=== PATIENT | female | born 1925 | race African-American/Black ===

== ENCOUNTER 2016-11-13 17:04 | Inpatient (IN) ==
[2016-11-13 17:48] LABS: Basophils # 0.1 10*3/uL (0.0-0.2); Basophils % 0.7 % (0.0-0.8); Eosinophils # 0.3 10*3/uL (0.0-0.87); Eosinophils % 2.5 % (0.00-10.9); Hematocrit 36.5 VOL% (35.7-47.0); Hemoglobin 12.2 GM/DL (12.0-16.0); Immature Granulocytes % 0.7 %; Immature Granulocytes Absolute 0.07 #; Lymphocytes # 2.2 10*3/uL (1.4-4.0); Lymphocytes % 21.8 % (21.3-54.2); Mean Corpuscular HGB Conc 33.4 GM/DL (32-36); Mean Corpuscular Hemoglobin 32 PG (27-34); Mean Corpuscular Volume 94.3 FL (87-102); Mean Platelet Volume 10.3 FL (9.6-12.0); Monocytes # 0.7 10*3/uL (0.11-0.8); Monocytes % 7.5 % (1.7-12.7); Neutrophils # 6.6 10*3/uL (1.4-7.4); Neutrophils % 66.8 % (38.7-73.9); Platelet Count 166 T/CUMM (130-400); Red Blood Count 3.87 MC/CUMM (3.8-5.5); Red Cell Distribution Width 13.7 % (9.3-17.3); White Blood Count 9.9 T/CUMM (4-12)
[2016-11-13 18:00] LABS: Amorphous Crystals,Urine Occasional /HPF (Few); Apearance,Urine Slightly Hazy (Clear); Bacteria,Urine Occasional /HPF (Few); Bilirubin,Urine Negative (Negative); Blood, Urine Negative (Negative); Glucose,Urine (UA) Negative (Negative); Hyaline Casts,Urine 5 /LPF (0-3); Ketones,Urine Negative (Negative); Mucus,Urine Occasional /LPF (Occasional); Nitrite,Urine Negative (Negative); Protein,Urine Negative; RBC,Urine <1 /HPF (0-4); Urine Color Yellow (Yellow); Urine Urobilinogen < 2.0 EU/DL (0.2-1.0); WBC,Urine 2 /HPF (0-6)
[2016-11-13 18:07] LABS: Lactic Acid 1.2 MMOL/L (0.4-2.0)
[2016-11-13 18:27] LABS: Blood Urea Nitrogen 16 MG/DL (7-18); Calcium 9.2 MG/DL (8.5-10.1); Glucose 148 MG/DL (74-106); Osmolality,Calculated 282.4 MOS/KG (273-304); Potassium 3.5 MMOL/L (3.5-5.1); Sodium 140 MMOL/L (136-145); Troponin I Only < 0.015 NG/ML (0.00-0.045)
[2016-11-13] MEDS ORDERED: ONDANSETRON 4 MG/2 ML VIAL ONE (18:56)
--- NOTE | 2016-11-13 19:02 | Emergency Department Note ---
Ruperto Mitchell Brittany, am scribing for, and in the presence of, Nacho Enriquez M.D. 17:46. Mina Mitchell Howard T, M.D., personally performed the services described in this documentation, ascribed by Sally Hickey in my presence, and it is both accurate and complete 822 . Arrival - Arrival Chief Complaint: Nausea/Vomiting/Diarrhea ED Nursing Triage Note: Pt brought by EMS from home with c/o sudden onset of nausea and diarrhea with diaphoresis. pt found on the toilet by EMS diaphoretic with HR IN 30'S. 0.5MG ATROPINE given per EMS with increase in HR to 60's. pt c/ o pain to epigastric. 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 Daughter reports that she and patient had dinner as they normally do every evening. She states afterwards patient went to the bathroom with sudden onset of N/V/D. She went in to check on patient and found her on the toilet, diaphoretic and cool. EMS were called thereafter. Upon EMS arrival patient was still diaphoretic with a heart rate in the 30's. Patient was given 0.5 mg Atropine en route to the ED per EMS and had an increase in heart rate to the 60's. In room patient is bradycardic at a rate of 47 bpm. Patient in room complains of epigastric abdominal pain and generalized weakness. She denies having any nausea at current. Daughter reports that patient has had similar episodes of nausea and vomiting in the past, but not this severe. 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 Vergara for this. Daughter reports that just after dinner patient took her normal dose of potassium. Daughter appears to be very fearful about her patient's current condition. No other complaint/pain in the ED at this time. Allergies/Adverse Reactions: Allergies Allergy/AdvReac Type Severity Reaction Status Date / Time losartan Allergy Unknown/Unable Verified 11/13/16 17:20 to obtain Review of System - Review of System 12 point system: reviewed and no additional remarkable complaints except as stated - Review of System Constitutional: Present: chills, diaphoresis, weakness. Absent: fever Eyes: Absent: vision change Head/Ears/Nose/Throat: Absent: nasal drainage, sore throat Respiratory: Absent: respiratory distress Cardiovascular: Absent: chest pain Gastrointestinal: Present: as per HPI, abdominal pain, nausea, vomiting, diarrhea. Absent: constipation Genitourinary female: Absent: dysuria, frequency, urgency Musculoskeletal: Absent: arm pain, back pain, leg pain, neck pain Skin: Absent: rash Neurological: Absent: headache Psychiatric: Absent: anxiety, depression Hematological/Lymphatic: Absent: easy bleeding, easy bruising Medical,Surgical,& Family Hx - Medical History Cardio: History of: Hypertension, Cardiovascular Problems (MURMUR) Endocrine: History of: Diabetes Mellitus (NIDDM) - Surgical History Surgical History: noncontributory - Family History Family History: noncontributory - Social History Smoking Status: Never smoker Frequency of Alcohol Use: None Type of Drug Use: None Exam Vital Signs: Vital Signs Temperature 97.4 F L 11/13/16 17:04 Pulse Rate 50 L 11/13/16 17:46 Respiratory Rate 19 11/13/16 17:46 Blood Pressure 167/72 11/13/16 17:46 O2 Sat by Pulse Oximetry 94 L 11/13/16 17:46 - General General appearance: alert, in no apparent distress - Head Head exam: Present: atraumatic, normocephalic, normal inspection - Eye Eye exam: Present: normal appearance, PERRL, EOMI - ENT ENT exam: Present: normal exam, normal oropharynx, mucous membranes moist - Neck Neck exam: Present: normal inspection, full ROM, trachea midline - Chest Chest inspection: Present: normal inspection, symmetric chest wall rise - Respiratory Respiratory exam: Present: normal lung sounds bilaterally. Absent: rales, rhonchi, wheezes - Cardiovascular Cardiovascular exam: Present: normal rhythm, bradycardia, normal heart sounds. Absent: regular rate - Abdominal Exam Abdominal exam: Present: soft, normal bowel sounds. Absent: distention, tenderness - Extremities Exam Extremities exam: Present: full ROM. Absent: normal inspection (decreased distal pulse noted to LLE most likely secondary to history of arterial blockages ) - Back Exam Back exam: Present: normal inspection - Neurological Exam Neurological exam: Present: alert, oriented X3, CN II-XII intact. Absent: motor sensory deficit - Psychiatric Psychiatric exam: Present: normal affect - Skin Skin exam: Present: warm, dry Course Course Narrative: Medical decision making: Other than some mild nausea and fatigue patient feels comfortable without significant complaints, evaluation so far does not reveal definite acute process however did contact hospitalist for overnight observation and cardiology evaluation as needed. Results - Labs CBC & BMP: 11/13/16 17:40 11/13/16 17:40 Lab Results: I have reviewed the patients labs Labs: Laboratory Tests 11/13/16 17:40 WBC 9.9 RBC 3.87 Hgb 12.2 Hct 36.5 MCV 94.3 MCH 32 MCHC 33.4 RDW 13.7 Plt Count 166 MPV 10.3 Neut % (Auto) 66.8 Lymph % (Auto) 21.8 [place] % (Auto) 7.5 Eos % (Auto) 2.5 Baso % (Auto) 0.7 Neut # (Auto) 6.6 Lymph # (Auto) 2.2 [place] # (Auto) 0.7 Eos # (Auto) 0.3 Baso # (Auto) 0.1 Immature Gran % 0.7 Nucleated RBC % 0.0 Immature Gran # 0.07 Nucleated RBCs # 0.00 Laboratory Tests 11/13/16 11/13/16 17:40 17:48 Lactic Acid 1.2 Urine Color Yellow Urine Appearance Slightly hazy Urine pH 8.0 Ur Specific [place] 1.010 Urine Protein Negative Urine Glucose (UA) Negative Urine Ketones Negative Urine Blood Negative Urine Nitrate Negative Urine Bilirubin Negative Urine Urobilinogen < 2.0 H Urine Leukocytes Negative Urine RBC <1 Urine WBC 2 Amorphous Crystals Occasional Urine Bacteria Occasional Hyaline Casts 5 Urine Mucus Occasional Laboratory Tests 11/13/16 17:40 Sodium 140 Potassium 3.5 Chloride 106 Carbon Dioxide 25 Anion Gap 12.5 BUN 16 Creatinine 1.00 GFR Calculation 59 BUN/Creatinine Ratio 16.00 Glucose 148 H Calculated Osmolality 282.4 Lactic Acid 1.2 Calcium 9.2 Magnesium 2.0 Troponin I < 0.015 - EKG EKG results: interpreted by ERMD, sinus rhythm, normal axis, normal QRS, normal ST/T EKG shows: bradycardia (HR 48) Disposition Clinical Impression: Bradycardia, Nausea & vomiting, Diarrhea Case discussed with: patient, patient's family Disposition: Disch/Xfer-Ipshort Term Hos Condition: Stable Time of Disposition: 19:01
[2016-11-13] MEDS ORDERED: ONDANSETRON 4 MG/2 ML VIAL IV STA (19:06)
[2016-11-13] MEDS ORDERED: PANTOPRAZOLE 40 MG VIAL IV STA (19:37)
--- NOTE | 2016-11-13 19:57 | Hospitalist History & Physical ---
Assessment and Plan (1) Bradycardia Status: Acute Assessment and plan: Admitted patient to a monitored bed with telemetry over the next 24 hours. Will run serial troponins every 4 hours 3 if nothing is happening the patient will be discharged tomorrow however strongly recommended she be seen by her primary care physician after discharge in the coming week. This patient needs to have a cardiology evaluation as an outpatient if nothing else is happening now. History of PAD which is strong indication that there may be coronary artery disease. Current Visit: Yes (2) Diarrhea Status: Acute Assessment and plan: Observe at this point given. In the emergency room this is not appearing to be probably a minimal Current Visit: Yes (3) Nausea & vomiting Status: Acute Assessment and plan: Given antiemetics using Zofran 4 mg IV every 4 hours as needed. Keep with the patient on clear liquid diet. Patient will also be put on Protonix. There is no suggestion of bleeding at this point. Patient can have gastroenterology evaluation as an outpatient to her primary care physician's office. I have reviewed her home medications. This will be resumed. None of them could cause bradycardia. She is also using medication for glaucoma denies any eye pain or headaches at this point. Time for evaluation chart review and decision-making was 35 minutes Current Visit: Yes History of Present Illness Chief complaint: Nausea, vomiting, diaphoresis and generalized weakness History of present illness: Case of this patient has been discussed with the emergency room physician and and all information below has been verified with both the physician and patient's daughter. Ms. 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 Daughter reports that she and patient had dinner as they normally do every evening. She states afterwards patient went to the bathroom with sudden onset of N/V/D. She went in to check on patient and found her on the toilet, diaphoretic and cool. EMS were called thereafter. Upon EMS arrival patient was still diaphoretic with a heart rate in the 30's. Patient was given 0.5 mg Atropine en route to the ED per EMS and had an increase in heart rate to the 60's. In room patient is in normal sinus rhythm at about 61 beats a minute during my assessment. She denies chest pain but complaining of epigastric abdominal pain and generalized weakness. She denies having any nausea at current. Daughter reports that patient has had similar episodes of nausea and vomiting in the past, but not this severe. 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 Vergara for this. According to daughter she has not had any cardiology evaluation. Daughter reports that just after dinner patient took her normal dose of potassium. 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 Allergies Allergy/AdvReac Type Severity Reaction Status Date / Time losartan Allergy Unknown/Unable Verified 11/13/16 17:20 to obtain Medical,Surgical,& Family Hx - Medical History Cardio: History of: Hypertension, PVD, Cardiovascular Problems (MURMUR) Endocrine: History of: Diabetes Mellitus (NIDDM) - Social History Smoking Status: Never smoker Frequency of Alcohol Use: None Type of Drug Use: None - Constitutional Constitutional: Present: fatigue - Cardiovascular Cardiovascular: Present: diaphoresis, other (Bradycardia that has responded to atropine no chest pain reported) - Respiratory Respiratory: Present: other (Unlabored breathing is no signs of air hunger) - Gastrointestinal Gastrointestinal: Present: abdominal pain, loose stools, nausea, vomiting - Genitourinary Genitourinary: Present: other - Neurological Neurological: Present: other (Awake alert oriented 3) Exam - Constitutional Vitals: Period Temp Pulse Resp BP Sys/Guerin Pulse Ox Last 24 Hr 97.4 F-97.4 F 45-59 16-22 162-176/68-74 93-99 General appearance: normal weight - Head Head exam: Present: normocephalic, atraumatic - Eye Eye exam: Present: EOMI, other (Anicteric sclera no conjunctival petechiae) Pupils: Present: TRINIDAD - ENT ENT exam: Present: normal exam - Neck Neck exam: Present: other (Supple neck midline trachea no JVD no adenopathy) - Respiratory Respiratory exam: Present: clear to auscultation bilaterally - Cardiovascular Cardiovascular exam: Present: other (Current heart rate is about 62 beats a minute sinus control but patient reportedly was bradycardic when symptoms started to about 40s per minute EKG has been reviewed his QT prolongation bradycardia occasional APCs no ST elevation or ST depression) - GI/Abdominal GI/Abdominal exam: Present: other (Epigastric discomfort to palpation) - Extremities Exam Extremities exam: Present: other (Distal legs are cool to touch very poor pulses at the posterior tibial and dorsalis pedis) - Back Exam Back exam: Present: normal inspection - Neurological Exam Neurological exam: Present: alert, oriented X3, CN II-XII intact - Psychiatric Psychiatric exam: Present: normal affect, other (Subdued mood) - Skin Skin exam: Present: normal color, dry Results - Labs CBC & BMP: 11/13/16 17:40 11/13/16 17:40 Lab Results: I have reviewed the past 24 hour labs
[2016-11-13] MEDS ORDERED: PANTOPRAZOLE 40 MG VIAL IV ONE (20:24)
[2016-11-13 23:44] LABS: Troponin I Only < 0.015 NG/ML (0.00-0.045)
--- NOTE | 2016-11-14 01:32 | Event Note ---
Emergency call to room 537: Patient's nurse called me to inform me that the patient had a large bloody bowel movement. This patient was admitted area today because while at home she was in the bathroom developed diarrhea and was nauseous and vomiting and complaining of pain in the epigastric area. So will develop significant bradycardia with normal blood pressures. She is complaining of fatigue. She was admitted here this evening because of need to be monitored as regard to her bradycardia that was symptomatic. So happened that while on the floor she had a bowel movement as described above patient did have definite is bleeding in the bowel. Her heart rate now is in the 40s but blood pressure is 159/72. She is able to talk to me but looks sleepy. Examination: General: is arousable awake and able to talk to me. Looks rather sleepy HEENT: Symmetric faces anicteric sclera no conjunctival petechiae Neck: Supple midline trachea no adenopathy no tenderness no JVD Heart: Bradycardia to mid 40s regular rhythm blood pressure is optimal Lungs: Clear to auscultation no rales no wheezing no labored breathing Abdomen: Tender in the epigastrium positive bowel sounds slightly hyperactive Musculoskeletal: Moves freely generalized weakness no focal neurologic deficits Neurologic: Alert oriented 3 optimal cognitive output looks sleepy however. Skin: Warm dry normal turgor Labs ordered include stat H&H then every 12 hours. Type and hold 2 units of packed red cells. Other orders include SCDs for DVT precaution. Protonix 40 mg now IV and then every 12 hours. Transfer the patient to ICU. Consult GI for GI bleed and consult cardiology for bradycardia. We need to put as cutaneous pacing pads only just in case we needed. Consulted physician will have to be informed now. Patient is being admitted to inpatient for me on (she was observation before).
[2016-11-14] MEDS: PANTOPRAZOLE INJ 200 MG in SODIUM CHLORIDE 0.9% 250 ML IV SCH (01:41)
[2016-11-14] MEDS ORDERED: cloNIDine 0.2 MG/24 HR PATCH TRANSDERM SCH (02:00)
[2016-11-14 02:01] LABS: Hematocrit 40.8 VOL% (35.7-47.0); Hemoglobin 13.8 GM/DL (12.0-16.0)
[2016-11-14 02:25] LABS: Troponin I Only < 0.015 NG/ML (0.00-0.045)
[2016-11-14] MEDS: HYDROmorphone 2 MG/1 ML VIAL IV PRN ×3 (05:09→20:25)
[2016-11-14 06:15] LABS: Troponin I Only 0.026 NG/ML (0.00-0.045)
--- NOTE | 2016-11-14 07:56 | Cardiology Consult Note ---
Assessment and Plan (1) PAC (premature atrial contraction) Status: Acute Assessment and plan: Will monitor the patient. Recheck her potassium as well as her thyroid function. Current Visit: Yes (2) Bradycardia Status: Acute Assessment and plan: She has a baseline slow bradycardia. Her PACs or nonconducted exacerbation ventricular bradycardia. We'll evaluate etiology of this. Clonidine though should not be given since this can exacerbate bradycardia. Current Visit: Yes (3) Nausea & vomiting Status: Acute Assessment and plan: This is to be better. She is being followed by the primary service. Current Visit: Yes (4) Diarrhea Status: Acute Assessment and plan: This is being followed by the primary service. Current Visit: Yes (5) Hypertension, uncontrolled Status: Acute Assessment and plan: Duration of her hypertension is unknown. Need to manage this. She is allergic to losartan. Current Visit: Yes History of Present Illness - Data of Consult Patient: new to practice Consult date: 11/14/16 Requesting Physician: Charlie Farah - Consult Narrative Reason for consult: bradycardia History of present illness: Ms. Webster is a 89 year old female who was admitted through the emergency room yesterday with what sounds to be GI complaints of nausea vomiting diarrhea. The patient is a poor historian and her daughters not present to give us some history. 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 She indicates that time she was having shortness of breath may be some chest discomfort but this is not clear. Since admission she continues to have a sinus bradycardia with frequent PACs are not conducted and gives her an effect of slow ventricular response. Her cardiac enzymes of been unremarkable and normal. Her ECG as noted reveals sinus rhythm some bradycardia but no acute ischemic changes. The chart does indicate that she has lower extremity arterial insufficiency followed by Dr. Vergara. I don't see a chest x-ray on the chart. Her lab work is fairly unremarkable with normal CBC. Her chemistry unremarkable with a potassium borderline at 3.5. There is no TSH. As noted her cardiac enzymes are unremarkable. Urinalysis without specific abnormality. No chest x-rays noted in the chart. CC: Arabella Augustine MD - Home Medications and Allergies Home Medications: Home Medications Medication Instructions Recorded Confirmed Type Aspirin [Aspirin EC] 81 mg PO DAILY 11/13/16 11/13/16 History Atorvastatin [Lipitor] 10 mg PO QOTHER DAY 11/13/16 11/13/16 History Carboxymethylcellulose Sodium 1 drops BOTH EYES DAILY 11/13/16 11/13/16 History [Refresh Liquigel] Cholecalciferol (Vitamin D3) 1,000 units PO DAILY 11/13/16 11/13/16 History [Vitamin D3] Dorzolamide/Timolol Oph Soln 1 drop BOTH EYES DAILY 11/13/16 11/13/16 History [Cosopt] NIFEdipine [Nifedipine ER] 60 mg PO DAILY 11/13/16 11/13/16 History Potassium Chloride 20 meq PO DAILY 11/13/16 11/13/16 History Allergies/Adverse Reactions: Allergies Allergy/AdvReac Type Severity Reaction Status Date / Time losartan Allergy Unknown/Unable Verified 11/13/16 17:20 to obtain Review of systems: Constitutional: This is very limited secondary to patient being a poor historian. Complaining of feeling very weak recently. Eyes: Denies visual changes or loss of vision Ears: Denies decreased hearing, vertigo Nose, mouth and throat: Denies dysphagia, epistaxis, headaches, neck pain, tongue swelling, Neck: Denies thyroid disease. Cardiovascular: as per HPI Respiratory: Denies hemoptysis, gives a history of having previous dyspnea on exertion Gastrointestinal: Admitted with nausea vomiting diarrhea. Genitourinary: Denies dysuria, hematuria, nocturia Musculoskeletal: Some arthritis. Neurological: denies stroke or syncope Psychiatric: Unclear Endocrine: Unclear Hematologic/Lymphatic: Denies easy bleeding Dermatologic: Denies Rash, itching, shingles Medical,Surgical,& Family Hx - Medical History Cardio: History of: Hypertension, PVD, Cardiovascular Problems (MURMUR) Endocrine: History of: Diabetes Mellitus (NIDDM) - Family History Family History: Reports;: Family Diabetes (son) - Social History Smoking Status: Never smoker Frequency of Alcohol Use: None Type of Drug Use: None Marital Status: Single (daughter) Lives With:: Children Physical Examination Vital Signs Temp Pulse Resp BP Pulse Ox 97.4 F L 45 L 16 162/70 93 L 11/13/16 17:04 11/13/16 17:04 11/13/16 17:04 11/13/16 17:04 11/13/16 17:04 Other: General appearance: Elderly female who is a poor historian but in no acute distress Head exam: normal inspection, atraumatic Eye exam: Pupils are equal and reactive. EOMI. There is no trauma. Ear exam: Anatomically normal. Normal auditory acuity to conversation. Oral exam: No significant oral lesions. Neck exam: normal inspection no JVD. No carotid bruit. Trachea is in midline. Respiratory exam: clear to auscultation bilaterally anteriorly with good air movement. No rales, rhonchi or wheezes. Cardiovascular exam: Irregular rate and rhythm, no murmur or gallop or rub. No precordial lift. No bruits over the major arteries. Chest wall/torso: Anatomically normal. No tenderness, deformity Peripheral Pulses: 2+ radial pulses in severely diminished foot pulses. GI/Abdominal exam: normal bowel sounds, soft and nontender, no abdominal bruits or pulsatile masses. Musculoskeletal/Extremities exam: without edema or cyanosis. No deformities or trauma. Neurological exam: Awake and alert. Poor historian Psychiatric exam: normal affect, normal mood. Poor historian. Skin exam: normal color, warm. No rashes or other skin lesions. Result/EKG - Labs CBC & BMP: 11/14/16 01:53 11/13/16 17:40 Lab Results: I have reviewed the past 24 hour labs Labs: Laboratory Results - last 24 hr 11/13/16 11/13/16 11/14/16 21:57 22:41 01:53 Hgb Hct POC Glucose 143 H Total Creatine Kinase 113 75 D CK-MB (CK-2) 1.4 1.1 Troponin I < 0.015 < 0.015 Blood Type Antibody Screen 11/14/16 11/14/16 11/14/16 01:53 01:53 05:25 Hgb 13.8 Hct 40.8 POC Glucose Total Creatine Kinase 64 CK-MB (CK-2) 1.3 Troponin I 0.026 Blood Type A POSITIVE Antibody Screen Negative - Impressions Impressions: ECG with sinus bradycardia dating 11/12/2016. The patient on telemetry having frequent PACs motion which are nonconducted with a slow effective ventricular response in the 30s.
--- NOTE | 2016-11-14 08:36 | XRay Report ---
Exam: XR chest 1V portable Date: 11/14/2016 8:06 AM Indication: Bradycardia Comparison: None Technical: AP portable Findings: Oxygen tubing and external cardiac leads and cardiac pad are present. The heart is mildly prominent. No obvious infiltrate or effusion. Mediastinum and bony structures are otherwise intact. Impression: 1. Mild cardiomegaly without decompensation with underlying ASVD. PROCEDURE INTERPRETED AT [facility] DEPARTMENT OF RADIOLOGY Final Report Signed by: Dr. León Hill
[2016-11-14] MEDS: amLODIPine 5 MG TABLET PO SCH (08:39)
[2016-11-14 09:15] LABS: Albumin 3.5 G/DL (3.4-5.0); Calcium 9.1 MG/DL (8.5-10.1); Osmolality,Calculated 284.1 MOS/KG (273-304); Phosphorous 4.7 MG/DL (2.5-4.9); Potassium 3.3 MMOL/L (3.5-5.1)
[2016-11-14 09:19] LABS: Free T4 (Free Thyroxine) 1.27 NG/DL (0.76-1.46); Thyroid Stimulating Hormone 1.05 uIU/ml (0.358-3.74)
--- NOTE | 2016-11-14 09:35 | Event Note ---
Discussed with the daughter who is patient's history. Apparently she did see someone in [place]. The have those records but do not have them available here. We will try to get outside records from Dr. Dixon as well as [facility]. Will also probably need the records that she has on her mother. She will try to bring those.
--- NOTE | 2016-11-14 09:36 | Hospitalist Progress Note ---
Assessment and Plan (1) Bradycardia Status: Acute Current Visit: Yes (2) Nausea & vomiting Status: Acute Current Visit: Yes (3) Diarrhea Status: Acute Current Visit: Yes (4) PAC (premature atrial contraction) Status: Acute Current Visit: Yes (5) Hypertension, uncontrolled Status: Acute Current Visit: Yes Hospitalist: Subjective Interval history: Overnight patient with episode of bloody diarrhea as well as bradycardia. Cardiology assisting. Started on hydralazine and amlodipine for blood pressure control. Patient reports that she feels better this morning, no nausea currently. GI consulted for blood diarrhea. H/H stable, will continue to monitor. Exam - Constitutional Vitals: Period Temp Pulse Resp BP Sys/Guerin Pulse Ox Last 24 Hr 97.7 F-98.7 F 47-78 14-24 146-217/70-99 93-100 General appearance: normal weight - Head Head exam: Present: normocephalic, atraumatic - Eye Eye exam: Present: EOMI Pupils: Present: TRINIDAD - ENT ENT exam: Present: normal exam - Respiratory Respiratory exam: Present: clear to auscultation bilaterally. Absent: rhonchi, wheezes - Cardiovascular Cardiovascular exam: Present: regular rate and rhythm - GI/Abdominal GI/Abdominal exam: Present: normal bowel sounds, soft. Absent: tenderness, rebound - Extremities Exam Extremities exam: Present: normal inspection - Back Exam Back exam: Present: normal inspection - Neurological Exam Neurological exam: Present: alert - Psychiatric Psychiatric exam: Present: normal affect, normal mood - Skin Skin exam: Present: warm, intact Results - Labs CBC & BMP: 11/14/16 01:53 11/14/16 08:21
[2016-11-14 11:12] LABS: Hematocrit 41.7 VOL% (35.7-47.0); Hemoglobin 14.1 GM/DL (12.0-16.0)
[2016-11-14] MEDS ORDERED: DEXTROSE 50% 25 GM/50 ML VIAL IV PRN (11:30)
[2016-11-14] MEDS ORDERED: GLUCAGON 1 MG VIAL IM PRN (11:30)
[2016-11-14] MEDS: ONDANSETRON 4 MG/2 ML VIAL IV PRN (11:57)
--- NOTE | 2016-11-14 12:02 | EKG Report ---
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
--- NOTE | 2016-11-14 12:16 | Gastrointestinal Consult Note ---
Assessment and Plan (1) Hematochezia Status: Acute Assessment and plan: 11/14-2 day history of diarrhea now with sudden onset of hematochezia with general abdominal cramping/pain. Hemoglobin stable at 14.1. Nausea and vomiting with out hematemesis. No known anticoagulants are NSAID use. No known prior history of endoscopy. Check with rash for any prior endoscopy records due to being treated in past for arterial blockages there. Monitor serial H&H. Plan an addendum to followed by Dr. Garcia. Current Visit: Yes History of Present Illness Chief complaint: Bloody diarrhea History of present illness: Ms. Webster is a 89 year old female who was admitted the hospital on 416 with onset of nausea, vomiting, and weakness. Patient is a poor historian at present time and no family is available during visit. Information is obtained from chart review. Patient is said to have had a sudden onset of nausea vomiting diarrhea 2 days ago. There were no reports of coffee-ground are hematemesis on admission. There are no reports of melena or hematochezia prior to admission. She was found on the toilet diaphoretic and cold. EMS was called and transferred her to the hospital. She was found to be bradycardic at that time and was treated with atropine and was in sinus rhythm upon arrival to the hospital. She is reported to have had similar episodes of nausea and vomiting the past but states it was not as severe prior to this admission. 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 Vergara for this at [facility]. The nausea and vomiting have improved since admission however she started sudden onset of bloody diarrhea last night. Patient states she has not had this occur in the past. She also had an episode of green emesis as well during a another bradycardic episode overnight. Patient is also complaining now of some generalized abdominal pain and cramping. Hemoglobin is 14.1. There is no prior endoscopy noted in facility database and patient is unable to recall if she has had endoscopy elsewhere. Home Medications Medication Instructions Recorded Confirmed Type Aspirin [Aspirin EC] 81 mg PO DAILY 11/13/16 11/13/16 History Atorvastatin [Lipitor] 10 mg PO QOTHER DAY 11/13/16 11/13/16 History Carboxymethylcellulose Sodium 1 drops BOTH EYES DAILY 11/13/16 11/13/16 History [Refresh Liquigel] Cholecalciferol (Vitamin D3) 1,000 units PO DAILY 11/13/16 11/13/16 History [Vitamin D3] Dorzolamide/Timolol Oph Soln 1 drop BOTH EYES DAILY 11/13/16 11/13/16 History [Cosopt] NIFEdipine [Nifedipine ER] 60 mg PO DAILY 11/13/16 11/13/16 History Potassium Chloride 20 meq PO DAILY 11/13/16 11/13/16 History Allergies Allergy/AdvReac Type Severity Reaction Status Date / Time losartan Allergy Unknown/Unable Verified 11/13/16 17:20 to obtain Medical,Surgical,& Family Hx - Medical History Cardio: History of: Hypertension, PVD, Cardiovascular Problems (MURMUR) Endocrine: History of: Diabetes Mellitus (NIDDM) - Family History Family History: Reports;: Family Diabetes (son) - Social History Smoking Status: Never smoker Frequency of Alcohol Use: None Type of Drug Use: None 12 point system: reviewed and no additional remarkable complaints except as stated - Constitutional Constitutional: Present: as per HPI - EENT Eyes: Present: as per HPI Ears: Present: as per HPI Nose, mouth and throat: Present: as per HPI - Cardiovascular Cardiovascular: Present: as per HPI - Respiratory Respiratory: Present: as per HPI - Gastrointestinal Gastrointestinal: Present: as per HPI, abdominal pain, cramping, hematochezia, nausea, vomiting - Genitourinary Genitourinary: Present: as per HPI - Musculoskeletal Musculoskeletal: Present: as per HPI - Neurological Neurological: Present: as per HPI - Psychiatric Psychiatric: Present: as per HPI - Endocrine Endocrine: Present: as per HPI - Hematologic/Lymphatic Hematologic/Lymphatic: Present: as per HPI Exam - Constitutional Vitals: Period Temp Pulse Resp BP Sys/Guerin Pulse Ox Last 24 Hr 97.7 F-98.7 F 47-78 14-24 146-217/70-99 93-100 General appearance: normal weight, no acute distress - Head Head exam: Present: normal inspection, normocephalic - Eye Eye exam: Present: other (Lids and conjunctive are unremarkable). Absent: scleral icterus - ENT ENT exam: Present: normal exam, normal oropharynx - Neck Neck exam: Present: normal inspection - Respiratory Respiratory exam: Present: clear to auscultation bilaterally. Absent: rales, rhonchi, wheezes - Cardiovascular Cardiovascular exam: Present: regular rate and rhythm. Absent: diastolic murmur , JVD, systolic murmur - GI/Abdominal GI/Abdominal exam: Present: normal bowel sounds, tenderness, soft. Absent: ascites, distended, mass, organomegaly - Extremities Exam Extremities exam: Present: normal inspection, full ROM - Back Exam Back exam: Present: normal inspection - Neurological Exam Neurological exam: Present: alert, other - Psychiatric Psychiatric exam: Present: other - Skin Skin exam: Present: normal color, warm, dry Results - Labs CBC & BMP: 11/14/16 10:57 11/14/16 08:21 Lab Results: I have reviewed the past 24 hour labs
[2016-11-14] MEDS: INSULIN LISPRO 100 UNIT/ML SUBCUT SCH ×3 (12:30→21:24)
[2016-11-14 12:40] LABS: Hematocrit 38.4 VOL% (35.7-47.0); Hemoglobin 13.4 GM/DL (12.0-16.0)
[2016-11-14 13:15] LABS: Troponin I Only 0.031 NG/ML (0.00-0.045)
--- NOTE | 2016-11-14 21:14 | ECHO Report ---
Lanny Webster Exam Date: 11/14/2016 09:15 Referring Physician: Technologist: Lexie Webb LRYULI Age: 89 Ht (in): 64 Wt (lb): 145 Gender: F Exam Location: [facility] Echo Indications: PAC, Bradycardia, nausea, HTN BP: 214 / 87 HR: 61 Rhythm: Bradycardia Technical Quality: Fair IMPRESSIONS 1. Left ventricle is normal size and systolic function with ejection fraction 55-60%. There is mild concentric left ventricular hypertrophy. Mild diastolic dysfunction. 2. Mild to moderately dilated left atrium. 3. Right-sided chambers are probably normal size. 4. Mitral valve is mildly sclerotic with mild to moderate regurgitation. 5. Aortic valves a sclerotic structure with normal function and no Doppler abnormalities. 6. Mild to moderate tricuspid regurgitation. 7. Probably normal right-sided pressures. MEASUREMENTS (Male / Female) Normal Values 2D ECHO LV Diastolic Diameter PLAX 4.1 cm 4.2 - 5.9 / 3.9 - 5.3 cm LV Systolic Diameter PLAX 2.1 cm LV Fractional Shortening PLAX 48.9 % IVS Diastolic Thickness 1.4 cm 0.6 - 1.0 / 0.6 - 0.9 cm LVPW Diastolic Thickness 1.3 cm 0.6 - 1.0 / 0.6 - 0.9 cm RV Internal Dim ED PLAX 2.9 cm Aortic Root Diameter 2.3 cm LA Systolic Diameter LX 5.0 cm 3.0 - 4.0 / 2.7 - 3.8 cm DOPPLER TR Peak Velocity 242.0 cm/s TR Peak Gradient 23.4 mmHg FINDINGS Left Ventricle Normal left ventricular cavity size and systolic function. Mild concentric left ventricular hypertrophy with at least mild diastolic dysfunction. Left ventricular ejection fraction is estimated at 55-60 %. Right Ventricle Right ventricle is normal size and probably normal systolic function. Right Atrium Normal right atrial size. Left Atrium Moderately increased left atrial size. Mitral Valve Mild mitral valve sclerosis. Mild-moderate mitral valve regurgitation. Aortic Valve Aortic valves a tricuspid structure with minimal sclerosing. It has normal excursion without stenosis or insufficiency. Tricuspid Valve Morphologically normal tricuspid valve. [id number] tricuspid valve regurgitation. Tricuspid regurgitation velocities suggest a PAP 28 to 33 mmHg Pulmonic Valve Morphologically normal pulmonic valve. Pericardium No pericardial effusion. Aorta Normal size aortic root and proximal ascending aorta. Zaki Casanova MD (Electronically Signed) Final Date: 14 November 2016 21:13
[2016-11-14 22:30] LABS: Hematocrit 37.1 VOL% (35.7-47.0); Hemoglobin 12.6 GM/DL (12.0-16.0)
[2016-11-15] MEDS: POTASSIUM CHLORIDE RIDER 10 MEQ in PREMIX 1 EACH IV PRN (00:22)
[2016-11-15] MEDS ORDERED: POTASSIUM CHLORIDE 20 MEQ/15 ML UDCUP PO ONE ×2 (00:44→03:00)
[2016-11-15] MEDS: DILTIAZEM 60 MG TABLET PO SCH ×8 (01:00→21:39)
[2016-11-15] MEDS: PANTOPRAZOLE INJ 200 MG in SODIUM CHLORIDE 0.9% 250 ML IV SCH (03:11)
[2016-11-15 06:12] LABS: Basophils % 0.3 % (0.0-0.8); Hematocrit 37.3 VOL% (35.7-47.0); Hemoglobin 12.9 GM/DL (12.0-16.0); Immature Granulocytes % 0.5 %; Immature Granulocytes Absolute 0.05 #; Lymphocytes # 1.2 10*3/uL (1.4-4.0); Mean Corpuscular HGB Conc 34.6 GM/DL (32-36); Mean Corpuscular Hemoglobin 31 PG (27-34); Mean Corpuscular Volume 90.8 FL (87-102); Mean Platelet Volume 11.1 FL (9.6-12.0); Monocytes % 9.5 % (1.7-12.7); Neutrophils # 8.6 10*3/uL (1.4-7.4); Neutrophils % 78.7 % (38.7-73.9); Platelet Count 194 T/CUMM (130-400); Red Blood Count 4.11 MC/CUMM (3.8-5.5); Red Cell Distribution Width 14.1 % (9.3-17.3); White Blood Count 10.9 T/CUMM (4-12)
[2016-11-15 06:14] LABS: Hematocrit 37.3 VOL% (35.7-47.0); Hemoglobin 12.9 GM/DL (12.0-16.0)
[2016-11-15 06:35] LABS: Albumin 3.4 G/DL (3.4-5.0); Calcium 9.2 MG/DL (8.5-10.1); Magnesium 1.9 MG/DL (1.8-2.4); Osmolality,Calculated 288.1 MOS/KG (273-304); Phosphorous 2.7 MG/DL (2.5-4.9); Potassium 3.6 MMOL/L (3.5-5.1); Potassium 3.7 MMOL/L (3.5-5.1)
[2016-11-15 06:43] LABS: Troponin I Only 0.041 NG/ML (0.00-0.045)
--- NOTE | 2016-11-15 07:52 | Cardiology Progress Note ---
Assessment and Plan (1) PAC (premature atrial contraction) Status: Acute Assessment and plan: Late yesterday this and actually improved but developed A. tach for atrial fibrillation during the night. Current Visit: Yes (2) Bradycardia Status: Acute Assessment and plan: This is resolved at this point. Current Visit: Yes (3) Nausea & vomiting Status: Acute Assessment and plan: This appears to be better followed now by GI medicine and the primary service. Current Visit: Yes (4) Diarrhea Status: Acute Assessment and plan: This is being followed by the primary service. Zaki indications this may be ischemic colitis. Current Visit: Yes (5) Hypertension, uncontrolled Status: Acute Assessment and plan: Duration of her hypertension is unknown. This appears to be a little better and stable. Current Visit: Yes (6) Atrial fibrillation Status: Acute Assessment and plan: She is having some atrial fibrillation that started last night. Rates are stable this morning and having periods of sinus rhythm. Current Visit: Yes (7) Hematochezia Status: Acute Assessment and plan: We need to guaiac her stool to confirm this. May be secondary to ischemic colitis. GI medicine is following. Because of this we need to hold significant anticoagulation even with atrial fibrillation. Current Visit: Yes Cardiology - PN: Subj Interval history: The patient's his chest A generally done fairly well. Her cardiac standpoint she's gone into atrial fibrillation during the night. Watching telemetry at this time after starting oral diltiazem she is having periods of sinus rhythm and then back in for periods of atrial fibrillation. Because of her questions GI bleed we do not want to fully anticoagulate the patient but I think placing her on low-dose Lovenox especially for DVT prophylaxis be appropriate. Her renal function is appropriate. Review the chart and the notes from GI medicine in the consideration of possible ischemic colitis. Echocardiogram from yesterday revealed an ejection fraction of 5560% with mild concentric left ventricular hypertrophy and mild diastolic dysfunction. Her left atrium was mild to moderately dilated with a right-sided changes probably normal size. She mild to moderate mitral regurgitation with other valvular structures be unremarkable. She did have diminished potassium level and this has been replaced. When she did not tolerate IV potassium replacement. She did have some chest pain yesterday that was atypical. Her cardiac enzymes did not reveal any evidence of an ischemic event. Her ECG yesterday did not reveal any acute changes. Need to check an ECG from this morning. From a cardiac standpoint think this patient could probably go upstairs to telemetry or a monitored bed. Exam (Progress Note) - Constitutional Vitals: Period Temp Pulse Resp BP Sys/Guerin Pulse Ox Last 24 Hr 98.2 F-99.1 F 56-143 14-28 92-172/50-84 20-97 Exam: General appearance: Elderly female who is in no acute distress, she is Bill Lanny in today. Head exam: normal inspection, atraumatic Eye exam: Pupils are equal and reactive. EOMI. There is no trauma. Ear exam: Anatomically normal. Normal auditory acuity to conversation. Oral exam: No significant oral lesions. Neck exam: normal inspection no JVD. No carotid bruit. Trachea is in midline. Respiratory exam: clear to auscultation bilaterally anteriorly with good air movement. No rales, rhonchi or wheezes. Cardiovascular exam: Irregular rate and rhythm, no murmur or gallop or rub. No precordial lift. Chest wall/torso: Anatomically normal. No tenderness, deformity Peripheral Pulses: 2+ radial pulses in severely diminished foot pulses. GI/Abdominal exam: normal bowel sounds, soft and nontender. Musculoskeletal/Extremities exam: without edema or cyanosis. No deformities or trauma. Neurological exam: Awake and alert. No focal deficits Psychiatric exam: normal affect, normal mood. Cognitive function appears to be grossly intact. Skin exam: normal color, warm. Result/EKG - Labs CBC & BMP: 11/15/16 05:41 11/15/16 05:41 Lab Results: I have reviewed the past 24 hour labs Labs: Laboratory Results - last 24 hr 11/14/16 11/14/16 11/14/16 10:57 11:46 12:28 WBC RBC Hgb 14.1 13.4 Hct 41.7 38.4 MCV MCH MCHC RDW Plt Count MPV Neut % (Auto) Lymph % (Auto) Adams % (Auto) Eos % (Auto) Baso % (Auto) Neut # (Auto) Lymph # (Auto) Adams # (Auto) Eos # (Auto) Baso # (Auto) Immature Gran % Nucleated RBC % Immature Gran # Nucleated RBCs # Sodium Potassium Chloride Carbon Dioxide Anion Gap BUN Creatinine GFR Calculation BUN/Creatinine Ratio Glucose POC Glucose 104 Calculated Osmolality Calcium Phosphorus Magnesium Total Creatine Kinase CK-MB (CK-2) Troponin I Albumin 11/14/16 11/14/16 11/14/16 12:28 16:12 20:23 WBC RBC Hgb Hct MCV MCH MCHC RDW Plt Count MPV Neut % (Auto) Lymph % (Auto) Adams % (Auto) Eos % (Auto) Baso % (Auto) Neut # (Auto) Lymph # (Auto) Adams # (Auto) Eos # (Auto) Baso # (Auto) Immature Gran % Nucleated RBC % Immature Gran # Nucleated RBCs # Sodium Potassium Chloride Carbon Dioxide Anion Gap BUN Creatinine GFR Calculation BUN/Creatinine Ratio Glucose POC Glucose 103 114 H Calculated Osmolality Calcium Phosphorus Magnesium Total Creatine Kinase 55 CK-MB (CK-2) 1.3 Troponin I 0.031 Albumin 11/14/16 11/15/16 11/15/16 22:00 05:41 05:41 WBC 10.9 RBC 4.11 Hgb 12.6 12.9 Hct 37.1 37.3 MCV 90.8 MCH 31 MCHC 34.6 RDW 14.1 Plt Count 194 MPV 11.1 Neut % (Auto) 78.7 H Lymph % (Auto) 11.0 L Adams % (Auto) 9.5 Eos % (Auto) 0.0 Baso % (Auto) 0.3 Neut # (Auto) 8.6 H Lymph # (Auto) 1.2 L Adams # (Auto) 1.0 H Eos # (Auto) 0.0 Baso # (Auto) 0.0 Immature Gran % 0.5 Nucleated RBC % 0.0 Immature Gran # 0.05 Nucleated RBCs # 0.00 Sodium 142 Potassium 3.6 Chloride 109 H Carbon Dioxide 23 Anion Gap 13.6 BUN 23 H Creatinine 1.00 GFR Calculation 57 BUN/Creatinine Ratio 23.00 H Glucose 126 H POC Glucose Calculated Osmolality 288.1 Calcium 9.2 Phosphorus Magnesium 1.9 Total Creatine Kinase CK-MB (CK-2) Troponin I Albumin 11/15/16 11/15/16 11/15/16 05:41 05:41 05:41 WBC RBC Hgb 12.9 Hct 37.3 MCV MCH MCHC RDW Plt Count MPV Neut % (Auto) Lymph % (Auto) Adams % (Auto) Eos % (Auto) Baso % (Auto) Neut # (Auto) Lymph # (Auto) Adams # (Auto) Eos # (Auto) Baso # (Auto) Immature Gran % Nucleated RBC % Immature Gran # Nucleated RBCs # Sodium 143 Potassium 3.7 Chloride 110 H Carbon Dioxide 22 Anion Gap 14.7 BUN 23 H Creatinine 1.00 GFR Calculation 57 BUN/Creatinine Ratio 23.00 H Glucose 126 H POC Glucose Calculated Osmolality 290.0 Calcium 9.2 Phosphorus 2.7 Magnesium Total Creatine Kinase 92 D CK-MB (CK-2) 2.4 Troponin I 0.041 Albumin 3.4 - Impressions Impressions: ECG pending. Telemetry with atrial fibrillation but has periods of sinus rhythm.
[2016-11-15] MEDS: INSULIN LISPRO 100 UNIT/ML SUBCUT SCH ×4 (08:02→23:06)
--- NOTE | 2016-11-15 08:09 | EKG Report ---
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
--- NOTE | 2016-11-15 08:24 | EKG Report ---
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
[2016-11-15] MEDS: AMIODARONE 200 MG TABLET PO SCH ×2 (09:08→21:33)
[2016-11-15] MEDS: amLODIPine 5 MG TABLET PO SCH (09:09)
[2016-11-15] MEDS: ENOXAPARIN 40 MG/0.4 ML SYRINGE SUBCUT SCH (09:11)
[2016-11-15] MEDS: HYDROmorphone 2 MG/1 ML VIAL IV PRN ×3 (10:28→18:36)
--- NOTE | 2016-11-15 10:50 | Hospitalist Progress Note ---
Assessment and Plan (1) Bradycardia Status: Acute Current Visit: Yes (2) Nausea & vomiting Status: Acute Current Visit: Yes (3) Diarrhea Status: Acute Current Visit: Yes (4) PAC (premature atrial contraction) Status: Acute Current Visit: Yes (5) Hypertension, uncontrolled Status: Acute Current Visit: Yes Hospitalist: Subjective Interval history: Overnight, patient went into atrial fibrillation. She has been started on diltiazem and amiodarone. She is now rate controlled. Holding anti-coagulation given GI bleed. Cardiology managing. Reports that her abdominal pain and nausea are improving. She is hungry and wants to eat. Will start her on a clear diet. H /H has remained stable with no more episodes of bleeding. GI believes this is ischemic colitis, which should improve on its own. Will transfer to the floor today. Exam - Constitutional Vitals: Period Temp Pulse Resp BP Sys/Guerin Pulse Ox Last 24 Hr 98.2 F-99.1 F 56-143 14-28 92-172/50-84 20-97 General appearance: normal weight - Head Head exam: Present: normocephalic, atraumatic - Eye Eye exam: Present: EOMI Pupils: Present: TRINIDAD - ENT ENT exam: Present: normal exam - Neck Neck exam: Present: normal inspection - Respiratory Respiratory exam: Present: clear to auscultation bilaterally. Absent: rhonchi, wheezes - Cardiovascular Cardiovascular exam: Present: regular rate and rhythm - GI/Abdominal GI/Abdominal exam: Present: normal bowel sounds, soft. Absent: tenderness, rebound - Extremities Exam Extremities exam: Present: normal inspection - Back Exam Back exam: Present: normal inspection - Neurological Exam Neurological exam: Present: alert - Psychiatric Psychiatric exam: Present: normal affect, normal mood - Skin Skin exam: Present: warm, intact Results - Labs CBC & BMP: 11/15/16 05:41 11/15/16 05:41
--- NOTE | 2016-11-15 12:44 | Gastrointestinal Progress Note ---
Assessment and Plan (1) Hematochezia Status: Acute Assessment and plan: 11/15-Hgb stable at 12.9, no further bleeding. Continue to monitor at present time. Plan and addendum to follow by Dr Garcia. 11/14-2 day history of diarrhea now with sudden onset of hematochezia with general abdominal cramping/pain. Hemoglobin stable at 14.1. Nausea and vomiting with out hematemesis. No known anticoagulants are NSAID use. No known prior history of endoscopy. Check with rash for any prior endoscopy records due to being treated in past for arterial blockages there. Monitor serial H&H. Plan an addendum to followed by Dr. Garcia. Current Visit: Yes Gastroenterology - PN: Subj Interval history: CC: Hematochezia Pt is seen asleep with family at side. She was complaining of some hip pain and now resting comfortably after anaglesic for this. She has had no further bleeding at this time. She is having no complaints of abdominal pain at present time. Hemoglobin is holding at 12.9 at present. Abdomen is soft, nontender. ROS: Denies SOB or chest pain Exam (Progress Note) - Constitutional Vitals: Period Temp Pulse Resp BP Sys/Guerin Pulse Ox Last 24 Hr 98.2 F-99.1 F 56-143 14-29 92-155/50-84 20-98 - Other Additional findings: General appearance: normal weight, no acute distress - Head Head exam: Present: normal inspection, normocephalic - Eye Eye exam: Present: other (Lids and conjunctive are unremarkable). Absent: scleral icterus - ENT ENT exam: Present: normal exam, normal oropharynx - Neck Neck exam: Present: normal inspection - Respiratory Respiratory exam: Present: clear to auscultation bilaterally. Absent: rales, rhonchi, wheezes - Cardiovascular Cardiovascular exam: Present: regular rate and rhythm. Absent: diastolic murmur , JVD, systolic murmur - GI/Abdominal GI/Abdominal exam: Present: normal bowel sounds, tenderness, soft. Absent: ascites, distended, mass, organomegaly - Extremities Exam Extremities exam: Present: normal inspection, full ROM - Back Exam Back exam: Present: normal inspection - Neurological Exam Neurological exam: Present: alert, other - Psychiatric Psychiatric exam: Present: other - Skin Skin exam: Present: normal color, warm, dry Results - Labs CBC & BMP: 11/15/16 05:41 11/15/16 05:41 Lab Results: I have reviewed the past 24 hour labs
[2016-11-15 13:22] LABS: Hematocrit 37.1 VOL% (35.7-47.0); Hemoglobin 12.7 GM/DL (12.0-16.0)
[2016-11-16] MEDS: DILTIAZEM 60 MG TABLET PO SCH ×5 (02:20→15:22)
[2016-11-16 06:42] LABS: Basophils % 0.4 % (0.0-0.8); Eosinophils # 0.1 10*3/uL (0.0-0.87); Eosinophils % 0.4 % (0.00-10.9); Hematocrit 36.8 VOL% (35.7-47.0); Hemoglobin 12.4 GM/DL (12.0-16.0); Immature Granulocytes % 0.4 %; Immature Granulocytes Absolute 0.04 #; Lymphocytes # 1.8 10*3/uL (1.4-4.0); Mean Corpuscular HGB Conc 33.7 GM/DL (32-36); Mean Corpuscular Hemoglobin 31 PG (27-34); Mean Corpuscular Volume 92.5 FL (87-102); Mean Platelet Volume 10.9 FL (9.6-12.0); Monocytes # 1.3 10*3/uL (0.11-0.8); Monocytes % 11.7 % (1.7-12.7); Neutrophils % 71.1 % (38.7-73.9); Platelet Count 195 T/CUMM (130-400); Red Blood Count 3.98 MC/CUMM (3.8-5.5); Red Cell Distribution Width 14.2 % (9.3-17.3); White Blood Count 11.2 T/CUMM (4-12)
[2016-11-16 07:06] LABS: Calcium 9.6 MG/DL (8.5-10.1); Osmolality,Calculated 287.4 MOS/KG (273-304); Potassium 3.5 MMOL/L (3.5-5.1)
--- NOTE | 2016-11-16 07:54 | EKG Report ---
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
[2016-11-16] MEDS: PANTOPRAZOLE INJ 200 MG in SODIUM CHLORIDE 0.9% 250 ML IV SCH (08:18)
[2016-11-16] MEDS: SODIUM CHLORIDE 0.9% 1,000 ML IV SCH ×2 (08:35→21:33)
[2016-11-16] MEDS: HYDROmorphone 2 MG/1 ML VIAL IV PRN ×2 (08:37→15:44)
[2016-11-16] MEDS: amLODIPine 5 MG TABLET PO SCH (08:38)
[2016-11-16] MEDS: AMIODARONE 200 MG TABLET PO SCH ×2 (08:38→21:34)
[2016-11-16] MEDS: INSULIN LISPRO 100 UNIT/ML SUBCUT SCH ×4 (08:38→21:40)
[2016-11-16] MEDS: ENOXAPARIN 40 MG/0.4 ML SYRINGE SUBCUT SCH (08:38)
--- NOTE | 2016-11-16 09:44 | Gastrointestinal Progress Note ---
Assessment and Plan (1) Hematochezia Status: Acute Assessment and plan: 11/16-no reports of bleeding. Hemoglobin stable at 12.4. Advance to full liquid diet and continue to monitor. Plan an addendum to followed by Dr. Garcia 11/15-Hgb stable at 12.9, no further bleeding. Continue to monitor at present time. Plan and addendum to follow by Dr Garcia. 11/14-2 day history of diarrhea now with sudden onset of hematochezia with general abdominal cramping/pain. Hemoglobin stable at 14.1. Nausea and vomiting with out hematemesis. No known anticoagulants are NSAID use. No known prior history of endoscopy. Check with rash for any prior endoscopy records due to being treated in past for arterial blockages there. Monitor serial H&H. Plan an addendum to followed by Dr. Garcia. Current Visit: Yes Gastroenterology - PN: Subj Interval history: CC: Hematochezia Patient is seen sitting up in bed with family at side. She is more alert today. Daughter states she did have some confusion this morning however this has resolved. She has had no further bleeding since her initial episode on Monday. Her hemoglobin is stable at 12.4. Denies any abdominal pain, nausea or vomiting. Abdomen is soft, nontender. She is tolerating clear liquid diet and states that she is hungry. Will advance this today. ROS: Denies shortness of breath or chest pain Exam (Progress Note) - Constitutional Vitals: Period Temp Pulse Resp BP Sys/Guerin Pulse Ox Last 24 Hr 97.0 F-98.2 F 71-89 14-39 99-148/51-79 91-97 - Other Additional findings: General appearance: normal weight, no acute distress - Head Head exam: Present: normal inspection, normocephalic - Eye Eye exam: Present: other (Lids and conjunctive are unremarkable). Absent: scleral icterus - ENT ENT exam: Present: normal exam, normal oropharynx - Neck Neck exam: Present: normal inspection - Respiratory Respiratory exam: Present: clear to auscultation bilaterally. Absent: rales, rhonchi, wheezes - Cardiovascular Cardiovascular exam: Present: regular rate and rhythm. Absent: diastolic murmur , JVD, systolic murmur - GI/Abdominal GI/Abdominal exam: Present: normal bowel sounds, tenderness, soft. Absent: ascites, distended, mass, organomegaly - Extremities Exam Extremities exam: Present: normal inspection, full ROM - Back Exam Back exam: Present: normal inspection - Neurological Exam Neurological exam: Present: alert, other - Psychiatric Psychiatric exam: Present: other - Skin Skin exam: Present: normal color, warm, dry Results - Labs CBC & BMP: 11/16/16 06:18 11/16/16 06:18 Lab Results: I have reviewed the past 24 hour labs
[2016-11-16] MEDS: INSULIN GLARGINE 100 UNIT/ML SUBCUT SCH (10:30)
--- NOTE | 2016-11-16 14:11 | Hospitalist Progress Note ---
<Severo Onofre - Last Filed: 11/16/16 14:21> Assessment and Plan (1) HAL (acute kidney injury) Status: Acute Assessment and plan: This may be related to volume depletion; will start fluids and re-check labs in AM. Current Visit: Yes (2) Bradycardia Status: Acute Assessment and plan: No further episodes of symptomatic bradycardia noted; will continue to monitor. Current Visit: Yes (3) Hematochezia Status: Acute Current Visit: Yes (4) Atrial fibrillation Status: Acute Assessment and plan: Rate is relatively controlled. Currently on Lovenox for anticoagulation. Could not fully anticoagulate at the time of admission due to active bleeding at the time of admission. May start anticoagulation agent on or sooner; if okay with GI and cardiology. Current Visit: Yes Hospitalist: Subjective Interval history: Patient seen and evaluated. No further episodes of hematochezia noted. No episodes of symptomatic bradycardia. BUN and creatinine elevated today at 34/ 1.70. Exam - Constitutional Vitals: Period Temp Pulse Resp BP Sys/Guerin Pulse Ox Last 24 Hr 97.0 F-97.6 F 66-105 14-20 112-148/53-79 91-99 General appearance: normal weight, no acute distress - Head Head exam: Present: normal inspection, normocephalic, atraumatic - Eye Eye exam: Present: EOMI. Absent: conjunctival injection, nystagmus Pupils: Present: TRINIDAD, normal accommodation - ENT ENT exam: Present: normal exam, normal external ear exam, normal oropharynx - Neck Neck exam: Present: normal inspection. Absent: lymphadenopathy, meningismus, tenderness, thyromegaly - Respiratory Respiratory exam: Present: clear to auscultation bilaterally. Absent: rales, rhonchi, stridor, wheezes - Cardiovascular Cardiovascular exam: Present: irregular rhythm. Absent: carotid bruit, diastolic murmur, gallop, rubs, systolic murmur - GI/Abdominal GI/Abdominal exam: Present: normal bowel sounds, soft. Absent: firm, guarding, tenderness - Extremities Exam Extremities exam: Present: normal inspection, full ROM. Absent: edema - Back Exam Back exam: Present: normal inspection - Neurological Exam Neurological exam: Present: alert, oriented X3 - Psychiatric Psychiatric exam: Present: normal affect, normal mood - Skin Skin exam: Present: normal color, warm, dry Results - Labs CBC & BMP: 11/16/16 06:18 11/16/16 06:18 Lab Results: I have reviewed the past 24 hour labs Quality Measures - VTE Deep Vein Thrombosis/Pulmonary Embolism Present on Admission: No Contraindication No Overlap Therapy: Active Bleeding <Arabella Augustine - Last Filed: 11/16/16 16:20> Assessment and Plan (1) Bradycardia Status: Acute Current Visit: Yes (2) Nausea & vomiting Status: Acute Current Visit: Yes (3) Diarrhea Status: Acute Current Visit: Yes (4) PAC (premature atrial contraction) Status: Acute Current Visit: Yes (5) Hypertension, uncontrolled Status: Chronic Current Visit: Yes Hospitalist: Subjective Interval history: Patient seen and examined along with LUCITA Onofre, agree with assessment and plan as documented. Advance diet. No more abdominal pain or nausea. Cardiology assisting with bradycardia and tachycardia. Exam - Constitutional Vitals: Period Temp Pulse Resp BP Sys/Guerin Pulse Ox Last 24 Hr 97.0 F-97.6 F 66-105 17-20 134-148/63-79 91-99 Results - Labs CBC & BMP: 11/16/16 06:18 11/16/16 06:18
--- NOTE | 2016-11-16 17:42 | Cardiology Progress Note ---
I, Sury Sheikh RN, am scribing for, and in the presence of, Prince Medellin MD 17:42. Assessment and Plan (1) Atrial fibrillation Status: Acute Assessment and plan: I have examined and interviewed Mrs. Webster. 1. Mrs. Webster recently transferred from the unit, from a cardiac standpoint her hypertension is under reasonable control, and her new onset atrial fibrillation persists with controlled rate 2. Change diltiazem to Toprol 50 mg twice a day, and continue amiodarone for milligrams twice a day to promote sinus mechanism for now; watch for bradycardia 3. Continuing low-dose Lovenox rather than full anticoagulation given her hematochezia and reported hematemesis 4. Given she has possible ischemic colitis, would add Crestor 20 mg daily 5. Her daughter reports DVT about 5 months ago in [place], that she has been on aspirin daily at home 6. 60% ejection fraction noted 7. 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 Webster was admitted 11/14/16 with nausea, vomiting, and diarrhea. After admission she continued to have sinus bradycardia with frequent PACs. EKGs were unremarkable for acute ischemic changes. Since admission she has had some bloody diarrhea as well as episodes of atrial fibrillation. Ms. Webster was seen resting in bed this morning in no acute distress. She tells me she does not feel well because she is so tired this morning. She denies any chest pain, shortness of breath, palpitations, or dizziness. Her daughter is at bedside and states she has been complaining of pain from her hips down to her feet. She states this is a chronic pain for her, but that it has been worse when she has been in the hospital. EKG done this morning showed atrial fibrillation with heart rate of 80. Telemetry monitoring currently shows atrial fibrillation with heart rates in the 80s. She is on amiodarone 400 mg p.o. twice daily. It was decided not to fully anticoagulate her because of questionable GI bleed. She is on Lovenox 40 mg subcu daily. Her creatinine was 1.0 on admission, it has bumped up to 1.7 today. Exam (Progress Note) - Constitutional Vitals: Period Temp Pulse Resp BP Sys/Guerin Pulse Ox Last 24 Hr 97.0 F-98.2 F 71-89 14-39 99-148/52-79 91-97 General appearance: no acute distress - Head Head exam: Absent: abrasion, hematoma - Respiratory Respiratory exam: Present: clear to auscultation bilaterally, other (Via nasal cannula). Absent: accessory muscle use, chest wall tenderness - Cardiovascular Cardiovascular exam: Present: irregular rhythm - GI/Abdominal GI/Abdominal exam: Present: normal bowel sounds, soft. Absent: distended, tenderness - Extremities Exam Extremities exam: Absent: edema - Neurological Exam Neurological exam: Present: alert, oriented X3 - Psychiatric Psychiatric exam: Present: normal affect, normal mood - Skin Skin exam: Present: warm, dry Result/EKG - Labs CBC & BMP: 11/16/16 06:18 11/16/16 06:18 Lab Results: I have reviewed the past 24 hour labs Labs: Laboratory Results - last 24 hr 11/15/16 11/15/16 11/15/16 11:04 12:48 17:51 WBC RBC Hgb 12.7 Hct 37.1 MCV MCH MCHC RDW Plt Count MPV Neut % (Auto) Lymph % (Auto) Kings % (Auto) Eos % (Auto) Baso % (Auto) Neut # (Auto) Lymph # (Auto) [place] # (Auto) Eos # (Auto) Baso # (Auto) Immature Gran % Nucleated RBC % Immature Gran # Nucleated RBCs # Sodium Potassium Chloride Carbon Dioxide Anion Gap BUN Creatinine GFR Calculation BUN/Creatinine Ratio Glucose POC Glucose 118 H 156 H Calculated Osmolality Calcium Magnesium 11/15/16 11/16/16 11/16/16 20:31 06:18 06:18 WBC 11.2 RBC 3.98 Hgb 12.4 Hct 36.8 MCV 92.5 MCH 31 MCHC 33.7 RDW 14.2 Plt Count 195 MPV 10.9 Neut % (Auto) 71.1 Lymph % (Auto) 16.0 L Kings % (Auto) 11.7 Eos % (Auto) 0.4 Baso % (Auto) 0.4 Neut # (Auto) 8.0 H Lymph # (Auto) 1.8 Kings # (Auto) 1.3 H Eos # (Auto) 0.1 Baso # (Auto) 0.0 Immature Gran % 0.4 Nucleated RBC % 0.0 Immature Gran # 0.04 Nucleated RBCs # 0.00 Sodium 140 Potassium 3.5 Chloride 106 Carbon Dioxide 23 Anion Gap 14.5 BUN 34 H Creatinine 1.70 H GFR Calculation 31 BUN/Creatinine Ratio 20.00 Glucose 118 H POC Glucose 164 H Calculated Osmolality 287.4 Calcium 9.6 Magnesium 2.0 11/16/16 07:57 WBC RBC Hgb Hct MCV MCH MCHC RDW Plt Count MPV Neut % (Auto) Lymph % (Auto) Kings % (Auto) Eos % (Auto) Baso % (Auto) Neut # (Auto) Lymph # (Auto) [place] # (Auto) Eos # (Auto) Baso # (Auto) Immature Gran % Nucleated RBC % Immature Gran # Nucleated RBCs # Sodium Potassium Chloride Carbon Dioxide Anion Gap BUN Creatinine GFR Calculation BUN/Creatinine Ratio Glucose POC Glucose 197 H Calculated Osmolality Calcium Magnesium - EKG EKG results: interpreted by me EKG shows: atrial fibrillation Lacie Mitchell Randall Scott, MD, personally performed the services described in this documentation, ascribed by Sury Sheikh RN in my presence, and it is both accurate and complete 742 .
[2016-11-16] MEDS: METOPROLOL SUCCINATE XL 50 MG TABLET PO SCH (21:34)
[2016-11-16] MEDS: ROSUVASTATIN 20 MG TABLET PO SCH (21:35)
[2016-11-17 04:54] LABS: Basophils % 0.3 % (0.0-0.8); Eosinophils # 0.1 10*3/uL (0.0-0.87); Eosinophils % 0.7 % (0.00-10.9); Hemoglobin 12.2 GM/DL (12.0-16.0); Immature Granulocytes % 0.6 %; Immature Granulocytes Absolute 0.07 #; Lymphocytes # 1.6 10*3/uL (1.4-4.0); Lymphocytes % 13.3 % (21.3-54.2); Mean Corpuscular HGB Conc 33.9 GM/DL (32-36); Mean Corpuscular Hemoglobin 31 PG (27-34); Mean Corpuscular Volume 92.5 FL (87-102); Mean Platelet Volume 11.8 FL (9.6-12.0); Monocytes # 1.5 10*3/uL (0.11-0.8); Monocytes % 12.4 % (1.7-12.7); Neutrophils # 8.7 10*3/uL (1.4-7.4); Neutrophils % 72.7 % (38.7-73.9); Platelet Count 132 T/CUMM (130-400); Red Blood Count 3.89 MC/CUMM (3.8-5.5)
[2016-11-17 05:15] LABS: Calcium 8.6 MG/DL (8.5-10.1); Magnesium 1.7 MG/DL (1.8-2.4); Osmolality,Calculated 279.7 MOS/KG (273-304); Potassium 3.5 MMOL/L (3.5-5.1)
[2016-11-17 05:18] LABS: Albumin 2.9 G/DL (3.4-5.0); Bilirubin,Total 0.6 MG/DL (0.2-1.0); Calcium 8.8 MG/DL (8.5-10.1); Osmolality,Calculated 279.7 MOS/KG (273-304); Phosphorous 2.8 MG/DL (2.5-4.9); Potassium 3.5 MMOL/L (3.5-5.1); Total Protein 6.1 G/DL (6.4-8.3)
[2016-11-17 06:02] LABS: Burr Cells Slight; Eosinophils 1 % (0-10); Hypochromasia 1+; Lymphocytes 7 % (20-55); Ovalocytes Slight; Platelet Estimate Normal; Segmented Neutrophils 75 % (50-85); Total Cells Counted 100
[2016-11-17] MEDS: INSULIN LISPRO 100 UNIT/ML SUBCUT SCH ×4 (08:29→22:12)
[2016-11-17] MEDS: SODIUM CHLORIDE 0.9% 1,000 ML IV SCH ×2 (08:29→14:41)
--- NOTE | 2016-11-17 09:12 | Hospitalist Progress Note ---
<Severo Onofre - Last Filed: 11/17/16 09:09> Assessment and Plan (1) HAL (acute kidney injury) Status: Acute Assessment and plan: Renal function has improved; BUN 24, Creatinine 1.10 today. Current Visit: Yes (2) Bradycardia Status: Acute Assessment and plan: No further episodes of symptomatic bradycardia noted; will continue to monitor. Current Visit: Yes (3) Hematochezia Status: Acute Current Visit: Yes (4) Atrial fibrillation Status: Acute Assessment and plan: Rate is relatively controlled. Currently on Lovenox for anticoagulation. Could not fully coagulate at the time of admission due to active bleeding at the time of admission. May start anticoagulation agent on or sooner; if okay with GI and cardiology. Current Visit: Yes Hospitalist: Subjective Interval history: Patient seen and examined. No acute overnight events. Patient reports insomnia. Magnesium 1.4; will replace today. Will consult PT/OT to evaluate and treat. Exam - Constitutional Vitals: Period Temp Pulse Resp BP Sys/Guerin Pulse Ox Last 24 Hr 96.5 F-99.0 F 79-112 18-18 139-168/74-82 93-97 General appearance: normal weight, no acute distress - Head Head exam: Present: normal inspection, normocephalic - Eye Eye exam: Present: EOMI, conjunctival injection Pupils: Present: TRINIDAD, normal accommodation - ENT ENT exam: Present: normal exam, normal external ear exam, normal oropharynx - Neck Neck exam: Present: normal inspection. Absent: lymphadenopathy, meningismus, tenderness, thyromegaly - Respiratory Respiratory exam: Present: clear to auscultation bilaterally. Absent: rales, rhonchi, stridor, wheezes - Cardiovascular Cardiovascular exam: Present: irregular rhythm. Absent: carotid bruit, diastolic murmur, gallop, JVD, rubs, systolic murmur - GI/Abdominal GI/Abdominal exam: Present: normal bowel sounds, soft. Absent: distended, firm , tenderness - Extremities Exam Extremities exam: Present: normal inspection, full ROM. Absent: normal capillary refill - Back Exam Back exam: Present: normal inspection - Neurological Exam Neurological exam: Present: alert, oriented X3, CN II-XII intact - Psychiatric Psychiatric exam: Present: normal affect, normal mood - Skin Skin exam: Present: normal color, warm, dry Results - Labs CBC & BMP: 11/17/16 04:22 11/17/16 04:22 Lab Results: I have reviewed the past 24 hour labs Quality Measures - VTE Deep Vein Thrombosis/Pulmonary Embolism Present on Admission: No Contraindication No Overlap Therapy: Active Bleeding Specialty Discharge - Follow Up or Referrals Follow up with: Prince Medellin MD [Physician] - 2 Weeks (With EKG FLP CMP CBC) <Arabella Augustine - Last Filed: 11/17/16 14:35> Assessment and Plan (1) Bradycardia Status: Acute Current Visit: Yes (2) Nausea & vomiting Status: Acute Current Visit: Yes (3) Diarrhea Status: Acute Current Visit: Yes (4) PAC (premature atrial contraction) Status: Acute Current Visit: Yes (5) Hypertension, uncontrolled Status: Chronic Current Visit: Yes Hospitalist: Subjective Interval history: Patient seen and examined along with LUCITA Onofre. Agree with physical therapy. Cardiology ok with discharge. If patient able to get around, will discharge. Exam - Constitutional Vitals: Period Temp Pulse Resp BP Sys/Guerin Pulse Ox Last 24 Hr 96.5 F-99.6 F 73-112 16-18 113-168/56-82 93-97 Results - Labs CBC & BMP: 11/17/16 04:22 11/17/16 04:22
[2016-11-17] MEDS: amLODIPine 5 MG TABLET PO SCH (09:18)
[2016-11-17] MEDS: PANTOPRAZOLE 40 MG VIAL IV SCH ×2 (09:19→22:29)
[2016-11-17] MEDS: HYDROmorphone 2 MG/1 ML VIAL IV PRN ×3 (09:19→22:23)
[2016-11-17] MEDS: METOPROLOL SUCCINATE XL 50 MG TABLET PO SCH ×2 (09:20→22:22)
[2016-11-17] MEDS: ENOXAPARIN 40 MG/0.4 ML SYRINGE SUBCUT SCH (09:20)
[2016-11-17] MEDS: AMIODARONE 200 MG TABLET PO SCH ×2 (09:21→22:22)
[2016-11-17] MEDS: INSULIN GLARGINE 100 UNIT/ML SUBCUT SCH (09:21)
--- NOTE | 2016-11-17 14:17 | Cardiology Progress Note ---
Assessment and Plan (1) Atrial fibrillation Status: Acute Assessment and plan: I have examined and interviewed Mrs. Webster. 1. Mrs. Webster recently transferred from the unit, from a cardiac standpoint her hypertension is under reasonable control, and her new onset atrial fibrillation persists with controlled rate 2. Change diltiazem to Toprol 50 mg twice a day, and continue amiodarone for milligrams twice a day to promote sinus mechanism for now; watch for bradycardia 3. Continuing low-dose Lovenox rather than full anticoagulation given her hematochezia and reported hematemesis 4. Given she has possible ischemic colitis, would add Crestor 20 mg daily 5. Her daughter reports DVT about 5 months ago in [place], that she has been on aspirin daily at home 6. 60% ejection fraction noted 7. We'll continue to follow with you November 17 update: 1. Tolerating Toprol with controlled rate, but continues to be nature fibrillation 2. Would not anticoagulation given her recent hematochezia ("bright red blood times one"), with presumed ischemic colitis 3. Will continue amiodarone at 200 mg twice a day as well as Toprol 50 mg twice a day 4. 60% ejection fraction 5. She can be discharged from a cardiac standpoint, and anticoagulation could be considered at follow-up. 6. We'll sign off; please call if needed prior to discharge. Current Visit: Yes (2) Bradycardia Status: Acute Current Visit: Yes (3) Hypertension, uncontrolled Status: Chronic Current Visit: Yes (4) PAC (premature atrial contraction) Status: Acute Current Visit: Yes Cardiology - PN: Subj Interval history: This letter is been sleeping much today, reportedly hasn't allotted for pain earlier. She has no complaints when she wakes up. She denies shortness of breath or chest pain. She denies abdominal pain. Her daughter said she checked her [place] records and she has no history of any cardiac problems. Exam (Progress Note) - Constitutional Vitals: Period Temp Pulse Resp BP Sys/Guerin Pulse Ox Last 24 Hr 96.5 F-99.6 F 73-112 16-18 113-168/56-82 93-97 General appearance: no acute distress, over weight - Neck Neck exam: Present: normal inspection - Respiratory Respiratory exam: Absent: rhonchi, stridor, wheezes - Cardiovascular Cardiovascular exam: Present: irregular rhythm. Absent: diastolic murmur, rubs , tachycardia - GI/Abdominal GI/Abdominal exam: Present: soft. Absent: tenderness - Extremities Exam Extremities exam: Absent: edema Result/EKG - Labs CBC & BMP: 11/17/16 04:22 11/17/16 04:22 Labs: Laboratory Results - last 24 hr 11/16/16 11/16/16 11/17/16 15:31 19:08 04:22 WBC RBC Hgb Hct MCV MCH MCHC RDW Plt Count MPV Neut % (Auto) Lymph % (Auto) [place] % (Auto) Eos % (Auto) Baso % (Auto) Neut # (Auto) Lymph # (Auto) [place] # (Auto) Eos # (Auto) Baso # (Auto) Total Counted Immature Gran % Nucleated RBC % Immature Gran # Segmented Neutrophils Lymphocytes Monocytes Eosinophils Nucleated RBCs # Platelet Estimate Hypochromasia Ovalocytes Kim Cells Morphology Comment Sodium 138 Potassium 3.5 Chloride 107 Carbon Dioxide 20 L Anion Gap 14.5 BUN 24 H D Creatinine 1.10 H GFR Calculation 52 BUN/Creatinine Ratio 21.00 H Glucose 115 H POC Glucose 147 H 171 H Calculated Osmolality 279.7 Calcium 8.6 Phosphorus Magnesium 1.7 L Total Bilirubin AST ALT Alkaline Phosphatase Total Protein Albumin Globulin Albumin/Globulin Ratio 11/17/16 11/17/16 11/17/16 04:22 04:22 08:03 WBC 12.0 RBC 3.89 Hgb 12.2 Hct 36.0 MCV 92.5 MCH 31 MCHC 33.9 RDW 14.0 Plt Count 132 D MPV 11.8 Neut % (Auto) 72.7 Lymph % (Auto) 13.3 L [place] % (Auto) 12.4 Eos % (Auto) 0.7 Baso % (Auto) 0.3 Neut # (Auto) 8.7 H Lymph # (Auto) 1.6 [place] # (Auto) 1.5 H Eos # (Auto) 0.1 Baso # (Auto) 0.0 Total Counted 100 Immature Gran % 0.6 Nucleated RBC % 0.0 Immature Gran # 0.07 Segmented Neutrophils 75 Lymphocytes 7 L Monocytes 17 H Eosinophils 1 Nucleated RBCs # 0.00 Platelet Estimate Normal Hypochromasia 1+ Ovalocytes Slight [place] Cells Slight Morphology Comment Sodium 138 Potassium 3.5 Chloride 108 H Carbon Dioxide 19 L Anion Gap 14.5 BUN 24 H Creatinine 1.10 H GFR Calculation 52 BUN/Creatinine Ratio 21.00 H Glucose 119 H POC Glucose 118 H Calculated Osmolality 279.7 Calcium 8.8 Phosphorus 2.8 Magnesium Total Bilirubin 0.60 AST 42 H ALT 18 Alkaline Phosphatase 65 Total Protein 6.1 L Albumin 2.9 L Globulin 3.2 Albumin/Globulin Ratio 0.9 L 11/17/16 11:36 WBC RBC Hgb Hct MCV MCH MCHC RDW Plt Count MPV Neut % (Auto) Lymph % (Auto) [place] % (Auto) Eos % (Auto) Baso % (Auto) Neut # (Auto) Lymph # (Auto) [place] # (Auto) Eos # (Auto) Baso # (Auto) Total Counted Immature Gran % Nucleated RBC % Immature Gran # Segmented Neutrophils Lymphocytes Monocytes Eosinophils Nucleated RBCs # Platelet Estimate Hypochromasia Ovalocytes Kim Cells Morphology Comment Sodium Potassium Chloride Carbon Dioxide Anion Gap BUN Creatinine GFR Calculation BUN/Creatinine Ratio Glucose POC Glucose 164 H Calculated Osmolality Calcium Phosphorus Magnesium Total Bilirubin AST ALT Alkaline Phosphatase Total Protein Albumin Globulin Albumin/Globulin Ratio Quality Measures - VTE Deep Vein Thrombosis/Pulmonary Embolism Present on Admission: No Contraindication No Overlap Therapy: Active Bleeding Specialty Discharge - Follow Up or Referrals Follow up with: Prince Medellin MD [Physician] - 2 Weeks (With EKG FLP CMP CBC)
--- NOTE | 2016-11-17 17:00 | Ultrasound Report ---
Exam: Bilateral lower extremity venous Doppler ultrasound Comparison: None Clinical history: Leg pain Technique: Duplex scan of the lower extremity veins using B-mode/grayscale scaled imaging and Doppler spectral analysis and color flow. Findings: Major venous structures of the lower extremities demonstrate a normal course and caliber. Normal color-flow study and spectral analysis. There is normal compression and augmentation of bilateral common femoral, superficial femoral and popliteal veins. The proximal bilateral greater saphenous veins appear to be patent. Impression: No evidence to suggest deep venous thrombosis within either lower extremity. Ultrasound images were captured and stored. PROCEDURE INTERPRETED AT [facility] DEPARTMENT OF RADIOLOGY Final Report Signed by: Dr. Sahra Miller
[2016-11-17] MEDS: ROSUVASTATIN 20 MG TABLET PO SCH (22:22)
[2016-11-18] MEDS: SODIUM CHLORIDE 0.9% 1,000 ML IV SCH ×2 (01:54→11:33)
[2016-11-18 03:42] LABS: Basophils % 0.2 % (0.0-0.8); Eosinophils # 0.1 10*3/uL (0.0-0.87); Eosinophils % 0.5 % (0.00-10.9); Hematocrit 32.1 VOL% (35.7-47.0); Hemoglobin 10.9 GM/DL (12.0-16.0); Immature Granulocytes % 0.5 %; Immature Granulocytes Absolute 0.06 #; Lymphocytes # 1.9 10*3/uL (1.4-4.0); Lymphocytes % 15.5 % (21.3-54.2); Mean Corpuscular Hemoglobin 32 PG (27-34); Mean Corpuscular Volume 92.8 FL (87-102); Mean Platelet Volume 11.1 FL (9.6-12.0); Monocytes # 1.8 10*3/uL (0.11-0.8); Monocytes % 14.5 % (1.7-12.7); Neutrophils # 8.3 10*3/uL (1.4-7.4); Neutrophils % 68.8 % (38.7-73.9); Platelet Count 183 T/CUMM (130-400); Red Blood Count 3.46 MC/CUMM (3.8-5.5); Red Cell Distribution Width 13.9 % (9.3-17.3); White Blood Count 12.1 T/CUMM (4-12)
[2016-11-18 04:13] LABS: Calcium 8.4 MG/DL (8.5-10.1); Magnesium 1.6 MG/DL (1.8-2.4); Osmolality,Calculated 279.5 MOS/KG (273-304); Potassium 3.6 MMOL/L (3.5-5.1)
[2016-11-18 04:18] LABS: Albumin 2.6 G/DL (3.4-5.0); Bilirubin,Total 1.2 MG/DL (0.2-1.0); Calcium 8.5 MG/DL (8.5-10.1); Osmolality,Calculated 278.5 MOS/KG (273-304); Phosphorous 2.6 MG/DL (2.5-4.9); Potassium 3.5 MMOL/L (3.5-5.1); Total Protein 5.2 G/DL (6.4-8.3)
[2016-11-18] MEDS: INSULIN LISPRO 100 UNIT/ML SUBCUT SCH ×4 (09:14→22:28)
[2016-11-18] MEDS: amLODIPine 5 MG TABLET PO SCH (09:16)
[2016-11-18] MEDS: AMIODARONE 200 MG TABLET PO SCH ×2 (09:16→21:27)
[2016-11-18] MEDS: METOPROLOL SUCCINATE XL 50 MG TABLET PO SCH ×2 (09:16→21:29)
[2016-11-18] MEDS: PANTOPRAZOLE 40 MG VIAL IV SCH ×2 (09:17→21:27)
[2016-11-18] MEDS: ENOXAPARIN 40 MG/0.4 ML SYRINGE SUBCUT SCH (09:17)
[2016-11-18] MEDS: INSULIN GLARGINE 100 UNIT/ML SUBCUT SCH (09:17)
[2016-11-18] MEDS ORDERED: TUBERCULIN SKIN TEST 0.1 ML SYRINGE INTRADERM ONE (11:13)
[2016-11-18] MEDS ORDERED: MAGNESIUM SULF RIDER 4 GM in PREMIX 1 EACH IV PRN (12:06)
--- NOTE | 2016-11-18 12:09 | Hospitalist Progress Note ---
<Severo Onofre - Last Filed: 11/18/16 12:13> Assessment and Plan (1) HAL (acute kidney injury) Status: Acute Assessment and plan: Renal function has improved; BUN 24, Creatinine 1.10 today. 11/18-Renal function stable at 16/0.90. Current Visit: Yes (2) Bradycardia Status: Acute Assessment and plan: No further episodes of symptomatic bradycardia noted; will continue to monitor. Current Visit: Yes (3) Hematochezia Status: Acute Current Visit: Yes (4) Atrial fibrillation Status: Acute Assessment and plan: 11/17-Rate is relatively controlled. Currently on Lovenox for anticoagulation. Could not fully coagulate at the time of admission due to active bleeding at the time of admission. May start anticoagulation agent on or sooner; if okay with GI and cardiology. 11/18-Continue Lovenox per Cardiology recommendation. Continue Toprol and Amiodarone as previously ordered. Cardiology suggests that full anticoagulation be started at this time because of recent hematochezia. Current Visit: Yes Hospitalist: Subjective Interval history: Patient seen and evaluated; no significant overnight events reported. Magnesium level 1.6 today; will re-place. Will consult social service for rehab/swing bed placement. Exam - Constitutional Vitals: Period Temp Pulse Resp BP Sys/Guerin Pulse Ox Last 24 Hr 97 F-99.6 F 73-97 16-20 113-158/56-75 94-99 General appearance: normal weight, no acute distress - Head Head exam: Present: normal inspection, normocephalic, atraumatic - Eye Eye exam: Present: EOMI, conjunctival injection Pupils: Present: TRINIDAD, normal accommodation - ENT ENT exam: Present: normal exam, normal external ear exam, normal oropharynx - Neck Neck exam: Present: normal inspection. Absent: lymphadenopathy, meningismus, tenderness, thyromegaly - Respiratory Respiratory exam: Present: clear to auscultation bilaterally. Absent: rales, rhonchi, stridor, wheezes - Cardiovascular Cardiovascular exam: Present: irregular rhythm (Atrial fibrilliation). Absent: carotid bruit, diastolic murmur, gallop, JVD, rubs, systolic murmur - GI/Abdominal GI/Abdominal exam: Present: normal bowel sounds, hyperactive bowel sounds, soft. Absent: ascites, mass - Extremities Exam Extremities exam: Present: normal inspection, normal capillary refill, full ROM. Absent: edema - Back Exam Back exam: Present: normal inspection - Neurological Exam Neurological exam: Present: alert, oriented X3, CN II-XII intact, other ( generalized weakness) - Psychiatric Psychiatric exam: Present: normal affect, normal mood Results - Labs CBC & BMP: 11/18/16 03:12 11/18/16 03:12 Lab Results: I have reviewed the past 24 hour labs Quality Measures - VTE Deep Vein Thrombosis/Pulmonary Embolism Present on Admission: No Contraindication No Overlap Therapy: Active Bleeding Specialty Discharge - Follow Up or Referrals Follow up with: Prince Medellin MD [Physician] - 2 Weeks (With EKG FLP CMP CBC) <Mickey Narayan - Last Filed: 11/18/16 13:07> Hospitalist: Subjective Interval history: 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 Much improved based on review of records from cardiac and GI standpoint. No GI bleed and anticoagulation not to be initiated because of ischemic colitis However, he is very weak and very deconditioned follow this acute illness. PT and occupational therapy have recommended swing bed. Placement arrangement has been started by case management. Exam - Constitutional Vitals: Period Temp Pulse Resp BP Sys/Guerin Pulse Ox Last 24 Hr 97 F-98.8 F 79-97 16-20 125-158/58-75 94-99 Results - Labs CBC & BMP: 11/18/16 03:12 11/18/16 03:12
[2016-11-18] MEDS: HYDROmorphone 2 MG/1 ML VIAL IV PRN (18:08)
[2016-11-18] MEDS: ROSUVASTATIN 20 MG TABLET PO SCH (21:27)
[2016-11-19] MEDS: HYDROmorphone 2 MG/1 ML VIAL IV PRN ×3 (05:12→15:16)
[2016-11-19] MEDS: SODIUM CHLORIDE 0.9% 1,000 ML IV SCH ×3 (08:30→21:45)
[2016-11-19] MEDS: METOPROLOL SUCCINATE XL 50 MG TABLET PO SCH ×2 (09:29→21:40)
[2016-11-19] MEDS: ENOXAPARIN 40 MG/0.4 ML SYRINGE SUBCUT SCH (09:29)
[2016-11-19] MEDS: AMIODARONE 200 MG TABLET PO SCH ×2 (09:29→21:40)
[2016-11-19] MEDS: amLODIPine 5 MG TABLET PO SCH (09:29)
[2016-11-19] MEDS: PANTOPRAZOLE 40 MG VIAL IV SCH ×2 (09:49→21:39)
[2016-11-19] MEDS: INSULIN GLARGINE 100 UNIT/ML SUBCUT SCH (09:53)
--- NOTE | 2016-11-19 10:15 | Hospitalist Progress Note ---
<Severo Onofre - Last Filed: 11/19/16 10:16> Assessment and Plan (1) HAL (acute kidney injury) Status: Resolved Assessment and plan: Renal function has improved; BUN 24, Creatinine 1.10 today. 11/18-Renal function stable at 16/0.90. Current Visit: Yes (2) Bradycardia Status: Acute Assessment and plan: No further episodes of symptomatic bradycardia noted; will continue to monitor. Current Visit: Yes (3) Hematochezia Status: Acute Current Visit: Yes (4) Atrial fibrillation Status: Acute Assessment and plan: 11/17-Rate is relatively controlled. Currently on Lovenox for anticoagulation. Could not fully coagulate at the time of admission due to active bleeding at the time of admission. May start anticoagulation agent on or sooner; if okay with GI and cardiology. 11/18-Continue Lovenox per Cardiology recommendation. Continue Toprol and Amiodarone as previously ordered. Cardiology suggests that full anticoagulation be started at this time because of recent hematochezia. 11/19-No further episodes of bleeding noted. Cardiology to manage anticoagulation. Current Visit: Yes Hospitalist: Subjective Interval history: Patient seen and examined. No significant overnight events reported. Mg corrected on yesterday. Awaiting swing bed placement. Exam - Constitutional Vitals: Period Temp Pulse Resp BP Sys/Guerin Pulse Ox Last 24 Hr 97.4 F-99.1 F 77-94 16-20 124-155/66-88 93-97 General appearance: normal weight, no acute distress - Head Head exam: Present: normal inspection, normocephalic - Eye Eye exam: Present: EOMI. Absent: conjunctival injection, nystagmus Pupils: Present: TRINIDAD, normal accommodation - ENT ENT exam: Present: normal exam, normal external ear exam, normal oropharynx - Neck Neck exam: Present: normal inspection. Absent: lymphadenopathy, meningismus, tenderness, thyromegaly - Respiratory Respiratory exam: Present: clear to auscultation bilaterally. Absent: rales, rhonchi, stridor, wheezes - Cardiovascular Cardiovascular exam: Present: irregular rhythm. Absent: carotid bruit, diastolic murmur, gallop, JVD, rubs, systolic murmur - GI/Abdominal GI/Abdominal exam: Present: normal bowel sounds, soft. Absent: firm, guarding, mass, tenderness - Extremities Exam Extremities exam: Present: normal inspection, normal capillary refill, full ROM. Absent: edema - Back Exam Back exam: Present: normal inspection - Neurological Exam Neurological exam: Present: alert, oriented X3, CN II-XII intact - Psychiatric Psychiatric exam: Present: normal affect, normal mood - Skin Skin exam: Present: normal color, warm, dry Results - Labs CBC & BMP: 11/18/16 03:12 11/18/16 03:12 Lab Results: I have reviewed the past 24 hour labs Quality Measures - VTE Deep Vein Thrombosis/Pulmonary Embolism Present on Admission: No Contraindication No Overlap Therapy: Active Bleeding Specialty Discharge - Follow Up or Referrals Follow up with: Prince Medellin MD [Physician] - 2 Weeks (With EKG FLP CMP CBC) <Mickey Narayan - Last Filed: 11/19/16 12:09> Hospitalist: Subjective Interval history: Shared visit with nurse practitioner, independently reviewed and examined patient. No new events reported overnight, had a restful night. Awaiting swing bed placement Vitals labs reviewed. Blood sugar is in acceptable range mentation. We will keep her current insulin regimen and monitor fingerstick glucose. Exam - Constitutional Vitals: Period Temp Pulse Resp BP Sys/Guerin Pulse Ox Last 24 Hr 97.8 F-99.1 F 77-94 16-20 124-155/66-88 93-97 Results - Labs CBC & BMP: 11/18/16 03:12 11/18/16 03:12
[2016-11-19] MEDS: INSULIN LISPRO 100 UNIT/ML SUBCUT SCH ×5 (12:44→21:40)
[2016-11-19] MEDS: MAGNESIUM OXIDE 400 MG TABLET PO SCH (21:40)
[2016-11-19] MEDS: ROSUVASTATIN 20 MG TABLET PO SCH (21:40)
[2016-11-20 06:39] LABS: Basophils # 0.1 10*3/uL (0.0-0.2); Basophils % 0.4 % (0.0-0.8); Eosinophils # 0.1 10*3/uL (0.0-0.87); Eosinophils % 0.5 % (0.00-10.9); Hematocrit 34.2 VOL% (35.7-47.0); Hemoglobin 11.8 GM/DL (12.0-16.0); Immature Granulocytes % 1.1 %; Immature Granulocytes Absolute 0.16 #; Lymphocytes # 1.3 10*3/uL (1.4-4.0); Lymphocytes % 9.5 % (21.3-54.2); Mean Corpuscular HGB Conc 34.5 GM/DL (32-36); Mean Corpuscular Hemoglobin 32 PG (27-34); Mean Corpuscular Volume 92.9 FL (87-102); Mean Platelet Volume 11.4 FL (9.6-12.0); Monocytes # 1.6 10*3/uL (0.11-0.8); Monocytes % 11.8 % (1.7-12.7); Neutrophils # 10.7 10*3/uL (1.4-7.4); Neutrophils % 76.7 % (38.7-73.9); Platelet Count 222 T/CUMM (130-400); Red Blood Count 3.68 MC/CUMM (3.8-5.5); Red Cell Distribution Width 13.7 % (9.3-17.3); White Blood Count 13.9 T/CUMM (4-12)
[2016-11-20 07:11] LABS: Albumin 2.1 G/DL (3.4-5.0); Bilirubin,Total 1.3 MG/DL (0.2-1.0); Calcium 8.4 MG/DL (8.5-10.1); Magnesium 1.5 MG/DL (1.8-2.4); Osmolality,Calculated 274.7 MOS/KG (273-304); Phosphorous 2.2 MG/DL (2.5-4.9); Potassium 3.3 MMOL/L (3.5-5.1); Total Protein 5.2 G/DL (6.4-8.3)
[2016-11-20] MEDS ORDERED: MAGNESIUM SULF RIDER 2 GM in PREMIX 1 EACH IV ONE (07:19)
--- NOTE | 2016-11-20 08:32 | XRay Report ---
History: COPD Date: 11/20/2016 Study: Chest x-ray AP portable Comparison exam: November 14, 2016 chest x-ray There is mild cardiomegaly. The mediastinal contours are unchanged. The pulmonary vasculature is borderline prominent. The lungs are generally clear. There is a probable tiny left pleural effusion. The osseous structures are similar. Impression: Cardiomegaly and borderline pulmonary venous hypertension. Tiny left pleural effusion PROCEDURE INTERPRETED AT [facility] DEPARTMENT OF RADIOLOGY Final Report Signed by: Dr. Genoveva Garcia
[2016-11-20] MEDS: MAGNESIUM SULF RIDER 2 GM in PREMIX 1 EACH IV PRN (08:49)
[2016-11-20] MEDS: INSULIN GLARGINE 100 UNIT/ML SUBCUT SCH (08:52)
[2016-11-20] MEDS: MAGNESIUM OXIDE 400 MG TABLET PO SCH ×2 (08:53→20:24)
[2016-11-20] MEDS: AMIODARONE 200 MG TABLET PO SCH ×2 (08:53→20:24)
[2016-11-20] MEDS: METOPROLOL SUCCINATE XL 50 MG TABLET PO SCH ×2 (08:53→20:25)
[2016-11-20] MEDS: amLODIPine 5 MG TABLET PO SCH (08:54)
[2016-11-20] MEDS: INSULIN LISPRO 100 UNIT/ML SUBCUT SCH ×4 (08:54→20:46)
[2016-11-20] MEDS: PANTOPRAZOLE 40 MG VIAL IV SCH ×2 (08:55→20:23)
[2016-11-20] MEDS: ENOXAPARIN 40 MG/0.4 ML SYRINGE SUBCUT SCH (08:57)
[2016-11-20] MEDS: POTASSIUM CHLORIDE RIDER 10 MEQ in PREMIX 1 EACH IV SCH ×6 (09:56→13:26)
--- NOTE | 2016-11-20 10:43 | Hospitalist Progress Note ---
<Severo Onofre - Last Filed: 11/20/16 10:39> Assessment and Plan (1) HAL (acute kidney injury) Status: Resolved Assessment and plan: Renal function has improved; BUN 24, Creatinine 1.10 today. 11/18-Renal function stable at 16/0.90. Current Visit: Yes (2) Bradycardia Status: Acute Assessment and plan: No further episodes of symptomatic bradycardia noted; will continue to monitor. Current Visit: Yes (3) Hematochezia Status: Resolved Current Visit: Yes (4) Atrial fibrillation Status: Acute Assessment and plan: 11/17-Rate is relatively controlled. Currently on Lovenox for anticoagulation. Could not fully coagulate at the time of admission due to active bleeding at the time of admission. May start anticoagulation agent on or sooner; if okay with GI and cardiology. 11/18-Continue Lovenox per Cardiology recommendation. Continue Toprol and Amiodarone as previously ordered. Cardiology suggests that full anticoagulation be started at this time because of recent hematochezia. 11/19-No further episodes of bleeding noted. Cardiology to manage anticoagulation. 11/20-Continue Lovenox per Cardiology recommendation. Current Visit: Yes Hospitalist: Subjective Interval history: Patient seen and examined. No significant overnight events. Magnesium at 1.5, Phosphorus at 2.1, and Potassium at 3.3 today; will correct and recheck in AM. Awaiting swing bed placement. Exam - Constitutional Vitals: Period Temp Pulse Resp BP Sys/Guerin Pulse Ox Last 24 Hr 97.8 F-98.4 F 74-102 16-24 117-182/53-80 94-97 General appearance: normal weight, no acute distress - Head Head exam: Present: normal inspection, normocephalic, atraumatic - Eye Eye exam: Present: EOMI, conjunctival injection. Absent: nystagmus Pupils: Present: TRINIDAD, normal accommodation - ENT ENT exam: Present: normal external ear exam, normal oropharynx - Neck Neck exam: Present: normal inspection. Absent: lymphadenopathy, meningismus, tenderness, thyromegaly - Respiratory Respiratory exam: Present: clear to auscultation bilaterally. Absent: rales, rhonchi, stridor, wheezes - Cardiovascular Cardiovascular exam: Present: regular rate and rhythm. Absent: bradycardia, carotid bruit, diastolic murmur, gallop, JVD, rubs, systolic murmur - GI/Abdominal GI/Abdominal exam: Present: normal bowel sounds, soft - Extremities Exam Extremities exam: Present: normal inspection, normal capillary refill, full ROM - Back Exam Back exam: Present: normal inspection - Neurological Exam Neurological exam: Present: alert, oriented X3, CN II-XII intact - Psychiatric Psychiatric exam: Present: normal affect, normal mood - Skin Skin exam: Present: normal color, warm, dry Results - Labs CBC & BMP: 11/20/16 05:50 11/20/16 05:50 Lab Results: I have reviewed the past 24 hour labs Quality Measures - VTE Deep Vein Thrombosis/Pulmonary Embolism Present on Admission: No Contraindication No Overlap Therapy: Active Bleeding Specialty Discharge - Follow Up or Referrals Follow up with: Prince Medellin MD [Physician] - 2 Weeks (With EKG FLP CMP CBC) <Anara,Mickey - Last Filed: 11/20/16 13:04> Exam - Constitutional Vitals: Period Temp Pulse Resp BP Sys/Guerin Pulse Ox Last 24 Hr 97.8 F-98.4 F 74-102 16-24 118-182/53-80 94-97 Results - Labs CBC & BMP: 11/20/16 05:50 11/20/16 05:50
[2016-11-20] MEDS ORDERED: POTASSIUM PHOSPHATE 15 MMOL in SODIUM CHLORIDE 0.9% 250 ML IV ONE (11:00)
[2016-11-20] MEDS: HYDROmorphone 2 MG/1 ML VIAL IV PRN (13:27)
[2016-11-20] MEDS: POLYETHYLENE GLYCOL POWDER 17 GM PACK PO SCH (15:01)
[2016-11-20] MEDS: SODIUM CHLORIDE 0.9% 1,000 ML IV SCH (17:50)
[2016-11-20] MEDS: ROSUVASTATIN 20 MG TABLET PO SCH (20:24)
[2016-11-21] MEDS: SODIUM CHLORIDE 0.9% 1,000 ML IV SCH ×3 (03:30→09:01)
[2016-11-21] MEDS: HYDROmorphone 2 MG/1 ML VIAL IV PRN ×2 (03:30→11:11)
[2016-11-21] MEDS: INSULIN LISPRO 100 UNIT/ML SUBCUT SCH ×4 (07:51→21:02)
[2016-11-21] MEDS: amLODIPine 5 MG TABLET PO SCH (08:57)
[2016-11-21] MEDS: ENOXAPARIN 40 MG/0.4 ML SYRINGE SUBCUT SCH (08:57)
[2016-11-21] MEDS: POLYETHYLENE GLYCOL POWDER 17 GM PACK PO SCH (08:57)
[2016-11-21] MEDS: MAGNESIUM OXIDE 400 MG TABLET PO SCH ×2 (08:57→20:57)
[2016-11-21] MEDS: PANTOPRAZOLE 40 MG VIAL IV SCH ×2 (08:58→21:00)
[2016-11-21] MEDS: INSULIN GLARGINE 100 UNIT/ML SUBCUT SCH (08:58)
[2016-11-21] MEDS: AMIODARONE 200 MG TABLET PO SCH ×2 (08:58→20:57)
[2016-11-21] MEDS: METOPROLOL SUCCINATE XL 50 MG TABLET PO SCH ×2 (08:58→20:57)
--- NOTE | 2016-11-21 09:00 | Hospitalist Progress Note ---
Assessment and Plan (1) Bradycardia Status: Acute Assessment and plan: Pt. is bradycardiac; not symptomatic at this point. Will continue to monitor. Current Visit: Yes (2) Atrial fibrillation Status: Acute Assessment and plan: Pt. currently on Lovenox and Amiodarone. Will continue to monitor. Current Visit: Yes (3) Hypertension, uncontrolled Status: Chronic Assessment and plan: Pt's htn currently controlled will continue to monitor. Current Visit: Yes (4) HAL (acute kidney injury) Status: Resolved Assessment and plan: Resolved Current Visit: Yes (5) Hematochezia Status: Resolved Assessment and plan: Resolved Current Visit: Yes Hospitalist: Subjective Interval history: Pt. seen and examined. No distress noted. Pt. resting comfortably this am. Did fine overnight. WBC noted to be slightly elevated this am. Will repeat labs in am. Awaiting swingbed placement. Exam - Constitutional Vitals: Period Temp Pulse Resp BP Sys/Guerin Pulse Ox Last 24 Hr 97.5 F-98.4 F 51-126 15-20 115-149/60-71 91-100 General appearance: no acute distress, over weight - Head Head exam: Present: normal inspection, normocephalic - Eye Eye exam: Present: EOMI. Absent: scleral icterus Pupils: Present: TRINIDAD - Respiratory Respiratory exam: Present: clear to auscultation bilaterally - Cardiovascular Cardiovascular exam: Present: bradycardia - GI/Abdominal GI/Abdominal exam: Present: normal bowel sounds, soft. Absent: tenderness - Extremities Exam Extremities exam: Present: normal inspection, normal capillary refill, full ROM - Neurological Exam Neurological exam: Present: alert, oriented X3 - Psychiatric Psychiatric exam: Present: normal affect, normal mood - Skin Skin exam: Present: normal color, warm, dry Results - Labs CBC & BMP: 11/20/16 05:50 11/20/16 16:01 Lab Results: I have reviewed the past 24 hour labs Quality Measures - VTE Deep Vein Thrombosis/Pulmonary Embolism Present on Admission: No Contraindication No Overlap Therapy: Active Bleeding Specialty Discharge - Follow Up or Referrals Follow up with: Prince Medellin MD [Physician] - 2 Weeks (With EKG FLP CMP CBC)
--- NOTE | 2016-11-21 09:54 | Case Mgmt Physician Query Form ---
TB Signs and Symptoms Screening ([place]) INSTRUCTIONS: To be completed annually on residents/staff with a significant Tuberculin Skin Test (TST) upon admission/hire or a prior significant TST. To be completed on all staff at hire. Please respond to each listed symptom with an (X) in either the "YES" or "NO" box. Do you currently have any of the following symptoms: YES NO ( ) (x) A cough If yes, is it: ( ) Productive ( ) Non- productive ( ) (x) Hemoptysis (spitting up blood) ( ) (x) Chest pains ( ) (x) Weight Loss ( ) (x) Fever ( ) (x) Night Sweats (x) ( ) Weakness ( ) (x) Loss of Appetite ( ) (x) Difficulty Breathing If you answered YES" to any of the above questions, how long have symptoms been present? Comments: Symptom of weakness has been present for less than 1 week prior to admission. Weakness related to decreased mobility. MTDD
[2016-11-21] MEDS: ROSUVASTATIN 20 MG TABLET PO SCH (20:57)
[2016-11-22 05:57] LABS: Osmolality,Calculated 275.7 MOS/KG (273-304); Potassium 3.3 MMOL/L (3.5-5.1)
[2016-11-22] MEDS: INSULIN LISPRO 100 UNIT/ML SUBCUT SCH ×4 (07:45→20:31)
[2016-11-22] MEDS: POLYETHYLENE GLYCOL POWDER 17 GM PACK PO SCH (08:02)
[2016-11-22] MEDS: MAGNESIUM HYDROXIDE SUSP 30 ML UDCUP PO PRN (08:02)
[2016-11-22] MEDS: ENOXAPARIN 40 MG/0.4 ML SYRINGE SUBCUT SCH (08:03)
[2016-11-22] MEDS: AMIODARONE 200 MG TABLET PO SCH ×2 (08:03→20:30)
[2016-11-22] MEDS: INSULIN GLARGINE 100 UNIT/ML SUBCUT SCH (08:03)
[2016-11-22] MEDS: METOPROLOL SUCCINATE XL 50 MG TABLET PO SCH ×2 (08:03→20:38)
[2016-11-22] MEDS: amLODIPine 5 MG TABLET PO SCH (08:03)
[2016-11-22] MEDS: PANTOPRAZOLE 40 MG VIAL IV SCH ×2 (08:03→20:32)
[2016-11-22] MEDS: MAGNESIUM OXIDE 400 MG TABLET PO SCH ×2 (08:03→20:30)
[2016-11-22 08:09] LABS: Basophils % 0.2 % (0.0-0.8); Eosinophils # 0.1 10*3/uL (0.0-0.87); Eosinophils % 0.6 % (0.00-10.9); Hematocrit 34.1 VOL% (35.7-47.0); Hemoglobin 11.6 GM/DL (12.0-16.0); Immature Granulocytes % 1.6 %; Immature Granulocytes Absolute 0.23 #; Lymphocytes # 1.2 10*3/uL (1.4-4.0); Lymphocytes % 8.6 % (21.3-54.2); Mean Corpuscular Hemoglobin 32 PG (27-34); Mean Corpuscular Volume 93.7 FL (87-102); Mean Platelet Volume 11.3 FL (9.6-12.0); Monocytes # 1.2 10*3/uL (0.11-0.8); Monocytes % 8.6 % (1.7-12.7); Neutrophils # 11.4 10*3/uL (1.4-7.4); Neutrophils % 80.4 % (38.7-73.9); Platelet Count 275 T/CUMM (130-400); Red Blood Count 3.64 MC/CUMM (3.8-5.5); Red Cell Distribution Width 13.8 % (9.3-17.3); White Blood Count 14.1 T/CUMM (4-12)
[2016-11-22] MEDS ORDERED: ALBUTEROL/IPRATROPIUM 3 ML NEB RESP TX PRN (11:32)
--- NOTE | 2016-11-22 11:57 | Hospitalist Progress Note ---
<Maury Rahman - Last Filed: 11/22/16 11:52> Assessment and Plan (1) Bradycardia Status: Acute Assessment and plan: Pt. is bradycardiac; not symptomatic at this point. Will continue to monitor. 11/22 Pt hr has been in 60s/70s. Will continue to monitor. Current Visit: Yes (2) Atrial fibrillation Status: Acute Assessment and plan: Pt. currently on Lovenox and Amiodarone. Will continue to monitor. Current Visit: Yes (3) Hypertension, uncontrolled Status: Chronic Assessment and plan: Pt's htn currently controlled will continue to monitor. 11/22 Pt has seen increase in blood pressure; could be secondary to underlying infectious process. Will continue current regimen of medications and adjust accordingly. Current Visit: Yes (4) HAL (acute kidney injury) Status: Resolved Assessment and plan: Resolved Current Visit: Yes (5) Hematochezia Status: Resolved Assessment and plan: Resolved Current Visit: Yes (6) Leukocytosis Status: Acute Assessment and plan: Pt has seen upward trend in WBC over past couple of days 12 to 13.9 to 14.1 today. Ordered blood cultures; chest xray; urine culture. Repeat CBC in am. Current Visit: Yes Hospitalist: Subjective Interval history: Pt seen and examined with daughter at bedside. Pt. lethargic and warm to touch. Not very responsive today. Bedside temp taken by RN is 99.1. RN reported patient was hypertensive this am and was wheezing. Pt's daughter states patient that was confused this am. WBC have continued to increase. Plan to order blood cultures, cxr. Exam - Constitutional Vitals: Period Temp Pulse Resp BP Sys/Guerin Pulse Ox Last 24 Hr 97.1 F-97.9 F 54-77 18-26 155-200/73-91 92-97 - Head Head exam: Present: normal inspection, normocephalic - Eye Eye exam: Present: EOMI Pupils: Present: TRINIDAD - Respiratory Respiratory exam: Present: wheezes - Cardiovascular Cardiovascular exam: Present: regular rate and rhythm - GI/Abdominal GI/Abdominal exam: Present: normal bowel sounds, soft. Absent: tenderness - Neurological Exam Neurological exam: Present: other (pt lethargic. ) - Psychiatric Psychiatric exam: Present: flat affect - Skin Skin exam: Present: normal color, warm (temp at bedside 99.1), dry Results - Labs CBC & BMP: 11/22/16 05:11 11/22/16 05:11 Lab Results: I have reviewed the past 24 hour labs Quality Measures - VTE Deep Vein Thrombosis/Pulmonary Embolism Present on Admission: No Contraindication No Overlap Therapy: Active Bleeding Specialty Discharge - Follow Up or Referrals Follow up with: Prince Medellin MD [Physician] - 2 Weeks (With EKG FLP CMP CBC) <Sia Puente - Last Filed: 11/22/16 15:10> Hospitalist: Subjective Interval history: No BM in several days. Has been given MOM and Miralax with no results. Pt reports abd pain. Wheezing has stopped. Poor po today. Daughter reports she complains of pain from hips down her legs. CXR showed ? diffuse pneumonitis - start Zosyn empirically and F/U cx - Check KUB. 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 All questions answered. Exam - Constitutional Vitals: Period Temp Pulse Resp BP Sys/Guerin Pulse Ox Last 24 Hr 97.1 F-98.4 F 54-77 18-26 155-200/73-91 92-97 Exam: Awakens to verbal stimuli and answers simple questions irreg irreg CTAB nonlabored, diminished at the bases Soft, hypoactive bowel sounds, reports TTP diffusely, distended. No rebound or guarding appreciated. Warm no c/c/e +SCDs in place with heel protectors in place Results - Labs CBC & BMP: 11/22/16 05:11 11/22/16 05:11
--- NOTE | 2016-11-22 12:03 | XRay Report ---
Portable chest Date: 11/22/2016 Clinical history: Wheezing Comparison: 11/20/2016 Technique: Portable AP sitting chest Findings: The heart is minimally enlarged with uncoiling of the aorta. Prominent pulmonary vasculature with progressive diffuse parenchymal findings. Small pleural effusions. Degenerative changes are noted. Impression: Cardiomegaly with findings which can be seen with progressive mild CHF or diffuse pneumonitis with small pleural effusions. PROCEDURE INTERPRETED AT [facility] DEPARTMENT OF RADIOLOGY Final Report Signed by: Dr. Sahra Miller
[2016-11-22] MEDS ORDERED: BISACODYL 10 MG SUPP RECTAL PRN (15:10)
[2016-11-22] MEDS ORDERED: BISACODYL 10 MG SUPP RECTAL ONE (15:10)
[2016-11-22 15:45] LABS: Magnesium 1.7 MG/DL (1.8-2.4); Phosphorous 2.2 MG/DL (2.5-4.9)
[2016-11-22] MEDS: PIPERACILLIN/TAZOBACTAM 3,375 MG in SODIUM CHLORIDE 0.9% 100 ML IV SCH (16:20)
[2016-11-22] MEDS: SODIUM CHLORIDE 0.9% 1,000 ML IV SCH ×3 (16:20→16:22)
[2016-11-22] MEDS: ROSUVASTATIN 20 MG TABLET PO SCH (20:30)
[2016-11-23] MEDS: PIPERACILLIN/TAZOBACTAM 3,375 MG in SODIUM CHLORIDE 0.9% 100 ML IV SCH ×3 (00:54→16:43)
[2016-11-23 05:41] LABS: Basophils # 0.1 10*3/uL (0.0-0.2); Basophils % 0.4 % (0.0-0.8); Eosinophils # 0.1 10*3/uL (0.0-0.87); Eosinophils % 0.5 % (0.00-10.9); Hematocrit 30.7 VOL% (35.7-47.0); Hemoglobin 10.7 GM/DL (12.0-16.0); Immature Granulocytes % 1.2 %; Immature Granulocytes Absolute 0.16 #; Lymphocytes # 1.2 10*3/uL (1.4-4.0); Lymphocytes % 9.1 % (21.3-54.2); Mean Corpuscular HGB Conc 34.9 GM/DL (32-36); Mean Corpuscular Hemoglobin 31 PG (27-34); Mean Corpuscular Volume 89.5 FL (87-102); Mean Platelet Volume 11.4 FL (9.6-12.0); Monocytes # 1.2 10*3/uL (0.11-0.8); Monocytes % 9.1 % (1.7-12.7); Neutrophils # 10.7 10*3/uL (1.4-7.4); Neutrophils % 79.7 % (38.7-73.9); Platelet Count 264 T/CUMM (130-400); Red Blood Count 3.43 MC/CUMM (3.8-5.5); Red Cell Distribution Width 13.6 % (9.3-17.3); White Blood Count 13.4 T/CUMM (4-12)
[2016-11-23 06:17] LABS: Calcium 8.4 MG/DL (8.5-10.1); Osmolality,Calculated 277.4 MOS/KG (273-304); Potassium 3.2 MMOL/L (3.5-5.1)
[2016-11-23] MEDS: METOPROLOL SUCCINATE XL 50 MG TABLET PO SCH ×2 (08:58→21:12)
[2016-11-23] MEDS: amLODIPine 5 MG TABLET PO SCH (08:58)
[2016-11-23] MEDS: MAGNESIUM OXIDE 400 MG TABLET PO SCH ×2 (08:58→21:12)
[2016-11-23] MEDS: AMIODARONE 200 MG TABLET PO SCH ×2 (08:58→21:11)
[2016-11-23] MEDS: POLYETHYLENE GLYCOL POWDER 17 GM PACK PO SCH (09:00)
[2016-11-23] MEDS: INSULIN GLARGINE 100 UNIT/ML SUBCUT SCH (09:01)
[2016-11-23] MEDS: ENOXAPARIN 40 MG/0.4 ML SYRINGE SUBCUT SCH (09:02)
[2016-11-23] MEDS: PANTOPRAZOLE 40 MG VIAL IV SCH ×2 (09:03→21:11)
--- NOTE | 2016-11-23 10:08 | Hospitalist Progress Note ---
Hospitalist: Subjective Interval history: Pt ate a few bites of grits, effs and drank her orange juice this am. According to the nursing staff and she stating a few words but still was confused. She had 3 BM overnight. No fever. Exam - Constitutional Vitals: Period Temp Pulse Resp BP Sys/Guerin Pulse Ox Last 24 Hr 97.0 F-99.5 F 64-75 18-22 161-190/51-77 90-97 Exam: Awakens to verbal stimuli and answers simple questions. Moves all extremities to tacile stimulation. No facial droop noted. irreg irreg 1/6 M CTAB nonlabored, diminished at the bases Soft, hypoactive bowel sounds, nontender, distended. No rebound or guarding appreciated. Warm no c/c/e +SCDs in place with heel protectors in place Results - Labs CBC & BMP: 11/23/16 04:39 11/23/16 04:39 - Impressions (1) Leukocytosis possibly due to aspiration pneumonia Status: Acute Assessment and plan: Improving on broad spectrum IV antibiotics. blood and urine cultures pending. Chest xray reviewed and suggests possible aspiration. Repeat CBC in am. Current Visit: Yes (2) Hypokalemia Status: Acute Assessment and plan: - replace IV Current Visit: Yes (3) Chronic Atrial fibrillation with recent bradycardia Status: Acute Assessment and plan: Continue to monitor heart rate. 11/22 Pt hr has been in 60s/70s. Will continue to monitor. Pt. currently on Lovenox and Amiodarone. Current Visit: Yes (4) Hypertension, essential uncontrolled Status: Chronic Assessment and plan: 11/22 Pt has seen increase in blood pressure; will increase norvasc and hydralazine and monitor vitals. Current Visit: Yes (5) HAL (acute kidney injury) Status: Resolved Assessment and plan: Resolved Current Visit: Yes (6) Hematochezia Status: Resolved Assessment and plan: Resolved Current Visit: Yes Recheck labs in am. D/W nurse and daughter. All questions answered. Quality Measures - VTE Deep Vein Thrombosis/Pulmonary Embolism Present on Admission: No Contraindication No Overlap Therapy: Active Bleeding Specialty Discharge - Follow Up or Referrals Follow up with: Prince Medellin MD [Physician] - 2 Weeks (With EKG FLP CMP CBC)
[2016-11-23] MEDS ORDERED: POTASSIUM CHLORIDE RIDER 20 MEQ in PREMIX 1 EACH IV PRN (10:10)
[2016-11-23] MEDS: INSULIN LISPRO 100 UNIT/ML SUBCUT SCH ×4 (11:22→21:11)
--- NOTE | 2016-11-23 13:47 | Physician Query Form ---
CLICK EDIT DOCUMENT TO SELECT QUERY ANSWER --> OK --> SIGN Nayeli Grimaldo RN Clinical Portainer Operator W) [phone] (f) [phone] [email or web address]: Make your selection(s) from the choices in EACH section by typing an "x" and enter comments in the comment section. Please use your independent medical judgment in providing your response. This request does not imply that any particular answer is desired or expected. CLINICAL INDICATORS: (Providers should not edit this section) Based on documentation of "Acute kidney injury" "Bright red hematochezia" "Lethargic and warm to touch. Not very responsive today." "Confused this A.M." "WBC have continued to increase" "Stating a few words but still confused" " Acute leukocytosis" Treated with IV Zosyn. ACUITY: ( x) Acute ( ) Acute on Chronic ( ) Chronic ( ) Clinically unable to determine NATURE: ( ) Delirium due to general medical condition ( ) Dementia (x ) Encephalopathy ( ) Unconscious ( ) Transient level of awareness ( ) Comatose ( ) Locked-in State ( ) Persistent Vegetative State ( ) Other, please specify: ( ) Clinically unable to determine Please indicate the underlying cause of the altered mental status (CHECK ALL THAT APPLY): ( ) Baseline dementia ( ) Alzheimer's disease ( ) Parkinson's disease ( ) Lewy body dementia ( ) Acute stroke ( ) Late effect of stroke ( ) Reactive (from emotional stress, psychological trauma) ( ) Due to narcotics/other drugs ( ) Post procedural delirium ( ) Transient ischemic attack ( ) Generalized cerebral edema ( ) Normal pressure hydrocephalus ( ) Psychiatric illness ( x) Other, please specify: suspected infection (pneumonia and possible UTI) ( ) Clinically unable to determine Please indicate if there is an infection, sepsis, dehydration or specific organ failure that is causing the dementia. Be specific with clarifying the relationship between that process and the mental status change. COMMENTS: Use of terms such as suspected, likely, or probable (associated with a specific diagnosis that is being evaluated, monitored, or treated as if it exists) are acceptable and can be restated in the discharge summary if not ruled out. MTDD
[2016-11-23] MEDS: POTASSIUM CHLORIDE RIDER 10 MEQ in PREMIX 1 EACH IV PRN ×4 (15:15→18:29)
[2016-11-23] MEDS: ROSUVASTATIN 20 MG TABLET PO SCH (21:11)
[2016-11-23] MEDS: DESITIN 4OZ/NYSTATIN 15 GRAM MIXTURE PASTE TOP SCH (21:12)
[2016-11-24] MEDS: PIPERACILLIN/TAZOBACTAM 3,375 MG in SODIUM CHLORIDE 0.9% 100 ML IV SCH ×3 (00:12→17:44)
[2016-11-24] MEDS: ENOXAPARIN 40 MG/0.4 ML SYRINGE SUBCUT SCH (10:11)
[2016-11-24] MEDS: INSULIN LISPRO 100 UNIT/ML SUBCUT SCH ×3 (12:28→21:51)
[2016-11-24] MEDS: MAGNESIUM OXIDE 400 MG TABLET PO SCH ×2 (12:29→21:51)
[2016-11-24] MEDS: amLODIPine 10 MG TABLET PO SCH (12:29)
[2016-11-24] MEDS: AMIODARONE 200 MG TABLET PO SCH ×2 (12:29→21:51)
[2016-11-24] MEDS: POLYETHYLENE GLYCOL POWDER 17 GM PACK PO SCH (12:29)
[2016-11-24] MEDS: INSULIN GLARGINE 100 UNIT/ML SUBCUT SCH (12:29)
[2016-11-24] MEDS: DESITIN 4OZ/NYSTATIN 15 GRAM MIXTURE PASTE TOP SCH ×2 (12:30→20:40)
[2016-11-24] MEDS: PANTOPRAZOLE 40 MG VIAL IV SCH ×2 (12:31→22:16)
[2016-11-24] MEDS: METOPROLOL SUCCINATE XL 50 MG TABLET PO SCH ×2 (12:31→21:52)
--- NOTE | 2016-11-24 13:51 | Hospitalist Progress Note ---
Hospitalist: Subjective Interval history: Pt more sedated today with poor oral intake. Low grade temp 100.4. BM loose and foul smelling per nursing yesterday. Daughter reports she is very weak on right side compared to left and she did participate with therapy today and noticed the acute change. Exam - Constitutional Vitals: Period Temp Pulse Resp BP Sys/Guerin Pulse Ox Last 24 Hr 98.7 F-100.2 F 64-67 16-29 142-190/64-80 93-97 Exam: Sedated and poorly arousable. irreg irreg 1/6 M CTAB nonlabored, diminished at the bases Soft, hypoactive bowel sounds, nontender, distended. No rebound or guarding appreciated. Warm no c/c/e +SCDs in place with heel protectors in place. Withdraws to tactile stimulation. Results - Labs CBC & BMP: 11/23/16 04:39 11/23/16 21:24 - Impressions (1) Leukocytosis possibly due to aspiration pneumonia +/- Acute cystitis/ UTI Status: Acute Assessment and plan: Improving on broad spectrum IV antibiotics. blood cultures pending. Urine culture never sent ? why. Chest xray showed possible aspiration. Repeat CXR today. Recheck labs Current Visit: Yes (2) Hypokalemia/ Hypomagnesemia Status: Acute Assessment and plan: - replaced. Recheck levels. Current Visit: Yes (3) Acute encephalopathy- etiology unclear - Check MRI brain r/o stroke - Check ABG, ammonia, TSH, RPR, Vitamin B12 - May need LP pending above workup to r/o encephalomeningitis - Cont neuro checks (4) Chronic Atrial fibrillation with recent bradycardia Status: Acute Assessment and plan: Continue to monitor heart rate. 11/22 Pt hr has been in 60s/70s. Will continue to monitor. Pt. currently on Lovenox and Amiodarone. Current Visit: Yes (5) Hypertension, essential uncontrolled Status: Chronic Assessment and plan: 11/22 Pt has seen increase in blood pressure; Cont norvasc and hydralazine and monitor vitals. Current Visit: Yes (6) HAL (acute kidney injury) Status: Resolved Assessment and plan: Resolved Current Visit: Yes (7) Hematochezia Status: Resolved Assessment and plan: Resolved Current Visit: Yes Check stat labs and recheck in am. D/W nurse, daughter, and pillowcase maker at bedside. All questions answered. Quality Measures - VTE Deep Vein Thrombosis/Pulmonary Embolism Present on Admission: No Contraindication No Overlap Therapy: Active Bleeding Specialty Discharge - Follow Up or Referrals Follow up with: Prince Medellin MD [Physician] - 2 Weeks (With EKG FLP CMP CBC)
[2016-11-24 16:22] LABS: Basophils % 0.2 % (0.0-0.8); Eosinophils # 0.1 10*3/uL (0.0-0.87); Eosinophils % 0.5 % (0.00-10.9); Hematocrit 30.5 VOL% (35.7-47.0); Hemoglobin 10.3 GM/DL (12.0-16.0); Immature Granulocytes Absolute 0.16 #; Lymphocytes # 1.5 10*3/uL (1.4-4.0); Lymphocytes % 9.5 % (21.3-54.2); Mean Corpuscular HGB Conc 33.8 GM/DL (32-36); Mean Corpuscular Hemoglobin 31 PG (27-34); Monocytes # 1.5 10*3/uL (0.11-0.8); Neutrophils # 12.9 10*3/uL (1.4-7.4); Neutrophils % 79.8 % (38.7-73.9); Platelet Count 231 T/CUMM (130-400); Red Blood Count 3.28 MC/CUMM (3.8-5.5); Red Cell Distribution Width 13.6 % (9.3-17.3); White Blood Count 16.2 T/CUMM (4-12)
[2016-11-24 16:51] LABS: Albumin 2.1 G/DL (3.4-5.0); Bilirubin,Direct 0.2 MG/DL (0.0-0.20); Bilirubin,Indirect 0.3 MG/DL (0.0-1.0); Bilirubin,Total 0.5 MG/DL (0.2-1.0); Calcium 8.5 MG/DL (8.5-10.1); Phosphorous 2.9 MG/DL (2.5-4.9); Potassium 3.3 MMOL/L (3.5-5.1); Total Protein 5.1 G/DL (6.4-8.3)
[2016-11-24 16:59] LABS: Free T4 (Free Thyroxine) 1.41 NG/DL (0.76-1.46); Thyroid Stimulating Hormone 1.89 uIU/ml (0.358-3.74)
--- NOTE | 2016-11-24 17:01 | Magnetic Resonance Report ---
History: Right-sided weakness. Altered mental status. Fever. History of breast cancer Date: 11/24/2016 Study: MRI brain without contrast Comparison exam: No previous The brain was imaged in 3 planes on the 1.5 Chantal magnet without IV contrast, to include FLAIR, diffusion, T1, and T2-weighted sequences. There is a large area of restricted diffusion compatible with acute left posterior cerebral artery ischemia involving the left occipital and temporal lobes. This measures at least 12 x 3 x 3 cm maximum dimensions. This also involves the left thalamus. There is mild edema from this large stroke with some borderline left to right midline shift. There is some scattered hypointense gradient echo signal compatible underlying petechial hemorrhage. Verbal report was given to Dr. Puente at 4:50 PM. There is no mass effect otherwise. There is a moderate amount of patchy ill-defined increased FLAIR and T2 signal in the periventricular white matter compatible with changes of small vessel disease. There is no extra-axial hematoma. There is normal flow-void in the superior sagittal sinus. There is normal flow void in the basilar artery. There is no acute extra-axial hematoma. Impression: Large left posterior cerebral artery distribution region of acute ischemia measuring up to 12 cm maximum diameter. There is evidence of some scattered petechial hemorrhage. This area of ischemia is likely between 6 hours and 4 days old. There is some borderline left to right midline shift. PROCEDURE INTERPRETED AT [facility] DEPARTMENT OF RADIOLOGY Final Report Signed by: Dr. Genovvea Garcia
[2016-11-24 17:12] LABS: Vitamin B12 707 PG/ML (211-911)
--- NOTE | 2016-11-24 18:51 | XRay Report ---
History: Shortness of breath. Leukocytosis. Abnormal chest x-ray Date: 11/24/2016 Study: Chest x-ray AP portable Comparison exam: November 22, 2016 There is continued cardiomegaly. There is pulmonary vascular engorgement which has developed since the previous study. The mediastinal contours are unchanged. There is increasing patchy and hazy pulmonary edema/infiltrate in the lower lung since the previous study. There is mild bilateral pleural effusion, slightly increased. The osseous structures are unchanged. Impression: Cardiomegaly and congestive heart failure with bibasilar pulmonary edema and pleural effusion. Underlying pneumonia cannot be excluded PROCEDURE INTERPRETED AT [facility] DEPARTMENT OF RADIOLOGY Final Report Signed by: Dr. Genoveva Garcia
[2016-11-24 19:00] LABS: ABG Base Excess 3.1 MMOL/L (-2.5-2.5); ABG HCO3 27.1 MMOL/L (20-26); ABG Oxygen Saturation 98.1 % (95-100); ABG PCO2 35.1 MM HG (35-48); ABG PH 7.483 (7.35-7.45); ABG TCO2 23.8 MMOL/L (23-27); Allen Test Positive
[2016-11-24] MEDS: ROSUVASTATIN 20 MG TABLET PO SCH (21:51)
[2016-11-24] MEDS ORDERED: hydrALAZINE 20 MG/1 ML VIAL IV PRN (23:01)
[2016-11-25] MEDS: SODIUM CHLORIDE 0.9% 1,000 ML IV SCH ×2 (01:17)
[2016-11-25] MEDS: PIPERACILLIN/TAZOBACTAM 3,375 MG in SODIUM CHLORIDE 0.9% 100 ML IV SCH ×3 (01:18→15:29)
[2016-11-25 05:01] LABS: Basophils # 0.1 10*3/uL (0.0-0.2); Basophils % 0.3 % (0.0-0.8); Eosinophils # 0.1 10*3/uL (0.0-0.87); Eosinophils % 0.4 % (0.00-10.9); Hematocrit 27.9 VOL% (35.7-47.0); Hemoglobin 9.5 GM/DL (12.0-16.0); Immature Granulocytes % 0.7 %; Immature Granulocytes Absolute 0.12 #; Lymphocytes # 1.3 10*3/uL (1.4-4.0); Lymphocytes % 7.1 % (21.3-54.2); Mean Corpuscular HGB Conc 34.1 GM/DL (32-36); Mean Corpuscular Hemoglobin 31 PG (27-34); Mean Corpuscular Volume 91.5 FL (87-102); Monocytes # 1.2 10*3/uL (0.11-0.8); Monocytes % 6.7 % (1.7-12.7); Neutrophils # 14.9 10*3/uL (1.4-7.4); Neutrophils % 84.8 % (38.7-73.9); Platelet Count 218 T/CUMM (130-400); Red Blood Count 3.05 MC/CUMM (3.8-5.5); Red Cell Distribution Width 13.7 % (9.3-17.3); White Blood Count 17.6 T/CUMM (4-12)
[2016-11-25 05:51] LABS: Bilirubin,Direct 0.3 MG/DL (0.0-0.20); Bilirubin,Indirect 0.4 MG/DL (0.0-1.0); Bilirubin,Total 0.7 MG/DL (0.2-1.0); Calcium 8.5 MG/DL (8.5-10.1); Osmolality,Calculated 270.8 MOS/KG (273-304); Phosphorous 3.2 MG/DL (2.5-4.9); Potassium 3.1 MMOL/L (3.5-5.1); Total Protein 4.8 G/DL (6.4-8.3)
--- NOTE | 2016-11-25 08:05 | Hospitalist Progress Note ---
Hospitalist: Subjective Interval history: Pt is more awake and alert this am. No fever. Speaking more freely this am. She complains of pain in legs otherwise denies SOB, MICHAELS. Exam - Constitutional Vitals: Period Temp Pulse Resp BP Sys/Guerin Pulse Ox Last 24 Hr 98.4 F-99.6 F 58-70 15- 139-191/57-77 95-99 Exam: Awake, alert with right facial droop. RRR 1/6 M CTAB nonlabored, diminished at the bases Soft, hypoactive bowel sounds, nontender, distended. No rebound or guarding appreciated. Warm no c/c/+edema of right arm and nonpitting left hand +SCDs in place with heel protectors in place. Neuro: CN 2-12 intact except right facial droop and tongue deviates towards left and weakness of right side of face Motor: right arm and leg are flaccid. Sensory exam appears grossly intact. Gait not assessed. Babinski absent. No clonus noted. Difficult to get a full neuro exam as pt has signficant pain in legs to palpation. 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 - Hold Lovenox and ASA for now. - Repeat head CT pending - NPO for now until cleared by speech therapy. Needs MBS - ECHO and carotid dopplers ordered. - Permissive hypertension and treat with hydralazine for SBP>200 or DBP> 110 according to NIH guidelines. - Cont monitoring in ICU for now - PT/OT/ST to re-evaluate. - Neuro consulted but i do not know if we have coverage at this time (2) Leukocytosis possibly due to aspiration pneumonia +/- Acute cystitis/ UTI vs reactive Status: Acute Assessment and plan: - Cont Zosyn IV antibiotics. blood cultures pending. Urine culture never sent ? why. Chest xray showed possible basilar pneumonia. Repeat CXR personally reviewed by me showed increased densities in the bases ? pulm edema - Recheck labs Current Visit: Yes (3) Hypokalemia/ Hypomagnesemia Status: Acute Assessment and plan: - replace. Recheck levels. Current Visit: Yes (4) Acute encephalopathy- resolved. pt at baseline - ABG did not show CO2 narcosis, ammonia level, TSH and Vitamin B12 levels were normal. RPR was not reactive. - Cont neuro checks (5) Chronic Atrial fibrillation with recent bradycardia Status: Acute Assessment and plan: - Continue to monitor heart rate. 11/22 Pt hr has been in 60s/70s. Will continue to monitor. No anticoagulation due to possible hemorrhagic transformation of stroke. - Resume Amiodarone pending MBS study Current Visit: Yes (6) Hypertension, essential uncontrolled Status: Chronic Assessment and plan: Permissive hypertension for now. Hydralazine prn SBP> 200 or SBP> 110. Monitor vitals. Current Visit: Yes (7) HAL (acute kidney injury) Status: Resolved Assessment and plan: Resolved Current Visit: Yes (8) Hematochezia Status: Resolved Assessment and plan: Resolved Current Visit: Yes D/W nurse, pt at bedside and daughter by phone. All questions answered. 38 minutes of time spent with this patient. Quality Measures - VTE Deep Vein Thrombosis/Pulmonary Embolism Present on Admission: No Contraindication No Overlap Therapy: Active Bleeding Specialty Discharge - Follow Up or Referrals Follow up with: Prince Mdeellin MD [Physician] - 2 Weeks (With EKG FLP CMP CBC)
[2016-11-25] MEDS: INSULIN LISPRO 100 UNIT/ML SUBCUT SCH ×4 (08:13→21:19)
[2016-11-25] MEDS: POLYETHYLENE GLYCOL POWDER 17 GM PACK PO SCH (08:14)
[2016-11-25] MEDS: METOPROLOL SUCCINATE XL 50 MG TABLET PO SCH ×2 (08:14→21:22)
[2016-11-25] MEDS: amLODIPine 10 MG TABLET PO SCH (08:14)
[2016-11-25] MEDS: MAGNESIUM OXIDE 400 MG TABLET PO SCH ×2 (08:15→21:19)
[2016-11-25] MEDS: AMIODARONE 200 MG TABLET PO SCH ×2 (08:15→21:18)
[2016-11-25] MEDS: INSULIN GLARGINE 100 UNIT/ML SUBCUT SCH (08:15)
[2016-11-25 08:30] LABS: Risk Ratio 1.89; VLDL CHOLESTEROL 11.4 MG/DL
[2016-11-25] MEDS: DESITIN 4OZ/NYSTATIN 15 GRAM MIXTURE PASTE TOP SCH ×2 (09:22→21:21)
[2016-11-25] MEDS: PANTOPRAZOLE 40 MG VIAL IV SCH ×2 (09:22→21:19)
--- NOTE | 2016-11-25 09:27 | Ultrasound Report ---
US carotid duplex BI Indication: Stroke. Comparison: None. Technique: Using transcutaneous probe, routine carotid arterial duplex ultrasound performed. Ultrasound images were captured and stored. Estimation of stenosis will be made using indirect NASCET criteria. Ultrasound images were captured and stored. Findings: Grayscale and color Doppler findings: Scattered foci of echogenic plaque are noted within the right carotid artery bulb and proximal right cervical segment ICA. Similar findings are noted within the left carotid artery bulb. The mild plaque within the left bulb is increased when compared to the contralateral vessel. Shadowing exists on the left. Moderate stenosis is suggested involving the left lobe on transverse images. Peak systolic velocities are as follows (centimeters per second): Right CCA: 57. Right proximal ICA: 33. Right distal ICA: 46. Right ICA/CCA ratio: 0.8. Left CCA: 69. Left proximal ICA: 83. Left distal ICA: 91. Left ICA/CCA ratio: 1.3. External carotid arteries: External carotid arteries are bilaterally patent. Vertebral arteries: Vertebral arteries bilaterally demonstrate antegrade flow. Impression: 1. 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 The degree of stenosis is estimated at less than 50% within the cervical segment ICAs. 11/25/2016 9:23 AM PROCEDURE INTERPRETED AT [facility] DEPARTMENT OF RADIOLOGY Final Report Signed by: Dr. Davie Mccarty
[2016-11-25] MEDS: DORZOLAMIDE/TIMOLOL OPH SOLN 10 ML BOTTLE BOTH EYES SCH (09:29)
[2016-11-25] MEDS: CARBOXYMETHYLCELLULOSE 1% OPH SOLN BOTH EYES SCH (09:29)
--- NOTE | 2016-11-25 09:29 | Ultrasound Report ---
US venous doppler LE BI Indication: Shortness of breath. Comparison: None. Technique: Using a transcutaneous probe, grayscale, spectral Doppler, and color Doppler images of the bilateral lower extremity venous structures were captured and stored. Grayscale images prior to and following compression were obtained. Interrogated venous structures include the bilateral common femoral vein, superficial femoral vein (proximal, mid, and distal), and popliteal vein. Findings: There is no evidence of thrombus within the interrogated venous structures. the interrogated venous segments demonstrate presence of both color flow and spectral flow. Impression: 1. No evidence of venous thrombosis. 11/25/2016 9:27 AM PROCEDURE INTERPRETED AT [facility] DEPARTMENT OF RADIOLOGY Final Report Signed by: Dr. Davie Mccarty
--- NOTE | 2016-11-25 11:07 | CT Report ---
CT head/brain wo con Indication: History of CVA with hemorrhagic transformation. Comparison: MRI brain 11/24/2016. Technique: CT of the brain was performed without administration of intravenous contrast. The CT examination was performed using one or more of the following dose reduction techniques: Automatic exposure control, adjustment of the mA and kV according to patient size, use of acute or iterative reconstruction techniques. Findings: Low-attenuation involving medial cortex of posterior cortex as well as white matter of the left occipital lobe is demonstrated in the region of suggested infarction on recent MRI. There remains a moderate degree of cortical effacement secondary to cerebral edema and additionally present, curvilinear increased attenuation within multiple sulci of the medial cortex is demonstrated. Reflect laminar cortical necrosis and/or hemorrhage. The area suggests infarction extends into the left temporal lobe. Generalized atrophy and bilateral areas of microvascular ischemia are suggested within periventricular white matter. No midline shift is present. No significant effacement of basal cisterns is present. Posterior fossa and cerebellum demonstrate no acute findings. Orbits and globes demonstrate no evidence of significant pathology. The paranasal sinuses are clear. No significant abnormality is demonstrated to involve the mastoid air cells. The calvarium and overlying soft tissues demonstrate no evidence of acute pathology. Impression: 1. Low-attenuation involving left temporal and occipital lobes could be compatible with infarction. Mild to moderate cerebral edema is present and areas of curvilinear increased attenuation along the cortex could reflect cortical laminar necrosis with some areas of hemorrhagic transfusion within the area of infarct not excluded. 2. Findings compatible with microvascular ischemia. 3. No evidence of significant mass effect, midline shift, or effacement of the basal cisterns. 11/25/2016 11:00 AM PROCEDURE INTERPRETED AT [facility] DEPARTMENT OF RADIOLOGY Final Report Signed by: Dr. Davie Mccarty
[2016-11-25] MEDS: POTASSIUM CHLORIDE RIDER 10 MEQ in PREMIX 1 EACH IV PRN ×4 (15:33→19:00)
[2016-11-25] MEDS: MAGNESIUM SULF RIDER 2 GM in PREMIX 1 EACH IV PRN (16:05)
--- NOTE | 2016-11-25 20:30 | ECHO Report ---
Lanny Webster Exam Date: 11/25/2016 09:12 Referring Physician: Technologist: Lexie Webb LRYULI Age: 89 Ht (in): 64 Wt (lb): 174 Gender: F Exam Location: [facility] Echo Indications: HAL, A fib, HTN, bradycardia, nausea/vomiting, PAC's BP: 167 / 63 HR: 58 Rhythm: Sinus Technical Quality: Poor IMPRESSIONS Normal LV systolic function, ejection fraction 65%. Grade 1/4 diastolic dysfunction. Mild to moderate concentric left ventricular hypertrophy. Mild left atrial enlargement. Mild to moderate mitral and tricuspid regurgitation. Trace pulmonic regurgitation. Aortic sclerosis without stenosis. MEASUREMENTS (Male / Female) Normal Values 2D ECHO LV Diastolic Diameter PLAX 4.5 cm 4.2 - 5.9 / 3.9 - 5.3 cm LV Systolic Diameter PLAX 3.4 cm LV Fractional Shortening PLAX 24.1 % IVS Diastolic Thickness 1.5 cm 0.6 - 1.0 / 0.6 - 0.9 cm LVPW Diastolic Thickness 1.2 cm 0.6 - 1.0 / 0.6 - 0.9 cm Aortic Root Diameter 2.1 cm LA Systolic Diameter LX 4.6 cm 3.0 - 4.0 / 2.7 - 3.8 cm DOPPLER TR Peak Velocity 248.0 cm/s TR Peak Gradient 24.6 mmHg FINDINGS Left Ventricle Moderately increased septal wall thickness. Mildly increased posterior wall thickness. Mild concentric left ventricular hypertrophy with diastolic dysfunction. Left ventricular ejection fraction is estimated at 65 %. Right Ventricle Normal right ventricular size. Right Atrium Normal right atrial size. Left Atrium Mildly increased left atrial diameter. Mitral Valve Mild mitral valve sclerosis. Mild-moderate mitral valve regurgitation. Aortic Valve Mild aortic valve sclerosis. Tricuspid Valve Mild tricuspid valve sclerosis. [id number] tricuspid valve regurgitation. Tricuspid regurgitation velocities suggest a PAP of 24.6 mmHg + RAP. Pulmonic Valve Morphologically normal pulmonic valve. Trace pulmonary valve regurgitation. Pericardium No pericardial effusion. Aorta Normal size aortic root and proximal ascending aorta. Elzbieta Mello MD (Electronically Signed) Final Date: 25 November 2016 20:29
[2016-11-25] MEDS: ROSUVASTATIN 20 MG TABLET PO SCH (21:19)
[2016-11-26] MEDS: PIPERACILLIN/TAZOBACTAM 3,375 MG in SODIUM CHLORIDE 0.9% 100 ML IV SCH ×2 (00:03→08:28)
[2016-11-26 06:54] LABS: Basophils # 0.1 10*3/uL (0.0-0.2); Basophils % 0.3 % (0.0-0.8); Eosinophils # 0.2 10*3/uL (0.0-0.87); Eosinophils % 0.8 % (0.00-10.9); Hemoglobin 9.9 GM/DL (12.0-16.0); Immature Granulocytes Absolute 0.19 #; Lymphocytes # 1.3 10*3/uL (1.4-4.0); Lymphocytes % 6.7 % (21.3-54.2); Mean Corpuscular HGB Conc 34.1 GM/DL (32-36); Mean Corpuscular Hemoglobin 31 PG (27-34); Mean Corpuscular Volume 92.1 FL (87-102); Mean Platelet Volume 10.1 FL (9.6-12.0); Monocytes # 1.2 10*3/uL (0.11-0.8); Monocytes % 6.1 % (1.7-12.7); Neutrophils # 16.1 10*3/uL (1.4-7.4); Neutrophils % 85.1 % (38.7-73.9); Platelet Count 249 T/CUMM (130-400); Red Blood Count 3.15 MC/CUMM (3.8-5.5); Red Cell Distribution Width 13.1 % (9.3-17.3); White Blood Count 18.9 T/CUMM (4-12)
[2016-11-26 07:26] LABS: Albumin 2.1 G/DL (3.4-5.0); Calcium 8.3 MG/DL (8.5-10.1); Potassium 3.2 MMOL/L (3.5-5.1)
[2016-11-26] MEDS: INSULIN LISPRO 100 UNIT/ML SUBCUT SCH ×4 (08:29→21:44)
[2016-11-26] MEDS: MAGNESIUM OXIDE 400 MG TABLET PO SCH ×2 (08:30→21:44)
[2016-11-26] MEDS: AMIODARONE 200 MG TABLET PO SCH ×4 (08:30→21:44)
[2016-11-26] MEDS: DESITIN 4OZ/NYSTATIN 15 GRAM MIXTURE PASTE TOP SCH ×2 (08:30→21:45)
[2016-11-26] MEDS: DORZOLAMIDE/TIMOLOL OPH SOLN 10 ML BOTTLE BOTH EYES SCH (08:30)
[2016-11-26] MEDS: INSULIN GLARGINE 100 UNIT/ML SUBCUT SCH (08:30)
[2016-11-26] MEDS: POLYETHYLENE GLYCOL POWDER 17 GM PACK PO SCH (08:30)
[2016-11-26] MEDS: amLODIPine 10 MG TABLET PO SCH ×3 (08:30→15:31)
--- NOTE | 2016-11-26 10:05 | Hospitalist Progress Note ---
Hospitalist: Subjective Interval history: Nursing reports an axillary mass that is draining brownish fluid. No fever. Pt had bedside swallow eval yesterday but pt did not have MBS yesterday. Speech therapy recommended pureed diet. She was actually eating on the floor prior to transfer. Exam - Constitutional Vitals: Period Temp Pulse Resp BP Sys/Guerin Pulse Ox Last 24 Hr 98.1 F-99.1 F 50-77 18-35 108-189/56-82 93-97 Exam: Awake, alert with right facial droop improved RRR 1/6 M CTAB nonlabored, diminished at the bases Soft, hypoactive bowel sounds, nontender, distended. No rebound or guarding appreciated. Warm no c/c/+edema of right arm and nonpitting left hand +SCDs in place with heel protectors in place. Neuro: CN 2-12 intact except right facial droop and tongue deviates towards left and weakness of right side of face Motor: right arm and leg are flaccid. Sensory exam appears grossly intact. Gait not assessed. Babinski absent. No clonus noted. TTP of legs Right axillary mass TTP with brownish drainage approxiamtely 3cmx 2cm. Nonfoul smelling but increased warmth. No overlying erythema Results - Labs CBC & BMP: 11/26/16 06:27 11/26/16 06:16 - Impressions (1) Acute large ischemic stroke with reported hemorrhagic transformation. - CT does not show any evidence of hemorrhage so this may have been an over- read. Will review with Neuro upon his return. 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 - Hold Lovenox and ASA for now. - 11/[address] showed stroke in left parietotemporal area - Start pureed diet as per speech therapy recommendation. Awaiting MBS - ECHO showed grade 1 diastolic dysfunction with moderate tricuspid and mitral regurgitation - Carotid doppler showed moderate plaque in the left ICA with less than 50% blockage - Permissive hypertension and treat with hydralazine for SBP>200 or DBP> 110 according to NIH guidelines. probably could start oral antihypertensives in am. - Can transfer to floor with monitoring - to re-evaluate Monday. Awaiting PT/OT to evaluate since her stroke. I have reconsulted them today. - Neuro consulted but no coverage at this time. (2) Leukocytosis likely due to right axillary abscess and possibly due to aspiration Status: Acute Assessment and plan: - Change to Teflaro to offer more MRSA coverage and check wound culture. LOLLY Santos. Blood cultures no growth to date. - Original Urine culture never sent. Will resend today. - Chest xray showed possible basilar pneumonia. Repeat CXR personally reviewed by me showed increased densities in the bases ? pulm edema. Check CT chest and BNP. Stop Minimal IVF - Recheck labs Current Visit: Yes (3) Hypokalemia/ Hypomagnesemia Status: Acute Assessment and plan: - replace. Recheck levels. Current Visit: Yes (4) Acute encephalopathy- resolved. pt at baseline. Likely due to acute stroke - ABG did not show CO2 narcosis, ammonia level, TSH and Vitamin B12 levels were normal. RPR was not reactive. - Cont neuro checks (5) Chronic Atrial fibrillation with recent bradycardia Status: Acute Assessment and plan: - Continue to monitor heart rate. Currently >60. No anticoagulation due to possible hemorrhagic transformation of stroke. Awaiting neuro recs - Resume Amiodarone. Current Visit: Yes (6) Hypertension, essential uncontrolled Status: Chronic Assessment and plan: Permissive hypertension for now. Hydralazine prn SBP> 200 or SBP> 110. Monitor vitals. Current Visit: Yes (7) HAL (acute kidney injury) Status: Resolved Assessment and plan: Resolved Current Visit: Yes (8) Hematochezia Status: Resolved Assessment and plan: Resolved Current Visit: Yes D/W nurse, pt at bedside and left a message for daughter by phone. All questions answered. Transfer to floor. I will be away several days. One of my associates will follow in my absence. Quality Measures - VTE Deep Vein Thrombosis/Pulmonary Embolism Present on Admission: No Contraindication No Overlap Therapy: Active Bleeding Specialty Discharge - Follow Up or Referrals Follow up with: Prince Medellin MD [Physician] - 2 Weeks (With EKG FLP CMP CBC)
[2016-11-26] MEDS ORDERED: POTASSIUM CHLORIDE 20 MEQ TABLET PO ONE ×2 (10:23→17:30)
--- NOTE | 2016-11-26 11:36 | CT Report ---
CT chest wo con Technique: Axial CT imaging of the chest was performed without administration of intravenous contrast. Coronal and sagittal reformatted images were additionally created and submitted for review. Dose reduction: This CT exam was performed using one or more of the following dose reduction techniques: Automated exposure control, automated adjustment of the mA and/or KV according to patient size, or use of iterative reconstruction technique. Total DLP: 352 mGy*cm Clinical history: Hemorrhagic stroke Comparison: None available Findings: Please note, lack of intravenous contrast limits evaluation. CHEST: Mediastinum/vessels: Noncontrast appearance of the heart and great vessels is grossly unremarkable. There is no pericardial effusion. Minimal scattered atherosclerotic plaque is noted throughout the aorta and proximal great vessels. No definite enlarged lymph nodes are identified within the mediastinum or hilar regions. There is no axillary or subclavicular adenopathy. Thyroid: Thyroid gland appears within normal limits. Lungs: Moderate sized bilateral pleural effusions are noted. There is also opacification of posterior basilar atelectatic changes. There is no focal consolidation or pneumothorax identified. Central perihilar interstitial prominence and fluid layering along the minor fissure is most compatible with a degree of underlying heart failure/pulmonary edema. Noncalcified nodules central cavitation measuring 1.1 cm maximum dimension within the right lower lobe is indeterminate. Limited visualization of the upper abdomen suggest bilateral renal cysts. Hyperdense lesion at the upper pole right kidney may also represent a cyst with hemorrhagic or proteinaceous contents. No acute abnormalities identified within the upper abdomen. In the right breast, there are suggestion of postsurgical changes with an area of focal soft tissue thickening measuring up to 1.6 cm. Additionally, in the lateral aspect of the right breast, partially imaged soft tissue lesion measures 2.4 cm maximum dimension and is concerning for malignancy. BONES: No acute or suspicious appearing osseous abnormalities are identified. Multilevel degenerative changes are noted throughout the thoracic spine. Impression: 1. Bilateral moderate pleural effusions and posterior basilar atelectasis and findings suggestive of underlying interstitial edema. 2. There is a single noncalcified nodule within the right lung base measuring 1.1 cm, which is indeterminate. Differential considerations include infectious/inflammatory process versus underlying neoplasm. This could be assessed for stability/resolution on follow-up studies. 3. 3 separate right breast soft tissue lesions are visualized. These are concerning for malignancy. Correlation with prior mammography imaging would be helpful. The lateral lesion is not completely imaged on this study. CT with contrast or dedicated breast ultrasound may be helpful for further evaluation. There is no prior for comparison. PROCEDURE INTERPRETED AT [facility] DEPARTMENT OF RADIOLOGY Final Report Signed by: Hector Hernández
[2016-11-26 12:28] LABS: Apearance,Urine CLEAR (Clear); Bilirubin,Urine Negative (Negative); Blood, Urine Negative (Negative); Glucose,Urine (UA) Negative (Negative); Ketones,Urine 20 mg/dL (Negative); Nitrite,Urine Negative (Negative); Protein,Urine Negative; RBC,Urine 1 /HPF (0-4); Squamous Epithelial Cell,Urine Occasional /HPF (0-10); Urine Color Straw (Yellow); Urine Specific Gravity 1.008 (1.001-1.035); Urine Urobilinogen < 2.0 EU/DL (0.2-1.0); WBC,Urine 2 /HPF (0-6)
[2016-11-26] MEDS: CARBOXYMETHYLCELLULOSE 1% OPH SOLN BOTH EYES SCH (12:30)
[2016-11-26] MEDS: METOPROLOL SUCCINATE XL 50 MG TABLET PO SCH (12:30)
[2016-11-26] MEDS: PANTOPRAZOLE 40 MG VIAL IV SCH ×2 (13:20→21:45)
[2016-11-26] MEDS: CEFTAROLINE 600 MG in SODIUM CHLORIDE 0.9% 100 ML IV SCH ×2 (17:37→22:08)
[2016-11-26] MEDS: SODIUM CHLORIDE 0.9% 1,000 ML IV SCH (18:11)
[2016-11-26] MEDS: ROSUVASTATIN 20 MG TABLET PO SCH (21:44)
[2016-11-27 04:35] LABS: Basophils % 0.2 % (0.0-0.8); Eosinophils # 0.1 10*3/uL (0.0-0.87); Eosinophils % 0.6 % (0.00-10.9); Hematocrit 29.8 VOL% (35.7-47.0); Hemoglobin 10.1 GM/DL (12.0-16.0); Immature Granulocytes % 0.9 %; Immature Granulocytes Absolute 0.15 #; Lymphocytes # 1.4 10*3/uL (1.4-4.0); Mean Corpuscular HGB Conc 33.9 GM/DL (32-36); Mean Corpuscular Hemoglobin 31 PG (27-34); Mean Corpuscular Volume 91.4 FL (87-102); Mean Platelet Volume 10.3 FL (9.6-12.0); Monocytes # 1.3 10*3/uL (0.11-0.8); Monocytes % 7.6 % (1.7-12.7); Neutrophils # 14.3 10*3/uL (1.4-7.4); Neutrophils % 82.7 % (38.7-73.9); Platelet Count 263 T/CUMM (130-400); Red Blood Count 3.26 MC/CUMM (3.8-5.5); White Blood Count 17.3 T/CUMM (4-12)
[2016-11-27 04:46] LABS: INR 1.1; PT Patient Result 12.2 SECS; Partial Thromboplastin Time 30.6 SECS (0-40)
[2016-11-27 05:07] LABS: Albumin 2.2 G/DL (3.4-5.0); Calcium 8.8 MG/DL (8.5-10.1); Magnesium 1.8 MG/DL (1.8-2.4); Osmolality,Calculated 267.1 MOS/KG (273-304); Phosphorous 2.2 MG/DL (2.5-4.9); Potassium 3.5 MMOL/L (3.5-5.1)
[2016-11-27] MEDS: POLYETHYLENE GLYCOL POWDER 17 GM PACK PO SCH (08:33)
[2016-11-27] MEDS: PANTOPRAZOLE 40 MG VIAL IV SCH ×2 (08:33→21:20)
[2016-11-27] MEDS: AMIODARONE 200 MG TABLET PO SCH ×2 (08:33→21:23)
[2016-11-27] MEDS: MAGNESIUM HYDROXIDE SUSP 30 ML UDCUP PO PRN (08:33)
[2016-11-27] MEDS: amLODIPine 10 MG TABLET PO SCH (08:34)
[2016-11-27] MEDS: DORZOLAMIDE/TIMOLOL OPH SOLN 10 ML BOTTLE BOTH EYES SCH (08:34)
[2016-11-27] MEDS: CARBOXYMETHYLCELLULOSE 1% OPH SOLN BOTH EYES SCH (08:34)
[2016-11-27] MEDS: INSULIN GLARGINE 100 UNIT/ML SUBCUT SCH (08:34)
[2016-11-27] MEDS: DESITIN 4OZ/NYSTATIN 15 GRAM MIXTURE PASTE TOP SCH ×2 (08:48→21:23)
[2016-11-27] MEDS: INSULIN LISPRO 100 UNIT/ML SUBCUT SCH ×4 (08:49→21:23)
[2016-11-27] MEDS: MAGNESIUM OXIDE 400 MG TABLET PO SCH ×2 (08:53→21:23)
--- NOTE | 2016-11-27 10:14 | Hospitalist Progress Note ---
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 Repeat head CT is. He has been revealed no evidence of hemorrhage. Patient has been transferred to the floor and is currently hemodynamically stable. She is to have ST reevaluation on Monday. Neuro consult on Monday as well. She had been started on pured diet per speech therapy recommendation while awaiting modified barium swallow. Evaluation included echocardiogram which revealed grade 1 diastolic dysfunction with moderate TR and MR. Carotid Doppler showed moderate plaque in the left ICA with less than 50% blockage. Current Visit: Yes (2) Abscess of right axilla Status: Acute Assessment and plan: Patient has been cultured and placed on IV antibiotics. Continuing to follow. Current Visit: Yes (3) Hypertension, uncontrolled Status: Chronic Assessment and plan: Blood pressures are doing fairly well at this time. She has been allowed permissive hypertension in the setting of acute ischemic CVA. Current Visit: Yes (4) Atrial fibrillation Status: Acute Assessment and plan: Patient has chronic atrial fibrillation with recent bradycardia. Heart rate is currently well controlled. Anticoagulation is been placed on hold secondary to possible hemorrhagic transformation of stroke. She continues with amiodarone and awaiting neurology evaluation on Monday for consideration of long-term anticoagulation. Current Visit: Yes (5) HAL (acute kidney injury) Status: Resolved Assessment and plan: Resolved. Creatinine is 0.4. Current Visit: Yes (6) Breast lesion Status: Acute Assessment and plan: She is noted to have breast lesions on CT of her chest which will need to be further evaluated. Current Visit: Yes (7) Bradycardia Status: Resolved Current Visit: Yes Hospitalist: Subjective Interval history: Chart has been examined and patient evaluated. Patient has no complaints at this time and is oriented to person. Exam - Constitutional Vitals: Period Temp Pulse Resp BP Sys/Guerin Pulse Ox Last 24 Hr 98 F-99.7 F 61-123 14-20 138-192/62-97 94-97 General appearance: no acute distress - Head Head exam: Present: normocephalic, atraumatic - Eye Eye exam: Present: EOMI Pupils: Present: TRINIDAD - ENT ENT exam: Present: normal oropharynx - Neck Neck exam: Present: normal inspection - Respiratory Respiratory exam: Present: clear to auscultation bilaterally - Cardiovascular Cardiovascular exam: Present: irregular rhythm. Absent: bradycardia, tachycardia - GI/Abdominal GI/Abdominal exam: Present: normal bowel sounds, soft. Absent: mass, tenderness , rebound - Extremities Exam Extremities exam: Present: edema (Some edema of her right upper extremity, also noted some drainage from the right axillary region). Absent: calf tenderness - Back Exam Back exam: Present: normal inspection - Neurological Exam Neurological exam: Present: alert, other (Oriented to person, she moves all extremities however right upper and lower extremity are significantly weaker, sensation appears grossly intact, she does have mild right facial droop) - Psychiatric Psychiatric exam: Present: normal mood. Absent: agitated, anxious - Skin Skin exam: Present: warm, dry Results - Labs CBC & BMP: 11/27/16 03:49 11/27/16 03:49 Lab Results: I have reviewed the past 24 hour labs - Diagnostic Findings Procedure: CT - chest: report reviewed by me Quality Measures - VTE Deep Vein Thrombosis/Pulmonary Embolism Present on Admission: No Contraindication No Overlap Therapy: Active Bleeding Specialty Discharge - Follow Up or Referrals Follow up with: Prince Medellin MD [Physician] - 2 Weeks (With EKG FLP CMP CBC)
[2016-11-27] MEDS: CEFTAROLINE 600 MG in SODIUM CHLORIDE 0.9% 100 ML IV SCH ×2 (11:16→22:10)
[2016-11-27] MEDS: ROSUVASTATIN 20 MG TABLET PO SCH (21:23)
[2016-11-28] MEDS: INSULIN LISPRO 100 UNIT/ML SUBCUT SCH ×4 (08:28→21:44)
[2016-11-28] MEDS ORDERED: ceFAZolin 2,000 MG in PREMIX 1 EACH IV ONE (09:24)
--- NOTE | 2016-11-28 09:30 | General Surgery Consult Note ---
Assessment and Plan - Time spent with patient Time spent with patient: Greater than 30 minutes (1) Abscess of right axilla Status: Acute Assessment and plan: Impression: 1. Abscess of the right axilla etiology unknown 2. Recent CVA 3. Evidence of some unknown breast lesions on CT that is nonpalpable 4. History of a right lobectomy for cancer in 2005 Plan: We will try to take her to surgery for the possibility of debriding this and draining this abscess. We will need to get some tissue for diagnostic standpoint as well as cultures. Will consider debriding the heel well with air just clean it up Get an ultrasound of the breast to see if they see anything significant in the breast at this time. Current Visit: Yes History of Present Illness Chief complaint: Abscess right axilla History of present illness: Ms. Webster is a 89 year old female -[place] Islander who has been in the hospital since the for what appears to be a stroke with some swallowing difficulties associated with it. Apparently she is gone through several studies and the family indicates she may have had some ischemic colitis although is difficult to determine at this time. She is not overly alert but they found an abscess in the right axilla and consulted us for possible drainage. On reviewing her studies there was a CT scan of the chest is suggested that she had some lesions in the right breast and we may need to get an ultrasound to see what this may be indicating. Patient did have a history of a right lobectomy in 2005 for cancer and we need to probably get some good tissue from his axilla for diagnostic purposes also. The daughter indicated that there is a little change on the right heel which looks like a little blistered area. We may try to unroof that at this time. She will need some surgical debridement of this abscess to get this under control and cleaned up at this time. Home Medications Medication Instructions Recorded Confirmed Type Aspirin [Aspirin EC] 81 mg PO DAILY 11/13/16 11/13/16 History Atorvastatin [Lipitor] 10 mg PO QOTHER DAY 11/13/16 11/13/16 History Carboxymethylcellulose Sodium 1 drops BOTH EYES DAILY 11/13/16 11/13/16 History [Refresh Liquigel] Cholecalciferol (Vitamin D3) 1,000 units PO DAILY 11/13/16 11/13/16 History [Vitamin D3] Dorzolamide/Timolol Oph Soln 1 drop BOTH EYES DAILY 11/13/16 11/13/16 History [Cosopt] NIFEdipine [Nifedipine ER] 60 mg PO DAILY 11/13/16 11/13/16 History Potassium Chloride 20 meq PO DAILY 11/13/16 11/13/16 History Allergies Allergy/AdvReac Type Severity Reaction Status Date / Time losartan Allergy Unknown/Unable Verified 11/13/16 17:20 to obtain Medical,Surgical,& Family Hx - Medical History Cardio: History of: Hypertension, PVD, Cardiovascular Problems (MURMUR) Endocrine: History of: Diabetes Mellitus (NIDDM) - Family History Family History: Reports;: Family Diabetes (son) - Social History Smoking Status: Never smoker Frequency of Alcohol Use: None Type of Drug Use: None 12 point system: reviewed and no additional remarkable complaints except as stated Exam - Constitutional Vitals: Period Temp Pulse Resp BP Sys/Guerin Pulse Ox Last 24 Hr 98.3 F-99.7 F 57-76 14-22 163-186/70-80 94-98 General appearance: mild distress - Head Head exam: Present: normal inspection - ENT ENT exam: Present: normal exam - Neck Neck exam: Present: normal inspection - Respiratory Respiratory exam: Present: rales, rhonchi - Cardiovascular Cardiovascular exam: Present: RRR - Breasts Breasts: mass (No mass palpable), other (Old scar in the breast) - GI/Abdominal GI/Abdominal exam: Present: hypoactive bowel sounds, soft. Absent: tenderness - Extremities Exam Extremities exam: Present: other (There is a early blister change on the right heel) - Back Exam Back exam: Present: normal inspection - Neurological Exam Neurological exam: Present: altered - Skin Skin exam: Present: normal color, warm, dry Quality Measures - VTE Contraindication to Pharmacological VTE Prophylaxis: High Risk of Bleeding Results - Labs CBC & BMP: 11/27/16 03:49 11/27/16 03:49 Lab Results: I have reviewed the past 24 hour labs Specialty Discharge - Follow Up or Referrals Follow up with: Prince Medellin MD [Physician] - 2 Weeks (With EKG FLP CMP CBC)
[2016-11-28] MEDS: AMIODARONE 200 MG TABLET PO SCH ×2 (09:37→21:44)
[2016-11-28] MEDS: INSULIN GLARGINE 100 UNIT/ML SUBCUT SCH (09:38)
[2016-11-28] MEDS: POLYETHYLENE GLYCOL POWDER 17 GM PACK PO SCH (09:38)
[2016-11-28] MEDS: MAGNESIUM OXIDE 400 MG TABLET PO SCH ×2 (09:38→21:44)
[2016-11-28] MEDS: DESITIN 4OZ/NYSTATIN 15 GRAM MIXTURE PASTE TOP SCH ×2 (09:39→22:37)
[2016-11-28] MEDS: amLODIPine 10 MG TABLET PO SCH (09:39)
[2016-11-28] MEDS: PANTOPRAZOLE 40 MG VIAL IV SCH ×2 (09:39→21:45)
[2016-11-28] MEDS: CARBOXYMETHYLCELLULOSE 1% OPH SOLN BOTH EYES SCH (09:39)
[2016-11-28] MEDS: DORZOLAMIDE/TIMOLOL OPH SOLN 10 ML BOTTLE BOTH EYES SCH (09:40)
--- NOTE | 2016-11-28 12:42 | Hospitalist Progress Note ---
Assessment and Plan (1) CVA (cerebral vascular accident) Status: Acute Assessment and plan: Impression: 1. Left hemispheric cerebral infarction 2. Episode of ischemic colitis 3. Atrial fibrillation 4. Axillary abscess 5. Possible pressure sore bilateral heels Plan: Surgery is going to evaluate the axillary abscess and the possible pressure ulcers. Continue current care for the cerebral infarction. She apparently is in sinus rhythm now. Will defer timing of anticoagulation for the atrial fibrillation to neurology and cardiology. This note was completed using [employer] voice recognition software. There may be regional sales director errors as a result. Current Visit: Yes Hospitalist: Subjective Interval history: Follow-up cerebral infarction, axillary abscess, heel abscess, and atrial fibrillation. The patient is poorly responsive this morning. She has been seen by surgery, and is going down for drainage of the abscess in the axilla and evaluation of the heels. The daughter is in the room, and says that the patient is less responsive than she was yesterday. She had been awake and conversant, but is quite lethargic today. Exam - Constitutional Vitals: Period Temp Pulse Resp BP Sys/Guerin Pulse Ox Last 24 Hr 98.3 F-99.7 F 57-80 14-22 132-186/71-84 94-98 Vital signs are noted above. Heart is regular with distant tones and no murmur. Lungs are clear with no rales or wheezes. She has a right sided hemiparesis. Results - Labs CBC & BMP: 11/27/16 03:49 11/27/16 03:49 Quality Measures - VTE Contraindication to Pharmacological VTE Prophylaxis: High Risk of Bleeding Specialty Discharge - Follow Up or Referrals Follow up with: Prince Medellin MD [Physician] - 2 Weeks (With EKG FLP CMP CBC)
--- NOTE | 2016-11-28 12:47 | Event Note ---
November 28, 2016 Re:: Lanny Webster, date of 06/22/2025 To whom it may concern: This patient was admitted to the hospital on 11/13/2016. At that time, she presented for evaluation of bradycardia, and developed ischemic colitis. On , she suffered a left hemispheric cerebral infarction. Her condition has been critical throughout the hospitalization, requiring family presence for assistance and support. Duration of the current illness is not known at this time, but will be at least several more weeks in my estimation. If you need further information, please feel free to call me. Stanley Benavidez MD [facility] [address] [place] [address]
--- NOTE | 2016-11-28 12:59 | EKG Report ---
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
[2016-11-28] MEDS ORDERED: METOCLOPRAMIDE 10 MG/2 ML VIAL IV ONE (15:00)
[2016-11-28] MEDS ORDERED: FAMOTIDINE 20 MG/2 ML VIAL IV ONE (15:00)
[2016-11-28] MEDS: CEFTAROLINE 600 MG in SODIUM CHLORIDE 0.9% 100 ML IV SCH ×2 (15:16→22:37)
--- NOTE | 2016-11-28 16:47 | Event Note ---
Patient gone for I&D.
[2016-11-28] MEDS ORDERED: BUPIVACAINE 0.5% 50 ML VIAL ONE (17:13)
[2016-11-28] MEDS ORDERED: BUPIVACAINE MPF 0.25% /EPI 30 ML VIAL ONE (17:13)
[2016-11-28] MEDS ORDERED: LIDOCAINE 1%/EPI INJ 20 ML VIAL ONE (17:14)
[2016-11-28] MEDS ORDERED: HYDROmorphone 2 MG/1 ML VIAL IV PRN (18:14)
--- NOTE | 2016-11-28 18:14 | Operative Note ---
Date of procedure: 11/28/16 Pre-op diagnosis: Abscess right axilla Post-op diagnosis: other (Infected sebaceous cyst right axilla/blister right heel) Procedure: Operative note: Preoperative diagnosis: Abscess right axilla and blister right heel Postoperative diagnosis: 1. Infected sebaceous cyst right axilla 2. Pressure blister of the right heel Procedure: 1. Excisional debridement and drainage of infected sebaceous cyst right axilla 2. Debridement of blister right heel Surgeon Dr. Torres Anesthesia managed anesthetic care with local Brief history: 89-year-old -Cuban female who has had a stroke is bedridden and we were asked to see her for an abscess in the right axilla. Is swollen draining mass of the right axilla so would like to bring to surgery to debride this and clean it up. The daughter showed us a blister of the right heel which probably needs to be cleaned up at this time. Procedure With patient in the supine position prepped and draped in a sterile fashion timeout and antibiotics completed approaches area the mass to right axilla. I infiltrated around it with local anesthetic with a mass measuring 3 cm x 3 cm and raised with 3 central draining necrotic areas. At that point I begin to tell that this was probably a sebaceous cyst was infected at this point. I like to make a wide excision around the base of this mass in order to better excise it. We went down through the skin subcutaneous tissue with a knife until we can get to the base this wound and begin to debride and remove the capsule as well as a summation. Pocket of purulent material was cultured aerobically and anaerobically. Once the entire mass was excised had to go back and debride additional tissue to ensure I get the entire capsule including skin and subcutaneous tissue. At that point we then used electrocauterization controlling bleeding then we irrigated it with saline solution. We now have a wound that is 3.5 x 3 x 1.5 cm in size. At that point we packed with the Dakin' s wet gauze. I next lip down to the right heel which is just blistered area and I was able to with scissors just to completely remove the skin that was over the blister down to the good skin underneath. Little redness to the skin but no deep necrotic tissue or ulceration noted. With that completed then dressings were applied and the patient taken to recovery room. Estimated blood loss 5 cc Sponge count correct 2 Drains none Complications none Condition stable satisfactory Anesthesia: MAC, local (0.25% Marcaine with epinephrine mixed [id number] 1% Xylocaine plain) Surgeon / Physician: Parvez Torres Estimated blood loss: other (5 cc) Specimens: other (Tissue for cultures and pathology) Condition: stable Disposition: floor Results - Labs CBC & BMP: 11/27/16 03:49 11/27/16 03:49 Discharge Plan - Discharge Medications No Action NIFEdipine [Nifedipine ER] 60 mg PO DAILY Dorzolamide/Timolol Oph Soln [Cosopt] 1 drop BOTH EYES DAILY Cholecalciferol (Vitamin D3) [Vitamin D3] 1,000 units PO DAILY Atorvastatin [Lipitor] 10 mg PO QOTHER DAY Aspirin [Aspirin EC] 81 mg PO DAILY Potassium Chloride 20 meq PO DAILY Carboxymethylcellulose Sodium [Refresh Liquigel] 1 drops BOTH EYES DAILY - Follow Up or Referral Follow Up: Prince Medellin MD [Physician] - 2 Weeks (With EKG FLP CMP CBC) - Forms/Instructions Forms: Acute Care Work/School Release
--- NOTE | 2016-11-28 18:31 | Anesthesia Post-Op ---
Anesthesia Post OP - Post Ansesthetic Evaluation Patient seen in post op: Yes Resp: within normal limits CV: within normal limits Mental: within normal limits Temp: within normal limits [id number]: within normal limits Nausea and Vomiting: within normal limits Pain: within normal limits
[2016-11-28] MEDS ORDERED: fentaNYL 100 MCG/2 ML VIAL ONE (18:43)
[2016-11-28] MEDS: ROSUVASTATIN 20 MG TABLET PO SCH (21:44)
[2016-11-28] MEDS: SODIUM CHLORIDE 0.45% 1,000 ML IV SCH (22:37)
[2016-11-29] MEDS: ceFAZolin 2,000 MG in PREMIX 1 EACH IV SCH ×2 (02:28→11:18)
[2016-11-29 07:22] LABS: Calcium 8.5 MG/DL (8.5-10.1); Osmolality,Calculated 270.8 MOS/KG (273-304); Potassium 3.9 MMOL/L (3.5-5.1)
[2016-11-29 08:01] LABS: Basophils # 0.1 10*3/uL (0.0-0.2); Basophils % 0.5 % (0.0-0.8); Eosinophils # 0.1 10*3/uL (0.0-0.87); Eosinophils % 0.7 % (0.00-10.9); Hematocrit 29.5 VOL% (35.7-47.0); Hemoglobin 9.8 GM/DL (12.0-16.0); Immature Granulocytes Absolute 0.12 #; Lymphocytes # 1.3 10*3/uL (1.4-4.0); Lymphocytes % 10.8 % (21.3-54.2); Mean Corpuscular HGB Conc 33.2 GM/DL (32-36); Mean Corpuscular Hemoglobin 32 PG (27-34); Mean Corpuscular Volume 95.2 FL (87-102); Mean Platelet Volume 9.8 FL (9.6-12.0); Monocytes # 0.9 10*3/uL (0.11-0.8); Monocytes % 7.4 % (1.7-12.7); Neutrophils # 9.8 10*3/uL (1.4-7.4); Neutrophils % 79.6 % (38.7-73.9); Platelet Count 250 T/CUMM (130-400); Red Cell Distribution Width 13.1 % (9.3-17.3); White Blood Count 12.3 T/CUMM (4-12)
--- NOTE | 2016-11-29 08:54 | Ultrasound Report ---
Referring Physician: Stanley Benavidez MD Exam: US breast RT Date: November 29, 2016 Reason: Breast lesion seen on CT Comparison: CT chest November 26, 2016. There are no prior breast imaging studies available for comparison. The patient is unable to adequately communicate. Technique: Grayscale ultrasound images of all 4 quadrants of the right breast and the periareolar region were obtained. Ultrasound images were captured and stored. Findings: The patient has undergone recent surgical drainage of a probable sebaceous cyst at the lateral aspect of the right breast versus low right axillary region. No significant residual fluid is seen in this region. Within the 9:00 right breast located 3 cm from the nipple, there is a 0.7 x 0.6 x 0.5 cm hypoechoic mass with irregular margins and posterior shadowing. This could represent a neoplastic process in this patient with a history of breast cancer. A surgical scar is noted at the medial aspect of the right breast. Impression: There is a 0.7 x 0.6 x 0.5 cm hypoechoic mass with irregular margins and posterior shadowing within the 9:00 right breast located 3 cm from the nipple. This could represent a neoplastic process. Ultrasound-guided biopsy is recommended. BI-RADS Category 4c: Suspicious abnormality. Ultrasound-guided biopsy is recommended. These findings and recommendations were discussed with Dr. Torres by telephone on November 29, 2016 at 8:30 AM. The patient is unable to provide consent at this time and has various other medical problems. Dr. Torres stated that he will discuss the findings and recommendations with the patient's family members. PROCEDURE INTERPRETED AT [facility] DEPARTMENT OF RADIOLOGY Final Report Signed by: Dr. Agusto Shrestha
[2016-11-29] MEDS: DESITIN 4OZ/NYSTATIN 15 GRAM MIXTURE PASTE TOP SCH ×2 (09:00→21:48)
--- NOTE | 2016-11-29 09:29 | General Surgery Progress Note ---
Assessment and Plan - Time spent with patient Time spent with patient: Greater than 30 minutes (1) Abscess of right axilla Status: Acute Assessment and plan: 11/29/16 Stable post op right axillary abscess. Beginning local care today and we will await micro results. Current Visit: Yes (2) Breast lesion Status: Acute Assessment and plan: 11/29/16 Abnormal right breast ultrasound in a patient with previous history of breast carcinoma, 11 years s/p lumpectomy for breast cancer. The ultrasound is suspicious for recurrent cancer. Dr Torres has discussed this finding with her daughter, including options for diagnostic core biopsy, open biopsy, or no treatment. Dr Torres has recommended core biopsy, so that they can better decide what, if any, treatment to pursue. Mrs. Webster's daughter is agreeable to percutaneous core needle biopsy of the right breast using ultrasound guidance. This will have to be scheduled with the breast center radiologist and may not be able to be done today, and this was explained to them. We will place the order and be available should there be other questions or considerations. Current Visit: Yes Subjective Patient reports: Present: no new complaints, other (Pt smiles and shakes her head no when asked if she's in pain.) Exam - Constitutional Vitals: Period Temp Pulse Resp BP Sys/Guerin Pulse Ox Last 24 Hr 97.3 F-98.7 F 49-57 16-22 148-188/58-78 95-100 General appearance: no acute distress, other (Daughter is present at bedside and says she's rested comfortably.) - Breasts Breasts: other (See u/s report. Dr Torres has discussed this with Dr Shrestha. Post op axillary dressing is in place.) Results - Labs CBC & BMP: 11/29/16 07:48 11/29/16 06:27 Lab Results: I have reviewed the past 24 hour labs (Labs stable post op.) - Diagnostic Findings Procedure: Ultrasound: other (Dr Torres has discussed the breast ultrasound results & recommendations with Dr Agusto Shrestha) Quality Measures - VTE Contraindication to Pharmacological VTE Prophylaxis: High Risk of Bleeding Specialty Discharge - Follow Up or Referrals Follow up with: Prince Medellin MD [Physician] - 2 Weeks (With EKG FLP CMP CBC)
[2016-11-29] MEDS: AMIODARONE 200 MG TABLET PO SCH ×2 (09:45→21:47)
[2016-11-29] MEDS: amLODIPine 10 MG TABLET PO SCH (09:45)
[2016-11-29] MEDS: DORZOLAMIDE/TIMOLOL OPH SOLN 10 ML BOTTLE BOTH EYES SCH (09:45)
[2016-11-29] MEDS: MAGNESIUM OXIDE 400 MG TABLET PO SCH ×2 (09:45→21:46)
[2016-11-29] MEDS: CARBOXYMETHYLCELLULOSE 1% OPH SOLN BOTH EYES SCH (09:45)
--- NOTE | 2016-11-29 09:45 | Neurology Consult Note ---
History of Present Illness History of present illness: Ms. Webster is a 89 year old right-handed -[place] lady who was admitted to the hospital 3 weeks ago with ischemic colitis, bradycardia, atrial fibrillation. She was also found to have right leg ulcer and possibly cellulitis and underwent wound care management. She also found to have a cyst in the right thoracic region and she underwent I&D yesterday. A week or so ago she developed increased lethargy, difficulty with his speech and facial droop. 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 Never had a stroke before. She has been living with her daughter. The baseline she was quite independent. Home Medications Medication Instructions Recorded Confirmed Type Aspirin [Aspirin EC] 81 mg PO DAILY 11/13/16 11/13/16 History Atorvastatin [Lipitor] 10 mg PO QOTHER DAY 11/13/16 11/13/16 History Carboxymethylcellulose Sodium 1 drops BOTH EYES DAILY 11/13/16 11/13/16 History [Refresh Liquigel] Cholecalciferol (Vitamin D3) 1,000 units PO DAILY 11/13/16 11/13/16 History [Vitamin D3] Dorzolamide/Timolol Oph Soln 1 drop BOTH EYES DAILY 11/13/16 11/13/16 History [Cosopt] NIFEdipine [Nifedipine ER] 60 mg PO DAILY 11/13/16 11/13/16 History Potassium Chloride 20 meq PO DAILY 11/13/16 11/13/16 History Allergies Allergy/AdvReac Type Severity Reaction Status Date / Time losartan Allergy Unknown/Unable Verified 11/13/16 17:20 to obtain 12 point system: reviewed and no additional remarkable complaints except as stated Medical,Surgical,& Family Hx - Medical History Cardio: History of: Hypertension, PVD, Cardiovascular Problems (MURMUR) Endocrine: History of: Diabetes Mellitus (NIDDM) - Family History Family History: Reports;: Family Diabetes (son) - Social History Smoking Status: Never smoker Frequency of Alcohol Use: None Type of Drug Use: None Exam - Constitutional Vitals: Period Temp Pulse Resp BP Sys/Guerin Pulse Ox Last 24 Hr 97.3 F-98.7 F 49-57 16-22 148-188/58-78 95-100 Exam: GENERAL: Patient is in no acute distress. NECK: Neck is supple. There is no JVD. No carotid bruits present. No thyroid masses. CVS: First and second heart sounds are normal. There is no S3 present. Regular rate and rhythm. RESPIRATORY: Lungs are clear to auscultation without any rales or rhonchi. ABDOMEN: Soft and non-tender. Bowel sounds are present. There is no hepatosplenomegaly. EXT: There is no palpable edema. Peripheral pulses are present. 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 Strength in the right 3/5 Strength in the left 5/5 Sensory: Unreliable Reflexes: 1+ and symmetrical Cerebellar function: Cannot be tested Toes: Equivocal Gait: Cannot be tested Results - Labs CBC & BMP: 11/29/16 07:48 11/29/16 06:27 Assessment and Plan (1) CVA (cerebral vascular accident) Status: Acute Assessment and plan: Start Eliquis 2.5 mg twice daily Patient is able to swallow and we will continue feeding as tolerated Continue PT and OT and ST Patient is not a good candidate for acute rehabilitation. Consider a half-way facility placement Thank you for the consult Current Visit: Yes Specialty Discharge - Follow Up or Referrals Follow up with: Prince Medellin MD [Physician] - 2 Weeks (With EKG FLP CMP CBC)
[2016-11-29] MEDS: POLYETHYLENE GLYCOL POWDER 17 GM PACK PO SCH (09:46)
[2016-11-29] MEDS: CEFTAROLINE 600 MG in SODIUM CHLORIDE 0.9% 100 ML IV SCH ×2 (09:46→21:53)
[2016-11-29] MEDS: INSULIN LISPRO 100 UNIT/ML SUBCUT SCH ×4 (09:47→21:48)
[2016-11-29] MEDS: INSULIN GLARGINE 100 UNIT/ML SUBCUT SCH (09:48)
[2016-11-29] MEDS: PANTOPRAZOLE 40 MG VIAL IV SCH ×2 (10:07→21:57)
--- NOTE | 2016-11-29 11:06 | Hospitalist Progress Note ---
Assessment and Plan (1) CVA (cerebral vascular accident) Status: Acute Assessment and plan: Impression: 1. Left hemispheric cerebral infarction 2. Episode of ischemic colitis 3. Atrial fibrillation 4. Axillary abscess 5. Possible pressure sore bilateral heels Plan: Surgery has debrided the axillary abscess in the left heel. Neurology has instituted anticoagulation for the atrial fibrillation. Continue current rehab effort following the cerebral infarction. breast biopsy later today. This note was completed using [employer] voice recognition software. There may be program dir errors as a result. Current Visit: Yes Hospitalist: Subjective Interval history: Follow-up axillary abscess, left hemispheric cerebral infarction, ischemic colitis, and possible recurrent breast cancer. The patient is more awake today. She underwent debridement of the cyst in the axilla, and also the pressure ulcer on the heel. Chest CT showed a possible mass in the remnant of the right breast, and this is going to be biopsied later on today. The daughter was concerned about the patient's ongoing hypokalemia. I do not see any medication that might be causing this. We are still looking at a swing bed at the time of discharge. Exam - Constitutional Vitals: Period Temp Pulse Resp BP Sys/Guerin Pulse Ox Last 24 Hr 97.3 F-98.7 F 49-57 16-22 148-188/58-78 95-100 Vital signs are noted above. Heart is regular with no murmur or gallop. Lungs are clear with no rales or wheezes. Abdomen is soft with no mass. Neurologic examination is unchanged from yesterday. Results - Labs CBC & BMP: 11/29/16 07:48 11/29/16 06:27 Quality Measures - VTE Contraindication to Pharmacological VTE Prophylaxis: High Risk of Bleeding Specialty Discharge - Follow Up or Referrals Follow up with: Prince Medellin MD [Physician] - 2 Weeks (With EKG FLP CMP CBC)
[2016-11-29] MEDS: SODIUM CHLORIDE 0.45% 1,000 ML IV SCH ×2 (13:07→21:46)
[2016-11-29] MEDS: ONDANSETRON 4 MG/2 ML VIAL IV PRN (13:22)
[2016-11-29] MEDS: APIXABAN 2.5 MG TABLET PO SCH (21:46)
[2016-11-29] MEDS: ROSUVASTATIN 20 MG TABLET PO SCH (21:46)
[2016-11-29] MEDS: oxyCODONE/ACETAMINOPHEN 5-325 MG TABLET PO PRN (21:46)
[2016-11-30] MEDS: INSULIN LISPRO 100 UNIT/ML SUBCUT SCH ×4 (09:10→21:37)
[2016-11-30] MEDS: INSULIN GLARGINE 100 UNIT/ML SUBCUT SCH (09:10)
[2016-11-30] MEDS: APIXABAN 2.5 MG TABLET PO SCH ×2 (09:12→09:20)
[2016-11-30] MEDS: SKIN HEALING OINT (AQUAPHOR) 50 GM TUBE TOP SCH (09:12)
[2016-11-30] MEDS: POLYETHYLENE GLYCOL POWDER 17 GM PACK PO SCH (09:13)
[2016-11-30] MEDS: AMIODARONE 200 MG TABLET PO SCH ×2 (09:13→21:25)
[2016-11-30] MEDS: DORZOLAMIDE/TIMOLOL OPH SOLN 10 ML BOTTLE BOTH EYES SCH (09:13)
[2016-11-30] MEDS: MAGNESIUM OXIDE 400 MG TABLET PO SCH ×2 (09:13→21:25)
[2016-11-30] MEDS: amLODIPine 10 MG TABLET PO SCH (09:13)
[2016-11-30] MEDS: CARBOXYMETHYLCELLULOSE 1% OPH SOLN BOTH EYES SCH (09:13)
[2016-11-30] MEDS: PANTOPRAZOLE 40 MG VIAL IV SCH ×2 (09:14→21:25)
[2016-11-30] MEDS: DESITIN 4OZ/NYSTATIN 15 GRAM MIXTURE PASTE TOP SCH ×2 (09:14→21:38)
[2016-11-30] MEDS: SODIUM HYPOCHLORITE 0.25% IRRIG 473 ML BOTTLE TOP SCH (09:18)
[2016-11-30] MEDS: CEFTAROLINE 600 MG in SODIUM CHLORIDE 0.9% 100 ML IV SCH ×2 (09:18→21:23)
--- NOTE | 2016-11-30 09:24 | General Surgery Progress Note ---
Assessment and Plan (1) Abscess of right axilla Status: Acute Assessment and plan: 11/30/16 No growth from right axillary abscess/sebaceous cyst. Recommend continued wound care. Her Teflaro should have given her adequate coverage at this point. 11/29/16 Stable post op right axillary abscess. Beginning local care today and we will await micro results. Current Visit: Yes (2) Breast lesion Status: Acute Assessment and plan: 11/30/16 Her core biopsy was not performed yesterday, due to the [employer] system arbitrarily cancelling the order; unfortunately for the patient, I was not notified of this cancellation and only realized this today on rounds. After some degree of investigation and assistance from IT and the Leveler Helper today , they were able to find an obscure location in the order system, a nonspecific comment regarding a conflict in location, as to why the order was cancelled. I was unaware that the systems do not interface and that the order I placed in [facility] would not be received by the [facility] when placed through [employer], especially given the fact that there was indeed an order listed in this [employer] system for the exact procedure we were requesting and that the procedure was recommended by the radiologist reading at this facility. During the interval when the patient should have been getting the appropriately ordered procedure, her neurologist evaluation was performed and he ordered antiplatelet medications (Eliquis), which were begun yesterday. Again, unfortunately for this patient, she may now be unable or at least delayed in getting her needed biopsy, due to the [employer] system's failure to notify an ordering provider when an order is arbitrarily cancelled. This will be brought to the attention of administration, and hopefully it will be remedied. In the meantime, I have held her Eliquis, spoken to Jamarcus at the [facility], who will reschedule the procedure for today but will have to ultimately leave the decision to the performing radiologist of whether and when to perform a core biopsy of the right breast abnormality. 11/29/16 Abnormal right breast ultrasound in a patient with previous history of breast carcinoma, 11 years s/p lumpectomy for breast cancer. The ultrasound is suspicious for recurrent cancer. Dr Torres has discussed this finding with her daughter, including options for diagnostic core biopsy, open biopsy, or no treatment. Dr Torres has recommended core biopsy, so that they can better decide what, if any, treatment to pursue. Mrs. Webster's daughter is agreeable to percutaneous core needle biopsy of the right breast using ultrasound guidance. This will have to be scheduled with the breast center radiologist and may not be able to be done today, and this was explained to them. We will place the order and be available should there be other questions or considerations. Current Visit: Yes Subjective Patient reports: Present: other (Pt is sleeping today; arouses to verbal stimuli and denies pain. No family present. ) Exam - Constitutional Vitals: Period Temp Pulse Resp BP Sys/Guerin Pulse Ox Last 24 Hr 98.2 F-98.9 F 48-62 18-22 124-184/62-78 98-99 General appearance: no acute distress - Extremities Exam Extremities exam: Present: other (Right axillary dressing in place & dry.) Results - Labs CBC & BMP: 11/29/16 07:48 11/29/16 06:27 Lab Results: I have reviewed the past 24 hour labs (Labs noted; Micro reveals no growth on right axillary abscess at 48h.) Quality Measures - VTE Contraindication to Pharmacological VTE Prophylaxis: High Risk of Bleeding Specialty Discharge - Follow Up or Referrals Follow up with: Prince Medellin MD [Physician] - 2 Weeks (With EKG FLP CMP CBC)
--- NOTE | 2016-11-30 09:52 | Hospitalist Progress Note ---
Assessment and Plan (1) CVA (cerebral vascular accident) Status: Acute Assessment and plan: Impression: 1. Left hemispheric cerebral infarction 2. Episode of ischemic colitis 3. Atrial fibrillation 4. Axillary abscess 5. Possible pressure sore bilateral heels Plan: Surgery has debrided the axillary abscess and the right heel. Neurology has instituted anticoagulation for the atrial fibrillation. Continue current rehab effort following the cerebral infarction. Breast biopsy was not done yesterday , and surgery is planning today. This note was completed using [employer] voice recognition software. There may be alarm field technician errors as a result. Current Visit: Yes Hospitalist: Subjective Interval history: Follow-up cerebral infarction, axillary abscess, breast lesion, and pressure ulcer of the right heel. Breast biopsy was not performed yesterday, as documented in the surgery note. The patient is awake and conversant today. She reports no complaints. Exam - Constitutional Vitals: Period Temp Pulse Resp BP Sys/Guerin Pulse Ox Last 24 Hr 98.2 F-98.9 F 48-62 18-22 124-184/62-78 98-99 Vital signs are noted above. Heart is regular with no murmur or gallop. Chest is clear anteriorly. There is a bandage overlying the right axilla and chest wall. Right lower extremity is bandaged. Results - Labs CBC & BMP: 11/29/16 07:48 11/29/16 06:27 Quality Measures - VTE Contraindication to Pharmacological VTE Prophylaxis: High Risk of Bleeding Specialty Discharge - Follow Up or Referrals Follow up with: Prince Medellin MD [Physician] - 2 Weeks (With EKG FLP CMP CBC)
[2016-11-30] MEDS ORDERED: LIDOCAINE 1%/EPI INJ 20 ML VIAL ONE (09:57)
--- NOTE | 2016-11-30 11:58 | Ultrasound Report ---
Referring Physician: Parvez Torres Exam: Ultrasound guided percutaneous right breast biopsy with vacuum device Date: November 30, 2016 Reason: Right breast mass Comparison: Right breast ultrasound November 29, 2016 Technique: Informed consent was obtained from the patient's family since she is unable to provide consent. The right breast was cleansed in a sterile manner, and local anesthesia (1% lidocaine superficially and 1% lidocaine with epinephrine as deeper anesthesia) was administered. Using ultrasound, the recently identified suspicious hypoechoic mass within the 9:00 right breast was identified. A 12-gauge Celero biopsy needle was then used to obtain 4 core specimens of the mass using ultrasound guidance. A biopsy clip marker was placed at the mass after performance of the biopsy. A postprocedure mammogram cannot be obtained due to patient immobility. There was minimal blood loss, and the patient left the department in good condition. Impression: Status post ultrasound-guided biopsy of that 9:00 right breast mass. PROCEDURE INTERPRETED AT [facility] DEPARTMENT OF RADIOLOGY Final Report Signed by: Dr. Agusto Shrestha
--- NOTE | 2016-11-30 15:49 | Neurology Progress Note ---
Neurology - PN : Subjective Interval history: Patient seems to be doing about the same. No new problems reported. She is not participating much in therapy. Exam (Progress Note) - Constitutional Vitals: Period Temp Pulse Resp BP Sys/Guerin Pulse Ox Last 24 Hr 97.8 F-98.9 F 48-62 18-22 132-184/61-78 97-99 Exam: GENERAL: Patient is in no acute distress. NECK: Neck is supple. There is no JVD. No carotid bruits present. No thyroid masses. CVS: First and second heart sounds are normal. There is no S3 present. Regular rate and rhythm. RESPIRATORY: Lungs are clear to auscultation without any rales or rhonchi. ABDOMEN: Soft and non-tender. Bowel sounds are present. There is no hepatosplenomegaly. EXT: There is no palpable edema. Peripheral pulses are present. 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 Strength in the right 3/5 Strength in the left 5/5 Sensory: Unreliable Reflexes: 1+ and symmetrical Cerebellar function: Cannot be tested Toes: Equivocal Gait: Cannot be tested Results - Labs CBC & BMP: 11/29/16 07:48 11/29/16 06:27 Assessment and Plan (1) CVA (cerebral vascular accident) Status: Acute Assessment and plan: Start Eliquis 2.5 mg twice daily Patient is able to swallow and we will continue feeding as tolerated Continue PT and OT and ST No new recommendations. Current Visit: Yes Quality Measures - VTE Contraindication to Pharmacological VTE Prophylaxis: High Risk of Bleeding Specialty Discharge - Follow Up or Referrals Follow up with: Prince Medellin MD [Physician] - 2 Weeks (With EKG FLP CMP CBC)
[2016-11-30] MEDS: SODIUM CHLORIDE 0.45% 1,000 ML IV SCH (16:36)
[2016-11-30] MEDS: ROSUVASTATIN 20 MG TABLET PO SCH (21:25)
[2016-12-01] MEDS: INSULIN LISPRO 100 UNIT/ML SUBCUT SCH ×4 (08:50→23:10)
[2016-12-01] MEDS: AMIODARONE 200 MG TABLET PO SCH ×2 (08:51→22:57)
[2016-12-01] MEDS: DESITIN 4OZ/NYSTATIN 15 GRAM MIXTURE PASTE TOP SCH ×2 (08:52→22:57)
[2016-12-01] MEDS: MAGNESIUM OXIDE 400 MG TABLET PO SCH ×2 (08:52→22:56)
[2016-12-01] MEDS: DORZOLAMIDE/TIMOLOL OPH SOLN 10 ML BOTTLE BOTH EYES SCH (08:52)
[2016-12-01] MEDS: POLYETHYLENE GLYCOL POWDER 17 GM PACK PO SCH (08:52)
[2016-12-01] MEDS: CARBOXYMETHYLCELLULOSE 1% OPH SOLN BOTH EYES SCH (08:52)
[2016-12-01] MEDS: INSULIN GLARGINE 100 UNIT/ML SUBCUT SCH (08:52)
[2016-12-01] MEDS: SODIUM HYPOCHLORITE 0.25% IRRIG 473 ML BOTTLE TOP SCH (08:52)
[2016-12-01] MEDS: SKIN HEALING OINT (AQUAPHOR) 50 GM TUBE TOP SCH (08:52)
[2016-12-01] MEDS: amLODIPine 10 MG TABLET PO SCH (08:52)
[2016-12-01] MEDS: PANTOPRAZOLE 40 MG VIAL IV SCH ×2 (08:52→22:52)
[2016-12-01] MEDS: CEFTAROLINE 600 MG in SODIUM CHLORIDE 0.9% 100 ML IV SCH ×2 (08:53→22:55)
[2016-12-01] MEDS: SODIUM CHLORIDE 0.45% 1,000 ML IV SCH ×2 (08:53→23:30)
--- NOTE | 2016-12-01 08:58 | General Surgery Progress Note ---
Assessment and Plan (1) Abscess of right axilla Status: Acute Assessment and plan: Impression: 1. Abscess of the right axilla etiology unknown 2. Recent CVA 3. Evidence of some unknown breast lesions on CT that is nonpalpable 4. History of a right lobectomy for cancer in 2005 Plan: We will try to take her to surgery for the possibility of debriding this and draining this abscess. We will need to get some tissue for diagnostic standpoint as well as cultures. Will consider debriding the heel well with air just clean it up Get an ultrasound of the breast to see if they see anything significant in the breast at this time. 12/01/2016 Patient is doing fairly well with the wound in the axilla looking clean and her cultures there have been no growth at this time. May well be able to stop any antibiotics and switch her over to just topical wound care. She had a core needle biopsy of the lesion in the breast and we are waiting on that path report at this time. I have a question about how well she is eating it especially there is no one in there to feed her. Dr. Bolaños is seen her concerning her CVA. Current Visit: Yes Subjective Patient reports: Present: no new complaints, afebrile Exam - Constitutional Vitals: Period Temp Pulse Resp BP Sys/Guerin Pulse Ox Last 24 Hr 98.2 F-99.6 F 59-72 20-22 141-154/61-66 96-97 General appearance: mild distress - Head Head exam: Present: normal inspection - ENT ENT exam: Present: normal exam - Neck Neck exam: Present: normal inspection - Respiratory Respiratory exam: Present: rales, rhonchi - Cardiovascular Cardiovascular exam: Present: RRR - Breasts Breasts: other (No unusual bruising noted) - GI/Abdominal GI/Abdominal exam: Present: hypoactive bowel sounds, soft - Extremities Exam Extremities exam: Present: normal inspection, other (Wound in the right axilla is fairly clean no granulating tissue at this time) - Back Exam Back exam: Present: normal inspection - Neurological Exam Neurological exam: Present: altered - Skin Skin exam: Present: normal color, warm, dry Results - Labs CBC & BMP: 11/29/16 07:48 11/29/16 06:27 Lab Results: I have reviewed the past 24 hour labs Quality Measures - VTE Contraindication to Pharmacological VTE Prophylaxis: High Risk of Bleeding Specialty Discharge - Follow Up or Referrals Follow up with: Prince Medellin MD [Physician] - 2 Weeks (With EKG FLP CMP CBC)
--- NOTE | 2016-12-01 09:15 | Hospitalist Progress Note ---
Assessment and Plan (1) CVA (cerebral vascular accident) Status: Acute Assessment and plan: Impression: 1. Left hemispheric cerebral infarction 2. Episode of ischemic colitis 3. Atrial fibrillation 4. Axillary abscess 5. Possible pressure sore bilateral heels Plan: Axillary abscess cultures show no growth so far. She is being anticoagulated for the cerebral infarction. Continue physical therapy as she tolerates. We may be able to discontinue antibiotics if the wound cultures show no growth in the final report. She will end up needing placement somewhere. This note was completed using [employer] voice recognition software. There may be dental scheduler errors as a result. Current Visit: Yes Hospitalist: Subjective Interval history: Follow-up cerebral infarction, axillary abscess, right heel ulcer, breast lesion , and episode of ischemic colitis. Nursing staff was feeding the patient when I saw her this morning. They report that drainage on the bandage is minimal from the axillary abscess. The spot from the breast biopsy appears clean, as well. All cultures from the axillary abscess are no growth so far. We are waiting on pathology from the breast lesion. Exam - Constitutional Vitals: Period Temp Pulse Resp BP Sys/Guerin Pulse Ox Last 24 Hr 98.2 F-99.6 F 59-72 20-22 141-154/61-66 96-97 Vital signs are noted above. Heart is regular with no murmur or gallop. Lungs are clear with no rales or wheezes. Abdomen is soft with no mass. Right lower extremity is bandaged. She is awake and conversant. She is able to move all 4 extremities, with weakness on the right side. Results - Labs CBC & BMP: 11/29/16 07:48 11/29/16 06:27 Quality Measures - VTE Contraindication to Pharmacological VTE Prophylaxis: High Risk of Bleeding Specialty Discharge - Follow Up or Referrals Follow up with: Prince Medellin MD [Physician] - 2 Weeks (With EKG FLP CMP CBC)
[2016-12-01] MEDS: oxyCODONE/ACETAMINOPHEN 5-325 MG TABLET PO PRN ×2 (12:21→19:15)
--- NOTE | 2016-12-01 15:46 | Pathology Report from [facility] ---
ACCESSION # : [id number] PATIENT NAME : Lanny Webster ORDERING DR : Agusto Shrestha MD CLINICAL HX: Right breast mass at 9:00 0.7 x 0.6 x 0.5 cm, history of right breast cancer and lumpectomy, possible recurrence POST-OP DX: Same SPECIMEN INFO: Right breast U/S guided biopsy GROSS DESCRIPTION: Received in formalin labeled with the patient's name "LANNY WEBSTER and RT BREAST" consists of five fragments of [id number] fibroadipose tissue collectively measuring 1.5 x 2.0 cm. Submitted in one cassette.Note: Time in formalin is 11:00 AM on Monday11/30/2016. Time out of formalin is 06:00 PM on Monday11/30/2016. Fixation requirement met. DIAGNOSIS FOR LANNY WEBSTER: LESION RIGHT BREAST, 9:00, U/S GUIDED BIOPSY: Invasive ductal carcinoma, greatest tumor dimension 6 mm. Charo grade I ( tubules-2, pleomorphism-2, mitoses 3 MF/10/HPF). No DCIS, LCIS calcifications, necrosis or lymphovascular invasion seen.ESTROGEN receptor (SP1) immunostain: POSITIVE, 4+/4+, 76% nuclei. PROGESTERONE receptor (1E2) immunostain: POSITIVE , 4+/4+, 48% nuclei.HER-2/so (4B5) immunostain: NEGATIVE.Ki-67 (30-9) immunostain: 13 %. (Favorable <10%, Borderline 10-20%, Unfavorable >20%)NOTE: Formalin fixed tissue 6-72 hr. Stains read on [employer] second officer. SERVICE DATE: 11/30/2016 REPORT DATE: 12/01/2016 PATHOLOGIST: Nancy Valentin
[2016-12-01] MEDS: ROSUVASTATIN 20 MG TABLET PO SCH (22:55)
[2016-12-02 04:22] LABS: Basophils # 0.1 10*3/uL (0.0-0.2); Basophils % 0.6 % (0.0-0.8); Eosinophils # 0.3 10*3/uL (0.0-0.87); Eosinophils % 2.8 % (0.00-10.9); Hematocrit 28.6 VOL% (35.7-47.0); Hemoglobin 9.6 GM/DL (12.0-16.0); Immature Granulocytes % 0.9 %; Lymphocytes # 1.7 10*3/uL (1.4-4.0); Lymphocytes % 15.5 % (21.3-54.2); Mean Corpuscular HGB Conc 33.6 GM/DL (32-36); Mean Corpuscular Hemoglobin 31 PG (27-34); Mean Corpuscular Volume 92.9 FL (87-102); Monocytes % 9.7 % (1.7-12.7); Neutrophils # 7.6 10*3/uL (1.4-7.4); Neutrophils % 70.5 % (38.7-73.9); Platelet Count 247 T/CUMM (130-400); Red Blood Count 3.08 MC/CUMM (3.8-5.5); White Blood Count 10.7 T/CUMM (4-12)
[2016-12-02 04:48] LABS: Calcium 8.5 MG/DL (8.5-10.1); Potassium 3.5 MMOL/L (3.5-5.1)
--- NOTE | 2016-12-02 08:31 | Hospitalist Progress Note ---
Assessment and Plan (1) CVA (cerebral vascular accident) Status: Acute Assessment and plan: Impression: 1. Left hemispheric cerebral infarction 2. Episode of ischemic colitis, resolved 3. Atrial fibrillation, currently in sinus 4. Axillary abscess Plan: She is being anticoagulated for the cerebral infarction. Continue physical therapy as she tolerates. Discontinue antibiotic. Continue to pursue discharge disposition. This note was completed using [employer] voice recognition software. There may be bus person dishwasher errors as a result. Current Visit: Yes Hospitalist: Subjective Interval history: Follow-up left hemispheric cerebral infarction, atrial fibrillation, axillary abscess, and episode of ischemic colitis. The patient has no new complaints today. We are continuing to work on discharge planning. All of her wound cultures show no growth. Exam - Constitutional Vitals: Period Temp Pulse Resp BP Sys/Guerin Pulse Ox Last 24 Hr 98.8 F-99.4 F 57-65 20-22 132-175/64-77 95-96 Vital signs are noted above. Heart is regular with distant tones and no murmur. She has a few rhonchi in the chest. Axillary wound is clean, and the drain appears to have become dislodged. Right sided hemiparesis persists, and is unchanged. Results - Labs CBC & BMP: 12/02/16 03:47 12/02/16 03:47 Lab Results: I have reviewed the past 24 hour labs (All wound cultures were negative.) Quality Measures - VTE Contraindication to Pharmacological VTE Prophylaxis: High Risk of Bleeding Specialty Discharge - Follow Up or Referrals Follow up with: Prince Medellin MD [Physician] - 2 Weeks (With EKG FLP CMP CBC)
[2016-12-02] MEDS: DORZOLAMIDE/TIMOLOL OPH SOLN 10 ML BOTTLE BOTH EYES SCH (09:35)
[2016-12-02] MEDS: POLYETHYLENE GLYCOL POWDER 17 GM PACK PO SCH (09:35)
[2016-12-02] MEDS: AMIODARONE 200 MG TABLET PO SCH ×2 (09:36→21:15)
[2016-12-02] MEDS: MAGNESIUM OXIDE 400 MG TABLET PO SCH ×2 (09:36→21:14)
[2016-12-02] MEDS: APIXABAN 2.5 MG TABLET PO SCH ×2 (09:36→21:15)
[2016-12-02] MEDS: amLODIPine 10 MG TABLET PO SCH (09:36)
[2016-12-02] MEDS: CARBOXYMETHYLCELLULOSE 1% OPH SOLN BOTH EYES SCH (09:36)
[2016-12-02] MEDS: INSULIN GLARGINE 100 UNIT/ML SUBCUT SCH (09:36)
[2016-12-02] MEDS: DESITIN 4OZ/NYSTATIN 15 GRAM MIXTURE PASTE TOP SCH ×2 (09:37→21:16)
[2016-12-02] MEDS: INSULIN LISPRO 100 UNIT/ML SUBCUT SCH ×4 (09:37→21:15)
[2016-12-02] MEDS: SODIUM HYPOCHLORITE 0.25% IRRIG 473 ML BOTTLE TOP SCH (09:37)
[2016-12-02] MEDS: PANTOPRAZOLE 40 MG VIAL IV SCH ×2 (09:37→21:15)
[2016-12-02] MEDS: SKIN HEALING OINT (AQUAPHOR) 50 GM TUBE TOP SCH (09:38)
--- NOTE | 2016-12-02 09:51 | Oncology Consult Note ---
Assessment and Plan - Time spent with patient Time spent with patient: Greater than 30 minutes (1) Breast cancer Status: Acute Current Visit: Yes (2) CVA (cerebral vascular accident) Status: Acute Current Visit: Yes (3) Abscess of right axilla Status: Acute Current Visit: Yes History of Present Illness History of present illness: Ms. Webster is a 89 year old female with a distant history of breast cancer dating back to 2005. At that time she underwent lumpectomy what sounds like radiation per the daughter. She was admitted during the mid part of October with a large left-sided ischemic stroke. Upon further workup for this, she was found to have a small right-sided breast mass. Further work-up of this breast mass including ultrasound with biopsy has confirmed an invasive ductal adenocarcinoma. It was ER+ and HER2 negative. On imaging this lesion measures around [address] chest also revealed a cavitary 1 cm right lower lobe lesion and bilateral pleural effusions. There is no definitive axillary lymph node enlargement but there was a infected cyst in the right axilla. This is been resected and I have asked pathology to evaluate some of the tissue to be certain this was not a previous lymph node. The patient is severely disabled from her recent stroke and I do not see where it would be of any benefit to further pursue workup of her newly found right breast cancer. Given her recent ischemic event, placing her on antiestrogen therapy would add increased risk of recurrent thrombi with no obvious benefit in long-term survival in someone her age. I also do not think surgical resection or targeted radiotherapy to the lesion would ultimately add anything to her life. I see no reason to further pursue the cavitary right lung lesion or the bilateral pleural effusions. I explained this to daughter who is in agreement. If she improves significantly over the next few weeks and would like to readdress her cancer, I will be happy to do so. Home Medications Medication Instructions Recorded Confirmed Type Aspirin [Aspirin EC] 81 mg PO DAILY 11/13/16 11/13/16 History Atorvastatin [Lipitor] 10 mg PO QOTHER DAY 11/13/16 11/13/16 History Carboxymethylcellulose Sodium 1 drops BOTH EYES DAILY 11/13/16 11/13/16 History [Refresh Liquigel] Cholecalciferol (Vitamin D3) 1,000 units PO DAILY 11/13/16 11/13/16 History [Vitamin D3] Dorzolamide/Timolol Oph Soln 1 drop BOTH EYES DAILY 11/13/16 11/13/16 History [Cosopt] NIFEdipine [Nifedipine ER] 60 mg PO DAILY 11/13/16 11/13/16 History Potassium Chloride 20 meq PO DAILY 11/13/16 11/13/16 History Allergies Allergy/AdvReac Type Severity Reaction Status Date / Time losartan Allergy Unknown/Unable Verified 11/13/16 17:20 to obtain Medical,Surgical,& Family Hx - Medical History Cardio: History of: Hypertension, PVD, Cardiovascular Problems (MURMUR) Endocrine: History of: Diabetes Mellitus (NIDDM) - Family History Family History: Reports;: Family Diabetes (son) - Social History Smoking Status: Never smoker Frequency of Alcohol Use: None Type of Drug Use: None Exam - Constitutional Vitals: Period Temp Pulse Resp BP Sys/Guerin Pulse Ox Last 24 Hr 98.8 F-99.4 F 57-65 20-22 132-175/64-77 95-96 General appearance: normal weight, no acute distress - Head Head Exam: Present: normocephalic, atraumatic - ENT ENT exam: Present: normal exam, normal oropharynx - Neck Neck exam: Absent: lymphadenopathy, thyromegaly - Respiratory Respiratory exam: Present: CTAB, decreased breath sounds. Absent: wheezes - Cardiovascular Cardiovascular exam: Present: RRR. Absent: irregular rhythm, JVD - GI/Abdominal GI/Abdominal exam: Present: soft. Absent: ascites, distended, mass - Neurological Exam Neurological exam: Present: alert - Skin Skin exam: Present: warm, dry Results - Labs CBC & BMP: 12/02/16 03:47 12/02/16 03:47 Lab Results: I have reviewed the past 24 hour labs - Diagnostic Findings Procedure: CT - chest: report reviewed by me, MRI: report reviewed by me Quality Measures - VTE Contraindication to Pharmacological VTE Prophylaxis: High Risk of Bleeding Specialty Discharge - Follow Up or Referrals Follow up with: Prince Medellin MD [Physician] - 2 Weeks (With EKG FLP CMP CBC)
--- NOTE | 2016-12-02 09:57 | General Surgery Progress Note ---
Assessment and Plan - Time spent with patient Time spent with patient: Less than 30 minutes (1) Abscess of right axilla Status: Acute Assessment and plan: Impression: 1. Abscess of the right axilla etiology unknown 2. Recent CVA 3. Evidence of some unknown breast lesions on CT that is nonpalpable 4. History of a right lobectomy for cancer in 2005 Plan: We will try to take her to surgery for the possibility of debriding this and draining this abscess. We will need to get some tissue for diagnostic standpoint as well as cultures. Will consider debriding the heel well with air just clean it up Get an ultrasound of the breast to see if they see anything significant in the breast at this time. 12/01/2016 Patient is doing fairly well with the wound in the axilla looking clean and her cultures there have been no growth at this time. May well be able to stop any antibiotics and switch her over to just topical wound care. She had a core needle biopsy of the lesion in the breast and we are waiting on that path report at this time. I have a question about how well she is eating it especially there is no one in there to feed her. Dr. Bolaños is seen her concerning her CVA. 12/02/2016 The wound of the right axilla is very clean with good fatty tissue with no granulation tissue present. No evidence of any infection or drainage present at this time. The blister of the right heel is essentially resolved and the base of the heel looks in good shape. Patient continues to be a little bit lethargic at this time but does seem to wake and speak to you if stimulated. 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 Will consult oncology for opinion as far as any other treatment at this time. Will maintain present wound care. Current Visit: Yes Subjective Patient reports: Present: pain is less, tolerating a regular diet, afebrile Exam - Constitutional Vitals: Period Temp Pulse Resp BP Sys/Guerin Pulse Ox Last 24 Hr 98.7 F-99.4 F 57-65 18-22 132-175/59-77 95-96 General appearance: mild distress - Head Head exam: Present: normal inspection - ENT ENT exam: Present: normal exam - Neck Neck exam: Present: normal inspection - Respiratory Respiratory exam: Present: rales - Cardiovascular Cardiovascular exam: Present: RRR - Breasts Breasts: other (No unusual bruising or swelling of the right breast) - GI/Abdominal GI/Abdominal exam: Present: normal bowel sounds, soft - Extremities Exam Extremities exam: Present: other (Ulcer of the right heel is really better is mainly just a blister) - Back Exam Back exam: Present: normal inspection - Neurological Exam Neurological exam: Present: alert, altered - Skin Skin exam: Present: normal color, warm, dry Results - Labs CBC & BMP: 12/02/16 03:47 12/02/16 03:47 Lab Results: I have reviewed the past 24 hour labs Quality Measures - VTE Contraindication to Pharmacological VTE Prophylaxis: High Risk of Bleeding Specialty Discharge - Follow Up or Referrals Follow up with: Prince Medellin MD [Physician] - 2 Weeks (With EKG FLP CMP CBC)
--- NOTE | 2016-12-02 11:37 | Hospitalist Progress Note ---
Assessment and Plan (1) CVA (cerebral vascular accident) Status: Acute Assessment and plan: Impression: 1. Left hemispheric cerebral infarction 2. Episode of ischemic colitis, resolved 3. Atrial fibrillation, currently in sinus 4. Axillary abscess 5. Breast cancer 6. Hypertension Plan: Continue anticoagulation for the cerebral infarction. Continue physical therapy as she tolerates. Await discharge disposition from her Medicare HMO. This note was completed using [employer] voice recognition software. There may be carbon sequestration plant engineer errors as a result. Current Visit: Yes Hospitalist: Subjective Interval history: Follow-up left hemispheric cerebral infarction, atrial fibrillation, and episode of ischemic colitis. The patient's breast biopsy has returned as showing breast cancer. Oncology is not recommending any treatment at this time due to the recent stroke and her poor performance status. We are waiting on her insurance to approve swing bed or intermediate. The patient's mental status tends to come and go, and she is not always alert enough to participate in physical therapy. Daughter is concerned about this, as well as the labile blood pressure and bradycardia. The only medicine that might be causing the bradycardia is an ophthalmic beta- jolene. Exam - Constitutional Vitals: Period Temp Pulse Resp BP Sys/Guerin Pulse Ox Last 24 Hr 98.2 F-99.4 F 57-65 18-22 132-175/59-77 90-96 Vital signs are noted above. Heart is regular and slow with no murmur. She has a few rhonchi in the chest. Results - Labs CBC & BMP: 12/02/16 03:47 12/02/16 03:47 Quality Measures - VTE Contraindication to Pharmacological VTE Prophylaxis: High Risk of Bleeding Specialty Discharge - Follow Up or Referrals Follow up with: Prince Medellin MD [Physician] - 2 Weeks (With EKG FLP CMP CBC)
[2016-12-02] MEDS: SODIUM CHLORIDE 0.45% 1,000 ML IV SCH (17:00)
[2016-12-02] MEDS: ROSUVASTATIN 20 MG TABLET PO SCH (21:14)
[2016-12-03] MEDS: SODIUM CHLORIDE 0.45% 1,000 ML IV SCH ×2 (07:15→21:44)
[2016-12-03] MEDS: AMIODARONE 200 MG TABLET PO SCH ×2 (09:00→21:36)
[2016-12-03] MEDS: amLODIPine 10 MG TABLET PO SCH (09:00)
[2016-12-03] MEDS: MAGNESIUM OXIDE 400 MG TABLET PO SCH ×2 (09:00→21:36)
[2016-12-03] MEDS: INSULIN GLARGINE 100 UNIT/ML SUBCUT SCH (09:00)
[2016-12-03] MEDS: APIXABAN 2.5 MG TABLET PO SCH ×2 (09:00→21:36)
[2016-12-03] MEDS: SKIN HEALING OINT (AQUAPHOR) 50 GM TUBE TOP SCH (09:01)
[2016-12-03] MEDS: DESITIN 4OZ/NYSTATIN 15 GRAM MIXTURE PASTE TOP SCH (09:01)
[2016-12-03] MEDS: CARBOXYMETHYLCELLULOSE 1% OPH SOLN BOTH EYES SCH (09:01)
[2016-12-03] MEDS: PANTOPRAZOLE 40 MG VIAL IV SCH ×2 (09:01→21:36)
[2016-12-03] MEDS: POLYETHYLENE GLYCOL POWDER 17 GM PACK PO SCH (09:01)
[2016-12-03] MEDS: SODIUM HYPOCHLORITE 0.25% IRRIG 473 ML BOTTLE TOP SCH (09:01)
[2016-12-03] MEDS: INSULIN LISPRO 100 UNIT/ML SUBCUT SCH ×4 (09:53→21:44)
[2016-12-03] MEDS: DORZOLAMIDE/TIMOLOL OPH SOLN 10 ML BOTTLE BOTH EYES SCH (10:21)
--- NOTE | 2016-12-03 10:23 | Hospitalist Progress Note ---
Assessment and Plan (1) CVA (cerebral vascular accident) Status: Acute Assessment and plan: Impression: 1. Left hemispheric cerebral infarction 2. Episode of ischemic colitis, resolved 3. Atrial fibrillation, currently in sinus 4. Axillary abscess 5. Breast cancer 6. Hypertension Plan: Continue anticoagulation for the cerebral infarction. Continue physical therapy as she tolerates. She is ready for swing bed when approved by her insurance. This note was completed using [employer] voice recognition software. There may be logistics specialist errors as a result. Current Visit: Yes Hospitalist: Subjective Interval history: Follow-up cerebral infarction, ischemic colitis, recurrent breast cancer, and axillary abscess. The patient is currently sleeping. No family members are present. She appears comfortable. Staff notes no new problems. Exam - Constitutional Vitals: Period Temp Pulse Resp BP Sys/Guerin Pulse Ox Last 24 Hr 97.4 F-99.9 F 56-69 18-22 157-203/67-83 93-98 Vital signs are noted above. Heart is regular with no murmur or gallop. She has a few rhonchi in the chest. Abdomen is soft and nontender. Results - Labs CBC & BMP: 12/02/16 03:47 12/02/16 03:47 Quality Measures - VTE Contraindication to Pharmacological VTE Prophylaxis: High Risk of Bleeding Specialty Discharge - Follow Up or Referrals Follow up with: Prince Medellin MD [Physician] - 2 Weeks (With EKG FLP CMP CBC)
--- NOTE | 2016-12-03 10:27 | General Surgery Progress Note ---
Assessment and Plan - Time spent with patient Time spent with patient: Greater than 30 minutes (1) Abscess of right axilla Status: Acute Assessment and plan: 12/03/16 Wound of the right axilla is healing well. We will plan to decrease the amount of packing, as this may be impeding healing a bit. The cultures have been addressed. I spoke with the daughter regarding the options of delayed closure, which would require interrupting her Eliquis dosing, and simply continuing her local care until closure. We recommend conservative wound care, which could easily be continued at her next facility. Mrs Webster's daughter seems to agree that this would be a better choice than subjecting her to an interruption of her medication and additional surgery. We will continue following; it seems to be healing well and there is no further sign of infection. 11/30/16 No growth from right axillary abscess/sebaceous cyst. Recommend continued wound care. Her Teflaro should have given her adequate coverage at this point. 11/29/16 Stable post op right axillary abscess. Beginning local care today and we will await micro results. Current Visit: Yes (2) Breast lesion Status: Acute Assessment and plan: 12/03/16 Recurrent right breast cancer; appreciate Dr Allison's help. 11/30/16 Her core biopsy was not performed yesterday, due to the [employer] system arbitrarily cancelling the order; unfortunately for the patient, I was not notified of this cancellation and only realized this today on rounds. After some degree of investigation and assistance from IT and the Electrician Substation Supervisor today , they were able to find an obscure location in the order system, a nonspecific comment regarding a conflict in location, as to why the order was cancelled. I was unaware that the systems do not interface and that the order I placed in [facility] would not be received by the [facility] when placed through [employer], especially given the fact that there was indeed an order listed in this [employer] system for the exact procedure we were requesting and that the procedure was recommended by the radiologist reading at this facility. During the interval when the patient should have been getting the appropriately ordered procedure, her neurologist evaluation was performed and he ordered antiplatelet medications (Eliquis), which were begun yesterday. Again, unfortunately for this patient, she may now be unable or at least delayed in getting her needed biopsy, due to the [employer] system's failure to notify an ordering provider when an order is arbitrarily cancelled. This will be brought to the attention of administration, and hopefully it will be remedied. In the meantime, I have held her Eliquis, spoken to Jamarcus at the [facility], who will reschedule the procedure for today but will have to ultimately leave the decision to the performing radiologist of whether and when to perform a core biopsy of the right breast abnormality. 11/29/16 Abnormal right breast ultrasound in a patient with previous history of breast carcinoma, 11 years s/p lumpectomy for breast cancer. The ultrasound is suspicious for recurrent cancer. Dr Torres has discussed this finding with her daughter, including options for diagnostic core biopsy, open biopsy, or no treatment. Dr Torres has recommended core biopsy, so that they can better decide what, if any, treatment to pursue. Mrs. Webster's daughter is agreeable to percutaneous core needle biopsy of the right breast using ultrasound guidance. This will have to be scheduled with the breast center radiologist and may not be able to be done today, and this was explained to them. We will place the order and be available should there be other questions or considerations. Current Visit: Yes Subjective Patient reports: Present: other (Mrs Webster is sleeping but arouses to my voice; she denies pain and asks if we're talking about her. Her daughter is present at the bedside.) Exam - Constitutional Vitals: Period Temp Pulse Resp BP Sys/Guerin Pulse Ox Last 24 Hr 97.4 F-99.9 F 56-69 18-22 157-203/67-83 93-98 General appearance: no acute distress, other (Resting comfortably until we examin her wounds, when she responds appropriately but says 'it doesn't hurt too bad.' ) - Respiratory Respiratory exam: Present: clear to auscultation bilaterally - Breasts Breasts: other (Post op right Core biopsy site is clean and dry; there is no unusual ecchymosis or bleeding. Right axillary I&D wound is pink and granulating. There is no unusual induration, no drainage noted. It is not tender and she tolerates the wound care without any verbal or nonverbal indication of pain. ) - Extremities Exam Extremities exam: Present: other (Right heel with improved and epithelializing wound over all except a small, 1x 0.3cm area of ecchymosis. No eschars, no new areas seen. Left great toe with a 0.5 x 0.5cm superficial blister and dorsal foot abrasions. No redness, no tenderness or swelling.) Results - Labs CBC & BMP: 12/02/16 03:47 12/02/16 03:47 Lab Results: I have reviewed the past 24 hour labs Quality Measures - VTE Contraindication to Pharmacological VTE Prophylaxis: High Risk of Bleeding Specialty Discharge - Follow Up or Referrals Follow up with: Prince Medellin MD [Physician] - 2 Weeks (With EKG FLP CMP CBC)
[2016-12-03] MEDS: ROSUVASTATIN 20 MG TABLET PO SCH (21:36)
[2016-12-04] MEDS: DESITIN 4OZ/NYSTATIN 15 GRAM MIXTURE PASTE TOP SCH ×4 (02:34→20:45)
[2016-12-04] MEDS: INSULIN LISPRO 100 UNIT/ML SUBCUT SCH ×4 (08:47→20:45)
[2016-12-04] MEDS: APIXABAN 2.5 MG TABLET PO SCH ×2 (08:48→20:44)
[2016-12-04] MEDS: amLODIPine 10 MG TABLET PO SCH (08:48)
[2016-12-04] MEDS: AMIODARONE 200 MG TABLET PO SCH ×2 (08:50→20:45)
[2016-12-04] MEDS: DORZOLAMIDE/TIMOLOL OPH SOLN 10 ML BOTTLE BOTH EYES SCH (08:50)
[2016-12-04] MEDS: MAGNESIUM OXIDE 400 MG TABLET PO SCH ×2 (08:50→20:44)
[2016-12-04] MEDS: CARBOXYMETHYLCELLULOSE 1% OPH SOLN BOTH EYES SCH (08:51)
[2016-12-04] MEDS: POLYETHYLENE GLYCOL POWDER 17 GM PACK PO SCH (08:51)
[2016-12-04] MEDS: PANTOPRAZOLE 40 MG VIAL IV SCH ×2 (08:51→20:44)
[2016-12-04] MEDS: INSULIN GLARGINE 100 UNIT/ML SUBCUT SCH (09:02)
[2016-12-04] MEDS: SODIUM HYPOCHLORITE 0.25% IRRIG 473 ML BOTTLE TOP SCH (09:10)
[2016-12-04] MEDS: SKIN HEALING OINT (AQUAPHOR) 50 GM TUBE TOP SCH (09:10)
[2016-12-04] MEDS: SODIUM CHLORIDE 0.45% 1,000 ML IV SCH (10:56)
--- NOTE | 2016-12-04 11:41 | Hospitalist Progress Note ---
Assessment and Plan (1) CVA (cerebral vascular accident) Status: Acute Assessment and plan: Impression: 1. Left hemispheric cerebral infarction 2. Episode of ischemic colitis, resolved 3. Atrial fibrillation, currently in sinus 4. Axillary abscess 5. Breast cancer 6. Hypertension Plan: Continue current care. She is ready for swing bed when approved by her insurance. This note was completed using [employer] voice recognition software. There may be machine sewer errors as a result. Current Visit: Yes Hospitalist: Subjective Interval history: Follow-up cerebral infarction, recurrent breast cancer, axillary abscess. The patient is asleep in the bed. Staff reports no problems. Surgery is following the axillary abscess along with this. We are waiting on discharge disposition at this time. Exam - Constitutional Vitals: Period Temp Pulse Resp BP Sys/Guerin Pulse Ox Last 24 Hr 98.1 F-98.7 F 54-60 16-20 152-168/57-73 95-98 Vital signs are noted above. Heart is regular with no murmur. She has a few rhonchi in the chest. Abdomen is soft with no significant tenderness. Results - Labs CBC & BMP: 12/02/16 03:47 12/02/16 03:47 Quality Measures - VTE Contraindication to Pharmacological VTE Prophylaxis: High Risk of Bleeding Specialty Discharge - Follow Up or Referrals Follow up with: Prince Medellin MD [Physician] - 2 Weeks (With EKG FLP CMP CBC)
--- NOTE | 2016-12-04 13:19 | General Surgery Progress Note ---
Assessment and Plan (1) Abscess of right axilla Status: Acute Assessment and plan: Impression: 1. Abscess of the right axilla etiology unknown 2. Recent CVA 3. Evidence of some unknown breast lesions on CT that is nonpalpable 4. History of a right lobectomy for cancer in 2005 Plan: We will try to take her to surgery for the possibility of debriding this and draining this abscess. We will need to get some tissue for diagnostic standpoint as well as cultures. Will consider debriding the heel well with air just clean it up Get an ultrasound of the breast to see if they see anything significant in the breast at this time. 12/01/2016 Patient is doing fairly well with the wound in the axilla looking clean and her cultures there have been no growth at this time. May well be able to stop any antibiotics and switch her over to just topical wound care. She had a core needle biopsy of the lesion in the breast and we are waiting on that path report at this time. I have a question about how well she is eating it especially there is no one in there to feed her. Dr. Bolaños is seen her concerning her CVA. 12/02/2016 The wound of the right axilla is very clean with good fatty tissue with no granulation tissue present. No evidence of any infection or drainage present at this time. The blister of the right heel is essentially resolved and the base of the heel looks in good shape. Patient continues to be a little bit lethargic at this time but does seem to wake and speak to you if stimulated. 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 Will consult oncology for opinion as far as any other treatment at this time. Will maintain present wound care. 12/04/2016. Patient is doing well without any unusual problems at this time. The axillary wound is clean and healing slowly staying moist. Breast is doing well and is positive for cancer that Dr. Dalton has discussed options with the family at this time. At this point I think we can probably make plans for to go wherever she is going to continue wound care to this axilla and be followed up in our office couple in about 3 weeks. Once this is healed we will get oncology to review what they think the best options for her at that time. Current Visit: Yes Subjective Patient reports: Present: no new complaints, tolerating a regular diet, bowel movement, afebrile Exam - Constitutional Vitals: Period Temp Pulse Resp BP Sys/Guerin Pulse Ox Last 24 Hr 98.1 F-98.6 F 50-60 16-20 156-180/63-75 95-98 General appearance: mild distress - Head Head exam: Present: normal inspection - ENT ENT exam: Present: normal exam - Neck Neck exam: Present: normal inspection - Respiratory Respiratory exam: Present: clear to auscultation bilaterally, rales - Cardiovascular Cardiovascular exam: Present: RRR - GI/Abdominal GI/Abdominal exam: Present: hypoactive bowel sounds, soft - Extremities Exam Extremities exam: Present: normal inspection, other (Right axillary wound is clean with good clean fatty base with minimal granulation tissue present.) - Back Exam Back exam: Present: normal inspection - Neurological Exam Neurological exam: Present: alert, oriented X3, CN II-XII intact - Skin Skin exam: Present: normal color, warm, dry Results - Labs CBC & BMP: 12/02/16 03:47 12/02/16 03:47 Lab Results: I have reviewed the past 24 hour labs Quality Measures - VTE Contraindication to Pharmacological VTE Prophylaxis: High Risk of Bleeding Specialty Discharge - Follow Up or Referrals Follow up with: Prince Medellin MD [Physician] - 2 Weeks (With EKG FLP CMP CBC)
[2016-12-04] MEDS: ROSUVASTATIN 20 MG TABLET PO SCH (20:44)
[2016-12-05] MEDS: SODIUM CHLORIDE 0.45% 1,000 ML IV SCH ×3 (01:52→15:46)
[2016-12-05] MEDS: INSULIN LISPRO 100 UNIT/ML SUBCUT SCH ×4 (08:50→20:34)
[2016-12-05] MEDS: INSULIN GLARGINE 100 UNIT/ML SUBCUT SCH (08:53)
[2016-12-05] MEDS: PANTOPRAZOLE 40 MG VIAL IV SCH ×2 (08:53→20:32)
[2016-12-05] MEDS: POLYETHYLENE GLYCOL POWDER 17 GM PACK PO SCH (08:54)
[2016-12-05] MEDS: amLODIPine 10 MG TABLET PO SCH (08:54)
[2016-12-05] MEDS: DESITIN 4OZ/NYSTATIN 15 GRAM MIXTURE PASTE TOP SCH ×2 (08:54→20:34)
[2016-12-05] MEDS: SKIN HEALING OINT (AQUAPHOR) 50 GM TUBE TOP SCH (08:54)
[2016-12-05] MEDS: DORZOLAMIDE/TIMOLOL OPH SOLN 10 ML BOTTLE BOTH EYES SCH (08:54)
[2016-12-05] MEDS: MAGNESIUM OXIDE 400 MG TABLET PO SCH ×2 (08:54→20:38)
[2016-12-05] MEDS: SODIUM HYPOCHLORITE 0.25% IRRIG 473 ML BOTTLE TOP SCH (08:54)
[2016-12-05] MEDS: AMIODARONE 200 MG TABLET PO SCH ×2 (08:54→20:33)
[2016-12-05] MEDS: CARBOXYMETHYLCELLULOSE 1% OPH SOLN BOTH EYES SCH (08:54)
[2016-12-05] MEDS: APIXABAN 2.5 MG TABLET PO SCH ×2 (08:54→20:33)
--- NOTE | 2016-12-05 10:44 | Event Note ---
12/05/2016 Mrs. Webster's family is not present today, so I was not able to discuss her care with her daughter. The patient is awake and denies pain. I did not examine her wounds during this visit. She is comfortable at this point and says that her daughter will be in later. Nursing staff reports that we are awaiting decision by her insurance as to whether or not she would be accepted for assisted facility transfer. Her care should be able to be easily managed in that setting, and we will follow her up in our office in 3-4 weeks.
--- NOTE | 2016-12-05 11:25 | Pathology Report from [facility] ---
ACCESSION # : [id number] PATIENT NAME : Lanny Webster ORDERING DR : TAJ CISNEROS MD CLINICAL HX: History of breast cancer and axillary mass POST-OP DX: Infected sebaceous cyst SPECIMEN INFO: Right axilla tissue (resected on 11/28/2016); tissue ischemic time >72 hours GROSS DESCRIPTION: The specimen is received fresh labeled "LANNY WEBSTER" consists of an aggregate of skin and subcutaneous tissue measuring 3.5 x 1.5 cm. Also received are fragments of troncoso grumous material. Supervisor Quilting tissue submitted in one cassette. DIAGNOSIS FOR LANNY WEBSTER: SKIN AND SOFT TISSUE OF RIGHT AXILLA, EXCISION: Ruptured epidermal inclusion cyst with abscess formation. SERVICE DATE: 12/02/2016 REPORT DATE: 12/05/2016 PATHOLOGIST: Young Castro M.D. [facility]
--- NOTE | 2016-12-05 17:31 | Hospitalist Progress Note ---
Assessment and Plan - Time spent with patient Time spent with patient: Greater than 30 minutes (1) CVA (cerebral vascular accident) Status: Acute Assessment and plan: Continue current management. Current Visit: Yes (2) Abscess of right axilla Status: Acute Assessment and plan: Confirmed by pathology. Current Visit: Yes (3) Atrial fibrillation Status: Acute Assessment and plan: Currently sinus. Continue current management. Current Visit: Yes (4) Breast cancer Status: Acute Current Visit: Yes Hospitalist: Subjective Interval history: Patient has no complaints however the daughter states the patient may be having abdominal tenderness. Exam - Constitutional Vitals: Period Temp Pulse Resp BP Sys/Guerin Pulse Ox Last 24 Hr 98.2 F-99.4 F 53-60 18-20 149-190/52-80 93-99 General appearance: no acute distress - Head Head exam: Present: normocephalic, atraumatic - Eye Eye exam: Present: EOMI Pupils: Present: TRINIDAD - ENT ENT exam: Present: normal exam - Neck Neck exam: Present: normal inspection - Respiratory Respiratory exam: Present: clear to auscultation bilaterally. Absent: rhonchi, wheezes - Cardiovascular Cardiovascular exam: Present: regular rate and rhythm. Absent: gallop, rubs, systolic murmur - GI/Abdominal GI/Abdominal exam: Present: hypoactive bowel sounds, tenderness, soft. Absent: distended, firm, guarding, rebound - Extremities Exam Extremities exam: Present: normal inspection. Absent: calf tenderness, edema Results - Labs CBC & BMP: 12/02/16 03:47 12/02/16 03:47 Lab Results: I have reviewed the past 24 hour labs Quality Measures - VTE Contraindication to Pharmacological VTE Prophylaxis: High Risk of Bleeding Specialty Discharge - Follow Up or Referrals Follow up with: Prince Medellin MD [Physician] - 2 Weeks (With EKG FLP CMP CBC)
--- NOTE | 2016-12-05 19:36 | XRay Report ---
Referring Physician: Nadine Olmedo MD Exam: XR KUB Date: December 05, 2016 at 7:19 PM Reason: Abdominal tenderness Comparison: None Findings: There is no evidence of bowel obstruction or free air. The renal shadows are largely obscured. There is multilevel degenerative change at the spine, but no acute osseous process is seen. Prominent calcified plaque is noted at the arteries. Impression: No acute abdominal process is identified. PROCEDURE INTERPRETED AT [facility] DEPARTMENT OF RADIOLOGY Final Report Signed by: Dr. Agusto Shrestha
[2016-12-05] MEDS: ROSUVASTATIN 20 MG TABLET PO SCH (20:33)
[2016-12-06] MEDS: SODIUM CHLORIDE 0.45% 1,000 ML IV SCH ×2 (06:20→23:33)
[2016-12-06 07:29] LABS: Basophils # 0.1 10*3/uL (0.0-0.2); Basophils % 0.7 % (0.0-0.8); Eosinophils # 0.2 10*3/uL (0.0-0.87); Eosinophils % 2.3 % (0.00-10.9); Hematocrit 30.4 VOL% (35.7-47.0); Hemoglobin 10.2 GM/DL (12.0-16.0); Immature Granulocytes % 0.7 %; Immature Granulocytes Absolute 0.07 #; Lymphocytes # 1.6 10*3/uL (1.4-4.0); Lymphocytes % 15.4 % (21.3-54.2); Mean Corpuscular HGB Conc 33.6 GM/DL (32-36); Mean Corpuscular Hemoglobin 31 PG (27-34); Mean Corpuscular Volume 92.4 FL (87-102); Mean Platelet Volume 9.5 FL (9.6-12.0); Monocytes # 1.1 10*3/uL (0.11-0.8); Monocytes % 10.3 % (1.7-12.7); Neutrophils # 7.3 10*3/uL (1.4-7.4); Neutrophils % 70.6 % (38.7-73.9); Platelet Count 271 T/CUMM (130-400); Red Blood Count 3.29 MC/CUMM (3.8-5.5); Red Cell Distribution Width 13.2 % (9.3-17.3); White Blood Count 10.3 T/CUMM (4-12)
[2016-12-06] MEDS: INSULIN LISPRO 100 UNIT/ML SUBCUT SCH ×4 (07:30→21:31)
[2016-12-06 07:56] LABS: Calcium 8.2 MG/DL (8.5-10.1); Osmolality,Calculated 265.2 MOS/KG (273-304); Potassium 3.2 MMOL/L (3.5-5.1)
[2016-12-06] MEDS: AMIODARONE 200 MG TABLET PO SCH ×2 (12:48→21:15)
[2016-12-06] MEDS: SKIN HEALING OINT (AQUAPHOR) 50 GM TUBE TOP SCH (12:48)
[2016-12-06] MEDS: SODIUM HYPOCHLORITE 0.25% IRRIG 473 ML BOTTLE TOP SCH (12:49)
[2016-12-06] MEDS: APIXABAN 2.5 MG TABLET PO SCH ×2 (12:49→21:14)
[2016-12-06] MEDS: DORZOLAMIDE/TIMOLOL OPH SOLN 10 ML BOTTLE BOTH EYES SCH (12:49)
[2016-12-06] MEDS: INSULIN GLARGINE 100 UNIT/ML SUBCUT SCH (12:49)
[2016-12-06] MEDS: MAGNESIUM OXIDE 400 MG TABLET PO SCH ×2 (12:50→21:15)
[2016-12-06] MEDS: POLYETHYLENE GLYCOL POWDER 17 GM PACK PO SCH (12:50)
[2016-12-06] MEDS: amLODIPine 10 MG TABLET PO SCH (12:51)
[2016-12-06] MEDS: PANTOPRAZOLE 40 MG VIAL IV SCH ×2 (13:03→21:14)
[2016-12-06] MEDS: DESITIN 4OZ/NYSTATIN 15 GRAM MIXTURE PASTE TOP SCH ×2 (13:06→21:32)
[2016-12-06] MEDS: CARBOXYMETHYLCELLULOSE 1% OPH SOLN BOTH EYES SCH (13:07)
--- NOTE | 2016-12-06 13:39 | CT Report ---
CT head/brain wo con Indication: Change in mental status, history of CVA Comparison: CT brain dated November 25, 2016 Technique: Multiple axial tomographic images of the brain were obtained without the use of intravenous contrast. Findings: Evolution of large left COMPUTER PATTERNMAKER distribution infarct with serpentine hyperdensity again noted throughout the distribution suggestive of petechial hemorrhage. No significant midline shift. Global volume loss present as well as periventricular and subcortical hypoattenuation which is nonspecific but consistent with chronic microvascular ischemic change. There is hyperdensity noted along the anteroinferior frontal lobe just to the left of midline which measures up to 1.5 cm. Paranasal sinuses and mastoid air cells are clear. IMPRESSION: Evolution of large left COMPUTER PATTERNMAKER distribution infarct with petechial hemorrhage again suggested. There is hyperdensity noted along the anteroinferior frontal lobe just to the left of midline which measures up to 1.5 cm. This was not well demonstrated on comparison MRI dated November 24, 2016 likely secondary to motion. However, MRI of brain with contrast should be considered for further evaluation as differential includes meningioma as well as aneurysm. Probable chronic microvascular ischemic change and volume loss. The CT exam was performed using one or more of the following dose reduction techniques: Automated exposure control, adjustment of the mA and/or kV according to patient size, or use of iterative reconstruction technique. PROCEDURE INTERPRETED AT [facility] DEPARTMENT OF RADIOLOGY Final Report Signed by: Dr Wu Villaseñor
--- NOTE | 2016-12-06 14:55 | Neurology Progress Note ---
Neurology - PN : Subjective Interval history: Patient seems to be doing better. No new problems reported. More alert and awake and talkative. Exam (Progress Note) - Constitutional Vitals: Period Temp Pulse Resp BP Sys/Guerin Pulse Ox Last 24 Hr 98.8 F-99.7 F 57-65 18-22 146-158/52-68 93-95 Exam: GENERAL: Patient is in no acute distress. NECK: Neck is supple. There is no JVD. No carotid bruits present. No thyroid masses. CVS: First and second heart sounds are normal. There is no S3 present. Regular rate and rhythm. RESPIRATORY: Lungs are clear to auscultation without any rales or rhonchi. ABDOMEN: Soft and non-tender. Bowel sounds are present. There is no hepatosplenomegaly. EXT: There is no palpable edema. Peripheral pulses are present. 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 Strength in the right 3/5 Strength in the left 5/5 Sensory: Unreliable Reflexes: 1+ and symmetrical Cerebellar function: Cannot be tested Toes: Equivocal Gait: Cannot be tested Results - Labs CBC & BMP: 12/06/16 07:15 12/06/16 04:28 Assessment and Plan (1) CVA (cerebral vascular accident) Status: Acute Assessment and plan: Continue Eliquis at the same dose Continue PT OT and ST Okay to go to [facility] Sign off please call as needed Current Visit: Yes Quality Measures - VTE Contraindication to Pharmacological VTE Prophylaxis: High Risk of Bleeding Specialty Discharge - Follow Up or Referrals Follow up with: Prince Medellin MD [Physician] - 2 Weeks (With EKG FLP CMP CBC)
--- NOTE | 2016-12-06 16:11 | Hospitalist Progress Note ---
Assessment and Plan - Time spent with patient Time spent with patient: Greater than 30 minutes (1) CVA (cerebral vascular accident) Status: Acute Assessment and plan: CT head unreamarkable with motion artifact. Continue current management. Current Visit: Yes (2) Abscess of right axilla Status: Acute Assessment and plan: Confirmed by pathology. Current Visit: Yes (3) Atrial fibrillation Status: Acute Assessment and plan: Currently sinus. Continue current management. Current Visit: Yes (4) Breast cancer Status: Acute Current Visit: Yes (5) Fever Status: Acute Assessment and plan: obtain urinalysis and xray of chest. Current Visit: Yes Hospitalist: Subjective Interval history: Patient had a episode of confusion earlier today according to the daughter and CT of head was obtained. Exam - Constitutional Vitals: Period Temp Pulse Resp BP Sys/Guerin Pulse Ox Last 24 Hr 98.8 F-99.7 F 57-65 18-22 146-158/54-68 93-94 General appearance: no acute distress - Head Head exam: Present: normocephalic, atraumatic - Eye Eye exam: Present: EOMI Pupils: Present: TRINIDAD - ENT ENT exam: Present: normal exam - Neck Neck exam: Present: normal inspection - Respiratory Respiratory exam: Present: clear to auscultation bilaterally. Absent: rhonchi, wheezes - Cardiovascular Cardiovascular exam: Present: regular rate and rhythm. Absent: gallop, rubs, systolic murmur - GI/Abdominal GI/Abdominal exam: Present: normal bowel sounds, soft. Absent: distended, firm , guarding, tenderness, rebound - Extremities Exam Extremities exam: Present: normal inspection. Absent: calf tenderness, edema Results - Labs CBC & BMP: 12/06/16 07:15 12/06/16 04:28 Lab Results: I have reviewed the past 24 hour labs Quality Measures - VTE Contraindication to Pharmacological VTE Prophylaxis: High Risk of Bleeding Specialty Discharge - Follow Up or Referrals Follow up with: Prince Medellin MD [Physician] - 2 Weeks (With EKG FLP CMP CBC)
--- NOTE | 2016-12-06 16:33 | XRay Report ---
XR chest 1V portable Indication: Low-grade fever. Chest one view: Comparison 11/24/2016 shows generally improved aeration of the lungs. There is still obscuration of the medial left lung base and hazy infiltrate of the left perihilar lung. Cardiomegaly is stable as well. Lung volumes remain quite low. Impression: Overall improved aeration of the lungs since 11/24/2016. Persistent left perihilar and basilar pneumonia versus atelectasis. PROCEDURE INTERPRETED AT [facility] DEPARTMENT OF RADIOLOGY Final Report Signed by: Zaki Torrez M.D.
[2016-12-06 20:02] LABS: Amorphous Crystals,Urine Occasional /HPF (Few); Apearance,Urine CLOUDY (Clear); Bilirubin,Urine Negative (Negative); Blood, Urine Negative (Negative); Glucose,Urine (UA) Negative (Negative); Hyaline Casts,Urine 2 /LPF (0-3); Ketones,Urine Negative (Negative); Mucus,Urine Occasional /LPF (Occasional); Nitrite,Urine Negative (Negative); Protein,Urine Negative; Urine Color Yellow (Yellow); Urine Specific Gravity 1.008 (1.001-1.035); Urine Urobilinogen < 2.0 EU/DL (0.2-1.0); WBC,Urine 2 /HPF (0-6)
[2016-12-06] MEDS: ACETAMINOPHEN 325 MG TABLET PO PRN (21:14)
[2016-12-06] MEDS: ROSUVASTATIN 20 MG TABLET PO SCH (21:14)
[2016-12-07 04:39] LABS: Basophils # 0.1 10*3/uL (0.0-0.2); Basophils % 0.7 % (0.0-0.8); Eosinophils # 0.3 10*3/uL (0.0-0.87); Eosinophils % 2.9 % (0.00-10.9); Hematocrit 29.3 VOL% (35.7-47.0); Hemoglobin 9.8 GM/DL (12.0-16.0); Immature Granulocytes % 0.6 %; Immature Granulocytes Absolute 0.05 #; Lymphocytes # 1.5 10*3/uL (1.4-4.0); Lymphocytes % 17.3 % (21.3-54.2); Mean Corpuscular HGB Conc 33.4 GM/DL (32-36); Mean Corpuscular Hemoglobin 31 PG (27-34); Mean Corpuscular Volume 91.8 FL (87-102); Mean Platelet Volume 10.2 FL (9.6-12.0); Monocytes # 0.9 10*3/uL (0.11-0.8); Monocytes % 10.5 % (1.7-12.7); Neutrophils # 5.9 10*3/uL (1.4-7.4); Platelet Count 288 T/CUMM (130-400); Red Blood Count 3.19 MC/CUMM (3.8-5.5); Red Cell Distribution Width 12.9 % (9.3-17.3); White Blood Count 8.7 T/CUMM (4-12)
[2016-12-07 05:10] LABS: Calcium 8.4 MG/DL (8.5-10.1); Osmolality,Calculated 271.7 MOS/KG (273-304); Potassium 3.4 MMOL/L (3.5-5.1)
[2016-12-07] MEDS: POTASSIUM CHLORIDE RIDER 10 MEQ in PREMIX 1 EACH IV PRN ×3 (05:24→10:27)
[2016-12-07] MEDS: DORZOLAMIDE/TIMOLOL OPH SOLN 10 ML BOTTLE BOTH EYES SCH (08:34)
[2016-12-07] MEDS: CARBOXYMETHYLCELLULOSE 1% OPH SOLN BOTH EYES SCH (08:35)
[2016-12-07] MEDS: MAGNESIUM OXIDE 400 MG TABLET PO SCH ×2 (08:35→22:00)
[2016-12-07] MEDS: APIXABAN 2.5 MG TABLET PO SCH ×2 (08:35→22:00)
[2016-12-07] MEDS: amLODIPine 10 MG TABLET PO SCH (08:35)
[2016-12-07] MEDS: POLYETHYLENE GLYCOL POWDER 17 GM PACK PO SCH (08:35)
[2016-12-07] MEDS: cefTRIAXone 2,000 MG in SODIUM CHLORIDE 0.9% 100 ML IV SCH (08:35)
[2016-12-07] MEDS: AMIODARONE 200 MG TABLET PO SCH ×2 (08:35→22:00)
[2016-12-07] MEDS: PANTOPRAZOLE 40 MG VIAL IV SCH ×2 (08:35→22:00)
[2016-12-07] MEDS: INSULIN LISPRO 100 UNIT/ML SUBCUT SCH ×4 (08:36→22:00)
[2016-12-07] MEDS: DESITIN 4OZ/NYSTATIN 15 GRAM MIXTURE PASTE TOP SCH ×2 (08:36→22:01)
[2016-12-07] MEDS: INSULIN GLARGINE 100 UNIT/ML SUBCUT SCH (08:47)
[2016-12-07] MEDS: SKIN HEALING OINT (AQUAPHOR) 50 GM TUBE TOP SCH (10:00)
[2016-12-07] MEDS: SODIUM HYPOCHLORITE 0.25% IRRIG 473 ML BOTTLE TOP SCH (10:00)
[2016-12-07] MEDS: ACETAMINOPHEN 325 MG TABLET PO PRN (11:44)
--- NOTE | 2016-12-07 15:04 | Hospitalist Progress Note ---
Assessment and Plan - Time spent with patient Time spent with patient: Greater than 30 minutes (1) CVA (cerebral vascular accident) Status: Acute Assessment and plan: CT head unreamarkable with motion artifact. Continue current management. Current Visit: Yes (2) Abscess of right axilla Status: Acute Assessment and plan: Confirmed by pathology. Current Visit: Yes (3) Atrial fibrillation Status: Acute Assessment and plan: Currently sinus. Continue current management. Current Visit: Yes (4) Breast cancer Status: Acute Current Visit: Yes (5) Fever Status: Acute Assessment and plan: obtain urinalysis and xray of chest. Current Visit: Yes Hospitalist: Subjective Interval history: No complaints no overnight events. Exam - Constitutional Vitals: Period Temp Pulse Resp BP Sys/Guerin Pulse Ox Last 24 Hr 98.2 F-99.1 F 53-62 18-95 145-157/54-73 94-99 General appearance: no acute distress - Head Head exam: Present: normocephalic, atraumatic - Eye Eye exam: Present: EOMI Pupils: Present: TRINIDAD - ENT ENT exam: Present: normal exam - Neck Neck exam: Present: normal inspection - Respiratory Respiratory exam: Present: clear to auscultation bilaterally. Absent: rhonchi, wheezes - Cardiovascular Cardiovascular exam: Present: regular rate and rhythm. Absent: gallop, rubs, systolic murmur - GI/Abdominal GI/Abdominal exam: Present: normal bowel sounds, soft. Absent: distended, firm , guarding, tenderness, rebound - Extremities Exam Extremities exam: Present: normal inspection. Absent: calf tenderness, edema Results - Labs CBC & BMP: 12/07/16 03:34 12/07/16 03:34 Lab Results: I have reviewed the past 24 hour labs Quality Measures - VTE Contraindication to Pharmacological VTE Prophylaxis: High Risk of Bleeding Specialty Discharge - Follow Up or Referrals Follow up with: Prince Medellin MD [Physician] - 2 Weeks (With EKG FLP CMP CBC)
[2016-12-07] MEDS: SODIUM CHLORIDE 0.45% 1,000 ML IV SCH (17:51)
[2016-12-07] MEDS: ROSUVASTATIN 20 MG TABLET PO SCH (22:00)
[2016-12-08 06:33] LABS: Basophils # 0.1 10*3/uL (0.0-0.2); Basophils % 0.7 % (0.0-0.8); Eosinophils # 0.3 10*3/uL (0.0-0.87); Eosinophils % 3.6 % (0.00-10.9); Hematocrit 29.8 VOL% (35.7-47.0); Hemoglobin 10.2 GM/DL (12.0-16.0); Immature Granulocytes % 0.5 %; Immature Granulocytes Absolute 0.04 #; Lymphocytes # 1.3 10*3/uL (1.4-4.0); Lymphocytes % 14.5 % (21.3-54.2); Mean Corpuscular HGB Conc 34.2 GM/DL (32-36); Mean Corpuscular Hemoglobin 31 PG (27-34); Mean Corpuscular Volume 89.5 FL (87-102); Mean Platelet Volume 10.2 FL (9.6-12.0); Monocytes # 0.8 10*3/uL (0.11-0.8); Monocytes % 9.3 % (1.7-12.7); Neutrophils # 6.2 10*3/uL (1.4-7.4); Neutrophils % 71.4 % (38.7-73.9); Platelet Count 305 T/CUMM (130-400); Red Blood Count 3.33 MC/CUMM (3.8-5.5); White Blood Count 8.7 T/CUMM (4-12)
[2016-12-08 07:05] LABS: Calcium 8.3 MG/DL (8.5-10.1); Osmolality,Calculated 266.1 MOS/KG (273-304); Potassium 3.4 MMOL/L (3.5-5.1)
[2016-12-08] MEDS: SODIUM CHLORIDE 0.45% 1,000 ML IV SCH (09:17)
[2016-12-08] MEDS: cefTRIAXone 2,000 MG in SODIUM CHLORIDE 0.9% 100 ML IV SCH (09:18)
[2016-12-08] MEDS: MAGNESIUM OXIDE 400 MG TABLET PO SCH ×2 (09:21→22:24)
[2016-12-08] MEDS: APIXABAN 2.5 MG TABLET PO SCH ×2 (09:21→22:25)
[2016-12-08] MEDS: CARBOXYMETHYLCELLULOSE 1% OPH SOLN BOTH EYES SCH (09:21)
[2016-12-08] MEDS: AMIODARONE 200 MG TABLET PO SCH ×2 (09:21→22:25)
[2016-12-08] MEDS: amLODIPine 10 MG TABLET PO SCH (09:21)
[2016-12-08] MEDS: POLYETHYLENE GLYCOL POWDER 17 GM PACK PO SCH (09:22)
[2016-12-08] MEDS: PANTOPRAZOLE 40 MG VIAL IV SCH ×2 (09:22→22:26)
[2016-12-08] MEDS: DORZOLAMIDE/TIMOLOL OPH SOLN 10 ML BOTTLE BOTH EYES SCH (09:22)
[2016-12-08] MEDS: INSULIN LISPRO 100 UNIT/ML SUBCUT SCH ×4 (09:23→22:25)
[2016-12-08] MEDS: INSULIN GLARGINE 100 UNIT/ML SUBCUT SCH (09:23)
[2016-12-08] MEDS: SKIN HEALING OINT (AQUAPHOR) 50 GM TUBE TOP SCH (09:33)
[2016-12-08] MEDS: SODIUM HYPOCHLORITE 0.25% IRRIG 473 ML BOTTLE TOP SCH (09:33)
[2016-12-08] MEDS: DESITIN 4OZ/NYSTATIN 15 GRAM MIXTURE PASTE TOP SCH ×2 (09:33→23:06)
[2016-12-08] MEDS: POTASSIUM CHLORIDE RIDER 10 MEQ in PREMIX 1 EACH IV PRN ×3 (10:27→13:32)
--- NOTE | 2016-12-08 15:32 | Hospitalist Progress Note ---
Assessment and Plan - Time spent with patient Time spent with patient: Greater than 30 minutes (1) CVA (cerebral vascular accident) Status: Acute Assessment and plan: CT head unreamarkable with motion artifact. Continue current management. Current Visit: Yes (2) Abscess of right axilla Status: Acute Assessment and plan: Confirmed by pathology. Current Visit: Yes (3) Atrial fibrillation Status: Acute Assessment and plan: Currently sinus. Continue current management. Current Visit: Yes (4) Breast cancer Status: Acute Current Visit: Yes Hospitalist: Subjective Interval history: No complaints or overnight events. Exam - Constitutional Vitals: Period Temp Pulse Resp BP Sys/Guerin Pulse Ox Last 24 Hr 98.7 F-99.0 F 48-62 18-24 145-159/58-73 92-97 General appearance: no acute distress - Head Head exam: Present: normocephalic, atraumatic - Eye Eye exam: Present: EOMI Pupils: Present: TRINIDAD - ENT ENT exam: Present: normal exam - Neck Neck exam: Present: normal inspection - Respiratory Respiratory exam: Present: clear to auscultation bilaterally. Absent: rhonchi, wheezes - Cardiovascular Cardiovascular exam: Present: regular rate and rhythm. Absent: gallop, rubs, systolic murmur - GI/Abdominal GI/Abdominal exam: Present: normal bowel sounds, soft. Absent: distended, firm , guarding, tenderness, rebound - Extremities Exam Extremities exam: Present: normal inspection. Absent: calf tenderness, edema Results - Labs CBC & BMP: 12/08/16 06:00 12/08/16 06:00 Lab Results: I have reviewed the past 24 hour labs Quality Measures - VTE Contraindication to Pharmacological VTE Prophylaxis: High Risk of Bleeding Specialty Discharge - Follow Up or Referrals Follow up with: Prince Medellin MD [Physician] - 2 Weeks (With EKG FLP CMP CBC)
[2016-12-08] MEDS: ROSUVASTATIN 20 MG TABLET PO SCH (22:24)
[2016-12-09] MEDS: SODIUM CHLORIDE 0.45% 1,000 ML IV SCH (03:10)
--- NOTE | 2016-12-09 08:09 | General Surgery Progress Note ---
Assessment and Plan (1) Abscess of right axilla Status: Acute Assessment and plan: Impression: 1. Abscess of the right axilla etiology unknown 2. Recent CVA 3. Evidence of some unknown breast lesions on CT that is nonpalpable 4. History of a right lobectomy for cancer in 2005 Plan: We will try to take her to surgery for the possibility of debriding this and draining this abscess. We will need to get some tissue for diagnostic standpoint as well as cultures. Will consider debriding the heel well with air just clean it up Get an ultrasound of the breast to see if they see anything significant in the breast at this time. 12/01/2016 Patient is doing fairly well with the wound in the axilla looking clean and her cultures there have been no growth at this time. May well be able to stop any antibiotics and switch her over to just topical wound care. She had a core needle biopsy of the lesion in the breast and we are waiting on that path report at this time. I have a question about how well she is eating it especially there is no one in there to feed her. Dr. Bolaños is seen her concerning her CVA. 12/02/2016 The wound of the right axilla is very clean with good fatty tissue with no granulation tissue present. No evidence of any infection or drainage present at this time. The blister of the right heel is essentially resolved and the base of the heel looks in good shape. Patient continues to be a little bit lethargic at this time but does seem to wake and speak to you if stimulated. 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 Will consult oncology for opinion as far as any other treatment at this time. Will maintain present wound care. 12/04/2016. Patient is doing well without any unusual problems at this time. The axillary wound is clean and healing slowly staying moist. Breast is doing well and is positive for cancer that Dr. Dalton has discussed options with the family at this time. At this point I think we can probably make plans for to go wherever she is going to continue wound care to this axilla and be followed up in our office couple in about 3 weeks. Once this is healed we will get oncology to review what they think the best options for her at that time. 12/09/2016 Patient continues to do fairly well at this time with the axillary wound being clean but very little granulation tissue associated with it. Probably time to modify the wound care little bit to simplify it and give it a chance to begin to fill in. The right heel Which was just a blister has a fine eschar over it at this time probably making the stage II decubitus ulcer in that area. Otherwise the leg looks good without any problems and no sign of any infection. Left lower extremity is doing well without problems. I have noticed that after taking dressings down wound care is not completely being done as ordered. Will modify these orders try to simplify the care. Our understanding that [facility] has denied swing bed for the patient and they are looking for alternatives at this time. If she should get discharged I would like to see her in the wound healing center at about 3-4 weeks. Current Visit: Yes Subjective Patient reports: Present: no new complaints, tolerating a regular diet, afebrile Exam - Constitutional Vitals: Period Temp Pulse Resp BP Sys/Guerin Pulse Ox Last 24 Hr 98.5 F-99.9 F 48-58 18-20 145-182/59-79 93-97 General appearance: mild distress - Head Head exam: Present: normal inspection - Neck Neck exam: Present: normal inspection - Respiratory Respiratory exam: Present: rales - Cardiovascular Cardiovascular exam: Present: RRR - GI/Abdominal GI/Abdominal exam: Present: hypoactive bowel sounds, soft. Absent: tenderness - Extremities Exam Extremities exam: Present: other (Right axilla wound is clean without any good granulation tissue but no evidence of any infection or drainage. Right heel has a small dry eschar that looks superficial at this time and does not need any debridement. Left lower extremity is doing well without problems) - Back Exam Back exam: Present: normal inspection - Neurological Exam Neurological exam: Present: alert, altered - Skin Skin exam: Present: normal color, warm, dry Results - Labs CBC & BMP: 12/08/16 06:00 12/08/16 06:00 Lab Results: I have reviewed the past 24 hour labs Quality Measures - VTE Contraindication to Pharmacological VTE Prophylaxis: High Risk of Bleeding Specialty Discharge - Follow Up or Referrals Follow up with: Prince Medellin MD [Physician] - 2 Weeks (With EKG FLP CMP CBC) Parvez Torres MD [Physician] - 1 Month (At the wound healing center on a Monday to see Dr. Torres)
--- NOTE | 2016-12-09 10:09 | Case Mgmt Physician Query Form ---
TB Signs and Symptoms Screening ([place]) INSTRUCTIONS: To be completed annually on residents/staff with a significant Tuberculin Skin Test (TST) upon admission/hire or a prior significant TST. To be completed on all staff at hire. Please respond to each listed symptom with an (X) in either the "YES" or "NO" box. Do you currently have any of the following symptoms: YES NO ( ) ( x) A cough If yes, is it: ( ) Productive ( ) Non- productive ( ) (x ) Hemoptysis (spitting up blood) ( ) ( x) Chest pains ( ) (x ) Weight Loss ( ) (x ) Fever ( ) (x ) Night Sweats (x ) ( ) Weakness (x ) ( ) Loss of Appetite ( ) ( x) Difficulty Breathing If you answered YES" to any of the above questions, how long have symptoms been present? weeks Comments: [place]
[2016-12-09] MEDS: POLYETHYLENE GLYCOL POWDER 17 GM PACK PO SCH (11:14)
[2016-12-09] MEDS: INSULIN LISPRO 100 UNIT/ML SUBCUT SCH ×4 (11:14→22:46)
[2016-12-09] MEDS: AMIODARONE 200 MG TABLET PO SCH ×2 (11:15→22:46)
[2016-12-09] MEDS: APIXABAN 2.5 MG TABLET PO SCH ×2 (11:15→22:46)
[2016-12-09] MEDS: MAGNESIUM OXIDE 400 MG TABLET PO SCH ×2 (11:15→22:46)
[2016-12-09] MEDS: SKIN HEALING OINT (AQUAPHOR) 50 GM TUBE TOP SCH (11:16)
[2016-12-09] MEDS: SODIUM HYPOCHLORITE 0.25% IRRIG 473 ML BOTTLE TOP SCH (11:16)
[2016-12-09] MEDS: DESITIN 4OZ/NYSTATIN 15 GRAM MIXTURE PASTE TOP SCH ×2 (11:16→22:47)
[2016-12-09] MEDS: INSULIN GLARGINE 100 UNIT/ML SUBCUT SCH (11:16)
[2016-12-09] MEDS: PIPERACILLIN/TAZOBACTAM 3,375 MG in SODIUM CHLORIDE 0.9% 100 ML IV SCH ×2 (11:17→18:45)
[2016-12-09] MEDS: PANTOPRAZOLE 40 MG VIAL IV SCH ×2 (11:17→22:47)
[2016-12-09] MEDS: amLODIPine 10 MG TABLET PO SCH (11:22)
[2016-12-09] MEDS: CARBOXYMETHYLCELLULOSE 1% OPH SOLN BOTH EYES SCH (11:23)
[2016-12-09] MEDS: DORZOLAMIDE/TIMOLOL OPH SOLN 10 ML BOTTLE BOTH EYES SCH (11:23)
--- NOTE | 2016-12-09 11:55 | XRay Report ---
XR chest 1V portable Indication: Fever. Chest one view: Comparison 12/06/2016. Mild cardiomegaly, tortuous thoracic aorta and calcified atheromatous disease is again shown. Overall, lungs are slightly better aerated due to improved inspiratory effort but volumes remain quite low. There is continued interstitial prominence of both lungs diffusely. No focal infiltrates seen. Impression: Slightly improved aeration of the lungs, with continued pulmonary hypoinflation and borderline cardiomegaly. PROCEDURE INTERPRETED AT [facility] DEPARTMENT OF RADIOLOGY Final Report Signed by: Zaki Torrez M.D.
[2016-12-09 15:08] LABS: Amorphous Crystals,Urine Occasional /HPF (Few); Apearance,Urine CLOUDY (Clear); Bilirubin,Urine Negative (Negative); Blood, Urine Negative (Negative); Glucose,Urine (UA) Negative (Negative); Ketones,Urine Negative (Negative); Mucus,Urine Occasional /LPF (Occasional); Nitrite,Urine Negative (Negative); Protein,Urine Negative; Urine Color Yellow (Yellow); Urine Specific Gravity 1.006 (1.001-1.035); Urine Urobilinogen < 2.0 EU/DL (0.2-1.0); WBC,Urine <1 /HPF (0-6)
--- NOTE | 2016-12-09 15:40 | Hospitalist Progress Note ---
Assessment and Plan - Time spent with patient Time spent with patient: Greater than 30 minutes (1) Pneumonia Status: Acute Assessment and plan: I suspect her fever is secondary to pneumonia. Will initiate Vancomycin. Current Visit: Yes (2) CVA (cerebral vascular accident) Status: Acute Assessment and plan: Continue current management. Current Visit: Yes (3) Abscess of right axilla Status: Acute Assessment and plan: Confirmed by pathology. Current Visit: Yes (4) Atrial fibrillation Status: Acute Assessment and plan: Currently sinus. Continue current management. Current Visit: Yes (5) Breast cancer Status: Acute Current Visit: Yes Hospitalist: Subjective Interval history: Patient developed a fever of 99.7-99.4 for several hours. Exam - Constitutional Vitals: Period Temp Pulse Resp BP Sys/Guerin Pulse Ox Last 24 Hr 98.9 F-99.9 F 58-79 18-20 120-182/60-76 93-97 General appearance: no acute distress - Head Head exam: Present: normocephalic, atraumatic - Eye Eye exam: Present: EOMI Pupils: Present: TRINIDAD - ENT ENT exam: Present: normal exam - Neck Neck exam: Present: normal inspection - Respiratory Respiratory exam: Present: clear to auscultation bilaterally. Absent: rhonchi, wheezes - Cardiovascular Cardiovascular exam: Present: regular rate and rhythm. Absent: gallop, rubs, systolic murmur - GI/Abdominal GI/Abdominal exam: Present: normal bowel sounds, soft. Absent: distended, firm , guarding, tenderness, rebound - Extremities Exam Extremities exam: Present: normal inspection. Absent: calf tenderness, edema Results - Labs CBC & BMP: 12/08/16 06:00 12/08/16 06:00 Lab Results: I have reviewed the past 24 hour labs Quality Measures - VTE Contraindication to Pharmacological VTE Prophylaxis: High Risk of Bleeding Specialty Discharge - Follow Up or Referrals Follow up with: Parvez Torres MD [Physician] - 1 Month (At the wound healing center on a Monday to see Dr. Torres) Prince Medellin MD [Physician] - 2 Weeks (With EKG FLP CMP CBC)
[2016-12-09] MEDS: VANCOMYCIN INJ 1,000 MG in SODIUM CHLORIDE 0.9% 250 ML IV SCH (18:38)
[2016-12-09] MEDS: cefTRIAXone 2,000 MG in SODIUM CHLORIDE 0.9% 100 ML IV SCH (18:50)
[2016-12-09] MEDS: ROSUVASTATIN 20 MG TABLET PO SCH (22:46)
[2016-12-10] MEDS: PIPERACILLIN/TAZOBACTAM 3,375 MG in SODIUM CHLORIDE 0.9% 100 ML IV SCH ×3 (04:15→19:03)
[2016-12-10] MEDS: PANTOPRAZOLE 40 MG VIAL IV SCH ×2 (10:06→20:53)
[2016-12-10] MEDS: APIXABAN 2.5 MG TABLET PO SCH ×2 (10:06→20:53)
[2016-12-10] MEDS: MAGNESIUM OXIDE 400 MG TABLET PO SCH ×2 (10:06→20:53)
[2016-12-10] MEDS: amLODIPine 10 MG TABLET PO SCH (10:06)
[2016-12-10] MEDS: AMIODARONE 200 MG TABLET PO SCH ×2 (10:07→20:54)
[2016-12-10] MEDS: VANCOMYCIN INJ 1,000 MG in SODIUM CHLORIDE 0.9% 250 ML IV SCH ×2 (10:08→16:28)
[2016-12-10] MEDS: INSULIN LISPRO 100 UNIT/ML SUBCUT SCH ×4 (10:08→21:00)
[2016-12-10] MEDS: SKIN HEALING OINT (AQUAPHOR) 50 GM TUBE TOP SCH (10:08)
[2016-12-10] MEDS: INSULIN GLARGINE 100 UNIT/ML SUBCUT SCH (10:09)
[2016-12-10] MEDS: SODIUM HYPOCHLORITE 0.25% IRRIG 473 ML BOTTLE TOP SCH (10:09)
[2016-12-10] MEDS: DORZOLAMIDE/TIMOLOL OPH SOLN 10 ML BOTTLE BOTH EYES SCH (10:09)
[2016-12-10] MEDS: CARBOXYMETHYLCELLULOSE 1% OPH SOLN BOTH EYES SCH (10:10)
[2016-12-10] MEDS: DESITIN 4OZ/NYSTATIN 15 GRAM MIXTURE PASTE TOP SCH ×2 (10:10→22:46)
[2016-12-10] MEDS: POLYETHYLENE GLYCOL POWDER 17 GM PACK PO SCH (10:10)
[2016-12-10] MEDS: SODIUM CHLORIDE 0.45% 1,000 ML IV SCH ×2 (10:11)
--- NOTE | 2016-12-10 15:56 | Hospitalist Progress Note ---
Assessment and Plan - Time spent with patient Time spent with patient: Greater than 30 minutes (1) Pneumonia Status: Acute Assessment and plan: I suspect her fever is secondary to pneumonia. Will initiate Vancomycin. Current Visit: Yes (2) CVA (cerebral vascular accident) Status: Acute Assessment and plan: Continue current management. Current Visit: Yes (3) Abscess of right axilla Status: Acute Assessment and plan: Confirmed by pathology. Current Visit: Yes (4) Atrial fibrillation Status: Acute Assessment and plan: Currently sinus. Continue current management. Current Visit: Yes (5) Breast cancer Status: Acute Current Visit: Yes Hospitalist: Subjective Interval history: No complaints or overnight events. Exam - Constitutional Vitals: Period Temp Pulse Resp BP Sys/Guerin Pulse Ox Last 24 Hr 98.1 F-99.6 F 53-60 18-24 135-157/63-73 94-97 General appearance: no acute distress - Head Head exam: Present: normocephalic, atraumatic - Eye Eye exam: Present: EOMI Pupils: Present: TRINIDAD - ENT ENT exam: Present: normal exam - Neck Neck exam: Present: normal inspection - Respiratory Respiratory exam: Present: clear to auscultation bilaterally. Absent: rhonchi, wheezes - Cardiovascular Cardiovascular exam: Present: regular rate and rhythm. Absent: gallop, rubs, systolic murmur - GI/Abdominal GI/Abdominal exam: Present: normal bowel sounds, soft. Absent: distended, firm , guarding, tenderness, rebound - Extremities Exam Extremities exam: Present: normal inspection. Absent: calf tenderness, edema Results - Labs CBC & BMP: 12/08/16 06:00 12/08/16 06:00 Lab Results: I have reviewed the past 24 hour labs Quality Measures - VTE Contraindication to Pharmacological VTE Prophylaxis: High Risk of Bleeding Specialty Discharge - Follow Up or Referrals Follow up with: Parvez Torres MD [Physician] - 1 Month (At the wound healing center on a Monday to see Dr. Torres) Prince Medellin MD [Physician] - 2 Weeks (With EKG FLP CMP CBC)
[2016-12-10] MEDS: ROSUVASTATIN 20 MG TABLET PO SCH (20:53)
[2016-12-11] MEDS: PIPERACILLIN/TAZOBACTAM 3,375 MG in SODIUM CHLORIDE 0.9% 100 ML IV SCH ×3 (01:56→21:16)
[2016-12-11] MEDS: VANCOMYCIN INJ 1,000 MG in SODIUM CHLORIDE 0.9% 250 ML IV SCH ×2 (03:43→17:25)
[2016-12-11 06:37] LABS: Basophils # 0.1 10*3/uL (0.0-0.2); Basophils % 0.8 % (0.0-0.8); Eosinophils # 0.2 10*3/uL (0.0-0.87); Eosinophils % 2.8 % (0.00-10.9); Hematocrit 30.8 VOL% (35.7-47.0); Hemoglobin 10.8 GM/DL (12.0-16.0); Immature Granulocytes % 0.5 %; Immature Granulocytes Absolute 0.04 #; Lymphocytes # 1.3 10*3/uL (1.4-4.0); Mean Corpuscular HGB Conc 35.1 GM/DL (32-36); Mean Corpuscular Hemoglobin 32 PG (27-34); Mean Corpuscular Volume 89.8 FL (87-102); Monocytes # 0.9 10*3/uL (0.11-0.8); Monocytes % 10.6 % (1.7-12.7); Neutrophils % 70.3 % (38.7-73.9); Platelet Count 309 T/CUMM (130-400); Red Blood Count 3.43 MC/CUMM (3.8-5.5); Red Cell Distribution Width 13.2 % (9.3-17.3); White Blood Count 8.5 T/CUMM (4-12)
[2016-12-11 07:10] LABS: Calcium 8.6 MG/DL (8.5-10.1); Osmolality,Calculated 271.8 MOS/KG (273-304); Potassium 3.1 MMOL/L (3.5-5.1)
[2016-12-11] MEDS: INSULIN LISPRO 100 UNIT/ML SUBCUT SCH ×4 (08:00→21:20)
[2016-12-11] MEDS: DESITIN 4OZ/NYSTATIN 15 GRAM MIXTURE PASTE TOP SCH ×2 (08:45→21:21)
[2016-12-11] MEDS: POLYETHYLENE GLYCOL POWDER 17 GM PACK PO SCH (09:00)
[2016-12-11] MEDS: INSULIN GLARGINE 100 UNIT/ML SUBCUT SCH (09:45)
[2016-12-11] MEDS: DORZOLAMIDE/TIMOLOL OPH SOLN 10 ML BOTTLE BOTH EYES SCH (10:48)
[2016-12-11] MEDS: AMIODARONE 200 MG TABLET PO SCH ×2 (10:48→21:19)
[2016-12-11] MEDS: MAGNESIUM OXIDE 400 MG TABLET PO SCH ×2 (10:48→21:20)
[2016-12-11] MEDS: amLODIPine 10 MG TABLET PO SCH (10:48)
[2016-12-11] MEDS: APIXABAN 2.5 MG TABLET PO SCH ×2 (10:48→21:20)
[2016-12-11] MEDS: SKIN HEALING OINT (AQUAPHOR) 50 GM TUBE TOP SCH (11:13)
[2016-12-11] MEDS: PANTOPRAZOLE 40 MG VIAL IV SCH (11:14)
[2016-12-11] MEDS: SODIUM CHLORIDE 0.45% 1,000 ML IV SCH (11:35)
[2016-12-11] MEDS: CARBOXYMETHYLCELLULOSE 1% OPH SOLN BOTH EYES SCH (11:39)
[2016-12-11] MEDS: SODIUM HYPOCHLORITE 0.25% IRRIG 473 ML BOTTLE TOP SCH (11:40)
[2016-12-11] MEDS: ACETAMINOPHEN 325 MG TABLET PO PRN (12:00)
--- NOTE | 2016-12-11 14:33 | Hospitalist Progress Note ---
Assessment and Plan - Time spent with patient Time spent with patient: Greater than 30 minutes (1) Pneumonia Status: Acute Assessment and plan: I suspect her fever is secondary to pneumonia. Continue vancomycin she appears to be improving on this. Current Visit: Yes (2) CVA (cerebral vascular accident) Status: Acute Assessment and plan: Continue current management. Current Visit: Yes (3) Abscess of right axilla Status: Acute Assessment and plan: Confirmed by pathology. Current Visit: Yes (4) Atrial fibrillation Status: Acute Assessment and plan: Currently sinus. Continue current management. Current Visit: Yes (5) Breast cancer Status: Acute Current Visit: Yes Hospitalist: Subjective Interval history: No complaints. No overnight events. Exam - Constitutional Vitals: Period Temp Pulse Resp BP Sys/Guerin Pulse Ox Last 24 Hr 97.9 F-99.3 F 59-67 16-20 131-179/56-80 96-99 General appearance: no acute distress - Head Head exam: Present: normocephalic, atraumatic - Eye Eye exam: Present: EOMI Pupils: Present: TRINIDAD - ENT ENT exam: Present: normal exam - Neck Neck exam: Present: normal inspection - Respiratory Respiratory exam: Present: clear to auscultation bilaterally. Absent: rhonchi, wheezes - Cardiovascular Cardiovascular exam: Present: regular rate and rhythm. Absent: gallop, rubs, systolic murmur - GI/Abdominal GI/Abdominal exam: Present: normal bowel sounds, soft. Absent: distended, firm , guarding, tenderness, rebound - Extremities Exam Extremities exam: Present: normal inspection. Absent: calf tenderness, edema Results - Labs CBC & BMP: 12/11/16 05:52 12/11/16 05:52 Lab Results: I have reviewed the past 24 hour labs Quality Measures - VTE Contraindication to Pharmacological VTE Prophylaxis: High Risk of Bleeding Specialty Discharge - Follow Up or Referrals Follow up with: Parvez Torres MD [Physician] - 1 Month (At the wound healing center on a Monday to see Dr. Torres) Prince Medellin MD [Physician] - 2 Weeks (With EKG FLP CMP CBC)
[2016-12-11] MEDS: ROSUVASTATIN 20 MG TABLET PO SCH (21:20)
[2016-12-12] MEDS: PIPERACILLIN/TAZOBACTAM 3,375 MG in SODIUM CHLORIDE 0.9% 100 ML IV SCH (04:50)
[2016-12-12] MEDS: VANCOMYCIN INJ 1,000 MG in SODIUM CHLORIDE 0.9% 250 ML IV SCH (07:05)
[2016-12-12] MEDS: INSULIN LISPRO 100 UNIT/ML SUBCUT SCH ×2 (07:30→11:30)
[2016-12-12] MEDS: PANTOPRAZOLE 40 MG VIAL IV SCH ×2 (09:00→10:33)
[2016-12-12] MEDS: POLYETHYLENE GLYCOL POWDER 17 GM PACK PO SCH (09:00)
[2016-12-12] MEDS: INSULIN GLARGINE 100 UNIT/ML SUBCUT SCH (09:52)
[2016-12-12] MEDS: AMIODARONE 200 MG TABLET PO SCH (09:53)
[2016-12-12] MEDS: amLODIPine 10 MG TABLET PO SCH (09:53)
[2016-12-12] MEDS: DESITIN 4OZ/NYSTATIN 15 GRAM MIXTURE PASTE TOP SCH (09:54)
[2016-12-12] MEDS: DORZOLAMIDE/TIMOLOL OPH SOLN 10 ML BOTTLE BOTH EYES SCH (09:54)
[2016-12-12] MEDS: APIXABAN 2.5 MG TABLET PO SCH (09:54)
[2016-12-12] MEDS: MAGNESIUM OXIDE 400 MG TABLET PO SCH (09:54)
[2016-12-12] MEDS: CARBOXYMETHYLCELLULOSE 1% OPH SOLN BOTH EYES SCH (09:54)
[2016-12-12] MEDS: SODIUM HYPOCHLORITE 0.25% IRRIG 473 ML BOTTLE TOP SCH (10:02)
[2016-12-12] MEDS: SKIN HEALING OINT (AQUAPHOR) 50 GM TUBE TOP SCH (10:02)
--- NOTE | 2016-12-12 12:30 | Discharge Summary ---
Hospital Course - Hospital Course Hospital Course: Ms. Webster initially presented to the emergency room with nausea, vomiting, diarrhea and general weakness. She was found to have bradycardia and soon developed hypertension that required a brief stay in the intensive care unit where her hypertension was managed and eventually transferred to the floor once stable. Despite presenting with bradycardia she then developed atrial fibrillation. During this time she also was noted to have hematochezia. Cardiology and GI were on board and managed the patient with a low dose Lovenox for her new onset atrial fibrillation and serial hemoglobins for monitoring of her hematochezia. She had no recurrence of her hematochezia. 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 Neurology and speech were both consulted. Patient eventually was switched from Lovenox to Eliquis. During this time the patient also developed a fever and was confirmed to have pneumonia which she received IV antibiotics for. Patient was seen in consultation by surgery for an abscess in the right axilla which required excisional debridement and drainage of. Furthermore patient had debridement of the blister on the right heel. Eventually the patient was accepted to the [facility] long term. At discharge patient had met maximum benefit of hospitalization. I spent 45 minutes coordinating this discharge. - Time spent with patient Time with patient DS: Greater than 30 minutes Diagnosis - Discharge Diagnosis (1) Pneumonia Status: Acute (2) CVA (cerebral vascular accident) Status: Acute (3) Abscess of right axilla Status: Acute (4) Atrial fibrillation Status: Acute (5) Breast cancer Status: Acute Specialty Discharge - Follow Up or Referrals Follow up with: Parvez Torres MD [Physician] - 01/10/17 8:00 am (At the wound healing center on a Monday to see Dr. Torres) Prince Medellin MD [Physician] - 01/02/17 2:10 pm (With EKG FLP CMP CBC on DEC 28 929 DO NOT EAT OR DRINK ANYTHING AFTER MIDNIGHT.) Discharge Plan - Discharge Data Disposition: Disch/Xfer to Snf Condition at Discharge: Stable Discharge Diet: diabetic diet, heart healthy, low fat, low cholesterol, low salt diet, other (pureed/soft diet) - Discharge Medications New Apixaban [Eliquis] 2.5 mg PO BID tablet Polyethylene Glycol Powder [Miralax] 17 gm PO DAILY Rosuvastatin [Crestor] 20 mg PO BEDTIME tablet amLODIPine [Norvasc] 10 mg PO DAILY tablet Amiodarone Tab [Cordarone Tab] 200 mg PO BID tablet Insulin Glargine [Lantus] 10 unit SUBCUT DAILY unit Continue Dorzolamide/Timolol Oph Soln [Cosopt] 1 drop BOTH EYES DAILY Cholecalciferol (Vitamin D3) [Vitamin D3] 1,000 units PO DAILY Carboxymethylcellulose Sodium [Refresh Liquigel] 1 drops BOTH EYES DAILY Discontinued NIFEdipine [Nifedipine ER] 60 mg PO DAILY Atorvastatin [Lipitor] 10 mg PO QOTHER DAY Aspirin [Aspirin EC] 81 mg PO DAILY Potassium Chloride 20 meq PO DAILY - Follow Up or Referral Follow Up: Parvez Torres MD [Physician] - 01/10/17 8:00 am (At the wound healing center on a Monday to see Dr. Torres) Prince Medellin MD [Physician] - 01/02/17 2:10 pm (With EKG FLP CMP CBC on DEC 28 929 DO NOT EAT OR DRINK ANYTHING AFTER MIDNIGHT.) - Forms/Instructions Forms: Acute Care Work/School Release Exam - Constitutional Vitals: Period Temp Pulse Resp BP Sys/Guerin Pulse Ox Last 24 Hr 97.4 F-99.0 F 55-62 18-20 147-184/59-79 92-95 General appearance: normal weight, no acute distress - Head Head exam: Present: normal inspection, normocephalic, atraumatic - Eye Eye exam: Present: EOMI Pupils: Present: TRINIDAD - ENT ENT exam: Present: normal exam - Neck Neck exam: Present: normal inspection - Respiratory Respiratory exam: Present: clear to auscultation bilaterally. Absent: accessory muscle use, prolonged expiratory phase, wheezes - Cardiovascular Cardiovascular exam: Present: regular rate and rhythm. Absent: bradycardia, irregular rhythm, systolic murmur - GI/Abdominal GI/Abdominal exam: Present: normal bowel sounds. Absent: ascites, distended, hypoactive bowel sounds, tenderness - Extremities Exam Extremities exam: Present: normal inspection - Back Exam Back exam: Present: other (Right-sided weakness) Discharge Results Procedures and tests throughout hospitalization: Pending Orders 11/21/16 07:00 Occult Blood, Stool Routine Labs on day of discharge: Labs from last 24 hours 12/12/16 12/12/16 12/11/16 11:25 07:29 20:34 POC Glucose 125 H 82 91 12/11/16 12/11/16 16:21 12:07 POC Glucose 108 H 174 H DS: Provider Date of admission: 11/14/16 08:35 Primary care physician: . No PCP Attending physician on admission: Charlie Farah MD Consults: 11/17/16 08:49 Consult to Occupational Therapy [CONS] Routine Reason for Occupational Therapy: Evaluate and Treat Consult to Physical Therapy [CONS] Routine Reason for Physical Therapy: Evaluate and Treat 11/18/16 11:10 Consult to Case Mgmt/Social Srvs [CONS] Routine Reason for Case Mgmt/Social Srvs: Swingbed/SNF/Detention Consult Comment: Needs therapy to assist with walking and strengthening to prevent falls 11/23/16 14:53 Consult to Wound Care - North [CONS] Routine Reason for Wound Care: Wound Care Management Consult Comment: redness to coccyx area 11/25/16 07:27 Consult to Physician [CONS] Routine Comment: acute stroke Consulting Provider: Gilbert Bolaños When should Consulting Provider be notified: Now Consult to Specialist Group: Neurology When should Consulting Provider be notified: Now Person Notified: EMILY Date Notified: 11/28/16 Time Notified: 08:45 Consult Notification Comment: DR BOLAÑOS WAS OUT LAST WEEK, CALLED CONSULT TODAY [id number] RP 11/26/16 08:19 Consult to Occupational Therapy [CONS] Routine Reason for Occupational Therapy: Evaluate and Treat Weakness Consult to Physical Therapy [CONS] Routine Reason for Physical Therapy: Evaluate and Treat Weakness 11/26/16 10:07 Consult to Physician [CONS] Routine Comment: right axillary abscess Consulting Provider: Parvez Torres Consult to Specialist Group: Surgery When should Consulting Provider be notified: Now Person Notified: DILLAN Date Notified: 11/28/16 Time Notified: 08:47 11/28/16 09:26 Consult to Anesthesiology [CONS] Routine Consulting Provider: Reason for Anesthesiology: Pre-op Clearance Consult Comment: mac with local 11/28/16 19:34 Consult to Pharmacy [CONS] Routine Reason for Pharmacy Consult: Adjust Meds Renal Funct 12/01/16 08:58 Consult to Case Mgmt/Social Srvs [CONS] Routine Reason for Case Mgmt/Social Srvs: Discharge Planning Home Health Consult Comment: Wound care to the right axilla Consult to Dietitian [CONS] Routine Reason for Dietitian: Dietary Consult Consult Comment: Calorie counts to see how much he is truly eating 12/02/16 07:15 Consult to Physician [CONS] Routine Comment: Consulting Provider: Enrrique Allison Consult to Specialist Group: Oncology When should Consulting Provider be notified: Now Person Notified: TUAN Date Notified: 12/02/16 Time Notified: 08:51 Consult Notification Comment: pt with recurrent right breast cancer and a recent CVA. Please evaluate for treatment. 12/09/16 09:31 Consult to Case Mgmt/Social Srvs [CONS] Routine Reason for Case Mgmt/Social Srvs: Discharge Planning Consult Comment: needs home health 12/09/16 10:20 Consult to Pharmacy [CONS] Routine Reason for Pharmacy Consult: Dose/Manage Vancomycin 12/09/16 10:30 Consult to Pharmacy [CONS] Routine Reason for Pharmacy Consult: Dose/Manage Vancomycin Discharging clinician: Nadine Olmedo MD Expected date of discharge: 12/12/16
[2016-12-12 14:14] VITALS: BP 146/72
[2016-12-12] MEDS: SODIUM CHLORIDE 0.45% 1,000 ML IV SCH (14:47)
== END 2016-12-12 15:25 | DRG 356 ==
LOC: N.EDINP 17:04 → N.ED 17:04 → N.5E 20:54 → N.ICU 11-14 01:38 → SUATTDRO 11-14 08:35 → N.4E 11-15 15:37 → N.CC 11-24 22:59 → N.2E 11-26 18:38
PROVIDERS: ADMIT Internal Medicine Infectious Disease; ATTEND Internal Medicine

== ENCOUNTER 2016-12-21 09:39 | Inpatient (IN) ==
[2016-12-21] MEDS ORDERED: ONDANSETRON 4 MG/2 ML VIAL IV STA (10:38)
[2016-12-21] MEDS ORDERED: PANTOPRAZOLE 40 MG VIAL IV STA (10:38)
[2016-12-21] MEDS ORDERED: ALUM/MAG/SIMETH/LIDO VISC 1:1 30 ML BOTTLE PO STA (10:38)
[2016-12-21] MEDS ORDERED: SODIUM CHLORIDE 0.9% 500 ML IV STA (10:38)
[2016-12-21] MEDS ORDERED: PANTOPRAZOLE 40 MG VIAL IV ONE (10:48)
[2016-12-21] MEDS ORDERED: ONDANSETRON 4 MG/2 ML VIAL ONE (10:49)
[2016-12-21] MEDS ORDERED: ALUM/MAG/SIMETH/LIDO VISC 1:1 30 ML BOTTLE PO ONE (10:49)
[2016-12-21 10:52] LABS: Basophils # 0.1 10*3/uL (0.0-0.2); Basophils % 0.5 % (0.0-0.8); Eosinophils # 0.2 10*3/uL (0.0-0.87); Eosinophils % 1.3 % (0.00-10.9); Hematocrit 34.6 VOL% (35.7-47.0); Hemoglobin 12.1 GM/DL (12.0-16.0); Immature Granulocytes % 0.6 %; Immature Granulocytes Absolute 0.08 #; Lymphocytes # 1.5 10*3/uL (1.4-4.0); Lymphocytes % 11.8 % (21.3-54.2); Mean Corpuscular Hemoglobin 32 PG (27-34); Mean Corpuscular Volume 90.1 FL (87-102); Mean Platelet Volume 9.7 FL (9.6-12.0); Monocytes # 0.9 10*3/uL (0.11-0.8); Monocytes % 7.2 % (1.7-12.7); Neutrophils # 10.1 10*3/uL (1.4-7.4); Neutrophils % 78.6 % (38.7-73.9); Platelet Count 277 T/CUMM (130-400); Red Blood Count 3.84 MC/CUMM (3.8-5.5); Red Cell Distribution Width 13.6 % (9.3-17.3); White Blood Count 12.8 T/CUMM (4-12)
--- NOTE | 2016-12-21 10:58 | Emergency Department Note ---
Cem Mitchell Mantricia, am scribing for, and in the presence of, Checo Mendez MD 10:53. Andrea Mitchell Charles R, MD, personally performed the services described in this documentation, ascribed by Jo Priest in my presence, and it is both accurate and complete . Arrival - Arrival Chief Complaint: Chest Pain Stated Complaint: Chest pain ED Nursing Triage Note: Brought in per EMS from [facility] with c/o chest pain onset this am. Denies shortness of breath. Per EMS patient states "My heart hurts." Mode of Arrival: Stretcher Limitations: No Limitations Source: Family (Daughter) Time Seen by Provider: 12/21/16 09:58 - History of Present Illness HPI Narrative: Pt is an 89 y/o black female arriving to ED by EMS with c/o chest pain that onset yesterday. However, during exam, it is noticed that pt c/o abdominal pain instead. Pt was brought in from [facility] this morning. Daughter states that pt had a CVA 3 weeks ago while at hospital. She also states that pt's right- sided breast cancer has resurfaced. Pt reports cp, abdominal pain, headache, and constipation but denies N/V/D. Daughter reports that pt has had a very poor appetite recently. No other complaints were reported to ED. Onset (ago): day(s) Consistency: constant Severity: mild Date of Last Menstrual Period: PM Allergies/Adverse Reactions: Allergies Allergy/AdvReac Type Severity Reaction Status Date / Time losartan Allergy Unknown/Unable Verified 12/21/16 09:45 to obtain Home Medications: Home Medications Medication Instructions Recorded Confirmed Type Carboxymethylcellulose Sodium 1 drops BOTH EYES DAILY 11/13/16 12/21/16 History [Refresh Liquigel] Cholecalciferol (Vitamin D3) 1,000 units PO DAILY 11/13/16 12/21/16 History [Vitamin D3] Dorzolamide/Timolol Oph Soln 1 drop BOTH EYES DAILY 11/13/16 12/21/16 History [Cosopt] Amiodarone Tab [Cordarone Tab] 200 mg PO BID tablet 12/12/16 12/21/16 Rx Apixaban [Eliquis] 2.5 mg PO BID tablet 12/12/16 12/21/16 Rx Polyethylene Glycol Powder 17 gm PO DAILY 12/12/16 12/21/16 Rx [Miralax] Rosuvastatin [Crestor] 20 mg PO BEDTIME tablet 12/12/16 12/21/16 Rx amLODIPine [Norvasc] 10 mg PO DAILY tablet 12/12/16 12/21/16 Rx Acetaminophen Tab [Tylenol Tab] 500 mg PO Q4H PRN 12/21/16 12/21/16 History Cyproheptadine HCl 2 mg PO BID 12/21/16 12/21/16 History HYDROcodone/ACETAMIN 5-325 [Gurdon 1 tablet PO BID MDD 3GM/24H 12/21/16 12/21/16 History 5-325] ACETAMINOPHEN Insulin Glargine [Lantus] 10 unit SUBCUT BEDTIME 12/21/16 12/21/16 History Multivitamin [One Daily 1 each PO DAILY 12/21/16 12/21/16 History Multivitamin] Review of System - Review of System 12 point system: reviewed and no additional remarkable complaints except as stated - Review of System Constitutional: Absent: chills, diaphoresis, fever Eyes: Absent: discharge, pain Head/Ears/Nose/Throat: Absent: earache, epistaxis Respiratory: Absent: cough, respiratory distress, wheezing Cardiovascular: Present: chest pain. Absent: palpitations Gastrointestinal: Present: abdominal pain. Absent: nausea, vomiting Genitourinary female: Absent: abnormal menses, dysuria Musculoskeletal: Absent: arm pain, back pain, leg pain, neck pain Skin: Absent: rash, lesions Neurological: Absent: headache, weakness Medical,Surgical,& Family Hx - Medical History Cardio: History of: Hypertension, PVD, Cardiovascular Problems (MURMUR) Endocrine: History of: Diabetes Mellitus (NIDDM) - Family History Family History: Reports;: Family Diabetes (son) - Social History Smoking Status: Unknown if ever smoked Frequency of Alcohol Use: None Type of Drug Use: None Exam Vital Signs: Vital Signs Temperature 97.2 F L 12/21/16 10:02 Pulse Rate 66 12/21/16 13:17 Respiratory Rate 16 12/21/16 13:17 Blood Pressure 162/93 12/21/16 13:17 O2 Sat by Pulse Oximetry 96 12/21/16 13:17 - General General appearance: alert, in distress (mild), other (poor historian) - Head Head exam: Present: atraumatic, normocephalic, normal inspection - Eye Eye exam: Present: normal appearance, PERRL, EOMI - ENT ENT exam: Present: normal exam, normal oropharynx, mucous membranes moist, TM's normal bilaterally, normal external ear exam - Neck Neck exam: Present: normal inspection, full ROM, trachea midline. Absent: tenderness - Chest Chest inspection: Present: normal inspection, symmetric chest wall rise. Absent : tenderness - Respiratory Respiratory exam: Present: normal lung sounds bilaterally - Cardiovascular Cardiovascular exam: Present: regular rate, normal rhythm, murmur (3/6 systolic) - Abdominal Exam Abdominal exam: Present: soft, diminished bowel sounds. Absent: distention, tenderness, guarding, rebound - Extremities Exam Extremities exam: Present: full ROM, normal capillary refill, other (ulcer on feet). Absent: tenderness - Back Exam Back exam: Present: normal inspection, full ROM. Absent: tenderness - Neurological Exam Neurological exam: Present: alert, oriented X3, CN II-XII intact, reflexes normal - Psychiatric Psychiatric exam: Present: normal affect, normal mood - Skin Skin exam: Present: warm, dry, intact, normal color Course - Consultations Consultation #1: Hospitalist will admit patient Time: 14:19 Results - Labs CBC & BMP: 12/21/16 10:30 12/21/16 10:30 Lab Results: I have reviewed the patients labs Labs: 12/21/16 12/21/16 10:30 10:30 WBC 12.8 H Hct 34.6 L Neut % (Auto) 78.6 H Lymph % (Auto) 11.8 L Neut # (Auto) 10.1 H Robertson # (Auto) 0.9 H Potassium 2.7 L BUN/Creatinine Ratio 25.00 H Albumin 3.1 L Globulin 3.6 H Albumin/Globulin Ratio 0.8 L Laboratory Tests 12/21/16 12/21/16 12/21/16 10:30 10:30 10:30 WBC 12.8 H Hct 34.6 L Neut % (Auto) 78.6 H Lymph % (Auto) 11.8 L Neut # (Auto) 10.1 H Robertson # (Auto) 0.9 H Potassium 2.7 L BUN/Creatinine Ratio 25.00 H B-Natriuretic Peptide 138 H Albumin 3.1 L Globulin 3.6 H Albumin/Globulin Ratio 0.8 L - Diagnostic Findings Procedure: Chest x-ray: report reviewed by me (The cardiomediastinal silhouette is stable in configuration. Heart remains borderline in size. Small right perihilar opacities may reflect atelectasis or early consolidative process such as pneumonia or asymmetric pulmonary edema. Visualized osseous and surrounding soft tissue structures appear grossly unchanged.), CT Abdomen and Pelvis: report reviewed by me (1. There is a mild dependent density within the bladder. This could represent bladder stones, debris and/or blood products. Please correlate wuth a urinalysis. 2. There are a minimal scattered opacities within both lower lung zones, mainly within the lower lobes. This has significantly improved since November 25, 2016, and there has been interval resolution of the previously seen bilateral pleural effusion. These opacities likely represent atelectasis and possible scarring, but resolving pneumonia is not excluded. 3. There is no evidence of bowel obstruction, but there is evidence of constipation. 4. Bilateral renal cysts are present. There is a 1.3 cm hyperdense lesion at the anterior aspect of the mid right kidney. This likely represents a hemorrhagic/proteinaceous renal cyst, but correlation with ultrasound would be helpful. 5. Prominent atherosclerotic change is present. 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 6. 1.3 cm left ovarian cyst. 7. Minimal free fluid within the pelvis and nonspecific presacral edema. ) Disposition Clinical Impression: Gastroenteritis, Right-sided chest pain, Hypokalemia, UTI (urinary tract infection), Constipation, Atypical chest pain, Leukocytosis, Abdominal pain, Debility, Failure to thrive Case discussed with: patient, patient's family Disposition: Still a Patient Condition: Stable Time of Disposition: 14:22
[2016-12-21 11:05] LABS: Albumin 3.1 G/DL (3.4-5.0); Bilirubin,Total 0.4 MG/DL (0.2-1.0); Calcium 9.8 MG/DL (8.5-10.1); Magnesium 1.9 MG/DL (1.8-2.4); Osmolality,Calculated 286.8 MOS/KG (273-304); Potassium 2.7 MMOL/L (3.5-5.1); Total Protein 6.7 G/DL (6.4-8.3); Troponin I Only 0.02 NG/ML (0.00-0.045)
[2016-12-21] MEDS ORDERED: POTASSIUM CHLORIDE 20 MEQ TABLET PO STA (11:24)
[2016-12-21] MEDS ORDERED: POTASSIUM CHLORIDE 20 MEQ TABLET PO ONE (11:29)
[2016-12-21 11:42] LABS: Lactic Acid 0.7 MMOL/L (0.4-2.0)
--- NOTE | 2016-12-21 11:44 | XRay Report ---
XR chest 1V portable Indication: Generalized abdominal pain Comparison: Chest x-ray dated December 09, 2016 Technique: Single frontal view of the chest Findings: The cardiomediastinal silhouette is stable in configuration. Heart remains borderline in size. Small right perihilar opacities may reflect atelectasis or early consolidative process such as pneumonia or asymmetric pulmonary edema. Visualized osseous and surrounding soft tissue structures appear grossly unchanged. IMPRESSION: As above. PROCEDURE INTERPRETED AT [facility] DEPARTMENT OF RADIOLOGY Final Report Signed by: Dr Wu Villaseñor
--- NOTE | 2016-12-21 11:46 | XRay Report ---
XR abdomen complete w decub Indication: Generalized abdominal pain Comparison: KUB dated December 05, 2016 Technique: Frontal views of the abdomen Findings: Nonspecific nonobstructive bowel gas pattern. Diffuse osteopenia. Residual contrast material noted within the bilateral collecting systems. Scattered degenerative change. IMPRESSION: No acute abnormality demonstrated. PROCEDURE INTERPRETED AT [facility] DEPARTMENT OF RADIOLOGY Final Report Signed by: Dr Wu Villaseñor
--- NOTE | 2016-12-21 11:53 | CT Report ---
Referring physician: hCeco Mendez EXAM: CT abdomen and pelvis with contrast DATE: December 21, 2016 COMPARISON: CT chest November 26, 2016 REASON: Generalized abdominal pain and pelvic pain, history of breast cancer TECHNIQUE: Axial images of the abdomen and pelvis were obtained after administration of 100 cc of Omnipaque 350 IV contrast. Coronal and sagittal reformatted images were also provided. Total DLP is 485.8 mGy*cm. FINDINGS: Lower thorax: Minimal opacities are seen at both lung bases, mainly within the lower lobes. This likely represents atelectasis and possibly scarring. Resolving pneumonia is not excluded. This has significantly improved since the previous study. There is a small hiatal hernia. ABDOMEN: Liver: There is a geographic area of mild increased density within the medial left hepatic lobe on image 44. This is favored to represent artifact from phase of contrast. No definite suspicious hepatic lesion is identified. Gallbladder and bile ducts: The gallbladder is mildly distended but otherwise unremarkable. Pancreas: Unremarkable. Spleen: Unremarkable. Adrenals: There is nonspecific thickening of both adrenal glands, especially on the left. This is similar to before. Kidneys and ureters: No hydronephrosis is present. Mild cortical thinning is seen bilaterally. There are also hypodense renal lesions bilaterally which likely represents cysts, but some are too small to well characterize. The largest is located at the upper pole of the left kidney and measures 2.5 cm. There is also a 1.3 cm hyperdense lesion at the anterior aspect of the mid right kidney. It demonstrates 75 Hounsfield units on the previous noncontrast CT chest study and demonstrates 70-78 Hounsfield units on today's study. This is favored to represent a hemorrhagic/proteinaceous renal cyst, but correlation with ultrasound would be helpful. The ureters are unremarkable as visualized. PELVIS: Bladder: There is mild dependent density within the bladder. This could represent stones, blood products and/or debris. Please correlate with a urinalysis. Reproductive: The uterus is not identified, suggesting hysterectomy. There is a 1.3 cm left ovarian cyst. ABDOMEN AND PELVIS: Bowel: There is no evidence of bowel obstruction, but there is prominent stool within the colon, suggesting constipation. The stomach is poorly distended and difficult to evaluate. There are a few diverticula at the colon and possibly the distal ileum. However, there is no evidence of diverticulitis. Appendix: The appendix is not identified, but there are no secondary signs of appendicitis. Vasculature: The infrarenal aorta is slightly ectatic, measuring 2.3 cm in diameter. There is also prominent scattered calcified plaque at the arteries. Areas of narrowing are seen at the iliac arteries bilaterally. The left external iliac artery is occluded, but there is reconstitution of flow at the distal left common femoral artery. Peritoneum/retroperitoneum: No free air is identified. There is minimal ascites within the pelvis and nonspecific edema in the presacral region. Lymph nodes: No suspicious adenopathy is seen. Abdominal/pelvic wall: Unremarkable. Please see the recent right mammogram and ultrasound for further details. Bones: There is multilevel degenerative change at the spine. The osseous structures have a slightly heterogeneous appearance in some regions, which is likely related to osteoporosis. Evaluation for a subtle osseous lesion is difficult, and further evaluation could be performed with a bone scan as clinically indicated. IMPRESSION: 1. There is mild dependent density within the bladder. This could represent bladder stones, debris and/or blood products. Please correlate with a urinalysis. 2. There are minimal scattered opacities within both lower lung zones, mainly within the lower lobes. This has significantly improved since November 25, 2016, and there has been interval resolution of the previously seen bilateral pleural effusions. These opacities likely represent atelectasis and possible scarring, but resolving pneumonia is not excluded. 3. There is no evidence of bowel obstruction, but there is evidence of constipation. 4. Bilateral renal cysts are present. There is a 1.3 cm hyperdense lesion at the anterior aspect of the mid right kidney. This likely represents a hemorrhagic/proteinaceous renal cyst, but correlation with ultrasound would be helpful. 5. Prominent atherosclerotic change is present. 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 6. 1.3 cm left ovarian cyst. 7. Minimal free fluid within the pelvis and nonspecific presacral edema. The CT exam was performed using one or more of the following dose reduction techniques: Automated exposure control and adjustment of the mA and/or kV according to patient size. PROCEDURE INTERPRETED AT [facility] DEPARTMENT OF RADIOLOGY Final Report Signed by: Dr. Agusto Shrestha
[2016-12-21 13:50] LABS: Apearance,Urine CLOUDY (Clear); Bilirubin,Urine Negative (Negative); Blood, Urine Negative (Negative); Glucose,Urine (UA) Negative (Negative); Ketones,Urine Negative (Negative); Mucus,Urine Many /LPF (Occasional); Nitrite,Urine Negative (Negative); Protein,Urine Negative; RBC,Urine 10 /HPF (0-4); Squamous Epithelial Cell,Urine Occasional /HPF (0-10); Urine Color Yellow (Yellow); Urine Specific Gravity 1.038 (1.001-1.035); Urine Urobilinogen < 2.0 EU/DL (0.2-1.0); WBC,Urine 22 /HPF (0-6)
--- NOTE | 2016-12-21 17:13 | Hospitalist History & Physical ---
Assessment and Plan (1) Abdominal pain Status: Acute Assessment and plan: CT unremarkable. Pt. had complaints of constipation so laxatives ordered. Current Visit: Yes (2) Atypical chest pain Status: Acute Assessment and plan: Serial troponins ordered for patient. Cardiac monitoring. Current Visit: Yes (3) Constipation Status: Acute Assessment and plan: PRN laxative ordered for patient. Soap suds enema per Dr. Puente. Current Visit: Yes (4) Debility Status: Acute Assessment and plan: Consult PT/OT. Consult case management for placement upon discharge. Current Visit: Yes (5) Hypokalemia Status: Acute Assessment and plan: Pt K to be replaced. Recheck in am. Current Visit: Yes (6) Leukocytosis Status: Acute Assessment and plan: Admit to hospitalist. Give patient empiric treatment of IV antibiotic (Rocephin) . Check urine culture. Current Visit: Yes (7) CVA (cerebral vascular accident) Status: Chronic Assessment and plan: Pt. recently discharged on 12/12 after sustaining major stroke. Will monitor. Current Visit: No History of Present Illness Chief complaint: weakness, abodminal pain and chest pain History of present illness: Ms. Webster is a 89 year old black female with a history of hypertension, afib, breast cancer, and recent CVA that presented to the ED via EMS from [facility] with complaints of chest pain. On arrival to ED and after examine by ED doctor, pt was found to have abd pain. Pt reports constipation. She states "I just don' t feel good". Pt's daughter is at bedside and reports decreased oral intake. Ms. Webster was just discharged from [place] on 12/12 after a lengthy hospital stay during which pt was treated for bradycardia, pneumonia and a CVA. Pt. seen and examined. Pt. denies sob, n/v/d, cough or dizziness. Pt.'s case discussed with Dr. Puente. Pt. to be admitted to the hospitalist service for further eval and treatment. Home Medications Medication Instructions Recorded Confirmed Type Carboxymethylcellulose Sodium 1 drops BOTH EYES DAILY 11/13/16 12/21/16 History [Refresh Liquigel] Cholecalciferol (Vitamin D3) 1,000 units PO DAILY 11/13/16 12/21/16 History [Vitamin D3] Dorzolamide/Timolol Oph Soln 1 drop BOTH EYES DAILY 11/13/16 12/21/16 History [Cosopt] Amiodarone Tab [Cordarone Tab] 200 mg PO BID tablet 12/12/16 12/21/16 Rx Apixaban [Eliquis] 2.5 mg PO BID tablet 12/12/16 12/21/16 Rx Polyethylene Glycol Powder 17 gm PO DAILY 12/12/16 12/21/16 Rx [Miralax] Rosuvastatin [Crestor] 20 mg PO BEDTIME tablet 12/12/16 12/21/16 Rx amLODIPine [Norvasc] 10 mg PO DAILY tablet 12/12/16 12/21/16 Rx Acetaminophen Tab [Tylenol Tab] 500 mg PO Q4H PRN 12/21/16 12/21/16 History Cyproheptadine HCl 2 mg PO BID 12/21/16 12/21/16 History HYDROcodone/ACETAMIN 5-325 [Bock 1 tablet PO BID MDD 3GM/24H 12/21/16 12/21/16 History 5-325] ACETAMINOPHEN Insulin Glargine [Lantus] 10 unit SUBCUT BEDTIME 12/21/16 12/21/16 History Multivitamin [One Daily 1 each PO DAILY 12/21/16 12/21/16 History Multivitamin] Allergies Allergy/AdvReac Type Severity Reaction Status Date / Time losartan Allergy Unknown/Unable Verified 12/21/16 09:45 to obtain Medical,Surgical,& Family Hx - Medical History Cardio: History of: Hypertension, PVD, Cardiovascular Problems (MURMUR) Endocrine: History of: Diabetes Mellitus (NIDDM) - Family History Family History: Reports;: Family Diabetes (son) - Social History Smoking Status: Unknown if ever smoked Frequency of Alcohol Use: None Type of Drug Use: None Lives With:: [facility] Functional capacity: uses cane/walker - Constitutional Constitutional: Present: weakness. Absent: chills - EENT Eyes: Present: loss of vision Ears: Present: decreased hearing Nose, mouth and throat: Absent: dysphagia, headache(s) - Cardiovascular Cardiovascular: Present: chest pain at rest, dyspnea. Absent: edema - Respiratory Respiratory: Present: dyspnea on exertion - Gastrointestinal Gastrointestinal: Present: abdominal pain. Absent: nausea, vomiting - Genitourinary Genitourinary: Absent: difficulty urinating, hematuria - Neurological Neurological: Present: confusion - Psychiatric Psychiatric: Present: confusion, memory loss Exam - Constitutional Vitals: Period Temp Pulse Resp BP Sys/Guerin Pulse Ox Last 24 Hr 96.2 F-97.2 F 54-68 15-20 138-174/57-93 92-100 General appearance: normal weight, no acute distress - Head Head exam: Present: normal inspection, normocephalic - Eye Eye exam: Present: EOMI. Absent: periorbital swelling Pupils: Present: TRINIDAD. Absent: dilated - Neck Neck exam: Present: normal inspection. Absent: thyromegaly - Respiratory Respiratory exam: Present: clear to auscultation bilaterally - Cardiovascular Cardiovascular exam: Present: regular rate and rhythm - GI/Abdominal GI/Abdominal exam: Present: normal bowel sounds, soft. Absent: tenderness - Extremities Exam Extremities exam: Present: normal capillary refill, full ROM. Absent: edema - Neurological Exam Neurological exam: Present: alert, altered (intermittent confusion) - Psychiatric Psychiatric exam: Present: normal affect, normal mood - Skin Skin exam: Present: normal color, warm, dry Results - Labs CBC & BMP: 12/21/16 10:30 12/21/16 10:30 Lab Results: I have reviewed the past 24 hour labs
--- NOTE | 2016-12-21 17:16 | Event Note ---
Shared visit with Rita Rahman NP. Pt was seen and personally examined by me. D/W BORING INSPECTOR and daughter. In summary, pt is a 89 year old female recently admitted with sepsis due to pneumonia and right axillary abscess s/p I and D and heel blister debridement and sacral/ pressure wound who presented to the hospital with AMS and decreased oral intake. According to the daughter, pt has had decreased oral intake over the last few days and the fdc. Today, she was called by SD who reported that pt was complaining of left sided chest pain. She was transferred for further evaluation and treatment. Reportedly, she has had constipation and confusion/ weakness. No fever reported. No sob, cough, lightheadedness, palpitations, diarrhea, nausea or vomiting reported. No new swellings or rashes reported. A 10-point review of systems was reviewed with the daughter and was otherwise unremarkable. Patient was unable to provide info due to decreased LOC. For PMH, PSH, MEDS, ALL, FH, and SH, please see recent H and P from recent hospitalization and see BORING INSPECTOR H and P. Vitals: reviewed GEN: Arousable, mostly nonverbal, NAD HEENT: PERRL, Sclera clear, nares patent, dry oral mucosa Neck: supple no LAD, thyromegaly CV: RRR no M LUNGS: CTAB nonlabored ABD: soft, diffusely TTP without rebound or guarding. Pt does grimace with exam EXT: drop foot on LLE, bilateral heel dressing in place SKIN: Right axilla has 3 cm x 3 cm open wound no drainage, no foul odor, clean base. No surrounding erythema Labs/ Investigative studies reviewed A/P: Anorexia Possible acute cystitis ? Candidal Clinical dehydration Constipation Recent large stroke Admit to the hospitalist IV Fluconazole and empiric rocephin Check UCx IVF Soap suds enema Hold home meds until more awake and conversant Antiemetics as needed. DVT prophylaxis Further plans to follow as more information is available.
[2016-12-21] MEDS ORDERED: ONDANSETRON 4 MG/2 ML VIAL IV PRN (17:32)
[2016-12-21] MEDS ORDERED: cefTRIAXone 1,000 MG VIAL IM SCH (18:30)
[2016-12-21] MEDS: SODIUM CHLOR 0.9% KCL 20 MEQ 20 MEQ/1,000 ML BAG IV SCH (18:49)
[2016-12-21] MEDS ORDERED: cefTRIAXone 1,000 MG VIAL IV SCH (18:54)
[2016-12-21] MEDS: cefTRIAXone 1,000 MG in SODIUM CHLORIDE 0.9% 100 ML IV SCH (18:58)
[2016-12-21] MEDS ORDERED: APIXABAN 2.5 MG TABLET PO SCH (21:00)
[2016-12-21] MEDS: AMIODARONE 200 MG TABLET PO SCH (22:23)
[2016-12-21] MEDS: CYPROHEPTADINE 4 MG TABLET PO SCH (22:23)
[2016-12-21] MEDS: FLUCONAZOLE INJ 100 MG in IV BAG 1 EACH IV SCH (22:24)
[2016-12-21] MEDS: ROSUVASTATIN 20 MG TABLET PO SCH (22:24)
[2016-12-22 07:26] LABS: Troponin I Only 0.024 NG/ML (0.00-0.045)
--- NOTE | 2016-12-22 07:30 | EKG Report ---
Stationary ECG Study [facility] Test Date: 12/22/2016 7:09:38 AM Pat Name: PINA KAN Department: Room: 243 Gender: F Hand Binder Stripper: SATNAM : 1925 Requested by: Maury Rahman Order Number: [id number] Reading MD: LUCIO DAMON Intervals [place]ly Rate: 77 P: 59 [place]: 196 QRS: 20 QRSD: 86 T: -43 QT: 417 QTc: 449 Interpretive Statements SINUS RHYTHM WITH OCCASIONAL SUPRAVENTRICULAR PREMATURE COMPLEXES ST DEVIATION AND MODERATE T-WAVE ABNORMALITY, CONSIDER ANTERIOR ISCHEMIA Electronically Signed On 12-25-16 15:20:06 CDT by LUCIO DAMON [email or web address]
--- NOTE | 2016-12-22 07:43 | EKG Report ---
Stationary ECG Study [facility] Test Date: 12/21/2016 9:46:19 AM Pat Name: PINA KAN Department: Room: 243 Gender: F Federal Aid Coordinator: OLEG : 1925 Requested by: Checo Church Order Number: [id number] Reading MD: LUCIO DAMON Intervals [place] Rate: 66 P: 55 [place]: 206 QRS: -9 QRSD: 87 T: -50 QT: 472 QTc: 486 Interpretive Statements SINUS RHYTHM Diffuse ST depression, consider ischemia or digoxin effect Electronically Signed On 12-23-16 22:11:36 CDT by LUCIO DAMON [email or web address]
[2016-12-22] MEDS: AMIODARONE 200 MG TABLET PO SCH ×2 (09:05→21:27)
[2016-12-22] MEDS: CYPROHEPTADINE 4 MG TABLET PO SCH ×2 (09:05→21:27)
[2016-12-22] MEDS: amLODIPine 10 MG TABLET PO SCH (09:05)
[2016-12-22] MEDS: MULTIVITAMIN (CENTRUM) TABLET PO SCH (09:05)
[2016-12-22] MEDS: CHOLECALCIFEROL 1,000 UNIT TABLET PO SCH (09:06)
[2016-12-22] MEDS: CARBOXYMETHYLCELLULOSE 1% OPH SOLN BOTH EYES SCH (09:06)
[2016-12-22] MEDS: DORZOLAMIDE/TIMOLOL OPH SOLN 10 ML BOTTLE BOTH EYES SCH (09:07)
[2016-12-22] MEDS: SODIUM CHLOR 0.9% KCL 20 MEQ 20 MEQ/1,000 ML BAG IV SCH ×2 (12:06→21:26)
--- NOTE | 2016-12-22 13:33 | Hospitalist Progress Note ---
Hospitalist: Subjective Interval history: Patient is more awake and alert today. She denies any pain. She denies any shortness of breath. No nausea or vomiting. She was able to eat some breakfast this morning. 1 bowel movement recorded. Exam - Constitutional Vitals: Period Temp Pulse Resp BP Sys/Guerin Pulse Ox Last 24 Hr 97.7 F-99.0 F 58-79 16-30 132-170/50-81 91-100 Exam: Awake and alert oriented to person and place lying in the hospital bed in no acute distress Regular rate and rhythm normal S1-S2 no obvious murmurs rubs or gallops Lungs are clear to auscultation bilaterally with good aeration diminished at the bases. Nonlabored breathing noted. Abdomen is soft nontender nondistended with hypoactive bowel sounds no organomegaly or masses appreciated Warm and well-perfused, no clubbing cyanosis or edema. Left hemiplegia noted Results - Labs CBC & BMP: 12/21/16 10:30 12/21/16 10:30 - Impressions (1) Anorexia and Abdominal pain likely due to constipation +/- UTI s/p soap suds enema- improved. start bowel regimen. Cont PRN meds Status: Acute Assessment and plan: - CT unremarkable. Cont laxatives ordered. - Antiemetics as needed. Current Visit: Yes (2) Atypical chest pain Status: Acute Assessment and plan: -Troponins negative. Cardiac monitoring. Can likely dc since so significant dysrhythmias noted. Current Visit: Yes (3) Clinical dehydration- improved -improved with IVF (4) Acute urinary tract infection/ cystitis ? candidial - Cont empiric IV Fluconazole and rocephin - F/U UCx (5) Hypokalemia Status: Acute Assessment and plan: Pt K to be replaced. Recheck in am. Current Visit: Yes (6) History of recent CVA (cerebral vascular accident) Status: Chronic Assessment and plan: Pt. recently discharged on 12/12 after sustaining major stroke. Will monitor. DVT prophylaxis D/W pt. Left Message for daughter by phone (she is traveling by plane today). All questions answered.
[2016-12-22] MEDS ORDERED: MAGNESIUM HYDROXIDE SUSP 30 ML UDCUP PO PRN (14:01)
[2016-12-22] MEDS: FLUCONAZOLE INJ 100 MG in IV BAG 1 EACH IV SCH (18:10)
[2016-12-22] MEDS: cefTRIAXone 1,000 MG in SODIUM CHLORIDE 0.9% 100 ML IV SCH (18:47)
[2016-12-22] MEDS: ROSUVASTATIN 20 MG TABLET PO SCH (21:27)
[2016-12-22] MEDS: BISACODYL 5 MG TABLET PO SCH (21:27)
[2016-12-23] MEDS: SODIUM CHLOR 0.9% KCL 20 MEQ 20 MEQ/1,000 ML BAG IV SCH ×2 (03:12→17:20)
[2016-12-23] MEDS ORDERED: BUPIVACAINE MPF 0.25% /EPI 30 ML VIAL ONE (06:46)
[2016-12-23 06:59] LABS: Basophils # 0.1 10*3/uL (0.0-0.2); Basophils % 0.8 % (0.0-0.8); Eosinophils # 0.2 10*3/uL (0.0-0.87); Eosinophils % 2.1 % (0.00-10.9); Hematocrit 29.6 VOL% (35.7-47.0); Hemoglobin 9.8 GM/DL (12.0-16.0); Immature Granulocytes % 0.5 %; Immature Granulocytes Absolute 0.05 #; Lymphocytes # 1.5 10*3/uL (1.4-4.0); Lymphocytes % 14.9 % (21.3-54.2); Mean Corpuscular HGB Conc 33.1 GM/DL (32-36); Mean Corpuscular Hemoglobin 30 PG (27-34); Mean Corpuscular Volume 91.9 FL (87-102); Mean Platelet Volume 9.9 FL (9.6-12.0); Monocytes # 0.9 10*3/uL (0.11-0.8); Monocytes % 8.6 % (1.7-12.7); Neutrophils # 7.2 10*3/uL (1.4-7.4); Neutrophils % 73.1 % (38.7-73.9); Platelet Count 227 T/CUMM (130-400); Red Blood Count 3.22 MC/CUMM (3.8-5.5); Red Cell Distribution Width 13.8 % (9.3-17.3); White Blood Count 9.9 T/CUMM (4-12)
[2016-12-23 07:34] LABS: Albumin 2.8 G/DL (3.4-5.0); Magnesium 1.8 MG/DL (1.8-2.4); Osmolality,Calculated 291.4 MOS/KG (273-304); Phosphorous 2.8 MG/DL (2.5-4.9); Potassium 3.4 MMOL/L (3.5-5.1)
[2016-12-23 07:39] LABS: Osmolality,Calculated 291.4 MOS/KG (273-304); Potassium 3.5 MMOL/L (3.5-5.1)
[2016-12-23] MEDS: MULTIVITAMIN (CENTRUM) TABLET PO SCH (10:23)
[2016-12-23] MEDS: DORZOLAMIDE/TIMOLOL OPH SOLN 10 ML BOTTLE BOTH EYES SCH (10:23)
[2016-12-23] MEDS: AMIODARONE 200 MG TABLET PO SCH ×2 (10:23→21:20)
[2016-12-23] MEDS: amLODIPine 10 MG TABLET PO SCH (10:24)
[2016-12-23] MEDS: CYPROHEPTADINE 4 MG TABLET PO SCH ×2 (10:24→21:20)
[2016-12-23] MEDS: CHOLECALCIFEROL 1,000 UNIT TABLET PO SCH (10:25)
[2016-12-23] MEDS: CARBOXYMETHYLCELLULOSE 1% OPH SOLN BOTH EYES SCH ×2 (12:03→13:12)
--- NOTE | 2016-12-23 12:18 | Hospitalist Progress Note ---
Hospitalist: Subjective Interval history: Pt even more awake today. She is requesting help but can not clarify what she needs help with. She is eating approximately 25% of meals. No fever. Denies abd pain. Exam - Constitutional Vitals: Period Temp Pulse Resp BP Sys/Guerin Pulse Ox Last 24 Hr 98.1 F-99.2 F 63-72 18-24 121-149/54-80 94-96 Exam: Awake and alert oriented to person lying in the hospital bed in no acute distress Regular rate and rhythm normal S1-S2 no obvious murmurs rubs or gallops Lungs are clear to auscultation bilaterally with good aeration diminished at the bases. Nonlabored breathing noted. Abdomen is soft nontender nondistended with hypoactive bowel sounds no organomegaly or masses appreciated Warm and well-perfused, no clubbing cyanosis or edema. Left hemiplegia noted Results - Labs CBC & BMP: 12/23/16 06:33 12/23/16 06:33 - Impressions (1) Anorexia and Abdominal pain likely due to constipation +/- UTI s/p soap suds enema. Only eating 25% of meals. On Periactin. Cont bowel regimen. Cont PRN meds - calorie count x 3 days. Cont Ensure. If no improvement, may need PEG. Status: Acute Assessment and plan: - CT unremarkable. Cont laxatives ordered. - Antiemetics as needed. Current Visit: Yes (2) Atypical chest pain Status: Acute Assessment and plan: -Troponins negative. Off telemetry. Current Visit: Yes (3) Clinical dehydration- improved -improved with IVF. Will adjust IVF. (4) Acute urinary tract infection/ cystitis suspected due to ora -UCx negative. DC Rocephin and Cont empiric IV Fluconazole (5) Hypokalemia- replaced Status: Acute Assessment and plan: Current Visit: Yes (6) History of recent CVA (cerebral vascular accident) Status: Chronic Assessment and plan: Pt. recently discharged on 12/12 after sustaining major stroke. Will monitor. Cont home meds. PT/OT DVT prophylaxis D/W pt. D/W daughter by phone. All questions answered.
[2016-12-23] MEDS: FLUCONAZOLE INJ 100 MG in IV BAG 1 EACH IV SCH (17:20)
[2016-12-23] MEDS: ROSUVASTATIN 20 MG TABLET PO SCH (21:20)
[2016-12-23] MEDS: BISACODYL 5 MG TABLET PO SCH (21:20)
[2016-12-24] MEDS: SODIUM CHLOR 0.9% KCL 20 MEQ 20 MEQ/1,000 ML BAG IV SCH (08:25)
[2016-12-24] MEDS: CYPROHEPTADINE 4 MG TABLET PO SCH ×2 (09:40→21:43)
[2016-12-24] MEDS: CHOLECALCIFEROL 1,000 UNIT TABLET PO SCH (09:40)
[2016-12-24] MEDS: MULTIVITAMIN (CENTRUM) TABLET PO SCH (09:40)
[2016-12-24] MEDS: amLODIPine 10 MG TABLET PO SCH (09:40)
[2016-12-24] MEDS: AMIODARONE 200 MG TABLET PO SCH ×2 (09:40→21:43)
[2016-12-24] MEDS: DORZOLAMIDE/TIMOLOL OPH SOLN 10 ML BOTTLE BOTH EYES SCH (09:41)
[2016-12-24] MEDS: CARBOXYMETHYLCELLULOSE 1% OPH SOLN BOTH EYES SCH (09:41)
--- NOTE | 2016-12-24 10:47 | Hospitalist Progress Note ---
Hospitalist: Subjective Interval history: +BM. No fever. Denies cp or SOB. Eating around 25% of meals of what i can see documented. Exam - Constitutional Vitals: Period Temp Pulse Resp BP Sys/Guerin Pulse Ox Last 24 Hr 97.7 F-99.4 F 53-89 18-24 112-158/50-73 93-98 Exam: Awake and alert oriented to person lying in the hospital bed in no acute distress Regular rate and rhythm normal S1-S2 no obvious murmurs rubs or gallops Lungs are clear to auscultation bilaterally with good aeration diminished at the bases. Nonlabored breathing noted. Abdomen is soft nontender nondistended with hypoactive bowel sounds no organomegaly or masses appreciated Warm and well-perfused, no clubbing cyanosis or edema. Left hemiplegia noted Results - Labs CBC & BMP: 12/23/16 06:33 12/23/16 06:33 - Impressions (1) Anorexia and Abdominal pain likely due to constipation +/- UTI Status: Acute Assessment and plan: - CT unremarkable. Cont laxatives ordered. - s/p soap suds enema. - Only eating 25% of meals. On Periactin. Calorie count in progress. Cont bowel regimen. Cont PRN meds - Cont Ensure. If no improvement, may need PEG. D/W daughter. - Antiemetics as needed. Current Visit: Yes (2) Atypical chest pain Status: Acute Assessment and plan: -Troponins negative. Off telemetry. Current Visit: Yes (3) Clinical dehydration- improved -improved with IVF. Will adjust IVF. (4) Acute urinary tract infection/ cystitis suspected due to ora -UCx negative. off Rocephin and Cont empiric IV Fluconazole (5) Hypokalemia- replaced Status: Acute Assessment and plan: Current Visit: Yes (6) History of recent CVA (cerebral vascular accident) Status: Chronic Assessment and plan: Pt. recently discharged on 12/12 after sustaining major stroke. Will monitor. Cont home meds. PT/OT DVT prophylaxis D/W pt. Left message for daughter by phone. All questions answered. I will be away several days. One of my associates will follow in my absence.
[2016-12-24] MEDS: FLUCONAZOLE INJ 100 MG in IV BAG 1 EACH IV SCH (17:39)
[2016-12-24] MEDS: ROSUVASTATIN 20 MG TABLET PO SCH (21:43)
[2016-12-24] MEDS: BISACODYL 5 MG TABLET PO SCH (21:43)
[2016-12-25] MEDS: SODIUM CHLOR 0.9% KCL 20 MEQ 20 MEQ/1,000 ML BAG IV SCH (02:15)
[2016-12-25 07:24] LABS: Basophils # 0.1 10*3/uL (0.0-0.2); Basophils % 0.7 % (0.0-0.8); Eosinophils # 0.3 10*3/uL (0.0-0.87); Eosinophils % 3.1 % (0.00-10.9); Hematocrit 31.7 VOL% (35.7-47.0); Hemoglobin 10.5 GM/DL (12.0-16.0); Immature Granulocytes % 0.4 %; Immature Granulocytes Absolute 0.04 #; Lymphocytes # 1.8 10*3/uL (1.4-4.0); Mean Corpuscular HGB Conc 33.1 GM/DL (32-36); Mean Corpuscular Hemoglobin 30 PG (27-34); Mean Corpuscular Volume 91.9 FL (87-102); Mean Platelet Volume 10.4 FL (9.6-12.0); Monocytes % 9.5 % (1.7-12.7); Neutrophils % 68.3 % (38.7-73.9); Platelet Count 215 T/CUMM (130-400); Red Blood Count 3.45 MC/CUMM (3.8-5.5); Red Cell Distribution Width 13.9 % (9.3-17.3); White Blood Count 10.2 T/CUMM (4-12)
[2016-12-25 07:46] LABS: Calcium 9.1 MG/DL (8.5-10.1)
[2016-12-25 07:47] LABS: Osmolality,Calculated 294.1 MOS/KG (273-304); Potassium 3.9 MMOL/L (3.5-5.1)
[2016-12-25] MEDS: MULTIVITAMIN (CENTRUM) TABLET PO SCH (09:23)
[2016-12-25] MEDS: CHOLECALCIFEROL 1,000 UNIT TABLET PO SCH (09:23)
[2016-12-25] MEDS: CYPROHEPTADINE 4 MG TABLET PO SCH ×2 (09:23→20:25)
[2016-12-25] MEDS: amLODIPine 10 MG TABLET PO SCH (09:23)
[2016-12-25] MEDS: AMIODARONE 200 MG TABLET PO SCH ×2 (09:23→20:26)
[2016-12-25] MEDS: DORZOLAMIDE/TIMOLOL OPH SOLN 10 ML BOTTLE BOTH EYES SCH (09:26)
[2016-12-25] MEDS: CARBOXYMETHYLCELLULOSE 1% OPH SOLN BOTH EYES SCH (09:26)
--- NOTE | 2016-12-25 10:20 | Hospitalist Progress Note ---
Assessment and Plan (1) Urinary tract infection Status: Acute Current Visit: Yes (2) Nausea & vomiting Status: Acute Current Visit: No (3) CVA (cerebral vascular accident) Status: Chronic Current Visit: No (4) Hypertension, uncontrolled Status: Chronic Assessment and plan: -Continue treatment of UTI with IV fluconazole -Patient with poor oral intake despite Periactin, may require PEG tube, discussed with daughter -Patient has poor functioning secondary to recent stroke, will likely need physical rehab at [facility] worsening of facility -Consult case management to discuss with daughter concerning long-term placement for the patient Current Visit: No Hospitalist: Subjective Interval history: 89 year old female admitted with acute chest pain and weakness after a recent hospitalization for stroke. She is awake and responsive today, but she remains very confused. Her appetite is poor as well. She is without any complaint. Exam - Constitutional Vitals: Period Temp Pulse Resp BP Sys/Guerin Pulse Ox Last 24 Hr 97.8 F-99.0 F 53-68 18-20 128-166/62-84 94-98 General appearance: normal weight - Head Head exam: Present: normal inspection - Eye Eye exam: Present: EOMI - ENT ENT exam: Present: normal exam - Respiratory Respiratory exam: Present: clear to auscultation bilaterally - Cardiovascular Cardiovascular exam: Present: regular rate and rhythm - GI/Abdominal GI/Abdominal exam: Present: hypoactive bowel sounds. Absent: ascites, distended , guarding - Extremities Exam Extremities exam: Present: other (right sided hemiplegia due to stroke) - Neurological Exam Neurological exam: Present: altered (confused) - Skin Skin exam: Present: normal color, warm Results - Labs CBC & BMP: 12/25/16 06:49 12/25/16 06:49 Lab Results: I have reviewed the past 24 hour labs
[2016-12-25] MEDS: ROSUVASTATIN 20 MG TABLET PO SCH (20:24)
[2016-12-25] MEDS: BISACODYL 5 MG TABLET PO SCH (20:24)
[2016-12-26] MEDS: DEXTROSE 5% NACL 0.45% 1,000 ML IV SCH ×3 (04:15→15:55)
[2016-12-26] MEDS: FLUCONAZOLE INJ 100 MG in IV BAG 1 EACH IV SCH ×2 (05:05→21:21)
[2016-12-26 05:13] LABS: Basophils # 0.1 10*3/uL (0.0-0.2); Basophils % 0.6 % (0.0-0.8); Eosinophils # 0.3 10*3/uL (0.0-0.87); Eosinophils % 3.3 % (0.00-10.9); Hemoglobin 10.5 GM/DL (12.0-16.0); Immature Granulocytes % 0.7 %; Immature Granulocytes Absolute 0.07 #; Lymphocytes % 18.9 % (21.3-54.2); Mean Corpuscular HGB Conc 32.8 GM/DL (32-36); Mean Corpuscular Hemoglobin 30 PG (27-34); Mean Platelet Volume 11.1 FL (9.6-12.0); Monocytes % 9.3 % (1.7-12.7); NRBC # 0.02 10*3/uL; Neutrophils % 67.2 % (38.7-73.9); Platelet Count 214 T/CUMM (130-400); Red Blood Count 3.48 MC/CUMM (3.8-5.5); Red Cell Distribution Width 13.8 % (9.3-17.3); White Blood Count 10.4 T/CUMM (4-12)
[2016-12-26 06:37] LABS: Calcium 9.2 MG/DL (8.5-10.1); Osmolality,Calculated 289.6 MOS/KG (273-304); Potassium 3.9 MMOL/L (3.5-5.1)
[2016-12-26] MEDS: CHOLECALCIFEROL 1,000 UNIT TABLET PO SCH (09:56)
[2016-12-26] MEDS: AMIODARONE 200 MG TABLET PO SCH ×2 (09:56→21:22)
[2016-12-26] MEDS: amLODIPine 10 MG TABLET PO SCH (09:56)
[2016-12-26] MEDS: CARBOXYMETHYLCELLULOSE 1% OPH SOLN BOTH EYES SCH (09:56)
[2016-12-26] MEDS: DORZOLAMIDE/TIMOLOL OPH SOLN 10 ML BOTTLE BOTH EYES SCH (09:56)
[2016-12-26] MEDS: MULTIVITAMIN (CENTRUM) TABLET PO SCH (09:56)
[2016-12-26] MEDS: CYPROHEPTADINE 4 MG TABLET PO SCH ×2 (09:56→21:17)
--- NOTE | 2016-12-26 11:01 | Hospitalist Progress Note ---
Assessment and Plan (1) Pneumonia Status: Acute Assessment and plan: Impression: 1. Possible pneumonia 2. Anorexia 3. Possible urinary tract infection and/or acute urinary retention 4. Recent cerebral infarction 5. Recurrent breast cancer and axillary abscess, drained during last hospitalization Plan: Bladder scan and Pickett catheter if she appears to be in acute urinary retention. Continue laxatives to facilitate bowel movements. Continue appetite stimulant. Recheck chest x-ray. This note was completed using [employer] voice recognition software. There may be brewing technician errors as a result. Current Visit: No Hospitalist: Subjective Interval history: Follow-up possible pneumonia, abdominal pain, and constipation. The patient is known to me from a hospitalization last month. At that time, she apparently presented with ischemic colitis, and then had a large cerebral infarction. She ended up going to the rehab unit, but failed to thrive over there. She was sent back to the hospital with pneumonia, constipation, and anorexia. She was also told that she had a urinary tract infection, but the culture did not grow anything except yeast. She is currently being treated for that. During her last hospitalization, she also had an axillary abscess and was found to have a recurrence of breast cancer. The abscess responded to conservative management following drainage. The recurrent breast cancer is not being treated at this time. Exam - Constitutional Vitals: Period Temp Pulse Resp BP Sys/Guerin Pulse Ox Last 24 Hr 98.0 F-98.7 F 58-64 18-20 142-160/56-71 99-100 Vital signs are noted above. Heart is regular today with no murmur or gallop. Chest is clear anteriorly with no rales or wheezes. Abdomen is tender in the suprapubic area, with a possibly palpable bladder. She is sleepy, but awakens and has a normal conversation with me. Results - Labs CBC & BMP: 12/26/16 04:27 12/26/16 04:27
--- NOTE | 2016-12-26 14:54 | XRay Report ---
Portable chest Date: 12/26/2016 Clinical history: Follow-up abnormal chest x-ray Comparison: 12/22/2015 Technique: Portable AP sitting chest Findings: The heart is borderline in size with uncoiling of the aorta. Reduced right perihilar parenchymal findings with stable mediastinum and osseous structures. Impression: Reduced right perihilar atelectasis. Chronic scarring. PROCEDURE INTERPRETED AT [facility] DEPARTMENT OF RADIOLOGY Final Report Signed by: Dr. Sahra Miller
[2016-12-26] MEDS: ROSUVASTATIN 20 MG TABLET PO SCH (21:17)
[2016-12-26] MEDS: BISACODYL 5 MG TABLET PO SCH (21:18)
[2016-12-27] MEDS: DEXTROSE 5% NACL 0.45% 1,000 ML IV SCH ×3 (07:37→23:32)
[2016-12-27] MEDS: CYPROHEPTADINE 4 MG TABLET PO SCH ×2 (09:02→23:07)
[2016-12-27] MEDS: amLODIPine 10 MG TABLET PO SCH (09:02)
[2016-12-27] MEDS: CHOLECALCIFEROL 1,000 UNIT TABLET PO SCH (09:02)
[2016-12-27] MEDS: DORZOLAMIDE/TIMOLOL OPH SOLN 10 ML BOTTLE BOTH EYES SCH (09:03)
[2016-12-27] MEDS: CARBOXYMETHYLCELLULOSE 1% OPH SOLN BOTH EYES SCH (09:03)
[2016-12-27] MEDS: AMIODARONE 200 MG TABLET PO SCH ×2 (09:03→23:07)
[2016-12-27] MEDS: MULTIVITAMIN (CENTRUM) TABLET PO SCH (09:03)
--- NOTE | 2016-12-27 10:04 | Hospitalist Progress Note ---
Assessment and Plan (1) Pneumonia Status: Acute Assessment and plan: Impression: 1. Questionable pneumonia; chest x-ray has improved. She does not have pneumonia clinically, and we are not giving any antibiotics at this time 2. Anorexia 3. Possible urinary tract infection without evidence of urinary retention 4. Recent cerebral infarction 5. Recurrent breast cancer and axillary abscess, drained during last hospitalization Plan: Continue current antimicrobials for Love in the urine. Repeat urinalysis. Continue laxatives to facilitate bowel movements. Continue appetite stimulant. This note was completed using [employer] voice recognition software. There may be netbackup engineer errors as a result. Current Visit: No Hospitalist: Subjective Interval history: Follow-up anorexia, abdominal pain, possible pneumonia, old stroke, and atrial fibrillation. The patient is awake and conversant this morning. She denies any pain on questioning. Daughter is not in the room at the time. The patient had a bladder scan yesterday, and it did not show any evidence of acute urinary retention. She also had a repeat chest x-ray, and I do not see any evidence of ongoing infiltrate. In fact, the film looks better compared to the prior film. Exam - Constitutional Vitals: Period Temp Pulse Resp BP Sys/Guerin Pulse Ox Last 24 Hr 97.9 F-98.7 F 53-90 17-20 128-152/61-84 98-100 Vital signs are noted above. Heart is regular with no murmur or gallop. Lungs are clear with no rales or wheezes. Abdomen is soft. There is no significant mass or tenderness. She is awake and conversant, but appears confused. Results - Labs CBC & BMP: 12/26/16 04:27 12/26/16 04:27
[2016-12-27] MEDS ORDERED: SKIN HEALING OINT (AQUAPHOR) 50 GM TUBE TOP PRN (11:59)
[2016-12-27] MEDS: DESITIN 4OZ/NYSTATIN 15 GRAM MIXTURE PASTE TOP SCH ×2 (13:29→23:06)
[2016-12-27] MEDS: ROSUVASTATIN 20 MG TABLET PO SCH (23:07)
[2016-12-27] MEDS: BISACODYL 5 MG TABLET PO SCH (23:07)
[2016-12-28] MEDS: AMIODARONE 200 MG TABLET PO SCH ×2 (10:00→22:37)
[2016-12-28] MEDS: CYPROHEPTADINE 4 MG TABLET PO SCH ×2 (10:18→22:37)
[2016-12-28] MEDS: amLODIPine 10 MG TABLET PO SCH (10:18)
[2016-12-28] MEDS: CARBOXYMETHYLCELLULOSE 1% OPH SOLN BOTH EYES SCH (10:19)
[2016-12-28] MEDS: MULTIVITAMIN (CENTRUM) TABLET PO SCH (10:19)
[2016-12-28] MEDS: CHOLECALCIFEROL 1,000 UNIT TABLET PO SCH (10:19)
[2016-12-28] MEDS: DESITIN 4OZ/NYSTATIN 15 GRAM MIXTURE PASTE TOP SCH ×2 (10:21→22:38)
[2016-12-28] MEDS: DORZOLAMIDE/TIMOLOL OPH SOLN 10 ML BOTTLE BOTH EYES SCH (10:21)
--- NOTE | 2016-12-28 10:38 | Hospitalist Progress Note ---
Assessment and Plan (1) Pneumonia Status: Acute Assessment and plan: Impression: 1. Anorexia 2. Bilateral heel ulcers 3. Recent cerebral infarction Plan: I have asked surgery to evaluate her heel ulcers. Dr. Torres saw her during the last hospitalization. We will continue Periactin for now. This note was completed using [employer] voice recognition software. There may be tutoring assistant errors as a result. Current Visit: No Hospitalist: Subjective Interval history: Follow-up cerebral infarction, anorexia, bilateral heel ulcers. The patient's oral intake remains poor. She is receiving Periactin, but it does not seem to be doing much with regard to her appetite. The daughter reports that the patient complains of some bilateral leg pain, worse on the left. Exam - Constitutional Vitals: Period Temp Pulse Resp BP Sys/Guerin Pulse Ox Last 24 Hr 97.5 F-98.6 F 43-56 18-22 118-150/49-70 91-99 Vital signs are noted above. Heart is regular and slow with no murmur or gallop. Lungs are clear with no rales or wheezes. Examination of lower extremities reveals breakdown of both heels. This looks worse than when she was in the hospital last time. Results - Labs CBC & BMP: 12/26/16 04:27 12/26/16 04:27
[2016-12-28] MEDS: DEXTROSE 5% NACL 0.45% 1,000 ML IV SCH (14:01)
--- NOTE | 2016-12-28 17:38 | General Surgery Consult Note ---
Assessment and Plan - Time spent with patient Time spent with patient: Less than 30 minutes (1) Abscess of right axilla Status: Acute Assessment and plan: Abscess of the right axilla wound is healing nicely and is almost completely ready to be closed secondarily. We will maintain present wound care keeping it moist and clean Current Visit: No (2) Breast cancer Status: Acute Assessment and plan: Recurrent breast cancer of the right breast no recommended treatment at this time. Breast looks okay with no sign of any erosion or thickening at this time. Current Visit: No (3) Decubitus ulcer of both heels, unstageable Status: Acute Assessment and plan: Decubitus ulcers of both heels left greater than the right unstageable Plan is to start some local treatment to moisturize these. We will consider possibility of debridement but need some vascular studies were Current Visit: Yes History of Present Illness Chief complaint: Bilateral heel ulcers History of present illness: Ms. Webster is a 89 year old female -[place] female who has decubitus ulcers of both heels unstageable at this time due to the thick eschars present. She has some discomfort associated with the eschars primarily on the left heel. She is in some foam boots for protection. She came back in for UTI and some chest pain and constipation. We will try to start some treatments on this to soften these eschars up consider the possibility of debridement of the eschars to remove the thick hard tissue see if that would improve her symptoms. We will get some vascular studies first to see where we stand on her circulation lower extremities before considering anything. At the present she is off her Eliquis and may be a window of opportunity to try to get this under control. The wound in the right axilla is almost filled in completely its flat to the skin edges now with good granulating base present. Home Medications Medication Instructions Recorded Confirmed Type Carboxymethylcellulose Sodium 1 drops BOTH EYES DAILY 11/13/16 12/21/16 History [Refresh Liquigel] Cholecalciferol (Vitamin D3) 1,000 units PO DAILY 11/13/16 12/21/16 History [Vitamin D3] Dorzolamide/Timolol Oph Soln 1 drop BOTH EYES DAILY 11/13/16 12/21/16 History [Cosopt] Amiodarone Tab [Cordarone Tab] 200 mg PO BID tablet 12/12/16 12/21/16 Rx Apixaban [Eliquis] 2.5 mg PO BID tablet 12/12/16 12/21/16 Rx Polyethylene Glycol Powder 17 gm PO DAILY 12/12/16 12/21/16 Rx [Miralax] Rosuvastatin [Crestor] 20 mg PO BEDTIME tablet 12/12/16 12/21/16 Rx amLODIPine [Norvasc] 10 mg PO DAILY tablet 12/12/16 12/21/16 Rx Acetaminophen Tab [Tylenol Tab] 500 mg PO Q4H PRN 12/21/16 12/21/16 History Cyproheptadine HCl 2 mg PO BID 12/21/16 12/21/16 History HYDROcodone/ACETAMIN 5-325 [[place] 1 tablet PO BID MDD 3GM/24H 12/21/16 12/21/16 History 5-325] ACETAMINOPHEN Insulin Glargine [Lantus] 10 unit SUBCUT BEDTIME 12/21/16 12/21/16 History Multivitamin [One Daily 1 each PO DAILY 12/21/16 12/21/16 History Multivitamin] Allergies Allergy/AdvReac Type Severity Reaction Status Date / Time losartan Allergy Unknown/Unable Verified 12/21/16 09:45 to obtain Medical,Surgical,& Family Hx - Medical History Cardio: History of: Hypertension, PVD, Cardiovascular Problems (MURMUR) Endocrine: History of: Diabetes Mellitus (NIDDM) - Family History Family History: Reports;: Family Diabetes (son) - Social History Smoking Status: Never smoker Frequency of Alcohol Use: None Type of Drug Use: None 12 point system: reviewed and no additional remarkable complaints except as stated Exam - Constitutional Vitals: Period Temp Pulse Resp BP Sys/Guerin Pulse Ox Last 24 Hr 97.5 F-98.6 F 40-49 18-22 118-142/49-62 91-99 General appearance: mild distress - Head Head exam: Present: normal inspection - ENT ENT exam: Present: normal exam - Neck Neck exam: Present: normal inspection - Respiratory Respiratory exam: Present: rales, rhonchi - Cardiovascular Cardiovascular exam: Present: RRR - GI/Abdominal GI/Abdominal exam: Present: hypoactive bowel sounds, soft. Absent: tenderness - Extremities Exam Extremities exam: Present: other (Right heel has an ulcer present that has not been soft eschar looks like a superficial blister change present. No swelling or erythematous changes present. Left heel has a very thick eschar that somewhat tender on palpation is not very pliable at this time but there is no sign of any swelling or drainage or erythematous changes.) - Back Exam Back exam: Present: normal inspection - Neurological Exam Neurological exam: Present: alert, oriented X3, CN II-XII intact - Skin Skin exam: Present: normal color, warm, dry, other (Wound in the right axilla is smaller and has filled in there is no depth to it its to skin level with good granulating base present.) Results - Labs CBC & BMP: 12/26/16 04:27 12/26/16 04:27 Lab Results: I have reviewed the past 24 hour labs
[2016-12-28] MEDS: BISACODYL 5 MG TABLET PO SCH (22:37)
[2016-12-28] MEDS: ROSUVASTATIN 20 MG TABLET PO SCH (22:37)
--- NOTE | 2016-12-29 09:19 | General Surgery Progress Note ---
Assessment and Plan (1) Abscess of right axilla Status: Acute Assessment and plan: Abscess of the right axilla wound is healing nicely and is almost completely ready to be closed secondarily. We will maintain present wound care keeping it moist and clean 12/29/2016. This wound continues to heal and look good at this point time. Current Visit: No (2) Breast cancer Status: Acute Assessment and plan: Recurrent breast cancer of the right breast no recommended treatment at this time. Breast looks okay with no sign of any erosion or thickening at this time. Current Visit: No (3) Decubitus ulcer of both heels, unstageable Status: Acute Assessment and plan: Decubitus ulcers of both heels left greater than the right unstageable Plan is to start some local treatment to moisturize these. We will consider possibility of debridement but need some vascular studies were 12/29/2016. The ulcers of the heels are unchanged. She has tenderness in the left heel due to thick hard eschar present at this time. May be worthwhile considering debriding that left heel ulcer to clean it up get that eschar away so they will not be quite as painful to her and begin to get a little better treatment to this area. I reviewed her records from last admission and I do not believe that that ulcer on the left heel was present at the time that she was in. We knew that she had several blistered area on the right and that area looks stable and clean at this time. Awaiting vascular studies and will discuss with family about surgery tomorrow to debride that heel. Current Visit: Yes Subjective Patient reports: Present: no new complaints, afebrile Exam - Constitutional Vitals: Period Temp Pulse Resp BP Sys/Guerin Pulse Ox Last 24 Hr 96.9 F-98.7 F 40-66 18-20 131-144/57-90 90-99 General appearance: mild distress - ENT ENT exam: Present: normal exam - Neck Neck exam: Present: normal inspection - Respiratory Respiratory exam: Present: rales - Cardiovascular Cardiovascular exam: Present: RRR - GI/Abdominal GI/Abdominal exam: Present: normal bowel sounds, soft - Extremities Exam Extremities exam: Present: other (Edema of the lower extremities is much improved. Ulcers of the right and left heel are unchanged. Left heel ulcer remains tender because of the dark eschar present.) - Neurological Exam Neurological exam: Present: alert - Skin Skin exam: Present: normal color, warm, dry Results - Labs CBC & BMP: 12/26/16 04:27 12/26/16 04:27 Lab Results: I have reviewed the past 24 hour labs
[2016-12-29] MEDS: CYPROHEPTADINE 4 MG TABLET PO SCH ×2 (10:42→20:50)
[2016-12-29] MEDS: CHOLECALCIFEROL 1,000 UNIT TABLET PO SCH (10:45)
[2016-12-29] MEDS: MULTIVITAMIN (CENTRUM) TABLET PO SCH (10:45)
[2016-12-29] MEDS: AMIODARONE 200 MG TABLET PO SCH ×2 (10:45→20:53)
[2016-12-29] MEDS: DORZOLAMIDE/TIMOLOL OPH SOLN 10 ML BOTTLE BOTH EYES SCH (10:46)
[2016-12-29] MEDS: DESITIN 4OZ/NYSTATIN 15 GRAM MIXTURE PASTE TOP SCH ×2 (10:46→20:53)
--- NOTE | 2016-12-29 13:16 | EKG Report ---
Stationary ECG Study [facility] Test Date: 12/29/2016 1:15:11 PM Pat Name: PINA KAN Department: Room: 243 Gender: F Mass Spectrometry Manager: : [id number] Requested by: Stanley Benavidez Order Number: [id number] Reading MD: MERCEDEZ FERRARO Intervals [place] Rate: 52 P: 999 IN: 0 QRS: 6 QRSD: 86 T: -72 QT: 495 QTc: 474 Interpretive Statements ATRIAL FIBRILLATION WITH SLOW VENTRICULAR RESPONSE MINIMAL VOLTAGE CRITERIA FOR LVH, CONSIDER NORMAL VARIANT ST DEVIATION Electronically Signed On 12-30-16 08:59:25 CDT by MERCEDEZ FERRARO [email or web address]
[2016-12-29] MEDS: CARBOXYMETHYLCELLULOSE 1% OPH SOLN BOTH EYES SCH ×2 (13:52→14:33)
[2016-12-29 14:18] LABS: Apearance,Urine Slightly Hazy (Clear); Bacteria,Urine Occasional /HPF (Few); Bilirubin,Urine Negative (Negative); Blood, Urine Small mg/dL (Negative); Glucose,Urine (UA) Negative (Negative); Ketones,Urine Negative (Negative); Mucus,Urine Occasional /LPF (Occasional); Nitrite,Urine Negative (Negative); Protein,Urine Negative; RBC,Urine 4 /HPF (0-4); Urine Color Yellow (Yellow); Urine Specific Gravity 1.009 (1.001-1.035); Urine Urobilinogen < 2.0 EU/DL (0.2-1.0); WBC,Urine 72 /HPF (0-6)
[2016-12-29] MEDS: amLODIPine 10 MG TABLET PO SCH (14:25)
[2016-12-29] MEDS: DEXTROSE 5% NACL 0.45% 1,000 ML IV SCH ×2 (14:28→14:32)
--- NOTE | 2016-12-29 14:43 | Hospitalist Progress Note ---
Assessment and Plan (1) Pneumonia Status: Acute Assessment and plan: Impression: 1. Anorexia 2. Bilateral heel ulcers 3. Recent cerebral infarction Plan: Surgery has requested cardiac clearance prior to anesthesia. I have increased her IV fluids. Long-term prognosis is poor; I have discussed this with the daughter. This note was completed using [employer] voice recognition software. There may be metal hardener errors as a result. Current Visit: No Hospitalist: Subjective Interval history: Follow-up malnutrition, old stroke, pressure ulcers, axillary abscess. Staff has reported a decrease in the patient's urine output. Bladder scan showed only about 200 mL, so we probably need to increase her IV fluids. Surgery has seen the patient, and is planning to debride the left heel tomorrow. The patient's oral intake remains poor. Daughter reports that the patient appears confused. She had appeared delirious a couple of days ago, but this had seemed to improve yesterday. Exam - Constitutional Vitals: Period Temp Pulse Resp BP Sys/Guerin Pulse Ox Last 24 Hr 96.9 F-98.7 F 49-66 18-20 131-151/57-90 90-99 Vital signs are noted above. Heart is regular and slow with no murmur. Lungs are fairly clear with a few scattered rhonchi. Abdomen is soft with no mass. She is awake and conversant, but obviously confused. Results - Labs CBC & BMP: 12/26/16 04:27 12/26/16 04:27
[2016-12-29] MEDS: BISACODYL 5 MG TABLET PO SCH (20:51)
[2016-12-29] MEDS: ROSUVASTATIN 20 MG TABLET PO SCH (20:51)
[2016-12-29 21:21] LABS: Troponin I Only 0.018 NG/ML (0.00-0.045)
[2016-12-30 04:13] LABS: Basophils # 0.1 10*3/uL (0.0-0.2); Basophils % 0.6 % (0.0-0.8); Eosinophils # 0.4 10*3/uL (0.0-0.87); Eosinophils % 3.3 % (0.00-10.9); Hematocrit 29.1 VOL% (35.7-47.0); Hemoglobin 9.9 GM/DL (12.0-16.0); Immature Granulocytes Absolute 0.11 #; Lymphocytes % 18.4 % (21.3-54.2); Mean Corpuscular Hemoglobin 31 PG (27-34); Mean Corpuscular Volume 90.1 FL (87-102); Mean Platelet Volume 11.5 FL (9.6-12.0); Monocytes # 1.1 10*3/uL (0.11-0.8); Monocytes % 9.9 % (1.7-12.7); Neutrophils # 7.4 10*3/uL (1.4-7.4); Neutrophils % 66.8 % (38.7-73.9); Platelet Count 201 T/CUMM (130-400); Red Blood Count 3.23 MC/CUMM (3.8-5.5); Red Cell Distribution Width 13.5 % (9.3-17.3); White Blood Count 11.1 T/CUMM (4-12)
[2016-12-30 04:27] LABS: INR 1.1; PT Patient Result 11.3 SECS; Partial Thromboplastin Time 31.8 SECS (0-40)
[2016-12-30 04:44] LABS: Albumin 2.5 G/DL (3.4-5.0); Bilirubin,Total 0.7 MG/DL (0.2-1.0); Calcium 8.7 MG/DL (8.5-10.1); Osmolality,Calculated 277.4 MOS/KG (273-304); Potassium 3.2 MMOL/L (3.5-5.1); Total Protein 5.5 G/DL (6.4-8.3)
[2016-12-30] MEDS: DEXTROSE 5% NACL 0.45% 1,000 ML IV SCH (05:24)
[2016-12-30 06:40] LABS: Troponin I Only 0.019 NG/ML (0.00-0.045)
[2016-12-30] MEDS ORDERED: ceFAZolin 2,000 MG in PREMIX 1 EACH IV ONE (07:00)
[2016-12-30] MEDS ORDERED: POTASSIUM CHLORIDE RIDER 10 MEQ in PREMIX 1 EACH IV ONE (07:57)
--- NOTE | 2016-12-30 07:57 | Cardiology Consult Note ---
Kori Mitchell April RN, am scribing for, and in the presence of, Juancarlos Rocha MD 07:51. Assessment and Plan - Time spent with patient Time spent with patient: Greater than 30 minutes (Due to assessment, planning, documentation, medication review) (1) Decubitus ulcer of both heels, unstageable Status: Acute Assessment and plan: From a cardiac standpoint she is well compensated. Her cardiac testing has shown no high risk abnormalities. She can proceed to surgery as planned. Current Visit: Yes (2) Atrial fibrillation Status: Chronic Assessment and plan: She has persistent asymptomatic afib. She has mild asymptomatic bradycardia at rest. I am going to stop the amiodarone at this time as it has not kept her in NSR. 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 Current Visit: Yes (3) Bradycardia Status: Chronic Assessment and plan: Mild, Asx. Will stop amiodarone as it hasn't kept her in NSR. Current Visit: Yes (4) HTN (hypertension) Status: Acute Current Visit: Yes (5) Debility Status: Acute Current Visit: Yes (6) Failure to thrive Status: Acute Current Visit: Yes History of Present Illness - Data of Consult Patient: known to practice within the last 3 years Consult date: 12/29/16 Requesting Physician: Stanley Benavidez - Consult Narrative Reason for consult: Preoperative evaluation History of present illness: [place] Boner: Dr. Medellin Ms. Webster is a 89 year old female who has seen Dr. Medellin in the hospital in October of this year. She is scheduled for an office follow-up with him next week. Her last admission she had transient bradycardia, as well as hypertension and atrial fibrillation. She was also noted to have hematochezia. 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 She had been on eliquis but had ischemic colitis/BRBPR and this was stopped. She also has a history of NIDDM. According to the record she lives in a jail. Dr. Torres is considering surgery on her heel ulcers tomorrow. We have been asked to see the patient preoperatively. She denies any chest pain at present. When asked where she hurts she says her feet are tired. She is resting comfortably in bed and no shortness of breath is noted. EKG done today shows atrial fibrillation with heart rate of 52. With the exception of some low heart rates, her vital signs have been unremarkable. Echocardiogram done in October of this year with ejection fraction 55-60%. Chest x-ray done 12/26/2016 showed reduced right perihilar atelectasis. Troponin has been checked 3 times this admission including today, all 3 were negative. Potassium was 2.7 on admission. This was repleted and at last check on the it was 3.9. Current Medications Hydrocodone Bitart/Acetaminophen ([place] 5-325) 1 tablet PO Q6H PRN PRN Reason: Pain Moderate (4-7) Last Admin: 12/29/16 13:51 Dose: 1 tablet Amiodarone HCl (Cordarone Tab) 200 mg PO BID [facility] Last Admin: 12/29/16 10:45 Dose: 200 mg Amlodipine Besylate (Norvasc) 10 mg PO DAILY [facility] Last Admin: 12/29/16 14:25 Dose: Not Given Bisacodyl (Dulcolax Tab) 10 mg PO BEDTIME [facility] Last Admin: 12/28/16 22:37 Dose: 10 mg Carboxymethylcellulose Sodium (Refresh Celluvisc) 1 drop BOTH EYES DAILY [facility] Last Admin: 12/29/16 13:52 Dose: 1 drop Cholecalciferol (Vitamin D3) 1,000 unit PO DAILY [facility] Last Admin: 12/29/16 10:45 Dose: 1,000 unit Cyproheptadine HCl (Periactin Tab) 2 mg PO BID [facility] Last Admin: 12/29/16 10:42 Dose: 2 mg Dorzolamide/Timolol (Cosopt) 1 drop BOTH EYES DAILY [facility] Last Admin: 12/29/16 10:46 Dose: 1 drop Dextrose/Sodium Chloride (D5 1/2ns) 1,000 mls @ 120 mls/hr IV .Q8H20M [facility] Last Admin: 12/29/16 14:32 Dose: 75 mls/hr Cefazolin Sodium/Dextrose 2, (000 mg/ Premix) 50 mls @ 100 mls/hr IV PREOP ONE Stop: 12/30/16 07:29 Iron/Multivitamins/Folic Acid (Centrum Tab) 1 tablet PO DAILY [facility] Last Admin: 12/29/16 10:45 Dose: 1 tablet Magnesium Hydroxide (Milk Of Magnesia) 30 ml PO BID PRN PRN Reason: Constipation Last Admin: 12/27/16 09:03 Dose: 30 ml Nystatin/Zinc Oxide (Skin Protectant Mixture) 1 applic TOP BID [facility] Last Admin: 12/29/16 10:46 Dose: 1 applic Ondansetron HCl (Zofran Inj) 4 mg IV Q6H PRN PRN Reason: Nausea/Vomiting Petrolatum (Aquaphor) 1 applic TOP PRN PRN PRN Reason: Dry Skin Rosuvastatin Calcium (Crestor) 20 mg PO BEDTIME [facility] Last Admin: 12/28/16 22:37 Dose: 20 mg CC: Stanley Benavidez MD - Home Medications and Allergies Home Medications: Home Medications Medication Instructions Recorded Confirmed Type Carboxymethylcellulose Sodium 1 drops BOTH EYES DAILY 11/13/16 12/21/16 History [Refresh Liquigel] Cholecalciferol (Vitamin D3) 1,000 units PO DAILY 11/13/16 12/21/16 History [Vitamin D3] Dorzolamide/Timolol Oph Soln 1 drop BOTH EYES DAILY 11/13/16 12/21/16 History [Cosopt] Amiodarone Tab [Cordarone Tab] 200 mg PO BID tablet 12/12/16 12/21/16 Rx Apixaban [Eliquis] 2.5 mg PO BID tablet 12/12/16 12/21/16 Rx Polyethylene Glycol Powder 17 gm PO DAILY 12/12/16 12/21/16 Rx [Miralax] Rosuvastatin [Crestor] 20 mg PO BEDTIME tablet 12/12/16 12/21/16 Rx amLODIPine [Norvasc] 10 mg PO DAILY tablet 12/12/16 12/21/16 Rx Acetaminophen Tab [Tylenol Tab] 500 mg PO Q4H PRN 12/21/16 12/21/16 History Cyproheptadine HCl 2 mg PO BID 12/21/16 12/21/16 History HYDROcodone/ACETAMIN 5-325 [[place] 1 tablet PO BID [facility] 3GM/24H 12/21/16 12/21/16 History 5-325] ACETAMINOPHEN Insulin Glargine [Lantus] 10 unit SUBCUT BEDTIME 12/21/16 12/21/16 History Multivitamin [One Daily 1 each PO DAILY 12/21/16 12/21/16 History Multivitamin] Allergies/Adverse Reactions: Allergies Allergy/AdvReac Type Severity Reaction Status Date / Time losartan Allergy Unknown/Unable Verified 12/21/16 09:45 to obtain ROS unobtainable: due to mental status Medical,Surgical,& Family Hx - Medical History Cardio: History of: Hypertension, PVD Endocrine: History of: Diabetes Mellitus (NIDDM) - Family History Family History: Reports;: Family Diabetes (son) - Social History Smoking Status: Never smoker Frequency of Alcohol Use: None Type of Drug Use: None Lives With:: prison Physical Examination Vital Signs Temp Pulse Resp BP Pulse Ox 96.2 F L 67 20 145/76 96 12/21/16 09:39 12/21/16 09:39 12/21/16 09:39 12/21/16 09:39 12/21/16 09:39 General: Present: Appears Well, No Apparent Distress HEENT: Present: PERRL, Mucus Membranes Moist Neck: Present: Supple Neck, Midline Trachea Cardiac: Present: Irregularly Regular, No Murmur, Bradycardia Lungs: Present: Decreased Breath Sounds, No Wheeze, Rales, Rhonchi Neuro: Absent: Resting Tremor, Essential Tremor Abdomen: Present: Soft, Active Bowel Sounds Skin: Present: Ulceration (On the heels according to Dr. Torres's note. These are covered and I did not assess them.) Extremities: Present: No Edema, Normal Upper Extr. Pulses. Absent: Normal Lower Extr. Pulses (Weak) Result/EKG - Labs CBC & BMP: 12/30/16 03:31 12/30/16 03:31 Lab Results: I have reviewed the past 24 hour labs Labs: Laboratory Results - last 24 hr 12/29/16 12/29/16 12/29/16 11:44 13:32 13:46 POC Glucose 117 H Total Creatine Kinase 38 CK-MB (CK-2) < 1.0 Troponin I 0.020 Urine Color Yellow Urine Appearance Slightly hazy Urine pH 8.0 Ur Specific Freedom 1.009 Urine Protein Negative Urine Glucose (UA) Negative Urine Ketones Negative Urine Blood Small Urine Nitrate Negative Urine Bilirubin Negative Urine Urobilinogen < 2.0 H Urine Leukocytes Large H Urine RBC 4 Urine WBC 72 Urine Bacteria Occasional Urine Mucus Occasional Ur Culture Indicated? Results to follow - Diagnostic Findings Procedure: Chest x-ray: report reviewed by me - EKG EKG results: interpreted by me EKG shows: atrial fibrillation I, Juancarlos Rocha MD, personally performed the services described in this documentation, ascribed by Sury Sheikh RN in my presence, and it is both accurate and complete 756 .
[2016-12-30] MEDS ORDERED: BUPIVACAINE 0.25% 50 ML VIAL ONE (10:26)
[2016-12-30] MEDS ORDERED: MUPIROCIN 2% OINT 22 GM TUBE TOP ONE (10:45)
[2016-12-30] MEDS ORDERED: DEXTROSE 50% 25 GM/50 ML VIAL IV PRN (10:57)
[2016-12-30] MEDS ORDERED: GLUCAGON 1 MG VIAL IM PRN (10:57)
[2016-12-30] MEDS ORDERED: HYDROmorphone 2 MG/1 ML VIAL IV PRN (10:57)
[2016-12-30] MEDS ORDERED: CHLORHEXIDINE 4% SOLN 118 ML BOTTLE TOP ONE (11:02)
--- NOTE | 2016-12-30 11:14 | Operative Note ---
Date of procedure: 12/30/16 Pre-op diagnosis: Decubitus ulcers unstageable both heels Post-op diagnosis: same Procedure: Operative note: Preoperative diagnosis: 1. Decubitus ulcer unstageable left heel 2. Decubitus ulcer unstageable right heel Postoperative diagnosis: 1. Decubitus ulcer left heel stage III 2. Decubitus ulcer right heel stage III Procedure: 1. Excisional debridement of skin and subcutaneous tissue ulcer of the left heel 2. Excisional debridement of skin and subcutaneous tissue ulcer right heel Surgeon Dr. Torres Anesthesia was managed anesthetic care with local Brief history: 89-year-old Afro[place] female who had a small blistered area on her right heel when she left this facility the last time she was in going to a jail or swing bed facility. She returned and we were consulted to see her with a worsening area on the right heel and a new ulcer on the left heel with thick dark eschar that was painful and tender to her. At this point I elected to bring her surgery and debride these areas especially the left heel to try to see if we get her some relief from her discomfort. Procedure: With patient in the right decubitus position prepped and draped in a sterile fashion timeout and antibiotics completed we approach this area the ulcers of the heels. Left heel pre-debridement but measured 3 x 5 cm and the right heel pre-debridement measured 2.5 x 4.5 cm. Initially elected to go to the right heel since it was the lesser of the 2 at this time. After infiltrated with a local anesthetic I debrided some the loose skin around the edges of it and then I took a knife and just did a tangential debridement of the soft eschar in the center of this ulcer removing this completely with good subcutaneous fatty tissue underneath. It cleaned up nicely without any problems using the knife and scissors to get everything smoothed out. A needle area above this ulcer near the tendon was carefully debrided of its eschar also. Once we finished we now have a wound that is going to be 4 x 2.5 x 0.4 cm in size. At this point a dressing was applied using bacitracin Adaptic and cast padding Covan. We next moved to the left heel were we have a fairly thick hard eschar present on this area. Infiltrated with local anesthetic and took a knife and had to go into the deep tissue doing a tangential debridement initially but finding additional necrotic tissue underneath once it was removed. I had to go ahead and debride around the area to get as much of the firm hard skin that was necrotic out of this wound bed and then with scissors and knife debride the necrotic subcutaneous tissue and fatty tissue at the base of this wound bed. A little electrocauterization was applied along with some irrigation. We now have a wound that is 3.5 x 4 x 0.5 cm in size. A drug bulky dressing was applied patient taken recovery room. Estimated blood loss 10 cc Sponge count correct 2 Drains none Complications none Condition stable satisfactory Anesthesia: MAC, local (0.25% Marcaine plain mixed [id number] 1% Xylocaine plain) Surgeon / Physician: Parvez Torres Estimated blood loss: other (10 cc) Specimens: other (Tissue for pathology) Condition: stable Disposition: floor Results - Labs CBC & BMP: 12/30/16 03:31 12/30/16 03:31 Discharge Plan - Discharge Medications No Action Dorzolamide/Timolol Oph Soln [Cosopt] 1 drop BOTH EYES DAILY Cholecalciferol (Vitamin D3) [Vitamin D3] 1,000 units PO DAILY Apixaban [Eliquis] 2.5 mg PO BID tablet Polyethylene Glycol Powder [Miralax] 17 gm PO DAILY Rosuvastatin [Crestor] 20 mg PO BEDTIME tablet amLODIPine [Norvasc] 10 mg PO DAILY tablet Insulin Glargine [Lantus] 10 unit SUBCUT BEDTIME HYDROcodone/ACETAMIN 5-325 [[place] 5-325] 1 tablet PO BID [facility] 3GM/24H ACETAMINOPHEN Cyproheptadine HCl 2 mg PO BID Acetaminophen Tab [Tylenol Tab] 500 mg PO Q4H PRN PRN Reason: Fever, Headache, Mild Pain Carboxymethylcellulose Sodium [Refresh Liquigel] 1 drops BOTH EYES DAILY Amiodarone Tab [Cordarone Tab] 200 mg PO BID tablet Multivitamin [One Daily Multivitamin] 1 each PO DAILY - Follow Up or Referral - Forms/Instructions
--- NOTE | 2016-12-30 11:20 | Anesthesia Post-Op ---
Anesthesia Post OP - Post Ansesthetic Evaluation Patient seen in post op: Yes Resp: within normal limits CV: within normal limits Mental: within normal limits Temp: within normal limits [id number]: within normal limits Nausea and Vomiting: within normal limits Pain: within normal limits
[2016-12-30] MEDS ORDERED: HYDROmorphone 2 MG/1 ML VIAL ONE (12:05)
[2016-12-30] MEDS ORDERED: KETAMINE 500 MG/10 ML VIAL ONE (12:06)
[2016-12-30] MEDS ORDERED: fentaNYL 100 MCG/2 ML VIAL ONE (12:06)
[2016-12-30] MEDS ORDERED: MIDAZOLAM 2 MG/2 ML VIAL ONE (12:06)
--- NOTE | 2016-12-30 14:01 | Hospitalist Progress Note ---
Assessment and Plan - Time spent with patient Time spent with patient: Greater than 30 minutes (1) Decubitus ulcer of both heels, unstageable Status: Acute Current Visit: Yes (2) Failure to thrive Status: Acute Current Visit: Yes (3) Atrial fibrillation Status: Chronic Current Visit: Yes (4) Breast cancer Status: Acute Assessment and plan: Follow postoperative findings. Continue current antibiotic management. DVT prophylaxis Continue current insulin regimen, monitor fingerstick glucose. Current Visit: No Hospitalist: Subjective Interval history: To the OR for debridement bilateral Decubitus ulcer unstageable left and Rt heel Will follow up post op note and recommendations Exam - Constitutional Vitals: Period Temp Pulse Resp BP Sys/Guerin Pulse Ox Last 24 Hr 97.8 F-98.9 F 46-59 14-22 117-156/50-80 90-100 Exam: Deferred Results - Labs CBC & BMP: 12/31/16 05:27 12/31/16 05:27 Lab Results: I have reviewed the past 24 hour labs
[2016-12-30] MEDS: MULTIVITAMIN (CENTRUM) TABLET PO SCH (14:27)
[2016-12-30] MEDS: CYPROHEPTADINE 4 MG TABLET PO SCH ×2 (14:28→20:42)
[2016-12-30] MEDS: amLODIPine 10 MG TABLET PO SCH (14:28)
[2016-12-30] MEDS: CHOLECALCIFEROL 1,000 UNIT TABLET PO SCH (14:28)
[2016-12-30] MEDS: POTASSIUM CHLORIDE 20 MEQ TABLET PO SCH (14:28)
[2016-12-30] MEDS: INSULIN REGULAR 100 UNIT/ML SUBCUT SCH ×3 (14:29→21:00)
[2016-12-30] MEDS: DORZOLAMIDE/TIMOLOL OPH SOLN 10 ML BOTTLE BOTH EYES SCH (15:16)
[2016-12-30] MEDS: DESITIN 4OZ/NYSTATIN 15 GRAM MIXTURE PASTE TOP SCH ×2 (15:17→20:45)
[2016-12-30] MEDS: CARBOXYMETHYLCELLULOSE 1% OPH SOLN BOTH EYES SCH (15:17)
[2016-12-30] MEDS: ceFAZolin 2,000 MG in PREMIX 1 EACH IV SCH (16:23)
[2016-12-30] MEDS: ROSUVASTATIN 20 MG TABLET PO SCH (20:42)
[2016-12-30] MEDS: BISACODYL 5 MG TABLET PO SCH (20:44)
[2016-12-30] MEDS: oxyCODONE/ACETAMINOPHEN 5-325 MG TABLET PO PRN (20:45)
[2016-12-31] MEDS: ceFAZolin 2,000 MG in PREMIX 1 EACH IV SCH (01:55)
[2016-12-31] MEDS: DEXTROSE 5% NACL 0.45% 1,000 ML IV SCH (02:59)
[2016-12-31 05:39] LABS: Basophils # 0.1 10*3/uL (0.0-0.2); Basophils % 0.6 % (0.0-0.8); Eosinophils # 0.3 10*3/uL (0.0-0.87); Eosinophils % 2.6 % (0.00-10.9); Hematocrit 28.1 VOL% (35.7-47.0); Hemoglobin 9.4 GM/DL (12.0-16.0); Immature Granulocytes % 0.7 %; Immature Granulocytes Absolute 0.08 #; Lymphocytes # 1.7 10*3/uL (1.4-4.0); Lymphocytes % 15.2 % (21.3-54.2); Mean Corpuscular HGB Conc 33.5 GM/DL (32-36); Mean Corpuscular Hemoglobin 30 PG (27-34); Mean Corpuscular Volume 90.4 FL (87-102); Mean Platelet Volume 10.5 FL (9.6-12.0); Monocytes # 1.2 10*3/uL (0.11-0.8); Monocytes % 10.1 % (1.7-12.7); Neutrophils % 70.8 % (38.7-73.9); Platelet Count 199 T/CUMM (130-400); Red Blood Count 3.11 MC/CUMM (3.8-5.5); Red Cell Distribution Width 13.6 % (9.3-17.3); White Blood Count 11.4 T/CUMM (4-12)
[2016-12-31 06:17] LABS: Calcium 8.8 MG/DL (8.5-10.1); Osmolality,Calculated 278.3 MOS/KG (273-304); Potassium 3.1 MMOL/L (3.5-5.1)
--- NOTE | 2016-12-31 09:20 | Hospitalist Progress Note ---
Assessment and Plan - Time spent with patient Time spent with patient: Greater than 30 minutes (1) Decubitus ulcer of both heels, unstageable Status: Acute Current Visit: Yes (2) Failure to thrive Status: Acute Current Visit: Yes (3) Atrial fibrillation Status: Chronic Current Visit: Yes (4) Breast cancer Status: Acute Assessment and plan: Follow postoperative recommendations Continue current antibiotic management. To manage her decreased oral intake, will consult nutrition team and start a calorie count. If she does not do well on the calorie count, will start losartan HCT methods of feeding. This may include PEG tube after discussion with the family. DVT prophylaxis Continue current insulin regimen, monitor fingerstick glucose. Current Visit: No Hospitalist: Subjective Interval history: Status post debridement of bilateral lower extremity decubitus ulcer, postoperative day 1. Hematocrit looks stable. No fever. Blood sugar looks good. But I understand that her oral intake has not improved much, she would take only boost supplement. We will need to consult nutrition team, started calorie count and if she continues with anorexia, we will have to find alternative means to give nutrition. No family at bedside to discuss these plans with her now. Exam - Constitutional Vitals: Period Temp Pulse Resp BP Sys/Guerin Pulse Ox Last 24 Hr 98.1 F-99.8 F 44-61 14-20 116-168/50-83 95-100 Exam: She is awake, alert. A mild painful distress from her bilateral debridement sites. Chest: She has good air entry bilaterally, no crackles or wheezing was heard. CVS: Regular rhythm, heart sounds 1 and 2 were heard. Abdomen: Full, mostly respiration, soft, nontender bowel sounds present. Extremities: No edema, wound dressing around both of her ankles noted, clean and dry. I did not take up the wound dressing. Results - Labs CBC & BMP: 12/31/16 05:27 12/31/16 05:27 Lab Results: I have reviewed the past 24 hour labs
[2016-12-31] MEDS: INSULIN REGULAR 100 UNIT/ML SUBCUT SCH ×4 (09:55→21:28)
[2016-12-31] MEDS: MULTIVITAMIN (CENTRUM) TABLET PO SCH (09:55)
[2016-12-31] MEDS: ENOXAPARIN 40 MG/0.4 ML SYRINGE SUBCUT SCH (09:55)
[2016-12-31] MEDS: DORZOLAMIDE/TIMOLOL OPH SOLN 10 ML BOTTLE BOTH EYES SCH (09:59)
[2016-12-31] MEDS: POTASSIUM CHLORIDE 20 MEQ TABLET PO SCH (09:59)
[2016-12-31] MEDS: amLODIPine 10 MG TABLET PO SCH (10:00)
[2016-12-31] MEDS: CYPROHEPTADINE 4 MG TABLET PO SCH ×2 (10:00→20:17)
[2016-12-31] MEDS: CHOLECALCIFEROL 1,000 UNIT TABLET PO SCH (10:02)
[2016-12-31] MEDS: PANTOPRAZOLE 40 MG TABLET PO SCH (10:02)
[2016-12-31] MEDS: CARBOXYMETHYLCELLULOSE 1% OPH SOLN BOTH EYES SCH (10:02)
[2016-12-31] MEDS: DESITIN 4OZ/NYSTATIN 15 GRAM MIXTURE PASTE TOP SCH ×2 (10:03→20:19)
[2016-12-31] MEDS: oxyCODONE/ACETAMINOPHEN 5-325 MG TABLET PO PRN ×2 (10:03→17:25)
--- NOTE | 2016-12-31 11:08 | Event Note ---
12/31/2016. Patient wounds of the feet are clean and we started wound care on them at this time. Generally her condition is fair at this point time and does not seem that she is eating very much lately taken a few sips of the boost at this point. Do not know what the long-term plans are but are not this is an individual can require a PEG tube for nutritional status. Daughter is not in the room at this time.
[2016-12-31] MEDS: COLLAGENASE OINT 30 GM TUBE TOP SCH (11:23)
[2016-12-31] MEDS: SODIUM HYPOCHLORITE 0.25% IRRIG 473 ML BOTTLE TOP SCH (11:24)
[2016-12-31] MEDS: DEXT 5% NACL 0.45% KCL 40 MEQ 40 MEQ/1,000 ML BAG IV SCH ×2 (11:38→21:49)
--- NOTE | 2016-12-31 14:03 | Cardiology Progress Note ---
Assessment and Plan (1) Decubitus ulcer of both heels, unstageable Status: Acute Assessment and plan: Status post debridement. Current Visit: Yes (2) Atrial fibrillation Status: Chronic Assessment and plan: She has persistent asymptomatic afib. She has mild asymptomatic bradycardia at rest. I stopped the amiodarone at this time as it has not kept her in NSR, and she does not have any symptoms associated with the atrial fibrillation. 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 From a cardiac standpoint she seems to be stable. I am going to drop off her case. If I can be of further assistance please give me a call. Current Visit: Yes (3) Bradycardia Status: Chronic Assessment and plan: Mild, Asx, with normal blood pressure. I do not think any additional treatment is required. Current Visit: Yes (4) HTN (hypertension) Status: Acute Current Visit: Yes (5) Debility Status: Acute Current Visit: Yes (6) Failure to thrive Status: Acute Current Visit: Yes Cardiology - PN: Subj Interval history: The patient has done well overnight. There are no new cardiac issues. She has not had any angina, palpitations or other cardiac symptoms. She had successful debridement of her heel ulcers yesterday. Current Medications Acetaminophen (Tylenol Tab) 650 mg PO Q6H PRN PRN Reason: Pain Mild (1-3) Amlodipine Besylate (Norvasc) 10 mg PO DAILY [facility] Last Admin: 12/31/16 10:00 Dose: 10 mg Bisacodyl (Dulcolax Tab) 10 mg PO BEDTIME [facility] Last Admin: 12/30/16 20:44 Dose: 10 mg Carboxymethylcellulose Sodium (Refresh Celluvisc) 1 drop BOTH EYES DAILY [facility] Last Admin: 12/31/16 10:02 Dose: 1 drop Cholecalciferol (Vitamin D3) 1,000 unit PO DAILY [facility] Last Admin: 12/31/16 10:02 Dose: 1,000 unit Collagenase (Santyl) 1 applic TOP DAILY [facility] Last Admin: 12/31/16 11:23 Dose: 1 applic Cyproheptadine HCl (Periactin Tab) 2 mg PO BID [facility] Last Admin: 12/31/16 10:00 Dose: 2 mg Dextrose/Water (D50) 25 gm IV PRN PRN PRN Reason: Hypoglycemia with IV access Dorzolamide/Timolol (Cosopt) 1 drop BOTH EYES DAILY [facility] Last Admin: 12/31/16 09:59 Dose: 1 drop Enoxaparin Sodium (Lovenox) 40 mg SUBCUT Q24H [facility] Last Admin: 12/31/16 09:55 Dose: 40 mg Glucagon () 1 mg IM PRN PRN PRN Reason: Hypoglycemia w/o IV access Hydromorphone HCl (Dilaudid Inj) 0.5 mg IV Q2H PRN PRN Reason: Pain Severe (8-10) Potassium Chloride/Dextrose/Sod Cl (D5 1/2ns Kcl 40 Meq) 40 meq in 1,000 mls @ 100 mls/hr IV .Q10H [facility] Last Admin: 12/31/16 11:38 Dose: 100 mls/hr Insulin Human Regular (Humulin R) 0 unit SUBCUT ACHS [facility] PRN Reason: Protocol Last Admin: 12/31/16 13:07 Dose: 2 unit Iron/Multivitamins/Folic Acid (Centrum Tab) 1 tablet PO DAILY [facility] Last Admin: 12/31/16 09:55 Dose: 1 tablet Magnesium Hydroxide (Milk Of Magnesia) 30 ml PO BID PRN PRN Reason: Constipation Last Admin: 12/27/16 09:03 Dose: 30 ml Nystatin/Zinc Oxide (Skin Protectant Mixture) 1 applic TOP BID [facility] Last Admin: 12/31/16 10:03 Dose: 1 applic Ondansetron HCl (Zofran Inj) 4 mg IV Q6H PRN PRN Reason: Nausea/Vomiting Oxycodone/Acetaminophen (Percocet 5-325) 1 tablet PO Q6H PRN PRN Reason: Pain Moderate (4-7) Last Admin: 12/31/16 10:03 Dose: 1 tablet Pantoprazole Sodium (Protonix Tab) 40 mg PO DAILY [facility] Last Admin: 12/31/16 10:02 Dose: 40 mg Petrolatum (Aquaphor) 1 applic TOP PRN PRN PRN Reason: Dry Skin Potassium Chloride (K Dur) 20 meq PO DAILY [facility] Last Admin: 12/31/16 09:59 Dose: 20 meq Rosuvastatin Calcium (Crestor) 20 mg PO BEDTIME [facility] Last Admin: 12/30/16 20:42 Dose: 20 mg Sodium Hypochlorite (Dakins 1/2 Strength 0.25% Soln) 1 applic TOP DAILY [facility] Last Admin: 12/31/16 11:24 Dose: 1 applic Exam (Progress Note) - Constitutional Vitals: Period Temp Pulse Resp BP Sys/Guerin Pulse Ox Last 24 Hr 98.1 F-99.8 F 49-61 16-20 126-168/55-83 96-100 Exam: General: Frail, elderly HEENT: Normocephalic, atraumatic Neck: Supple Neck, Midline Trachea Cardiac: Irregular Rhythm, 2/6 systolic murmur, no gallop, no rub Lungs: Clear to Ascultation, No Wheeze, Rales, Rhonchi Neuro: Cranial Nerve 2-12 Intact, diffuse generalized weakness Abdomen: Soft, Active Bowel Sounds, No Masses, No Pulsations/Bruits Skin: Normal color, no rash Extremities: No Clubbing, No Cyanosis, No Edema, Normal Upper Extr. Pulses, dressings and pads on her feet secondary to ulcers Musculoskeletal: No acute abnormality noted, diffuse generalized weakness Psychiatric: The patient is alert and oriented. The patient has a flat affect but does not appear to be anxious or depressed. Result/EKG - Labs CBC & BMP: 12/31/16 05:27 12/31/16 05:27 Lab Results: I have reviewed the past 24 hour labs Labs: Laboratory Results - last 24 hr 12/30/16 12/30/16 12/31/16 17:22 20:58 05:27 WBC 11.4 RBC 3.11 L Hgb 9.4 L Hct 28.1 L MCV 90.4 MCH 30 MCHC 33.5 RDW 13.6 Plt Count 199 MPV 10.5 Neut % (Auto) 70.8 Lymph % (Auto) 15.2 L Barber % (Auto) 10.1 Eos % (Auto) 2.6 Baso % (Auto) 0.6 Neut # (Auto) 8.0 H Lymph # (Auto) 1.7 Barber # (Auto) 1.2 H Eos # (Auto) 0.3 Baso # (Auto) 0.1 Immature Gran % 0.7 Nucleated RBC % 0.0 Immature Gran # 0.08 Nucleated RBCs # 0.00 Sodium Potassium Chloride Carbon Dioxide Anion Gap BUN Creatinine GFR Calculation BUN/Creatinine Ratio Glucose POC Glucose 99 203 H Calculated Osmolality Calcium 12/31/16 12/31/16 12/31/16 05:27 08:30 11:54 WBC RBC Hgb Hct MCV MCH MCHC RDW Plt Count MPV Neut % (Auto) Lymph % (Auto) Barber % (Auto) Eos % (Auto) Baso % (Auto) Neut # (Auto) Lymph # (Auto) Barber # (Auto) Eos # (Auto) Baso # (Auto) Immature Gran % Nucleated RBC % Immature Gran # Nucleated RBCs # Sodium 141 Potassium 3.1 L Chloride 105 Carbon Dioxide 24 Anion Gap 15.1 H BUN 6 L Creatinine 0.60 GFR Calculation 88 BUN/Creatinine Ratio 10.00 Glucose 100 POC Glucose 132 H 173 H Calculated Osmolality 278.3 Calcium 8.8 - EKG EKG results: interpreted by me
[2016-12-31] MEDS: BISACODYL 5 MG TABLET PO SCH (20:17)
[2016-12-31] MEDS: ROSUVASTATIN 20 MG TABLET PO SCH (20:17)
[2017-01-01] MEDS: DEXT 5% NACL 0.45% KCL 40 MEQ 40 MEQ/1,000 ML BAG IV SCH ×2 (08:14→20:45)
[2017-01-01] MEDS: ENOXAPARIN 40 MG/0.4 ML SYRINGE SUBCUT SCH (08:16)
[2017-01-01] MEDS: MULTIVITAMIN (CENTRUM) TABLET PO SCH (08:16)
[2017-01-01] MEDS: POTASSIUM CHLORIDE 20 MEQ TABLET PO SCH (08:19)
[2017-01-01] MEDS: DORZOLAMIDE/TIMOLOL OPH SOLN 10 ML BOTTLE BOTH EYES SCH (08:19)
[2017-01-01] MEDS: SODIUM HYPOCHLORITE 0.25% IRRIG 473 ML BOTTLE TOP SCH (08:19)
[2017-01-01] MEDS: CYPROHEPTADINE 4 MG TABLET PO SCH ×2 (08:20→20:47)
[2017-01-01] MEDS: amLODIPine 10 MG TABLET PO SCH (08:20)
[2017-01-01] MEDS: PANTOPRAZOLE 40 MG TABLET PO SCH (08:20)
[2017-01-01] MEDS: DESITIN 4OZ/NYSTATIN 15 GRAM MIXTURE PASTE TOP SCH ×2 (08:21→21:48)
[2017-01-01] MEDS: CARBOXYMETHYLCELLULOSE 1% OPH SOLN BOTH EYES SCH (08:21)
[2017-01-01] MEDS: COLLAGENASE OINT 30 GM TUBE TOP SCH (08:22)
[2017-01-01] MEDS: CHOLECALCIFEROL 1,000 UNIT TABLET PO SCH (08:22)
[2017-01-01] MEDS: oxyCODONE/ACETAMINOPHEN 5-325 MG TABLET PO PRN ×3 (08:23→20:48)
[2017-01-01] MEDS: INSULIN REGULAR 100 UNIT/ML SUBCUT SCH ×4 (09:42→20:29)
[2017-01-01] MEDS ORDERED: POTASSIUM CHLORIDE 20 MEQ PACK PO ONE (10:15)
--- NOTE | 2017-01-01 10:16 | Hospitalist Progress Note ---
Assessment and Plan - Time spent with patient Time spent with patient: Greater than 30 minutes (1) Decubitus ulcer of both heels, unstageable Status: Acute Current Visit: Yes (2) Failure to thrive Status: Acute Current Visit: Yes (3) Atrial fibrillation Status: Chronic Current Visit: Yes (4) Breast cancer Status: Acute Assessment and plan: Follow postoperative recommendations by surgery, local wound care. Continue current antibiotic management. We can switch to something oral when she is ready for discharge. To manage her decreased oral intake, will consult nutrition team and start a calorie count. If she does not have adequate oral intake, will begin planning for PEG tube placement if the family is agreeable. She is nearing discharge once the issue of nutrition is addressed. We will resume Eliquis just prior to discharge. Cardiology has signed off DVT prophylaxis Continue current insulin regimen, monitor fingerstick glucose. Current Visit: No Hospitalist: Subjective Interval history: 89-year-old lady was admitted for debridement of bilateral lower extremity ulcers, she is status post debridement. Her current issue is decreased oral intake and poor nutrition, we have asked dietitian to see and evaluate her oral intake for adequacy. If she has inadequate oral intake, we will begin planning for alternative method of feeding including PEG tube. No fever Blood glucose has been in acceptable range. Exam - Constitutional Vitals: Period Temp Pulse Resp BP Sys/Guerin Pulse Ox Last 24 Hr 98.4 F-98.9 F 49-82 18-94 126-165/50-69 94-99 Exam: She is awake, alert. A mild painful distress from her bilateral debridement sites. Chest: She has good air entry bilaterally, no crackles or wheezing was heard. CVS: Regular rhythm, heart sounds 1 and 2 were heard. Abdomen: Full, mostly respiration, soft, nontender bowel sounds present. Extremities: No edema, wound dressing around both of her ankles noted, clean and dry. I did not take up the wound dressing. Results - Labs CBC & BMP: 12/31/16 05:27 12/31/16 05:27 Lab Results: I have reviewed the past 24 hour labs
--- NOTE | 2017-01-01 11:29 | General Surgery Progress Note ---
Assessment and Plan (1) Abscess of right axilla Status: Acute Assessment and plan: Abscess of the right axilla wound is healing nicely and is almost completely ready to be closed secondarily. We will maintain present wound care keeping it moist and clean 12/29/2016. This wound continues to heal and look good at this point time. 01/01/2017. Wound is almost completely healed is flat the skin. Current Visit: No (2) Breast cancer Status: Acute Assessment and plan: Recurrent breast cancer of the right breast no recommended treatment at this time. Breast looks okay with no sign of any erosion or thickening at this time. Current Visit: No (3) Decubitus ulcer of both heels, unstageable Status: Acute Assessment and plan: Decubitus ulcers of both heels left greater than the right unstageable Plan is to start some local treatment to moisturize these. We will consider possibility of debridement but need some vascular studies were 12/29/2016. The ulcers of the heels are unchanged. She has tenderness in the left heel due to thick hard eschar present at this time. May be worthwhile considering debriding that left heel ulcer to clean it up get that eschar away so they will not be quite as painful to her and begin to get a little better treatment to this area. I reviewed her records from last admission and I do not believe that that ulcer on the left heel was present at the time that she was in. We knew that she had several blistered area on the right and that area looks stable and clean at this time. Awaiting vascular studies and will discuss with family about surgery tomorrow to debride that heel. 01/01/2017. Wounds look in good shape at this point time. They are clean with no sign of any necrotic tissue around less induration associated with them at this point. Patient seems to have more pain out of proportion what I am seeing in these wounds at this time. Could not get a good feel for where she is hurting we lift these up to look at these wounds. At this point it is hard for me to understand why she has so much discomfort when these wounds look as good as they do at this point. It has become aware that the patient does not eat well seldom takes in its boost. Certainly nutritional status is of concern but I do not know where we want to go at this point time. Current Visit: Yes Subjective Patient reports: Present: still having pain, afebrile, other (Still not eating well.) Exam - Constitutional Vitals: Period Temp Pulse Resp BP Sys/Guerin Pulse Ox Last 24 Hr 98.4 F-98.9 F 49-82 18-94 126-165/50-69 94-99 General appearance: mild distress - Head Head exam: Present: normal inspection - ENT ENT exam: Present: normal exam - Neck Neck exam: Present: normal inspection - Respiratory Respiratory exam: Present: rales - Cardiovascular Cardiovascular exam: Present: RRR - GI/Abdominal GI/Abdominal exam: Present: hypoactive bowel sounds, soft - Extremities Exam Extremities exam: Present: other (Wounds of the left heel right heel look clean and dry at this time. The wound of the axilla looks good and almost healed.) - Back Exam Back exam: Present: normal inspection - Neurological Exam Neurological exam: Present: alert, oriented X3, altered, CN II-XII intact - Skin Skin exam: Present: normal color, warm, dry Results - Labs CBC & BMP: 12/31/16 05:27 01/01/17 10:39 Lab Results: I have reviewed the past 24 hour labs
[2017-01-01] MEDS: ROSUVASTATIN 20 MG TABLET PO SCH (20:47)
[2017-01-01] MEDS: BISACODYL 5 MG TABLET PO SCH (20:48)
[2017-01-02] MEDS: DEXT 5% NACL 0.45% KCL 40 MEQ 40 MEQ/1,000 ML BAG IV SCH ×2 (06:14→07:10)
[2017-01-02] MEDS: ENOXAPARIN 40 MG/0.4 ML SYRINGE SUBCUT SCH (06:25)
[2017-01-02] MEDS: CHOLECALCIFEROL 1,000 UNIT TABLET PO SCH (11:38)
[2017-01-02] MEDS: CYPROHEPTADINE 4 MG TABLET PO SCH ×2 (11:38→20:46)
[2017-01-02] MEDS: PANTOPRAZOLE 40 MG TABLET PO SCH (11:39)
[2017-01-02] MEDS: POTASSIUM CHLORIDE 20 MEQ TABLET PO SCH (11:39)
[2017-01-02] MEDS: MULTIVITAMIN (CENTRUM) TABLET PO SCH (11:39)
[2017-01-02] MEDS: amLODIPine 10 MG TABLET PO SCH (11:40)
[2017-01-02] MEDS: SODIUM HYPOCHLORITE 0.25% IRRIG 473 ML BOTTLE TOP SCH (11:41)
[2017-01-02] MEDS: DESITIN 4OZ/NYSTATIN 15 GRAM MIXTURE PASTE TOP SCH ×2 (11:47→20:47)
[2017-01-02] MEDS: COLLAGENASE OINT 30 GM TUBE TOP SCH (11:48)
[2017-01-02] MEDS: DORZOLAMIDE/TIMOLOL OPH SOLN 10 ML BOTTLE BOTH EYES SCH (11:56)
[2017-01-02] MEDS: CARBOXYMETHYLCELLULOSE 1% OPH SOLN BOTH EYES SCH (11:56)
--- NOTE | 2017-01-02 13:30 | General Surgery Progress Note ---
Assessment and Plan (1) Abscess of right axilla Status: Acute Assessment and plan: Abscess of the right axilla wound is healing nicely and is almost completely ready to be closed secondarily. We will maintain present wound care keeping it moist and clean 12/29/2016. This wound continues to heal and look good at this point time. 01/01/2017. Wound is almost completely healed is flat the skin. Current Visit: No (2) Breast cancer Status: Acute Assessment and plan: Recurrent breast cancer of the right breast no recommended treatment at this time. Breast looks okay with no sign of any erosion or thickening at this time. Current Visit: No (3) Decubitus ulcer of both heels, unstageable Status: Acute Assessment and plan: Decubitus ulcers of both heels left greater than the right unstageable Plan is to start some local treatment to moisturize these. We will consider possibility of debridement but need some vascular studies were 12/29/2016. The ulcers of the heels are unchanged. She has tenderness in the left heel due to thick hard eschar present at this time. May be worthwhile considering debriding that left heel ulcer to clean it up get that eschar away so they will not be quite as painful to her and begin to get a little better treatment to this area. I reviewed her records from last admission and I do not believe that that ulcer on the left heel was present at the time that she was in. We knew that she had several blistered area on the right and that area looks stable and clean at this time. Awaiting vascular studies and will discuss with family about surgery tomorrow to debride that heel. 01/01/2017. Wounds look in good shape at this point time. They are clean with no sign of any necrotic tissue around less induration associated with them at this point. Patient seems to have more pain out of proportion what I am seeing in these wounds at this time. Could not get a good feel for where she is hurting we lift these up to look at these wounds. At this point it is hard for me to understand why she has so much discomfort when these wounds look as good as they do at this point. It has become aware that the patient does not eat well seldom takes in its boost. Certainly nutritional status is of concern but I do not know where we want to go at this point time. 01/02/2017. Ulcers of the heels are doing fairly well clean with no necrotic tissue present. Patient seems to react with a good bit of discomfort with lift her legs up and look at her wounds although everything looks in better shape than what they were in before. We will just maintain present level care. Patient is continuing not to eat very much is no she takes a few sips of her boost at times. Dietitian also for in the room with the daughter at this point time gave her a long discussion about the need for nutrition and the value of it. Daughter wants to wait and see how she does and see if she can get her to eat a little bit better. We discussed with her about the possibility of PEG tube and the patient but she is a little reluctant at this time. Current Visit: Yes Subjective Patient reports: Present: no new complaints, afebrile, other (Still not eating well) Exam - Constitutional Vitals: Period Temp Pulse Resp BP Sys/Guerin Pulse Ox Last 24 Hr 97.5 F-98.8 F 52-80 18-20 118-148/56-86 92-99 General appearance: mild distress - Head Head exam: Present: normal inspection - ENT ENT exam: Present: normal exam - Neck Neck exam: Present: normal inspection - Respiratory Respiratory exam: Present: clear to auscultation bilaterally, rales - Cardiovascular Cardiovascular exam: Present: RRR - GI/Abdominal GI/Abdominal exam: Present: hypoactive bowel sounds, soft. Absent: tenderness - Extremities Exam Extremities exam: Present: other (Ulcers of both heels are clean with good clean fatty tissue underneath with minimal granulation tissue present at this time. No necrotic tissue seen in either ulcer at this time.) - Neurological Exam Neurological exam: Present: alert, oriented X3, CN II-XII intact - Skin Skin exam: Present: normal color, warm, dry Results - Labs CBC & BMP: 12/31/16 05:27 01/01/17 10:39 Lab Results: I have reviewed the past 24 hour labs
[2017-01-02] MEDS: INSULIN REGULAR 100 UNIT/ML SUBCUT SCH ×4 (14:06→20:53)
--- NOTE | 2017-01-02 20:08 | Hospitalist Progress Note ---
Assessment and Plan (1) Debility Status: Acute Current Visit: Yes (2) Failure to thrive Status: Acute Current Visit: Yes (3) Decubitus ulcer of both heels, unstageable Status: Chronic Assessment and plan: Undergoing wound care. Current Visit: Yes (4) HTN (hypertension) Status: Chronic Current Visit: Yes Hospitalist: Subjective Interval history: The patient is very frail less interactive. Family members at the bedside have tried to encourage patient to eat food she has been eating a little bit of her pure diet today. Discussion with family about possibility of feeding tube. They have not made a decision. No other acute changes. Exam - Constitutional Vitals: Period Temp Pulse Resp BP Sys/Guerin Pulse Ox Last 24 Hr 97.5 F-98.7 F 52-80 18-20 118-148/56-86 92-99 General appearance: other (Frail elderly lady.) - Head Head exam: Present: normal inspection - ENT ENT exam: Present: normal exam - Neck Neck exam: Present: normal inspection - Respiratory Respiratory exam: Present: clear to auscultation bilaterally - Cardiovascular Cardiovascular exam: Present: regular rate and rhythm - GI/Abdominal GI/Abdominal exam: Present: normal bowel sounds - Neurological Exam Neurological exam: Present: alert - Skin Skin exam: Present: normal color, dry Results - Labs CBC & BMP: 12/31/16 05:27 01/01/17 10:39
[2017-01-02] MEDS: BISACODYL 5 MG TABLET PO SCH (20:46)
[2017-01-02] MEDS: ROSUVASTATIN 20 MG TABLET PO SCH (20:46)
[2017-01-03] MEDS: ENOXAPARIN 40 MG/0.4 ML SYRINGE SUBCUT SCH (06:01)
[2017-01-03] MEDS: DEXT 5% NACL 0.45% KCL 40 MEQ 40 MEQ/1,000 ML BAG IV SCH ×3 (06:07→17:28)
--- NOTE | 2017-01-03 09:52 | Hospitalist Progress Note ---
Assessment and Plan (1) CVA (cerebral vascular accident) Status: Chronic Assessment and plan: May associated with episode of atrial fibrillation in setting of sinus bradycardia. Has persisted with atrial fibrillation with current ECG showing controlled response on no chronotropically active agents. Severe debility after stroke with poor functional capacity, pending decision on PEG tube placement Current Visit: No Qualifiers: CVA mechanism: embolism (2) Abscess of right axilla Status: Acute Assessment and plan: Previously drained with secondary closure anticipated. Current Visit: No (3) Breast cancer Status: Acute Current Visit: No (4) Decubitus ulcer of both heels, unstageable Status: Chronic Assessment and plan: Serial debridement over the last month Current Visit: Yes Hospitalist: Subjective Interval history: 89-year-old female who is done poorly following a cerebrovascular accident with residual ischemic neurologic deficit associated with probable sick sinus syndrome and episode of atrial fibrillation during November hospitalization. She was admitted through the emergency room with multiple complaints found to have a axillary abscess which was drained. She has a Pseudomonas urinary tract infection which was treated. She has pressure ulcerations which have been addressed by surgery. She has known breast cancer without intervention. During the hospital stay the patient has shown fluctuating levels of consciousness associated with poor oral intake requiring IV fluid supplementation. The family has been offered and is considering the use of a PEG tube. She has had recurrent episodes of nausea and vomiting with negative CT scans in the past. This morning she does arouse appropriately for but quickly falls back to sleep without continuing stimulation. Exam - Constitutional Vitals: Period Temp Pulse Resp BP Sys/Guerin Pulse Ox Last 24 Hr 98.6 F-99.5 F 55-71 18-22 139-168/59-79 93-99 General appearance: normal weight - Respiratory Respiratory exam: Present: clear to auscultation bilaterally. Absent: rales, rhonchi, wheezes - Cardiovascular Cardiovascular exam: Present: regular rate and rhythm - GI/Abdominal GI/Abdominal exam: Present: normal bowel sounds. Absent: distended, tenderness - Extremities Exam Extremities exam: Absent: edema - Neurological Exam Neurological exam: Absent: alert Results - Labs CBC & BMP: 12/31/16 05:27 01/01/17 10:39
[2017-01-03] MEDS: DORZOLAMIDE/TIMOLOL OPH SOLN 10 ML BOTTLE BOTH EYES SCH (10:58)
[2017-01-03] MEDS: INSULIN REGULAR 100 UNIT/ML SUBCUT SCH ×4 (10:59→22:06)
[2017-01-03] MEDS: CARBOXYMETHYLCELLULOSE 1% OPH SOLN BOTH EYES SCH (10:59)
[2017-01-03] MEDS: PANTOPRAZOLE 40 MG TABLET PO SCH (11:01)
[2017-01-03] MEDS: amLODIPine 10 MG TABLET PO SCH (11:01)
[2017-01-03] MEDS: POTASSIUM CHLORIDE 20 MEQ TABLET PO SCH (11:01)
[2017-01-03] MEDS: MULTIVITAMIN (CENTRUM) TABLET PO SCH (11:02)
[2017-01-03] MEDS: CHOLECALCIFEROL 1,000 UNIT TABLET PO SCH (11:02)
[2017-01-03] MEDS: CYPROHEPTADINE 4 MG TABLET PO SCH ×2 (11:02→20:26)
[2017-01-03] MEDS: DESITIN 4OZ/NYSTATIN 15 GRAM MIXTURE PASTE TOP SCH ×2 (11:20→20:28)
[2017-01-03] MEDS: SODIUM HYPOCHLORITE 0.25% IRRIG 473 ML BOTTLE TOP SCH (11:20)
[2017-01-03] MEDS: COLLAGENASE OINT 30 GM TUBE TOP SCH (11:21)
[2017-01-03] MEDS: ACETAMINOPHEN 325 MG TABLET PO PRN (20:26)
[2017-01-03] MEDS: ROSUVASTATIN 20 MG TABLET PO SCH (20:26)
[2017-01-03] MEDS: BISACODYL 5 MG TABLET PO SCH (20:27)
[2017-01-04] MEDS: DEXT 5% NACL 0.45% KCL 40 MEQ 40 MEQ/1,000 ML BAG IV SCH ×3 (03:47→18:53)
[2017-01-04 05:55] LABS: Basophils # 0.1 10*3/uL (0.0-0.2); Basophils % 0.7 % (0.0-0.8); Eosinophils # 0.3 10*3/uL (0.0-0.87); Eosinophils % 2.3 % (0.00-10.9); Hematocrit 28.6 VOL% (35.7-47.0); Hemoglobin 9.6 GM/DL (12.0-16.0); Immature Granulocytes Absolute 0.11 #; Lymphocytes # 1.7 10*3/uL (1.4-4.0); Mean Corpuscular HGB Conc 33.6 GM/DL (32-36); Mean Corpuscular Hemoglobin 30 PG (27-34); Mean Corpuscular Volume 89.7 FL (87-102); Mean Platelet Volume 11.2 FL (9.6-12.0); Monocytes # 1.2 10*3/uL (0.11-0.8); Monocytes % 10.8 % (1.7-12.7); Neutrophils # 7.9 10*3/uL (1.4-7.4); Neutrophils % 70.2 % (38.7-73.9); Platelet Count 278 T/CUMM (130-400); Red Blood Count 3.19 MC/CUMM (3.8-5.5); Red Cell Distribution Width 13.7 % (9.3-17.3); White Blood Count 11.2 T/CUMM (4-12)
[2017-01-04] MEDS: ENOXAPARIN 40 MG/0.4 ML SYRINGE SUBCUT SCH (06:20)
[2017-01-04 06:24] LABS: Calcium 8.9 MG/DL (8.5-10.1); Osmolality,Calculated 277.5 MOS/KG (273-304); Potassium 4.5 MMOL/L (3.5-5.1)
[2017-01-04] MEDS: CHOLECALCIFEROL 1,000 UNIT TABLET PO SCH (08:19)
[2017-01-04] MEDS: CARBOXYMETHYLCELLULOSE 1% OPH SOLN BOTH EYES SCH (08:19)
[2017-01-04] MEDS: PANTOPRAZOLE 40 MG TABLET PO SCH (08:19)
[2017-01-04] MEDS: MULTIVITAMIN (CENTRUM) TABLET PO SCH (08:19)
[2017-01-04] MEDS: amLODIPine 10 MG TABLET PO SCH (08:19)
[2017-01-04] MEDS: CYPROHEPTADINE 4 MG TABLET PO SCH ×2 (08:19→21:06)
[2017-01-04] MEDS: POTASSIUM CHLORIDE 20 MEQ TABLET PO SCH (08:19)
[2017-01-04] MEDS: INSULIN REGULAR 100 UNIT/ML SUBCUT SCH ×4 (08:20→21:07)
[2017-01-04] MEDS: DORZOLAMIDE/TIMOLOL OPH SOLN 10 ML BOTTLE BOTH EYES SCH (08:20)
--- NOTE | 2017-01-04 08:48 | Hospitalist Progress Note ---
Assessment and Plan (1) CVA (cerebral vascular accident) Status: Chronic Assessment and plan: May associated with episode of atrial fibrillation in setting of sinus bradycardia. Has persisted with atrial fibrillation with current ECG showing controlled response on no chronotropically active agents. Severe debility after stroke with poor functional capacity, pending decision on PEG tube placement Current Visit: No Qualifiers: CVA mechanism: embolism (2) Abscess of right axilla Status: Acute Assessment and plan: Previously drained with secondary closure anticipated. Current Visit: No (3) Breast cancer Status: Acute Current Visit: No (4) Decubitus ulcer of both heels, unstageable Status: Chronic Assessment and plan: Serial debridement over the last month Current Visit: Yes Hospitalist: Subjective Interval history: 89-year-old female who sustained a cerebrovascular accident in the setting of sick sinus syndrome with a proximal atrial fibrillation during a hospitalization here in November she is subsequently done poorly following stroke with significant residual ischemic neurologic deficit. She was admitted to the emergency room with multiple complaints with axillary abscess Pseudomonas urinary tract infection and pressure ulcerations. She has no breast cancer with no active intervention. She has had consistently poor oral intake due to food aversion fluctuating levels of consciousness as well as continuing intermittent complaints of abdominal problems with nausea. She has had negative CT scans of the abdomen in the past. This morning she is much more alert and interactive than yesterday. She continues not to eat describing a lack of appetite question specifically she states she is still nauseated. Her vital signs remained stable. Exam - Constitutional Vitals: Period Temp Pulse Resp BP Sys/Guerin Pulse Ox Last 24 Hr 98.4 F-99.6 F 44-64 18-20 112-158/54-82 94-99 General appearance: normal weight - Respiratory Respiratory exam: Present: clear to auscultation bilaterally. Absent: rales, rhonchi, wheezes - Cardiovascular Cardiovascular exam: Present: regular rate and rhythm (Her rhythm strips have demonstrated atrial fibrillation with regularization and rate control without AV amira suppressant) - GI/Abdominal GI/Abdominal exam: Present: normal bowel sounds. Absent: organomegaly, tenderness - Extremities Exam Extremities exam: Absent: edema - Neurological Exam Neurological exam: Present: alert, oriented X3 Results - Labs CBC & BMP: 01/04/17 05:28 01/04/17 05:28
--- NOTE | 2017-01-04 09:55 | General Surgery Progress Note ---
Assessment and Plan (1) Abscess of right axilla Status: Acute Assessment and plan: Abscess of the right axilla wound is healing nicely and is almost completely ready to be closed secondarily. We will maintain present wound care keeping it moist and clean 12/29/2016. This wound continues to heal and look good at this point time. 01/01/2017. Wound is almost completely healed is flat the skin. 01/04/2017 Healing well without problems Current Visit: No (2) Breast cancer Status: Acute Assessment and plan: Recurrent breast cancer of the right breast no recommended treatment at this time. Breast looks okay with no sign of any erosion or thickening at this time. Current Visit: No (3) Decubitus ulcer of both heels, unstageable Status: Chronic Assessment and plan: Decubitus ulcers of both heels left greater than the right unstageable Plan is to start some local treatment to moisturize these. We will consider possibility of debridement but need some vascular studies were 12/29/2016. The ulcers of the heels are unchanged. She has tenderness in the left heel due to thick hard eschar present at this time. May be worthwhile considering debriding that left heel ulcer to clean it up get that eschar away so they will not be quite as painful to her and begin to get a little better treatment to this area. I reviewed her records from last admission and I do not believe that that ulcer on the left heel was present at the time that she was in. We knew that she had several blistered area on the right and that area looks stable and clean at this time. Awaiting vascular studies and will discuss with family about surgery tomorrow to debride that heel. 01/01/2017. Wounds look in good shape at this point time. They are clean with no sign of any necrotic tissue around less induration associated with them at this point. Patient seems to have more pain out of proportion what I am seeing in these wounds at this time. Could not get a good feel for where she is hurting we lift these up to look at these wounds. At this point it is hard for me to understand why she has so much discomfort when these wounds look as good as they do at this point. It has become aware that the patient does not eat well seldom takes in its boost. Certainly nutritional status is of concern but I do not know where we want to go at this point time. 01/02/2017. Ulcers of the heels are doing fairly well clean with no necrotic tissue present. Patient seems to react with a good bit of discomfort with lift her legs up and look at her wounds although everything looks in better shape than what they were in before. We will just maintain present level care. Patient is continuing not to eat very much is no she takes a few sips of her boost at times. Dietitian also for in the room with the daughter at this point time gave her a long discussion about the need for nutrition and the value of it. Daughter wants to wait and see how she does and see if she can get her to eat a little bit better. We discussed with her about the possibility of PEG tube and the patient but she is a little reluctant at this time. 01/04/2017. Ulcers are continued to look good with no good granulating tissue but they remain moist and clean with no necrotic tissue. She still seem to have a good bit of discomfort over the left heel that seems out of proportion to to her wound Current Visit: Yes (4) Malnutrition of moderate degree Status: Acute Assessment and plan: 01/04/2017. Patient continues not to eat well at all and it has become somewhat moderate lead malnutrition nourished. Family has had a discussion about a PEG tube and the daughter today he is concerned enough that she seems to be agreeable to go ahead with having a PEG so that she can maintain some nutrition for her. Current Visit: Yes Subjective Patient reports: Present: no new complaints, still having pain (In the heels when they are manipulated), afebrile, other (Still not eating well) Exam - Constitutional Vitals: Period Temp Pulse Resp BP Sys/Guerin Pulse Ox Last 24 Hr 98.4 F-99.6 F 44-64 18-20 112-158/54-82 94-99 General appearance: mild distress - Head Head exam: Present: normal inspection - ENT ENT exam: Present: normal exam - Neck Neck exam: Present: normal inspection - Respiratory Respiratory exam: Present: clear to auscultation bilaterally, rales - Cardiovascular Cardiovascular exam: Present: RRR - GI/Abdominal GI/Abdominal exam: Present: hypoactive bowel sounds, soft. Absent: distended, tenderness - Extremities Exam Extremities exam: Present: other (Ulcers of both heels are in good shape nice and stable clean and moist with no necrotic tissue. The wound of the right axilla is continued to heal nicely without problems) - Back Exam Back exam: Present: normal inspection - Neurological Exam Neurological exam: Present: alert, oriented X3, altered - Skin Skin exam: Present: normal color, warm, dry Results - Labs CBC & BMP: 01/04/17 05:28 01/04/17 05:28 Lab Results: I have reviewed the past 24 hour labs
[2017-01-04] MEDS: SODIUM HYPOCHLORITE 0.25% IRRIG 473 ML BOTTLE TOP SCH (10:57)
[2017-01-04] MEDS: COLLAGENASE OINT 30 GM TUBE TOP SCH (10:58)
[2017-01-04] MEDS: DESITIN 4OZ/NYSTATIN 15 GRAM MIXTURE PASTE TOP SCH ×2 (10:58→21:07)
--- NOTE | 2017-01-04 13:34 | Gastrointestinal Consult Note ---
<Avril Mcfadden - Last Filed: 01/04/17 13:26> Assessment and Plan (1) Failure to thrive Status: Acute Assessment and plan: 01/04-recent decline in nutritional status with loss of appetite, 30 pound weight loss over last 4-5 weeks. Refusal to eat at times. Discussion had with patient and daughter regarding PEG tube placement. Risks, benefits discussed and all questions answered. We will plan to proceed with PEG placement tomorrow. Plan an addendum to follow by Dr. Blair. Current Visit: Yes History of Present Illness Chief complaint: Decreased appetite History of present illness: Ms. Webster is a 89 year old female who was admitted to the hospital on 12/21 with complaints of weakness, abdominal pain and chest pain. Patient is a poor historian therefore daughter who is at bedside contributes to health history. Information is also obtained from chart review. Patient was recently discharged from our facility approximately 3 weeks ago after an inpatient stay for nausea vomiting diarrhea and weakness. She was found during that time to have pneumonia. Upon discharge she was returned back to her shelter where she resides. On the day of admission, patient presented with some left-sided chest pain and was transferred back to our facility at that time. She has a prior history of CVA, breast cancer, hypertension, and atrial fibrillation. On admission she was taking Eliquis for her atrial fib however this was not continued at that time but she was placed on Lovenox injections. She is also noted to have been admitted to our facility in October of this year for hematochezia however this resolved spontaneously without required intervention She had no prior history of endoscopy noted at our facility. During that admission she had a CVA and was placed on Eliquis. Since this time patient's daughter states that she has continued to decline nutritionally and has very minimal oral intake. Looking back over her records she appears to have lost approximately 30 pounds since this time however her weights were noted to vary somewhat during that admission. Patient denies any difficulty with swallowing and last month she did have a bedside swallow evaluation with no deficit seen with thin liquids or pured consistency. Patient's daughter states she just does not want to eat at this time. Home Medications Medication Instructions Recorded Confirmed Type Carboxymethylcellulose Sodium 1 drops BOTH EYES DAILY 11/13/16 12/21/16 History [Refresh Liquigel] Cholecalciferol (Vitamin D3) 1,000 units PO DAILY 11/13/16 12/21/16 History [Vitamin D3] Dorzolamide/Timolol Oph Soln 1 drop BOTH EYES DAILY 11/13/16 12/21/16 History [Cosopt] Amiodarone Tab [Cordarone Tab] 200 mg PO BID tablet 12/12/16 12/21/16 Rx Apixaban [Eliquis] 2.5 mg PO BID tablet 12/12/16 12/21/16 Rx Polyethylene Glycol Powder 17 gm PO DAILY 12/12/16 12/21/16 Rx [Miralax] Rosuvastatin [Crestor] 20 mg PO BEDTIME tablet 12/12/16 12/21/16 Rx amLODIPine [Norvasc] 10 mg PO DAILY tablet 12/12/16 12/21/16 Rx Acetaminophen Tab [Tylenol Tab] 500 mg PO Q4H PRN 12/21/16 12/21/16 History Cyproheptadine HCl 2 mg PO BID 12/21/16 12/21/16 History HYDROcodone/ACETAMIN 5-325 [[place] 1 tablet PO BID MDD 3GM/24H 12/21/16 12/21/16 History 5-325] ACETAMINOPHEN Insulin Glargine [Lantus] 10 unit SUBCUT BEDTIME 12/21/16 12/21/16 History Multivitamin [One Daily 1 each PO DAILY 12/21/16 12/21/16 History Multivitamin] Allergies Allergy/AdvReac Type Severity Reaction Status Date / Time losartan Allergy Unknown/Unable Verified 12/21/16 09:45 to obtain Medical,Surgical,& Family Hx - Medical History Cardio: History of: Hypertension, PVD, Cardiovascular Problems (MURMUR) Endocrine: History of: Diabetes Mellitus (NIDDM) - Family History Family History: Reports;: Family Diabetes (son) - Social History Smoking Status: Never smoker Frequency of Alcohol Use: None Type of Drug Use: None ROS unobtainable: due to mental status Exam - Constitutional Vitals: Period Temp Pulse Resp BP Sys/Guerin Pulse Ox Last 24 Hr 98.4 F-99.6 F 44-64 16-20 112-158/54-82 93-99 General appearance: normal weight, no acute distress - Head Head exam: Present: normal inspection, normocephalic - Eye Eye exam: Present: other (Lids and conjunctive are unremarkable). Absent: scleral icterus - ENT ENT exam: Present: normal exam, normal oropharynx - Neck Neck exam: Present: normal inspection - Respiratory Respiratory exam: Present: clear to auscultation bilaterally. Absent: rales, rhonchi, wheezes - Cardiovascular Cardiovascular exam: Present: regular rate and rhythm. Absent: diastolic murmur , JVD, systolic murmur - GI/Abdominal GI/Abdominal exam: Present: normal bowel sounds, soft. Absent: ascites, distended, mass, organomegaly, tenderness - Extremities Exam Extremities exam: Present: normal inspection, full ROM - Back Exam Back exam: Present: normal inspection - Neurological Exam Neurological exam: Present: alert, oriented X3 - Psychiatric Psychiatric exam: Present: normal affect, normal mood - Skin Skin exam: Present: normal color, warm, dry Results - Labs CBC & BMP: 01/04/17 05:28 01/04/17 05:28 Lab Results: I have reviewed the past 24 hour labs <Ronnie Blair - Last Filed: 01/04/17 19:39> History of Present Illness History of present illness: Ms. Webster is a 89 year old female Exam - Constitutional Vitals: Period Temp Pulse Resp BP Sys/Guerin Pulse Ox Last 24 Hr 98.4 F-99.6 F 48-64 14-20 112-158/54-82 92-98 Results - Labs CBC & BMP: 01/04/17 05:28 01/04/17 05:28
[2017-01-04] MEDS: ACETAMINOPHEN 325 MG TABLET PO PRN (16:57)
[2017-01-04] MEDS: ROSUVASTATIN 20 MG TABLET PO SCH (21:06)
[2017-01-04] MEDS: BISACODYL 5 MG TABLET PO SCH (21:06)
[2017-01-05] MEDS: DEXT 5% NACL 0.45% KCL 40 MEQ 40 MEQ/1,000 ML BAG IV SCH ×2 (01:30→14:31)
[2017-01-05 05:29] LABS: Basophils # 0.1 10*3/uL (0.0-0.2); Basophils % 0.7 % (0.0-0.8); Eosinophils # 0.3 10*3/uL (0.0-0.87); Eosinophils % 2.9 % (0.00-10.9); Hemoglobin 10.5 GM/DL (12.0-16.0); Immature Granulocytes % 1.1 %; Immature Granulocytes Absolute 0.12 #; Lymphocytes % 18.2 % (21.3-54.2); Mean Corpuscular HGB Conc 33.9 GM/DL (32-36); Mean Corpuscular Hemoglobin 30 PG (27-34); Mean Corpuscular Volume 89.6 FL (87-102); Mean Platelet Volume 11.3 FL (9.6-12.0); Monocytes % 9.2 % (1.7-12.7); Neutrophils # 7.4 10*3/uL (1.4-7.4); Neutrophils % 67.9 % (38.7-73.9); Platelet Count 318 T/CUMM (130-400); Red Blood Count 3.46 MC/CUMM (3.8-5.5); Red Cell Distribution Width 13.7 % (9.3-17.3)
[2017-01-05 05:38] LABS: PT Patient Result 10.9 SECS
--- NOTE | 2017-01-05 09:12 | Hospitalist Progress Note ---
Assessment and Plan (1) CVA (cerebral vascular accident) Status: Chronic Assessment and plan: November associated with episode of atrial fibrillation in setting of sinus bradycardia. Has persisted with atrial fibrillation with current ECG showing controlled response on no chronotropically active agents. Severe debility after stroke with poor functional capacity, pending PEG tube placement Current Visit: No Qualifiers: CVA mechanism: embolism (2) Abscess of right axilla Status: Acute Assessment and plan: Previously drained with secondary closure anticipated. Current Visit: No (3) Breast cancer Status: Acute Current Visit: No (4) Decubitus ulcer of both heels, unstageable Status: Chronic Assessment and plan: Serial debridement over the last month Current Visit: Yes Hospitalist: Subjective Interval history: 89-year-old female who sustained a cerebrovascular accident with RIND in the setting of sick sinus syndrome with proximal atrial fibrillation during hospitalization here in November. She has done poorly after that extended hospitalization with complaints of abdominal discomfort etc. She is shown food intake and attention with weight loss. She is required treatment of an axillary abscess and pressure injuries subsequent CVA. She continues to show variable mental status and today is scheduled for PEG tube placement. The patient has a known history of breast cancer with no active treatment. She has been treated for Pseudomonas urinary tract infection subsequent to admission. Exam - Constitutional Vitals: Period Temp Pulse Resp BP Sys/Guerin Pulse Ox Last 24 Hr 98.1 F-99.2 F 50-67 14-20 136-167/56-82 92-95 General appearance: normal weight - Respiratory Respiratory exam: Present: clear to auscultation bilaterally. Absent: rales, rhonchi, wheezes - Cardiovascular Cardiovascular exam: Present: regular rate and rhythm (EKGs and rhythm strips show persistent atrial fibrillation but with regularization of the ventricular response) - GI/Abdominal GI/Abdominal exam: Present: normal bowel sounds. Absent: tenderness, rebound - Extremities Exam Extremities exam: Absent: edema - Neurological Exam Neurological exam: Absent: alert Results - Labs CBC & BMP: 01/05/17 04:42 01/04/17 05:28
[2017-01-05] MEDS: MULTIVITAMIN (CENTRUM) TABLET PO SCH (11:09)
[2017-01-05] MEDS: INSULIN REGULAR 100 UNIT/ML SUBCUT SCH ×4 (11:09→20:53)
[2017-01-05] MEDS: CYPROHEPTADINE 4 MG TABLET PO SCH ×2 (11:10→21:53)
[2017-01-05] MEDS: PANTOPRAZOLE 40 MG TABLET PO SCH (11:10)
[2017-01-05] MEDS: POTASSIUM CHLORIDE 20 MEQ TABLET PO SCH (11:10)
[2017-01-05] MEDS: MEGESTROL ES 125 MG/ML 30 ML/BOTTLE PO SCH (11:10)
[2017-01-05] MEDS: CHOLECALCIFEROL 1,000 UNIT TABLET PO SCH (11:11)
[2017-01-05] MEDS ORDERED: PROPOFOL 200 MG/20 ML VIAL IV ONE (12:33)
[2017-01-05] MEDS ORDERED: LIDOCAINE 1% 5 ML VIAL ONE (12:33)
--- NOTE | 2017-01-05 12:33 | History and Physical Update ---
History and Physical Update - Physical Exam Mental Status: other (Alert but noncommunicative) Heart: regular rate and rhythm Lung: clear to auscultation Abdomen: within normal limits Vitals: within normal limits
--- NOTE | 2017-01-05 12:44 | Operative Note ---
Date of procedure: 01/05/17 Pre-op diagnosis: Malnutrition for PEG placement Procedure: EGD with percutaneous endoscopic gastrostomy tube placement. 89-year-old female with previous CVA now unable to maintain adequate nutrition resulting malnutrition inability to tolerate medications. She is now for upper endoscopy and PEG tube placement. Informed consent was obtained from the patient's family. She was sedated with MAC anesthesia per anesthesia protocol. Patient was placed in left lateral decubitus position the Olympus flexible video upper endoscope was inserted into the oral cavity under direct vision the esophagus was intubated. Findings esophagus normal proximal mid esophageal mucosa distal esophagus normal. Stomach-normal insufflation normal mucosa to direct retroflexed views of the body fundus cardia and antrum the stomach Pylorus-normal Duodenum-normal for the bulb duodenum to the third portion duodenum. Scope was brought back into the stomach and appropriate transillumination was noted on the anterior abdominal wall finger protrusion localize. Area was prepped and draped sterile fashion anesthetized with 1/2 cc of lidocaine. Finder needle was inserted stomach endoscopically visualized. This was removed. Subsequently a 1 cm scalpel incision was made through the skin and through this an 18-gauge Angiocath was positioned in the stomach guidewire was passed grasped with polypectomy snare brought out via the mouth using standard pull traction technique 20 Danish Cook Ponsky style PEG tube was pulled in position and secured. Placed our procedure well she is discharged recovery in good condition. Postop diagnosis: 1. Successful placement of PEG tube. Plan routine post PEG care and institution of tube feedings. Anesthesia: MAC Surgeon / Physician: Ronnie Blair Estimated blood loss: none Specimens: none sent Condition: stable Disposition: post procedure unit Results - Labs CBC & BMP: 01/05/17 04:42 01/04/17 05:28 Discharge Plan - Discharge Medications No Action Dorzolamide/Timolol Oph Soln [Cosopt] 1 drop BOTH EYES DAILY Cholecalciferol (Vitamin D3) [Vitamin D3] 1,000 units PO DAILY Apixaban [Eliquis] 2.5 mg PO BID tablet Polyethylene Glycol Powder [Miralax] 17 gm PO DAILY Rosuvastatin [Crestor] 20 mg PO BEDTIME tablet amLODIPine [Norvasc] 10 mg PO DAILY tablet Insulin Glargine [Lantus] 10 unit SUBCUT BEDTIME HYDROcodone/ACETAMIN 5-325 [[place] 5-325] 1 tablet PO BID MDD 3GM/24H ACETAMINOPHEN Cyproheptadine HCl 2 mg PO BID Acetaminophen Tab [Tylenol Tab] 500 mg PO Q4H PRN PRN Reason: Fever, Headache, Mild Pain Carboxymethylcellulose Sodium [Refresh Liquigel] 1 drops BOTH EYES DAILY Amiodarone Tab [Cordarone Tab] 200 mg PO BID tablet Multivitamin [One Daily Multivitamin] 1 each PO DAILY - Follow Up or Referral - Forms/Instructions
--- NOTE | 2017-01-05 12:52 | Anesthesia Post-Op ---
Anesthesia Post OP - Post Ansesthetic Evaluation Patient seen in post op: Yes Resp: within normal limits CV: within normal limits Mental: within normal limits Temp: within normal limits Ivsm-Pg-Trtihtzid: within normal limits Nausea and Vomiting: within normal limits Pain: within normal limits
[2017-01-05] MEDS: COLLAGENASE OINT 30 GM TUBE TOP SCH (14:33)
[2017-01-05] MEDS: SODIUM HYPOCHLORITE 0.25% IRRIG 473 ML BOTTLE TOP SCH (14:34)
[2017-01-05] MEDS: CARBOXYMETHYLCELLULOSE 1% OPH SOLN BOTH EYES SCH (14:34)
[2017-01-05] MEDS: DESITIN 4OZ/NYSTATIN 15 GRAM MIXTURE PASTE TOP SCH ×2 (14:34→21:54)
[2017-01-05] MEDS: amLODIPine 10 MG TABLET PO SCH (14:36)
[2017-01-05] MEDS: DORZOLAMIDE/TIMOLOL OPH SOLN 10 ML BOTTLE BOTH EYES SCH (14:36)
[2017-01-05] MEDS: ROSUVASTATIN 20 MG TABLET PO SCH (21:53)
[2017-01-05] MEDS: BISACODYL 5 MG TABLET PO SCH (21:53)
[2017-01-06] MEDS: DEXT 5% NACL 0.45% KCL 40 MEQ 40 MEQ/1,000 ML BAG IV SCH ×2 (01:16→14:13)
[2017-01-06 06:34] LABS: Magnesium 1.5 MG/DL (1.8-2.4); Osmolality,Calculated 268.1 MOS/KG (273-304); Potassium 4.2 MMOL/L (3.5-5.1); Prealbumin 12.5 MG/DL (20-40)
[2017-01-06] MEDS: CYPROHEPTADINE 4 MG TABLET PO SCH ×2 (10:06→21:12)
[2017-01-06] MEDS: amLODIPine 10 MG TABLET PO SCH (10:06)
[2017-01-06] MEDS: PANTOPRAZOLE 40 MG TABLET PO SCH (10:07)
[2017-01-06] MEDS: CHOLECALCIFEROL 1,000 UNIT TABLET PO SCH (10:07)
[2017-01-06] MEDS: POTASSIUM CHLORIDE 20 MEQ TABLET PO SCH (10:07)
[2017-01-06] MEDS: MULTIVITAMIN (CENTRUM) TABLET PO SCH (10:07)
[2017-01-06] MEDS: CARBOXYMETHYLCELLULOSE 1% OPH SOLN BOTH EYES SCH (10:08)
[2017-01-06] MEDS: DORZOLAMIDE/TIMOLOL OPH SOLN 10 ML BOTTLE BOTH EYES SCH (10:09)
[2017-01-06] MEDS: MEGESTROL ES 125 MG/ML 30 ML/BOTTLE PO SCH (10:09)
[2017-01-06] MEDS: INSULIN REGULAR 100 UNIT/ML SUBCUT SCH ×4 (10:10→21:13)
[2017-01-06] MEDS: DESITIN 4OZ/NYSTATIN 15 GRAM MIXTURE PASTE TOP SCH ×2 (10:14→21:14)
--- NOTE | 2017-01-06 11:22 | Gastrointestinal Progress Note ---
<Avril Mcfadden Naomi - Last Filed: 01/06/17 11:20> Assessment and Plan (1) Failure to thrive Status: Acute Assessment and plan: 01/06-post PEG placement on yesterday. Site without signs of infection are bleeding. Tolerating tube feedings. Plan an addendum follow by Dr. Blair. 01/04-recent decline in nutritional status with loss of appetite, 30 pound weight loss over last 4-5 weeks. Refusal to eat at times. Discussion had with patient and daughter regarding PEG tube placement. Risks, benefits discussed and all questions answered. We will plan to proceed with PEG placement tomorrow. Plan an addendum to follow by Dr. Blair. Current Visit: Yes Gastroenterology - PN: Subj Interval history: CC: Malnutrition Patient is seen awake and alert with daughter at bedside. States she was a little restless last night due to some abdominal discomfort following PEG tube placement. No complaints of pain other than just some mild tenderness. PEG is patent without drainage, bleeding or redness. Tube feedings have been initiated this morning she is tolerating these well at this time. Abdomen is soft, mild tenderness. ROS: Denies shortness of breath or chest pain. Exam (Progress Note) - Constitutional Vitals: Period Temp Pulse Resp BP Sys/Guerin Pulse Ox Last 24 Hr 98.3 F-99.7 F 54-74 14-22 139-160/57-075 93-100 General appearance: normal weight, no acute distress - Head Head exam: Present: normal inspection, normocephalic - Eye Eye exam: Present: other (Lids and conjunctive are unremarkable). Absent: scleral icterus - ENT ENT exam: Present: normal exam, normal oropharynx - Neck Neck exam: Present: normal inspection - Respiratory Respiratory exam: Present: clear to auscultation bilaterally. Absent: rales, rhonchi, wheezes - Cardiovascular Cardiovascular exam: Present: regular rate and rhythm. Absent: diastolic murmur , JVD, systolic murmur - GI/Abdominal GI/Abdominal exam: Present: normal bowel sounds, soft. Absent: ascites, distended, mass, organomegaly, tenderness - Extremities Exam Extremities exam: Present: normal inspection, full ROM - Back Exam Back exam: Present: normal inspection - Neurological Exam Neurological exam: Present: alert, altered - Psychiatric Psychiatric exam: Present: normal affect, normal mood - Skin Skin exam: Present: normal color, warm, dry Results - Labs CBC & BMP: 01/05/17 04:42 01/06/17 05:34 Lab Results: I have reviewed the past 24 hour labs <Ronnie Blair - Last Filed: 01/06/17 14:33> Exam (Progress Note) - Constitutional Vitals: Period Temp Pulse Resp BP Sys/Guerin Pulse Ox Last 24 Hr 98.2 F-99.7 F 62-74 14-22 139-152/61-77 91-98 Results - Labs CBC & BMP: 01/05/17 04:42 01/06/17 05:34
--- NOTE | 2017-01-06 12:03 | Hospitalist Progress Note ---
Assessment and Plan (1) Weakness Status: Acute Assessment and plan: s/p peg placement yesterday, tolerating tube feeds Current Visit: Yes (2) CVA (cerebral vascular accident) Status: Chronic Current Visit: No Qualifiers: CVA mechanism: embolism (3) Abscess of right axilla Status: Acute Current Visit: No (4) Breast cancer Status: Acute Current Visit: No (5) Decubitus ulcer of both heels, unstageable Status: Chronic Current Visit: Yes Hospitalist: Subjective Interval history: No acute events overnight. Patient now with peg tolerating tube feeds. Social work to discuss hospice with daughter. Exam - Constitutional Vitals: Period Temp Pulse Resp BP Sys/Guerin Pulse Ox Last 24 Hr 98.3 F-99.7 F 54-74 14-22 139-160/57-075 93-100 General appearance: normal weight - Head Head exam: Present: normocephalic, atraumatic - Eye Eye exam: Present: EOMI Pupils: Present: TRINIDAD - ENT ENT exam: Present: normal exam - Neck Neck exam: Present: normal inspection - Respiratory Respiratory exam: Present: clear to auscultation bilaterally. Absent: wheezes - Cardiovascular Cardiovascular exam: Present: irregular rhythm - GI/Abdominal GI/Abdominal exam: Present: normal bowel sounds, other (peg in place, no erythema) - Back Exam Back exam: Present: normal inspection - Neurological Exam Neurological exam: Present: altered - Skin Skin exam: Present: warm, intact Results - Labs CBC & BMP: 01/05/17 04:42 01/06/17 05:34 Quality Measures - VTE Contraindication to Pharmacological VTE Prophylaxis: High Risk of Bleeding
--- NOTE | 2017-01-06 13:44 | Event Note ---
01/06/2017. Patient has had the PEG tube placed and has started on tube feedings now. The ulcers of both heels are clean and moist not dry no eschar necrotic tissue present at this time. Will maintain present care to these areas.
[2017-01-06] MEDS: oxyCODONE/ACETAMINOPHEN 5-325 MG TABLET PO PRN (14:11)
[2017-01-06] MEDS: SODIUM HYPOCHLORITE 0.25% IRRIG 473 ML BOTTLE TOP SCH (14:12)
[2017-01-06] MEDS: COLLAGENASE OINT 30 GM TUBE TOP SCH (14:13)
[2017-01-06] MEDS: ROSUVASTATIN 20 MG TABLET PO SCH (21:13)
[2017-01-06] MEDS: BISACODYL 5 MG TABLET PO SCH (21:13)
[2017-01-07] MEDS: PANTOPRAZOLE 40 MG TABLET PO SCH (09:39)
[2017-01-07] MEDS: CHOLECALCIFEROL 1,000 UNIT TABLET PO SCH (09:39)
[2017-01-07] MEDS: MULTIVITAMIN (CENTRUM) TABLET PO SCH (09:39)
[2017-01-07] MEDS: DORZOLAMIDE/TIMOLOL OPH SOLN 10 ML BOTTLE BOTH EYES SCH (09:40)
[2017-01-07] MEDS: CYPROHEPTADINE 4 MG TABLET PO SCH ×2 (09:40→21:02)
[2017-01-07] MEDS: amLODIPine 10 MG TABLET PO SCH (09:40)
[2017-01-07] MEDS: SODIUM HYPOCHLORITE 0.25% IRRIG 473 ML BOTTLE TOP SCH (09:40)
[2017-01-07] MEDS: CARBOXYMETHYLCELLULOSE 1% OPH SOLN BOTH EYES SCH (09:40)
[2017-01-07] MEDS: DESITIN 4OZ/NYSTATIN 15 GRAM MIXTURE PASTE TOP SCH ×2 (09:41→21:03)
[2017-01-07] MEDS: COLLAGENASE OINT 30 GM TUBE TOP SCH (09:41)
[2017-01-07] MEDS: MEGESTROL ES 125 MG/ML 30 ML/BOTTLE PO SCH (09:48)
[2017-01-07] MEDS: POTASSIUM CHLORIDE 20 MEQ TABLET PO SCH (09:48)
[2017-01-07] MEDS: INSULIN REGULAR 100 UNIT/ML SUBCUT SCH ×4 (10:05→21:59)
--- NOTE | 2017-01-07 14:18 | Hospitalist Progress Note ---
Assessment and Plan (1) Weakness Status: Acute Assessment and plan: s/p peg placement 01/05/17, tolerating tube feeds Current Visit: Yes (2) CVA (cerebral vascular accident) Status: Chronic Current Visit: No Qualifiers: CVA mechanism: embolism (3) Abscess of right axilla Status: Acute Current Visit: No (4) Breast cancer Status: Acute Current Visit: No (5) Decubitus ulcer of both heels, unstageable Status: Chronic Assessment and plan: Surgery managing Current Visit: Yes Hospitalist: Subjective Interval history: No acute events overnight. Patient oriented to person only. Tolerating tube feeds. Exam - Constitutional Vitals: Period Temp Pulse Resp BP Sys/Guerin Pulse Ox Last 24 Hr 97.7 F-98.5 F 66-74 18-24 136-152/63-73 91-95 General appearance: normal weight - Head Head exam: Present: normocephalic, atraumatic - Eye Eye exam: Present: EOMI Pupils: Present: TRINIDAD - ENT ENT exam: Present: normal exam - Neck Neck exam: Present: normal inspection - Respiratory Respiratory exam: Present: clear to auscultation bilaterally. Absent: rhonchi, wheezes - Cardiovascular Cardiovascular exam: Present: regular rate and rhythm - GI/Abdominal GI/Abdominal exam: Present: normal bowel sounds, soft. Absent: tenderness, rebound - Extremities Exam Extremities exam: Present: normal inspection - Back Exam Back exam: Present: normal inspection - Neurological Exam Neurological exam: Present: alert - Psychiatric Psychiatric exam: Present: normal affect, normal mood - Skin Skin exam: Present: warm, intact Results - Labs CBC & BMP: 01/05/17 04:42 01/06/17 05:34 Quality Measures - VTE Contraindication to Pharmacological VTE Prophylaxis: High Risk of Bleeding
[2017-01-07] MEDS: ROSUVASTATIN 20 MG TABLET PO SCH (21:02)
[2017-01-07] MEDS: BISACODYL 5 MG TABLET PO SCH (21:03)
[2017-01-08] MEDS: SODIUM HYPOCHLORITE 0.25% IRRIG 473 ML BOTTLE TOP SCH (10:27)
[2017-01-08] MEDS: POTASSIUM CHLORIDE 20 MEQ TABLET PO SCH (10:27)
[2017-01-08] MEDS: MULTIVITAMIN (CENTRUM) TABLET PO SCH (10:27)
[2017-01-08] MEDS: MEGESTROL ES 125 MG/ML 30 ML/BOTTLE PO SCH (10:27)
[2017-01-08] MEDS: DORZOLAMIDE/TIMOLOL OPH SOLN 10 ML BOTTLE BOTH EYES SCH (10:27)
[2017-01-08] MEDS: CARBOXYMETHYLCELLULOSE 1% OPH SOLN BOTH EYES SCH (10:28)
[2017-01-08] MEDS: amLODIPine 10 MG TABLET PO SCH (10:28)
[2017-01-08] MEDS: CHOLECALCIFEROL 1,000 UNIT TABLET PO SCH (10:28)
[2017-01-08] MEDS: COLLAGENASE OINT 30 GM TUBE TOP SCH (10:28)
[2017-01-08] MEDS: DESITIN 4OZ/NYSTATIN 15 GRAM MIXTURE PASTE TOP SCH ×2 (10:28→21:09)
[2017-01-08] MEDS: PANTOPRAZOLE 40 MG TABLET PO SCH (10:28)
[2017-01-08] MEDS: CYPROHEPTADINE 4 MG TABLET PO SCH ×2 (10:28→21:08)
[2017-01-08] MEDS: INSULIN REGULAR 100 UNIT/ML SUBCUT SCH ×4 (11:20→21:08)
--- NOTE | 2017-01-08 16:39 | Hospitalist Progress Note ---
Assessment and Plan (1) Weakness Status: Acute Assessment and plan: s/p peg placement 01/05/17, tolerating tube feeds Current Visit: Yes (2) CVA (cerebral vascular accident) Status: Chronic Current Visit: No Qualifiers: CVA mechanism: embolism (3) Abscess of right axilla Status: Acute Current Visit: No (4) Breast cancer Status: Acute Current Visit: No (5) Decubitus ulcer of both heels, unstageable Status: Chronic Assessment and plan: Surgery managing Current Visit: Yes Hospitalist: Subjective Interval history: No acute events overnight. Patient remains confused. Plan is for discharge tomorrow. Exam - Constitutional Vitals: Period Temp Pulse Resp BP Sys/Guerin Pulse Ox Last 24 Hr 97.6 F-99.1 F 62-76 18-20 121-138/58-70 94-98 General appearance: normal weight - Head Head exam: Present: normocephalic, atraumatic - Eye Eye exam: Present: EOMI Pupils: Present: TRINIDAD - ENT ENT exam: Present: normal exam - Neck Neck exam: Present: normal inspection - Respiratory Respiratory exam: Present: clear to auscultation bilaterally. Absent: rhonchi, wheezes - Cardiovascular Cardiovascular exam: Present: regular rate and rhythm - GI/Abdominal GI/Abdominal exam: Present: normal bowel sounds, soft. Absent: tenderness, rebound - Extremities Exam Extremities exam: Present: normal inspection - Back Exam Back exam: Present: normal inspection - Neurological Exam Neurological exam: Present: alert - Psychiatric Psychiatric exam: Present: normal affect, normal mood - Skin Skin exam: Present: warm, intact Results - Labs CBC & BMP: 01/05/17 04:42 01/06/17 05:34 Quality Measures - VTE Contraindication to Pharmacological VTE Prophylaxis: High Risk of Bleeding
[2017-01-08] MEDS: BISACODYL 5 MG TABLET PO SCH (21:08)
[2017-01-08] MEDS: ROSUVASTATIN 20 MG TABLET PO SCH (21:08)
[2017-01-09 06:21] LABS: Calcium 9.5 MG/DL (8.5-10.1); Osmolality,Calculated 285.3 MOS/KG (273-304); Phosphorous 3.1 MG/DL (2.5-4.9); Potassium 3.8 MMOL/L (3.5-5.1); Prealbumin 17.1 MG/DL (20-40)
[2017-01-09] MEDS: INSULIN REGULAR 100 UNIT/ML SUBCUT SCH ×4 (08:05→20:26)
[2017-01-09] MEDS: CARBOXYMETHYLCELLULOSE 1% OPH SOLN BOTH EYES SCH (08:23)
[2017-01-09] MEDS: amLODIPine 10 MG TABLET PO SCH (08:25)
[2017-01-09] MEDS: CYPROHEPTADINE 4 MG TABLET PO SCH ×2 (08:25→20:18)
[2017-01-09] MEDS: PANTOPRAZOLE 40 MG TABLET PO SCH (08:25)
[2017-01-09] MEDS: MULTIVITAMIN (CENTRUM) TABLET PO SCH (08:25)
[2017-01-09] MEDS: POTASSIUM CHLORIDE 20 MEQ TABLET PO SCH (08:25)
[2017-01-09] MEDS: CHOLECALCIFEROL 1,000 UNIT TABLET PO SCH (08:25)
[2017-01-09] MEDS: MEGESTROL ES 125 MG/ML 30 ML/BOTTLE PO SCH (08:31)
[2017-01-09] MEDS: DORZOLAMIDE/TIMOLOL OPH SOLN 10 ML BOTTLE BOTH EYES SCH (08:31)
[2017-01-09] MEDS: DESITIN 4OZ/NYSTATIN 15 GRAM MIXTURE PASTE TOP SCH ×2 (09:26→20:25)
[2017-01-09] MEDS: SODIUM HYPOCHLORITE 0.25% IRRIG 473 ML BOTTLE TOP SCH (09:26)
[2017-01-09] MEDS: COLLAGENASE OINT 30 GM TUBE TOP SCH (09:27)
--- NOTE | 2017-01-09 10:52 | Discharge Summary ---
<Severo Onofre - Last Filed: 01/09/17 10:34> Hospital Course - Hospital Course Hospital Course: This is a chronically ill 89-year-old female that presented to the ED at [facility] on December 21, 2016 via EMS from [facility] for evaluation of chest pain. The patient has a very extensive medical history significant for hypertension, peripheral vascular disease, [id number] diabetes mellitus, carcinoma of the breast, cerebrovascular accident, and atrial fibrillation. No surgical history reported at the time of encounter. The patient reported abdominal pain and constipation at the time of presentation over several days. The patient's daughter was present at bedside and also reported a decrease in the patient's p.o. intake. Labs were obtained at the time of presentation which reported a slight elevation in her white blood cell count at 12.8 and hypokalemia with a potassium noted at 2.7. Chest x-ray was was ordered which reported small perihilar opacities which possibly reflected atelectasis or an early consolidative process such as pneumonia or pulmonary edema. CT of the abdomen and pelvis reported a mild dependent density within the bladder which could represent bladder stones, decrease and/or blood products, minimal scattered opacities within both lung zones mainly within the lower lobes, no evidence of bowel obstruction however evidence of constipation, bilateral renal cysts were present, and prominent atherosclerotic changes. 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 The patient was subsequently admitted to the hospitalist services for continuation of care. At the time of admission, the patient was noted to have unstageable ulcerations to her bilateral heels; a surgical consult was requested for evaluation of these areas. On December 30, 2016, the patient subsequently underwent an uneventful excisional debridement of the left heel. A cardiology consult was requested for the management of atrial fibrillation and anticoagulation. The patient's p.o. intake remained poor with a reported weight loss of 30 pounds over the past 4-5 weeks. A gastroenterology consult was requested. On January 05, 2017, the patient underwent percutaneous endoscopic tube placement and enteral feedings were started. She has tolerated tube feedings well. She has now reached maximal benefit of inpatient stay and will be discharged to [facility] for continuation of care. Her daughter reports that after completion of the eleven days of [employer] that she has already paid for, she will take the patient home with hospice. Discharge Plan - Discharge Data Disposition: Disch/Xfer to Snf - Discharge Medications New Insulin Regular [HumuLIN R] See Protocol SUBCUT ACHS unit Continue Dorzolamide/Timolol Oph Soln [Cosopt] 1 drop BOTH EYES DAILY Cholecalciferol (Vitamin D3) [Vitamin D3] 1,000 units PO DAILY Rosuvastatin [Crestor] 20 mg PO BEDTIME tablet amLODIPine [Norvasc] 10 mg PO DAILY tablet HYDROcodone/ACETAMIN 5-325 [[place] 5-325] 1 tablet PO BID MDD 3GM/24H ACETAMINOPHEN Cyproheptadine HCl 2 mg PO BID Acetaminophen Tab [Tylenol Tab] 500 mg PO Q4H PRN PRN Reason: Fever, Headache, Mild Pain Carboxymethylcellulose Sodium [Refresh Liquigel] 1 drops BOTH EYES DAILY Multivitamin [One Daily Multivitamin] 1 each PO DAILY Discontinued Apixaban [Eliquis] 2.5 mg PO BID tablet Polyethylene Glycol Powder [Miralax] 17 gm PO DAILY Insulin Glargine [Lantus] 10 unit SUBCUT BEDTIME Amiodarone Tab [Cordarone Tab] 200 mg PO BID tablet - Follow Up or Referral - Forms/Instructions Exam - Constitutional Vitals: Period Temp Pulse Resp BP Sys/Guerin Pulse Ox Last 24 Hr 97.9 F-98.7 F 54-58 16-20 131-145/50-63 94-99 Discharge Results Labs on day of discharge: Labs from last 24 hours 01/10/17 01/09/17 01/09/17 07:18 19:56 16:51 POC Glucose 142 H 138 H 149 H 01/09/17 12:02 POC Glucose 160 H DS: Provider Date of admission: 12/21/16 15:12 Primary care physician: . No PCP Attending physician on admission: Sia Puente MD Consults: 12/21/16 16:49 Consult to Case Mgmt/Social Srvs [CONS] Routine Reason for Case Mgmt/Social Srvs: Discharge Planning Swingbed/SNF/Snf Consult to Dietitian [CONS] Routine Reason for Dietitian: Dietary Consult Consult to Occupational Therapy [CONS] Routine Reason for Occupational Therapy: Evaluate and Treat Weakness Consult to Physical Therapy [CONS] Routine Reason for Physical Therapy: Evaluate and Treat Consult to Wound Care - [place] [CONS] Routine Reason for Wound Care: Wound Care Management 12/21/16 18:47 Consult to Dietitian [CONS] Routine Reason for Dietitian: Other 12/28/16 10:34 Consult to Physician [CONS] Routine Comment: patient known to you; bilat heel breakdown Consulting Provider: Parvez Torres When should Consulting Provider be notified: Now Person Notified: neal Date Notified: 12/28/16 Time Notified: 10:58 12/29/16 09:20 Consult to Anesthesiology [CONS] Routine Consulting Provider: Reason for Anesthesiology: Pre-op Clearance 12/29/16 13:00 Consult to Physician [CONS] Routine Comment: Consulting Provider: Cardiology - [facility] Consult to Specialist Group: Cardiology When should Consulting Provider be notified: Now Person Notified: mikael Date Notified: 12/29/16 Time Notified: 13:32 12/31/16 10:56 Consult to Dietitian [CONS] Routine Reason for Dietitian: Diet Recommendations Supplements and/or Snacks 01/04/17 09:51 Consult to Physician [CONS] Routine Comment: huy out of [facility] Consulting Provider: Ronnie Blair Consult to Specialist Group: Gastroenterology When should Consulting Provider be notified: Now Person Notified: CHAKA Date Notified: 01/04/17 Time Notified: 10:58 Consult Notification Comment: DR. BLAIR AND HUY SWAPPED DAYS. Patient is not eating and family has consented to a PEG tube 01/05/17 12:45 Consult to Dietitian [CONS] Routine Reason for Dietitian: TF-Initiate/Manage Consult Comment: Tube feeding recommendations Discharging clinician: Severo Onofre CNP <Arabella Augustine - Last Filed: 01/10/17 10:02> Hospital Course - Time spent with patient Time with patient DS: Greater than 30 minutes (40) Diagnosis - Discharge Diagnosis (1) Weakness Status: Acute (2) CVA (cerebral vascular accident) Status: Chronic (3) Abscess of right axilla Status: Acute (4) Breast cancer Status: Acute (5) Decubitus ulcer of both heels, unstageable Status: Chronic Discharge Plan - Discharge Data Condition at Discharge: Stable Discharge Diet: advance to your usual diet Activity: as per physical therapy Hygiene: no restrictions Weight Bearing at Discharge: weight bear as tolerated Exam - Constitutional General appearance: over weight - Head Head exam: Present: normocephalic, atraumatic - Eye Eye exam: Present: EOMI Pupils: Present: TRINIDAD - ENT ENT exam: Present: normal exam - Neck Neck exam: Present: normal inspection - Respiratory Respiratory exam: Present: clear to auscultation bilaterally. Absent: wheezes - Cardiovascular Cardiovascular exam: Present: regular rate and rhythm - GI/Abdominal GI/Abdominal exam: Present: normal bowel sounds, soft. Absent: tenderness, rebound - Extremities Exam Extremities exam: Present: normal inspection - Back Exam Back exam: Present: normal inspection - Neurological Exam Neurological exam: Present: alert - Psychiatric Psychiatric exam: Present: normal affect, normal mood - Skin Skin exam: Present: warm, intact
--- NOTE | 2017-01-09 14:38 | Hospitalist Progress Note ---
Assessment and Plan (1) Weakness Status: Acute Assessment and plan: s/p peg placement 01/05/17, tolerating tube feeds Current Visit: Yes (2) CVA (cerebral vascular accident) Status: Chronic Current Visit: No Qualifiers: CVA mechanism: embolism (3) Abscess of right axilla Status: Acute Current Visit: No (4) Breast cancer Status: Acute Current Visit: No (5) Decubitus ulcer of both heels, unstageable Status: Chronic Assessment and plan: Surgery managing Current Visit: Yes Hospitalist: Subjective Interval history: No acute events overnight. This morning patient lethargic, daughter became very worried. She had a good strong pulse and visible respirations. She has since been more awake. To assisted tomorrow. Exam - Constitutional Vitals: Period Temp Pulse Resp BP Sys/Guerin Pulse Ox Last 24 Hr 97.4 F-98.6 F 58-79 16-20 128-137/54-71 94-98 General appearance: over weight - Head Head exam: Present: normocephalic, atraumatic - Eye Eye exam: Present: EOMI Pupils: Present: TRINIDAD - ENT ENT exam: Present: normal exam - Neck Neck exam: Present: normal inspection - Respiratory Respiratory exam: Present: clear to auscultation bilaterally. Absent: rhonchi, wheezes - Cardiovascular Cardiovascular exam: Present: regular rate and rhythm - GI/Abdominal GI/Abdominal exam: Present: normal bowel sounds, soft - Extremities Exam Extremities exam: Present: normal inspection - Back Exam Back exam: Present: normal inspection - Neurological Exam Neurological exam: Present: other (lethargic) - Psychiatric Psychiatric exam: Absent: agitated, anxious - Skin Skin exam: Present: warm, intact Results - Labs CBC & BMP: 01/05/17 04:42 01/09/17 05:14 Quality Measures - VTE Contraindication to Pharmacological VTE Prophylaxis: High Risk of Bleeding
[2017-01-09] MEDS: ACETAMINOPHEN 325 MG TABLET PO PRN (16:50)
[2017-01-09] MEDS: BISACODYL 5 MG TABLET PO SCH (20:18)
[2017-01-09] MEDS: ROSUVASTATIN 20 MG TABLET PO SCH (20:18)
[2017-01-10] MEDS: INSULIN REGULAR 100 UNIT/ML SUBCUT SCH ×2 (08:39→12:38)
[2017-01-10] MEDS: CYPROHEPTADINE 4 MG TABLET PO SCH (10:06)
[2017-01-10] MEDS: MULTIVITAMIN (CENTRUM) TABLET PO SCH (10:06)
[2017-01-10] MEDS: POTASSIUM CHLORIDE 20 MEQ TABLET PO SCH (10:06)
[2017-01-10] MEDS: amLODIPine 10 MG TABLET PO SCH (10:07)
[2017-01-10] MEDS: PANTOPRAZOLE 40 MG TABLET PO SCH (10:07)
[2017-01-10] MEDS: CARBOXYMETHYLCELLULOSE 1% OPH SOLN BOTH EYES SCH (10:07)
[2017-01-10] MEDS: CHOLECALCIFEROL 1,000 UNIT TABLET PO SCH (10:07)
[2017-01-10] MEDS: MEGESTROL ES 125 MG/ML 30 ML/BOTTLE PO SCH (10:08)
[2017-01-10] MEDS: DORZOLAMIDE/TIMOLOL OPH SOLN 10 ML BOTTLE BOTH EYES SCH (10:08)
[2017-01-10] MEDS: SODIUM HYPOCHLORITE 0.25% IRRIG 473 ML BOTTLE TOP SCH (10:08)
[2017-01-10] MEDS: DESITIN 4OZ/NYSTATIN 15 GRAM MIXTURE PASTE TOP SCH (12:00)
[2017-01-10] MEDS: COLLAGENASE OINT 30 GM TUBE TOP SCH (12:00)
[2017-01-10 15:21] VITALS: BP 150/60
--- NOTE | 2017-01-16 16:17 | Physician Query Form ---
CLICK EDIT DOCUMENT TO SELECT QUERY ANSWER --> OK --> SIGN Trixie Arce RN Clinical Administrative Assistant Receptionist W) [phone] (f) [phone] [email or web address] PROVIDERS: Make your selection(s) from the choices in EACH section by typing an "x" and enter comments in the comment section. Please use your independent medical judgment in providing your response. This request does not imply that any particular answer is desired or expected. CLINICAL INDICATORS: (Providers should not edit this section) Based on documentation of "Possible urinary tract infection", urinalysis showed large amount of leukocytes. Urine culture showed pseudomonas aeruginosa. Pt. treated with IV Rocephin. Diagnosis: UTI Please clarify the following: ( ) The above diagnosis was monitored, evaluated, and/or treated and is a confirmed diagnosis ( ) The above diagnosis was ruled out ( x) Other, please specify: Acute cystitis due to Pseudomonas ( ) Clinically unable to determine COMMENTS: PLEASE ALSO DOCUMENT RESPONSE IN PROGRESS NOTES AND/OR DISCHARGE SUMMARY Use of terms such as suspected, likely, or probable (associated with a specific diagnosis that is being evaluated, monitored, or treated as if it exists) are acceptable and can be restated in the discharge summary if not ruled out. [facility]
== END 2017-01-10 12:30 | DRG 166 ==
LOC: EDBD → EDUNIT# → N.ED 09:39 → N.EDINP 15:12 → SUATTDRO 15:12 → N.2E 17:41
PROVIDERS: ADMIT Pediatrics; ATTEND Internal Medicine
PROC: EGDWPEG (ICD-10-PCS; 2017-01-05 09:05)